=== PATIENT | female | born 1945 | race Caucasian/White ===

== ENCOUNTER 2019-01-18 13:34 | Emergency (ER) | payer MEDICARE, OTHER ==
[2019-01-18] MEDS ORDERED: Sodium Chloride 0.9% 1,000 ML IV ONE (14:00)
[2019-01-18] MEDS ORDERED: Sodium Chloride 0.9% 10 ML Syringe FLUSH PRN (14:00)
[2019-01-18 18:55] VITALS: BP 140/56
--- NOTE | 2019-01-19 04:46 | EDM.PDOC ---
ED HPI GENERAL MEDICAL PROBLEM - General Chief Complaint: General Stated Complaint: LIGHT HEADED LOW BP Time Seen by Provider: 01/18/19 14:00 Source of Information: Reports: Patient History Limitations: Reports: No Limitations - History of Present Illness INITIAL COMMENTS - FREE TEXT/NARRATIVE: This pleasant 73-year-old woman with lupus erythematosus and chronic kidney disease was seen by Dr. Obrien 9:30 today and [facility]azar and had recent right renal artery stent placed. She had myocardial infarction process 18 with 2 stents placed. Hypertension. She is noted to have a blood pressure that small in the right arm behind her left arm. She's not had aneurysm studies. She was seen last Monday. Known to have a blockage of her kidneys. She did not want dialysis consequently a stent was placed 12/28/18 also was needing to have [facility] states that her neck but the [facility] surgeons platform engineer team chose not to do anything until she has resolution of her renal status. Chief complaint today was that she on getting up to make coffee she felt slightly lightheaded laid down drank some water still felt lightheaded when she got up. She took her meds at 9:00. And still feels slightly lightheaded now. She is worried about the differential blood pressure arm. - Related Data Allergies Allergy/AdvReac Type Severity Reaction Status Date / Time No Known Allergies Allergy Verified 01/18/19 14:52 Home Meds: Home Meds Hydroxychloroquine [Plaquenil] 200 mg PO BID 12/17/15 [History] Acetaminophen 650 mg PO Q6H PRN 11/01/18 [History] Albuterol [Ventolin HFA] 2 puff .XX Q4H PRN 11/01/18 [History] Aspirin [Halfprin] 81 mg PO DAILY 11/01/18 [History] Budesonide/Formoterol Fumarate [Symbicort 160-4.5 Mcg Inhaler] 2 puff IH BID 05/14 [History] Calcitriol [Rocaltrol] 0.25 mcg PO DAILY 11/01/18 [History] Carvedilol [Coreg] 3.125 mg PO BID 11/01/18 [History] Clopidogrel [Plavix] 75 mg PO DAILY 11/01/18 [History] Loratadine [Claritin] 10 mg PO DAILY PRN 11/01/18 [History] Triamcinolone Acetonide [Triamcinolone Acetonide 0.1% Crm] 0 tub TOP TID PRN 05/14 [History] Fluticasone Propionate [Flonase] 2 spray NS DAILY 01/18/19 [History] Isosorbide Dinitrate 5 mg PO TID 01/18/19 [History] Losartan [Cozaar] 12.5 mg PO DAILY 01/18/19 [History] Nitroglycerin 0.4 mg SL TID PRN 01/18/19 [History] Rosuvastatin [Crestor] 20 mg PO DAILY 01/18/19 [History] Past Medical History Cardiovascular History: Reports: Aneurysm, Heart Murmur, High Cholesterol, Hypertension, [place], Prior Cardiac Arrest, SOB on Exertion, Syncope Respiratory History: Reports: Sleep Apnea, SOB Gastrointestinal History: Reports: Other (See Below) Other Gastrointestinal History: CRAMPING,DIAHHREA 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 Musculoskeletal History: Reports: Arthritis, Back Pain, Chronic, Fracture Neurological History: Reports: Migraines, Vertigo Dermatologic History: Reports: Other (See Below) Other Dermatologic History: Lupus - Past Surgical History HEENT Surgical History: Reports: Adenoidectomy, Cataract Surgery, Oral Surgery, Tonsillectomy Cardiovascular Surgical History: Reports: Aneurysm, Other (See Below) Female Surgical History: Reports: Hysterectomy, Tubal Ligation Social & Family History - Family History Family Medical History: Noncontributory - Tobacco Use Smoking Status *Q: Former Smoker Used Tobacco, but Quit: Yes Month/Year Tobacco Last Used: October 2018 - Caffeine Use Caffeine Use: Reports: Coffee, Soda - Recreational Drug Use Recreational Drug Use: No ED ROS GENERAL - Review of Systems Review Of Systems: ROS reveals no pertinent complaints other than HPI. ED EXAM, GENERAL - Physical Exam Exam: See Below Free Text/Narrative:: Pleasant talkative woman who is a thankful for her laceration repair performed in December that I performed. She thanked me for this. The juventino border is exquisitely intact and the complement was greeted with great deal of personal satisfaction. He wonders why she has variable arm blood pressures and felt lightheaded. She denies chest pain shortness of breath cough back pain neck pain or pain. She denies sore throat fever sinus congestion URI bowel changes ore pain. Since she's had her renal stent placement in Dec 28 is Passing more urine.She feels that she has better control of the swelling of her ankles. and has appreciated improvement of her renal status. She has chronic lupus and is taking plaquinil Chief complaint today lightheadedness. On getting observation rate coffee and felt slightly dizzy shabbily to get the collar. She lay down or water got up and still felt lightheaded presents to ED for evaluation for lightheadedness. Exam Limited By: No Limitations General Appearance: Alert, WD/WN, No Apparent Distress Eye Exam: Bilateral Eye: Normal Inspection Ear Exam: Bilateral Ear: Auricle Normal, Canal Normal, TM normal Nose: Normal Inspection Throat/Mouth: Normal Inspection, Normal Lips, Normal Teeth, Normal Gums, Normal Oropharynx, Normal Voice, No Airway Compromise Head: Atraumatic, Normocephalic Neck: Normal Inspection, Supple, Non-Tender Respiratory/Chest: No Respiratory Distress, Lungs Clear, Normal Breath Sounds, No Accessory Muscle Use, Chest Non-Tender, Respiratory Distress Cardiovascular: Normal Peripheral Pulses, Regular Rate, Rhythm, No Edema, No Gallop, No JVD, No Murmur Peripheral Pulses: 1+: Radial (L), Radial (R) GI/Abdominal: Normal Bowel Sounds, Soft, Non-Tender, No Distention, No Abnormal Bruit (Female) Exam: Normal External Exam, Deferred Rectal (Female) Exam: Deferred Back Exam: Normal Inspection, Full Range of Motion Extremities: Normal Inspection, Normal Range of Motion, Non-Tender, Pedal Edema Neurological: Alert, Oriented, CN II-XII Intact, Normal Cognition, Normal Gait, Normal Reflexes, No Motor/Sensory Deficits Psychiatric: Normal Affect, Normal Mood Skin Exam: Warm, Dry, Intact, Normal Color Lymphatic: No Adenopathy Course - Vital Signs Last Recorded V/S: Last Vital Signs Temp 36.4 C 01/18/19 13:45 Pulse 65 01/18/19 13:45 Resp 18 01/18/19 13:45 BP 140/56 L 01/18/19 13:45 Pulse Ox 100 01/18/19 13:45 Orthostatic Blood Pressure [ 73/49 Standing] Orthostatic Blood Pressure [ 104/64 Sitting] Orthostatic Blood Pressure [ 140/56 Supine] - Orders/Labs/Meds Orders: Active Orders 24 hr Category Date Time Status Orthostatic Vital Signs [RC] ASDIRECTED Care 01/18/19 13:30 Active Peripheral IV Insertion Adult [OM.PC] Routine Oth 01/18/19 14:00 Ordered Labs: Laboratory Tests 01/18/19 Range/Units 14:50 Sodium 140 (135-145) mmol/L Potassium 3.5 (3.5-5.3) mmol/L Chloride 105 (100-110) mmol/L Carbon Dioxide 26 (21-32) mmol/L BUN 35 H (7-18) mg/dL Creatinine 1.9 H (0.55-1.02) mg/dL Est Cr Clr Drug Dosing TNP Estimated GFR (MDRD) 26 L (>60) BUN/Creatinine Ratio 18.4 (9-20) Glucose 98 (80-116) mg/dL Calcium 8.3 L (8.6-10.2) mg/dL Total Bilirubin 0.6 (0.1-1.3) mg/dL AST 26 H D (5-25) IU/L ALT 13 D (12-36) U/L Alkaline Phosphatase 72 (56-112) IU/L Total Protein 6.4 (6.0-8.0) g/dL Albumin 2.4 L (3.2-4.6) g/dL Globulin 4.0 g/dL Albumin/Globulin Ratio 0.6 Meds: Medications Discontinued Medications Generic Name Dose Route Start Last Admin Trade Name Freq PRN Reason Stop Dose Admin Sodium Chloride 1,000 mls @ 999 mls/hr 01/18/19 14:00 01/18/19 14:00 Normal Saline IV 01/18/19 15:00 999 mls/hr ONETIME ONE Administration Sodium Chloride 10 ml 01/18/19 14:00 01/18/19 14:00 Saline Flush FLUSH 10 ml ASDIRECTED PRN Administration Keep Vein Open Departure - Departure Time of Disposition: 14:00 (Patient is dehydrated and has orthostatic hypotension. She dramatically better with liter N saline. Patient dismissed to follow up 1 week. She also has regular vascular pathology with asymmetrical extremity pulses and blood pressures and has recent renal stent placed because of breath necrosis renal arteries. An top that she has lupus treated with Plaquenil and chronic obstructive lung disease coronary disease dyslipidemia COPD) Disposition: Home, Self-Care 01 Condition: Good Clinical Impression: Dehydration, Lightheadedness, Orthostatic hypotension, Renal artery stenosis - Discharge Information *PRESCRIPTION DRUG MONITORING PROGRAM REVIEWED*: Not Applicable *COPY OF PRESCRIPTION DRUG MONITORING REPORT IN PATIENT VALERI: Not Applicable Instructions: Dehydration, Adult, [id number] Referrals: Horace Santo MD [Primary Care Provider] - Forms: ED Department Discharge Additional Instructions: You have chronic kidney disease. Today's symptoms are function of dehydration. You have abnormal blood pressure in ears left and right arms because of atherosclerotic changes in your circulation to both upper extremities. You also have abnormality of left carotid ,a large loud bruit. That's caused by the same. Your kidney doctor did you by getting the stent in place. YOU will need further investigation and follow-up regarding your neck circulation and upper extremity circulation abnormalities. Most important your doctors have taken care of the first priority, your kidneys. There are obviously planning to work on your other vascular abnormalities. The sure you drink at least 2 quarts of water/liquids/coffee and/or fluids a day. Follow-up with your doctor in a week and/or as needed. - My Orders Last 24 Hours: My Active Orders 01/18/19 13:30 Orthostatic Vital Signs [RC] ASDIRECTED 01/18/19 14:00 Peripheral IV Insertion Adult [OM.PC] Routine - Assessment/Plan Last 24 Hours: My Active Orders 01/18/19 13:30 Orthostatic Vital Signs [RC] ASDIRECTED 01/18/19 14:00 Peripheral IV Insertion Adult [OM.PC] Routine
== END 2019-01-18 15:46 | disposition home or self-care (01) ==
LOC: FB.ED 13:34
DX: E86.0 Dehydration (principal); I95.1 Orthostatic hypotension; I70.1 Atherosclerosis of renal artery; E78.00 Pure hypercholesterolemia, unspecified; I10 Essential (primary) hypertension; I25.2 Old myocardial infarction; Z87.891 Personal history of nicotine dependence; Z79.899 Other long term (current) drug therapy; Z79.01 Long term (current) use of anticoagulants
CPT/HCPCS: 36415; 80053; 96360; 99284; J7030

== ENCOUNTER 2019-03-17 22:15 | Emergency (ER) | payer MEDICARE, OTHER ==
[2019-03-17] MEDS ORDERED: hydrALAZINE 20 MG/ML SDV IM ONE (22:25)
--- NOTE | 2019-03-17 22:47 | EDM.PDOC ---
ED HPI GENERAL MEDICAL PROBLEM - General Chief Complaint: ENT Problem Stated Complaint: NOSE BLEED Time Seen by Provider: 03/17/19 22:30 Source of Information: Reports: Patient History Limitations: Reports: No Limitations - History of Present Illness INITIAL COMMENTS - FREE TEXT/NARRATIVE: Patient presents with left sided epistaxis x 1 hour. Has not yet taken evening HTN meds and she ate ham for supper. Denies trauma to the nose. Patient takes Plavix for CAD. Onset: Today Onset Date: 03/17/19 Onset Time: 21:30 Duration: Hour(s): (1) - Related Data Allergies Allergy/AdvReac Type Severity Reaction Status Date / Time hayfever Allergy Sneezing Uncoded 03/17/19 23:22 Home Meds: Home Meds Hydroxychloroquine [Plaquenil] 200 mg PO BID 12/17/15 [History] Acetaminophen 650 mg PO Q6H PRN 11/01/18 [History] Albuterol [Ventolin HFA] 2 puff .XX Q4H PRN 11/01/18 [History] Aspirin [Halfprin] 81 mg PO DAILY 11/01/18 [History] Budesonide/Formoterol Fumarate [Symbicort 160-4.5 Mcg Inhaler] 2 puff IH BID 05/14 [History] Calcitriol [Rocaltrol] 0.25 mcg PO DAILY 11/01/18 [History] Carvedilol [Coreg] 3.125 mg PO BID 11/01/18 [History] Clopidogrel [Plavix] 75 mg PO DAILY 11/01/18 [History] Loratadine [Claritin] 10 mg PO DAILY PRN 11/01/18 [History] Triamcinolone Acetonide [Triamcinolone Acetonide 0.1% Crm] 0 tub TOP TID PRN 05/14 [History] Fluticasone Propionate [Flonase] 2 spray NS DAILY 01/18/19 [History] Isosorbide Dinitrate 5 mg PO TID 01/18/19 [History] Losartan [Cozaar] 12.5 mg PO DAILY 01/18/19 [History] Nitroglycerin 0.4 mg SL TID PRN 01/18/19 [History] Rosuvastatin [Crestor] 20 mg PO DAILY 01/18/19 [History] Past Medical History Cardiovascular History: Reports: Aneurysm, CAD, Heart Murmur, High Cholesterol, Hypertension, [place], Prior Cardiac Arrest, SOB on Exertion, Syncope Respiratory History: Reports: Sleep Apnea, SOB Gastrointestinal History: Reports: Other (See Below) Other Gastrointestinal History: CRAMPING,DIAHHREA 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 Musculoskeletal History: Reports: Arthritis, Back Pain, Chronic, Fracture Neurological History: Reports: Migraines, Vertigo Dermatologic History: Reports: Other (See Below) Other Dermatologic History: Lupus - Past Surgical History HEENT Surgical History: Reports: Adenoidectomy, Cataract Surgery, Oral Surgery, Tonsillectomy Cardiovascular Surgical History: Reports: Aneurysm, Other (See Below) Female Surgical History: Reports: Hysterectomy, Tubal Ligation Social & Family History - Family History Family Medical History: Noncontributory - Tobacco Use Smoking Status *Q: Former Smoker Tobacco Use Within Last Twelve Months: No - Caffeine Use Caffeine Use: Reports: Coffee, Soda ED ROS ENT - Review of Systems Review Of Systems: ROS reveals no pertinent complaints other than HPI. ED EXAM, ENT - Physical Exam Exam: See Below Exam Limited By: No Limitations General Appearance: Alert, WD/WN, No Apparent Distress Ears: Normal External Exam Nose: Other (left sided posterior epistaxis) Mouth/Throat: Other (posterior pharyngeal blood present) Head: Atraumatic, Normocephalic Neck: Supple Respiratory/Chest: No Respiratory Distress Extremities: Normal Range of Motion Neurological: Alert, Normal Cognition Psychiatric: Normal Affect, Normal Mood Skin: Warm, Dry, Intact ED ENT PROCEDURES - Epistaxis Procedure Indication: Epistaxis Recent anticoagulants/antiplatlets: Yes Uncontrolled HTN: Yes Recent septal/nasal surgery: No Site of bleeding: Left Nare, Posterior Ice pack to area: No Posterior packing: Other (7.5 cm ant/post rhinopak) Complications: No Course - Vital Signs Last Recorded V/S: Last Vital Signs Temp Pulse 66 03/17/19 23:50 Resp 18 03/17/19 23:50 BP 175/55 H 03/17/19 23:50 Pulse Ox 100 03/17/19 23:50 - Orders/Labs/Meds Meds: Medications Discontinued Medications Generic Name Dose Route Start Last Admin Trade Name Freq PRN Reason Stop Dose Admin Hydralazine HCl 10 mg 03/17/19 22:25 03/17/19 22:40 Apresoline IM 03/17/19 22:26 10 mg .ONCE ONE Administration - Re-Assessments/Exams Free Text/Narrative Re-Assessment/Exam: 03/18/19 00:01 Epistaxis resolved after nasal packing. BP improved to 175/55. Departure - Departure Time of Disposition: 00:01 Disposition: Home, Self-Care 01 Condition: Good Clinical Impression: Left-sided epistaxis Hypertension Qualifiers: Hypertension type: essential hypertension Qualified Code(s): I10 - Essential ( primary) hypertension - Discharge Information *PRESCRIPTION DRUG MONITORING PROGRAM REVIEWED*: No *COPY OF PRESCRIPTION DRUG MONITORING REPORT IN PATIENT VALERI: Not Applicable Instructions: Hypertension, [id number], Nosebleed, Adult Referrals: Horace Santo MD [Primary Care Provider] - Forms: ED Department Discharge Additional Instructions: Hold tonight's Carvedilol dose, you may take all other evening medication. Resume all medications tomorrow. Avoid salty foods. Follow up in 2 days for packing removal. Return to the ER as needed.
[2019-03-17 23:55] VITALS: BP 175/55
== END 2019-03-18 00:20 | disposition home or self-care (01) ==
LOC: FB.ED 22:15
DX: R04.0 Epistaxis (principal); I10 Essential (primary) hypertension; E78.00 Pure hypercholesterolemia, unspecified; Z79.899 Other long term (current) drug therapy; Z79.01 Long term (current) use of anticoagulants; Z87.891 Personal history of nicotine dependence; Z79.82 Long term (current) use of aspirin
CPT/HCPCS: 30901; 30905; 96372; 99282; 99283; J0360

== ENCOUNTER 2019-03-21 11:42 | Emergency (ER) | payer MEDICARE, OTHER ==
[2019-03-21] MEDS: Oxymetazoline 0.05% Nasal Spray 15 ML Bottle NAS PRN ×2 (12:15→12:30)
--- NOTE | 2019-03-21 13:13 | EDM.PDOC ---
ED HPI GENERAL MEDICAL PROBLEM - General Chief Complaint: ENT Problem Stated Complaint: NOSE BLEED Time Seen by Provider: 03/21/19 12:15 Source of Information: Reports: Patient History Limitations: Reports: No Limitations - History of Present Illness INITIAL COMMENTS - FREE TEXT/NARRATIVE: 73-year-old female who has had recurring left-sided nosebleeds since 03/17/2019. She was seen in the emergency department on 03/17/[address] Caballero and had a Rhino Rocket placed in her left nostril she had that Rhino Rocket removed yesterday at 8 AM and she was fine until last night when she did have another small bleed from her left nostril that she easily controlled with direct pressure. 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 She came home from driving school bus and she had another small bleed from her left nostril and applied saline spray to her nostril and it seemed to stop with direct pressure and then she had rather heavy bleeding from her left nostril and then it seemed to come from her right nostril after that. She had no pain associated with this. She rates her pain as a 0/10. She had no weakness or dizziness. She presents here from home with ongoing nosebleed. She does feel that it is draining in the back of her throat. She's had no trouble breathing. She's had no cough. There has been no nausea or vomiting. She is currently on Plavix and baby aspirin related to stents placed in her heart in October 2018. There are no other associated signs or symptoms. There are no other modifying factors. 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 - Related Data Allergies Allergy/AdvReac Type Severity Reaction Status Date / Time hayfever Allergy Sneezing Uncoded 03/17/19 23:22 Home Meds: Home Meds Hydroxychloroquine [Plaquenil] 200 mg PO BID 12/17/15 [History] Acetaminophen 650 mg PO Q6H PRN 11/01/18 [History] Albuterol [Ventolin HFA] 2 puff .XX Q4H PRN 11/01/18 [History] Aspirin [Halfprin] 81 mg PO DAILY 11/01/18 [History] Budesonide/Formoterol Fumarate [Symbicort 160-4.5 Mcg Inhaler] 2 puff IH BID 05/14 [History] Calcitriol [Rocaltrol] 0.25 mcg PO DAILY 11/01/18 [History] Carvedilol [Coreg] 3.125 mg PO BID 11/01/18 [History] Clopidogrel [Plavix] 75 mg PO DAILY 11/01/18 [History] Loratadine [Claritin] 10 mg PO DAILY PRN 11/01/18 [History] Triamcinolone Acetonide [Triamcinolone Acetonide 0.1% Crm] 0 tub TOP TID PRN 05/14 [History] Fluticasone Propionate [Flonase] 2 spray NS DAILY 01/18/19 [History] Isosorbide Dinitrate 5 mg PO TID 01/18/19 [History] Losartan [Cozaar] 12.5 mg PO DAILY 01/18/19 [History] Nitroglycerin 0.4 mg SL TID PRN 01/18/19 [History] Rosuvastatin [Crestor] 20 mg PO DAILY 01/18/19 [History] Past Medical History Cardiovascular History: Reports: Aneurysm, CAD, Heart Murmur, High Cholesterol, Hypertension, [place], Prior Cardiac Arrest, SOB on Exertion, Stents Respiratory History: Reports: COPD, Sleep Apnea 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 Musculoskeletal History: Reports: Arthritis, Back Pain, Chronic, Fracture Neurological History: Reports: Migraines, Vertigo Dermatologic History: Reports: Other (See Below) Other Dermatologic History: Lupus - Past Surgical History HEENT Surgical History: Reports: Adenoidectomy, Cataract Surgery, Oral Surgery, Tonsillectomy Cardiovascular Surgical History: Reports: Aneurysm, Coronary Artery Stent, Other (See Below) (Renal artery stent, SMA stent, leg artery stent) Female Surgical History: Reports: Hysterectomy, Tubal Ligation Social & Family History - Tobacco Use Smoking Status *Q: Former Smoker (Quit in October 2018, heavy smoker prior to this.) - Caffeine Use Caffeine Use: Reports: Coffee, Soda - Alcohol Use Alcohol Use History: No - Living Situation & Occupation 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 ED ROS ENT - Review of Systems Review Of Systems: See Below Constitutional: Reports: No Symptoms HEENT: Reports: Other (Left-sided nosebleed) Respiratory: Reports: Shortness of Breath (Chronic shortness of breath which is unchanged.) Cardiovascular: Reports: No Symptoms Endocrine: Reports: No Symptoms GI/Abdominal: Reports: No Symptoms : Reports: No Symptoms Musculoskeletal: Reports: No Symptoms Skin: Reports: No Symptoms Neurological: Reports: No Symptoms Hematologic/Lymphatic: Reports: Other (On Plavix) Immunologic: Reports: No Symptoms ED EXAM, ENT - Physical Exam Exam: See Below Exam Limited By: No Limitations General Appearance: Alert, WD/WN, No Apparent Distress Eye Exam: Bilateral Eye: EOMI, Normal Inspection, PERRL Ears: Normal External Exam, Hearing Grossly Normal Nose: Normal Inspection (No definite bleeding site in the anterior nose), Dried Blood. No: Nasal Deformity, Nasal Tenderness, Septal Perforation Mouth/Throat: Bleeding (Posterior pharyngeal), Other (Voice membranes) Head: Atraumatic, Normocephalic Neck: Normal Inspection, Supple, Non-Tender, Full Range of Motion Respiratory/Chest: No Respiratory Distress, Lungs Clear, Normal Breath Sounds, No Accessory Muscle Use, Chest Non-Tender Cardiovascular: Normal Peripheral Pulses, Regular Rate, Rhythm, No JVD GI/Abdominal: Normal Bowel Sounds, Soft, Non-Tender, No Mass Back: Normal Inspection Extremities: Normal Inspection, Non-Tender, No Pedal Edema Neurological: Alert, Oriented, CN II-XII Intact, Normal Cognition, No Motor/ Sensory Deficits Psychiatric: Normal Affect Skin: Warm, Dry, Intact, Normal Color, No Rash Lymphatic: No Adenopathy ED ENT PROCEDURES - Epistaxis Procedure Indication: Epistaxis, Uncontrolled Recent anticoagulants/antiplatlets: Yes (Plavix, baby aspirin) Uncontrolled HTN: Yes Recent septal/nasal surgery: No Site of bleeding: Left Nare, Other (Undetermined) Clearing of clots: Patient Blew Nose, Other (Oxymetazoline instilled into left nostril after patient cleared her clots and steady direct pressure was applied for 20-30 minutes to both nostrils. Patient remained was slightly elevated blood pressure but this improved while she was in the emergency department. Following this the patient was reexamined and there was no identifiable anterior source of the bleeding. She had no bleeding at this time and no posterior pharyngeal blood. At this time I instilled saline into the left nostril and then instilled Vaseline into the left nostril. The patient tolerated this well and there are no apparent palpitations. Patient was observed for actually 45 minutes to one hour with no further bleeding.) Topical Meds: Other (Oxymetazoline) Ice pack to area: No Complications: No Course - Vital Signs Last Recorded V/S: Last Vital Signs Temp 36.2 C 03/21/19 11:42 Pulse 85 03/21/19 11:42 Resp 20 03/21/19 11:42 BP 100/69 03/21/19 11:42 Pulse Ox 95 03/21/19 11:42 - Orders/Labs/Meds Orders: Active Orders 24 hr Category Date Time Status Oxymetazoline [Afrin Original 0.05% Nasal [place]] Med 03/21/19 12:26 Active 1 ml ESTHER ASDIRECTED PRN Medication Orders Oxymetazoline HCl (Afrin Original 0.05% Nasal [place]) 1 ml ESTHER ASDIRECTED PRN PRN Reason: Nosebleed Labs: Laboratory Tests 03/21/19 03/21/19 03/21/19 Range/Units 12:40 12:40 12:40 WBC 8.2 (4.5-12.0) X10-3/uL RBC 3.50 (3.23-5.20) x10(6)uL Hgb 11.5 (11.5-15.5) g/dL Hct 33.2 (30.0-51.3) % MCV 94.9 (80-96) fL MCH 32.7 (27.7-33.6) pg MCHC 34.5 (32.2-35.4) g/dL RDW 14.5 (11.5-15.5) % Plt Count 203 (125-369) X10(3)uL MPV 8.5 (7.4-10.4) fL Neut % (Auto) 65.9 (46-82) % Lymph % (Auto) 20.4 (13-37) % [place] % (Auto) 9.8 (4-12) % Eos % (Auto) 3 (1.0-5.0) % Baso % (Auto) 1 (0-2) % Neut # (Auto) 5.3 (1.6-8.3) # Lymph # (Auto) 1.7 (0.6-5.0) # [place] # (Auto) 0.8 (0.0-1.3) # Eos # (Auto) 0.3 (0.0-0.8) # Baso # (Auto) 0.1 (0.0-0.2) # PT 9.7 (8.7-11.1) INR 1.00 (0.89-1.13) APTT 24.8 (24.4-33.2) SECONDS Sodium 140 (135-145) mmol/L Potassium 3.5 (3.5-5.3) mmol/L Chloride 105 (100-110) mmol/L Carbon Dioxide 26 (21-32) mmol/L BUN 24 H D (7-18) mg/dL Creatinine 1.3 H (0.55-1.02) mg/dL Est Cr Clr Drug Dosing 27.68 mL/min Estimated GFR (MDRD) 40 L (>60) BUN/Creatinine Ratio 18.5 (9-20) Glucose 96 (80-116) mg/dL Calcium 9.3 (8.6-10.2) mg/dL Total Bilirubin 0.4 (0.1-1.3) mg/dL AST 41 H D (5-25) IU/L ALT 41 H D (12-36) U/L Alkaline Phosphatase 80 (56-112) IU/L Total Protein 6.9 (6.0-8.0) g/dL Albumin 3.1 L (3.2-4.6) g/dL Globulin 3.8 g/dL Albumin/Globulin Ratio 0.8 Meds: Medications Generic Name Dose Route Start Last Admin Trade Name Freq PRN Reason Stop Dose Admin Oxymetazoline HCl 1 ml 03/21/19 12:26 Afrin Original 0.05% Nasal [place] ESTHER ASDIRECTED PRN Nosebleed - Re-Assessments/Exams Free Text/Narrative Re-Assessment/Exam: 03/21/19 13:39: The patient has been observed now for greater than 1 hour post intervention with oxymetazoline to the left nostril and steady direct pressure to both nostrils. Her blood tests were all reassuringly normal or unchanged from previous. The plan will be to discharge the patient at this time. She is to have complete rest for the next 4 days. She shouldn't instill saline spray into her left nostril frequently during the day and she should apply Vaseline to the left nostril twice daily and particularly at bedtime. If she has recurrent nosebleed, she should spray the oxymetazoline into the left nostril then clear her clots with gentle blowing of the nose and then she shouldn't instill additional oxymetazoline into the left nostril and apply steady direct pressure for 30 minutes. If the bleeding fails to stop, she should come back to the emergency department. 03/21/19 14:48: Recheck of patient does show no further bleeding. Will discharge home as above. Departure - Departure Time of Disposition: 14:50 Disposition: Home, Self-Care 01 Condition: Good Clinical Impression: Epistaxis Hypertension Qualifiers: Hypertension type: essential hypertension Qualified Code(s): I10 - Essential ( primary) hypertension - Discharge Information Instructions: Nosebleed, Adult, Hypertension Referrals: Horace Santo MD [Primary Care Provider] - Forms: ED Department Discharge Additional Instructions: Your blood tests were reassuringly normal or unchanged from previous. You're blood pressure was elevated in the emergency department but it did come down quite well while you were here. You should have complete rest until Monday, 03/25. He should apply saline nasal spray to your left nostril several times throughout the day. He should also apply Vaseline to the left nostril as we did in the emergency department today a few times a day and particularly at bedtime. If you have recurrent nosebleed, you should spray the oxymetazoline spray into the nostril that is bleeding and then clear the blood clots were gently blowing your nose. Following this, you should instill another spray of the oxymetazoline into your left nostril and then apply steady, direct pressure with your hand for the soft spot of the nose as we showed you the emergency department and you should hold this pressure in place for 30 minutes with your head elevated. If the bleeding fells to stop with this, you should come back to the emergency department for reevaluation. Follow-up with Dr. Santo by this next week as you may need referral to an ear nose and throat doctor. - My Orders Last 24 Hours: My Active Orders 03/21/19 12:26 Oxymetazoline [Afrin Original 0.05% Nasal [place]] 1 ml ESTHER ASDIRECTED PRN - Assessment/Plan Last 24 Hours: My Active Orders 03/21/19 12:26 Oxymetazoline [Afrin Original 0.05% Nasal [place]] 1 ml ESTHER ASDIRECTED PRN
[2019-03-21 20:31] VITALS: BP 180/64
== END 2019-03-21 15:11 | disposition home or self-care (01) ==
LOC: FB.ED 11:42
DX: R04.0 Epistaxis (principal); I10 Essential (primary) hypertension; E78.00 Pure hypercholesterolemia, unspecified; J44.9 Chronic obstructive pulmonary disease, unspecified; Z79.82 Long term (current) use of aspirin; Z79.899 Other long term (current) drug therapy; Z87.891 Personal history of nicotine dependence
CPT/HCPCS: 30901; 36415; 80053; 85025; 85610; 85730; 99282; 99283; A9270

== ENCOUNTER 2019-04-20 19:05 | Observation (INO) | payer MEDICARE ==
[2019-04-20] MEDS ORDERED: Ketorolac 30 MG/ML SDV IM ONE (19:45)
--- NOTE | 2019-04-20 19:51 | EDM.PDOC ---
ED HPI GENERAL MEDICAL PROBLEM - General Chief Complaint: Neuro Symptoms/Deficits Stated Complaint: HEADACHE 4DAYS,BP HIGH Time Seen by Provider: 04/20/19 19:30 Source of Information: Reports: Patient, Family, Old Records History Limitations: Reports: No Limitations - History of Present Illness INITIAL COMMENTS - FREE TEXT/NARRATIVE: Patricia comes into [facility] ED with a 5 day hx of frontal headache, aching in nature , and nonradiating. There has been no visual change, although she was aware of a small subconjunctival hemorrhage yesterday that has since cleared. There is no throbbing or lancinating pain, no pain with chewing, cough or sneeze, and no dental pain. She does not endorse any neck pain or stiffness, and no focal neurologic impairment. Of interest is a recent hx of angioplasty with stenting of R ?brachial or subclavian a on July 10 at [facility]. She is on Plavix daily. She has been taking Tylenol without change. - Related Data Allergies Allergy/AdvReac Type Severity Reaction Status Date / Time hayfever Allergy Sneezing Uncoded 04/20/19 19:29 Home Meds: Home Meds Hydroxychloroquine [Plaquenil] 200 mg PO BID 12/17/15 [History] Acetaminophen 650 mg PO Q6H PRN 11/01/18 [History] Albuterol [Ventolin HFA] 2 puff .XX Q4H PRN 11/01/18 [History] Aspirin [Halfprin] 81 mg PO DAILY 11/01/18 [History] Budesonide/Formoterol Fumarate [Symbicort 160-4.5 Mcg Inhaler] 2 puff IH BID 05/14 [History] Calcitriol [Rocaltrol] 0.25 mcg PO DAILY 11/01/18 [History] Carvedilol [Coreg] 3.125 mg PO BID 11/01/18 [History] Clopidogrel [Plavix] 75 mg PO DAILY 11/01/18 [History] Loratadine [Claritin] 10 mg PO DAILY PRN 11/01/18 [History] Triamcinolone Acetonide [Triamcinolone Acetonide 0.1% Crm] 0 tub TOP TID PRN 05/14 [History] Fluticasone Propionate [Flonase] 2 spray NS DAILY 01/18/19 [History] Isosorbide Dinitrate 5 mg PO TID 01/18/19 [History] Losartan [Cozaar] 12.5 mg PO DAILY 01/18/19 [History] Nitroglycerin 0.4 mg SL TID PRN 01/18/19 [History] Rosuvastatin [Crestor] 20 mg PO DAILY 01/18/19 [History] Past Medical History HEENT History: Reports: Epistaxis Cardiovascular History: Reports: Aneurysm, CAD, Heart Murmur, High Cholesterol, Hypertension, [place], Prior Cardiac Arrest, SOB on Exertion, Stents Respiratory History: Reports: COPD, Sleep Apnea Gastrointestinal History: Reports: Other (See Below) Other Gastrointestinal History: CRAMPING,DIAHHREA Genitourinary History: Reports: None 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 Musculoskeletal History: Reports: Arthritis, Back Pain, Chronic, Fracture Neurological History: Reports: Migraines, Vertigo Psychiatric History: Reports: Anxiety Immunologic History: Reports: Other (See Below) Other Immunologic History: lupus Dermatologic History: Reports: Other (See Below) Other Dermatologic History: Lupus - Past Surgical History HEENT Surgical History: Reports: Adenoidectomy, Cataract Surgery, Oral Surgery, Tonsillectomy Cardiovascular Surgical History: Reports: Aneurysm, Coronary Artery Stent, Other (See Below) (Renal artery stent, SMA stent, leg artery stent) Female Surgical History: Reports: Hysterectomy, Tubal Ligation Social & Family History - Family History Family Medical History: Noncontributory - Caffeine Use Caffeine Use: Reports: Coffee, Soda - Living Situation & Occupation 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) ED ROS GENERAL - Review of Systems Review Of Systems: See Below Constitutional: Reports: No Symptoms HEENT: Reports: Other (subconjunctival hemorrhage yesterday...has since cleared) Respiratory: Reports: No Symptoms Cardiovascular: Reports: No Symptoms Endocrine: Reports: No Symptoms GI/Abdominal: Reports: No Symptoms : Reports: No Symptoms Musculoskeletal: Reports: No Symptoms Skin: Reports: No Symptoms Neurological: Reports: Headache Psychiatric: Reports: No Symptoms Hematologic/Lymphatic: Reports: No Symptoms - Physical Exam Exam: See Below Exam Limited By: No Limitations General Appearance: Alert, WD/WN, No Apparent Distress, Anxious Eye Exam: Bilateral Eye: EOMI, Normal Inspection, PERRL Ears: Normal External Exam, Normal TMs Nose: Normal Inspection Throat/Mouth: Normal Lips, Normal Teeth, Normal Gums, Normal Oropharynx, Normal Voice, No Airway Compromise Head Exam: Normocephalic, Scalp Tenderness (frontalis mm, no TMJ tenderness, no tenderness of temporal aa) Neck: Normal Inspection, Supple, Non-Tender Respiratory/Chest: No Respiratory Distress, No Accessory Muscle Use, Decreased Breath Sounds, Prolonged Expiration Cardiovascular: Normal Peripheral Pulses, Regular Rate, Rhythm, No Murmur GI/Abdominal: Soft, Non-Tender, No Organomegaly, No Distention, No Mass (Female) Exam: Deferred Rectal (Female) Exam: Deferred Neuro Exam (Abbreviated): Alert, Oriented, CN II-XII Intact, Normal Cognition, No Motor/Sensory Deficits Back Exam: Normal Inspection Extremities: Normal Inspection Psychiatric: Normal Affect, Anxious Skin Exam: Warm, Dry, Intact Course - Vital Signs Text/Narrative:: Following assessment at the [facility] ED, Patricia was administered Toradol 30 mg IM for headache sxs. There was no improvement after an 1/2 hr observation, and Patricia was administered Fentanyl 50 mcg IM. Her headache sxs were unimproved after 1 hour of observation, in addition to development of nausea and elevated BP 204/105. She was subsequently administered Apresoline 10 mg IV. BPs remained elevated, and she was administered Zofran 4 mg IV, followed by Apresoline 10 mg IV and Fentanyl 50 mcg IV, with reduction of headache sxs and BP 170/90s. Patient was reluctant to return home after observation in the ED. and she was admitted to Observation for monitoring of BP. Last Recorded V/S: Last Vital Signs Temp 36.8 C 04/20/19 19:05 Pulse 61 04/21/19 00:00 Resp 18 04/21/19 00:00 BP 171/54 H 04/21/19 00:00 Pulse Ox 98 04/21/19 00:00 - Orders/Labs/Meds Orders: Active Orders 24 hr Category Date Time Status Sodium Chloride 0.9% [Saline Flush] Med 04/20/19 21:05 Active 10 ml FLUSH ASDIRECTED PRN Peripheral IV Insertion Adult [OM.PC] Routine Oth 04/20/19 21:05 Ordered Medication Orders Sodium Chloride (Saline Flush) 10 ml FLUSH ASDIRECTED PRN PRN Reason: Keep Vein Open Meds: Medications Generic Name Dose Route Start Last Admin Trade Name Freq PRN Reason Stop Dose Admin Sodium Chloride 10 ml 04/20/19 21:05 Saline Flush FLUSH ASDIRECTED PRN Keep Vein Open Discontinued Medications Generic Name Dose Route Start Last Admin Trade Name Freq PRN Reason Stop Dose Admin Fentanyl 50 mcg 04/20/19 21:10 04/20/19 21:25 Sublimaze IVPUSH 04/20/19 21:11 50 mcg ONETIME ONE Administration Fentanyl 50 mcg 04/20/19 23:25 04/20/19 23:33 Sublimaze IVPUSH 04/20/19 23:26 50 mcg ONETIME ONE Administration Hydralazine HCl 10 mg 04/20/19 22:32 04/20/19 22:48 Apresoline IVPUSH 04/20/19 22:33 10 mg ONETIME ONE Administration Hydralazine HCl 10 mg 04/20/19 23:16 04/20/19 23:34 Apresoline IVPUSH 04/20/19 23:17 10 mg ONETIME ONE Administration Ketorolac Tromethamine 30 mg 04/20/19 19:45 04/20/19 20:11 Toradol IM 04/20/19 19:46 30 mg ONETIME ONE Administration Ondansetron HCl 4 mg 04/20/19 23:16 04/20/19 23:30 Zofran IVPUSH 04/20/19 23:17 4 mg ONETIME ONE Administration Departure - Departure Time of Disposition: 00:55 Disposition: Refer to Observation Condition: Fair Clinical Impression: Asymptomatic hypertensive urgency - Discharge Information *PRESCRIPTION DRUG MONITORING PROGRAM REVIEWED*: Not Applicable *COPY OF PRESCRIPTION DRUG MONITORING REPORT IN PATIENT VALERI: Not Applicable Instructions: Tension Headache, Adult, Managing Your Hypertension, Hypertension Referrals: Horace Santo MD [Primary Care Provider] - Forms: ED Department Discharge Additional Instructions: Keep taking your losartan 25 mg 2 times a day as increased by your primary MD. Check your BP 2-3 times a day on your left arm and record. Call your MD with the readings for further instructions on your BP medications. Return to the ER with worsening symptoms. - Problem List & Annotations (1) Asymptomatic hypertensive urgency SNOMED Code(s): 322604469, 158446780 Code(s): I16.0 - HYPERTENSIVE URGENCY Status: Acute Current Visit: Yes Annotation/Comment:: Observation bed for managment of hypertensive urgency. - Problem List Review Problem List Initiated/Reviewed/Updated: Yes - My Orders Last 24 Hours: My Active Orders 04/20/19 21:05 Sodium Chloride 0.9% [Saline Flush] 10 ml FLUSH ASDIRECTED PRN Peripheral IV Insertion Adult [OM.PC] Routine - Assessment/Plan Last 24 Hours: My Active Orders 04/20/19 21:05 Sodium Chloride 0.9% [Saline Flush] 10 ml FLUSH ASDIRECTED PRN Peripheral IV Insertion Adult [OM.PC] Routine Plan: Hospitalist to see in the am.
[2019-04-20] MEDS ORDERED: Sodium Chloride 0.9% 10 ML Syringe FLUSH PRN (21:05)
[2019-04-20] MEDS ORDERED: fentaNYL 100 MCG/2 ML SDV IVPUSH ONE ×2 (21:10→23:25)
[2019-04-20] MEDS ORDERED: hydrALAZINE 20 MG/ML SDV IVPUSH ONE ×2 (22:32→23:16)
[2019-04-20] MEDS ORDERED: Ondansetron 4 MG/2 ML SDV IVPUSH ONE (23:16)
[2019-04-21] MEDS ORDERED: traMADol 50 MG Tab PO ONE (05:10)
[2019-04-21] MEDS ORDERED: Ondansetron 4 MG/2 ML SDV IVPUSH ONE (08:23)
[2019-04-21] MEDS ORDERED: Nitroglycerin 0.4 MG Tab.SL SL PRN ×2 (10:14→18:56)
[2019-04-21] MEDS ORDERED: Albuterol 8 GM Inhaler INH PRN (10:14)
--- NOTE | 2019-04-21 11:07 | PCM.HP ---
H&P History of Present Illness - General Date of Service: 04/21/19 Admit Problem/Dx: Admission Diagnosis/Problem Admission Diagnosis/Problem Hypertensive urgency Source of Information: Patient, Old Records History Limitations: Reports: No Limitations - History of Present Illness Initial Comments - Free Text/Narative: Kassandra is a 73-year-old female that came in because of a headache. She described headache for 4-5 days insidious onset,right frontal area moderate to severe. She has a remote history of migraine headaches; but this feels totally different. The headaches are associated with nausea;and dry heaving but no visual disturbance. She also denies any chest pain or shortness of breath. No weakness of one side;no speech disturbance. Nothing seems to help the headache. She has a history of hypertension, coronary disease and that coronary stents placed in October, and also has subclavian artery stenosis and had recent stents placed in the subclavian artery, about 2 weeks ago. Right Frontal Forehead Pain Score (Numeric/FACES): 5 - Related Data Allergies/Adverse Reactions: Allergies Allergy/AdvReac Type Severity Reaction Status Date / Time hayfever Allergy Sneezing Uncoded 04/20/19 19:29 Home Medications: Home Meds Hydroxychloroquine [Plaquenil] 200 mg PO BID 12/17/15 [History] Acetaminophen 650 mg PO Q6H PRN 11/01/18 [History] Albuterol [Ventolin HFA] 2 puff INH Q4H PRN 11/01/18 [History] Aspirin [Halfprin] 81 mg PO DAILY 11/01/18 [History] Budesonide/Formoterol Fumarate [Symbicort 160-4.5 Mcg Inhaler] 2 puff IH BID 05/14 [History] Calcitriol [Rocaltrol] 0.25 mcg PO DAILY 11/01/18 [History] Carvedilol [Coreg] 6.25 mg PO BID 11/01/18 [History] Clopidogrel [Plavix] 75 mg PO DAILY 11/01/18 [History] Loratadine [Claritin] 10 mg PO DAILY PRN 11/01/18 [History] Triamcinolone Acetonide [Triamcinolone Acetonide 0.1% Crm] 0 tub TOP TID PRN 05/14 [History] Isosorbide Dinitrate 5 mg PO TID 01/18/19 [History] Losartan [Cozaar] 12.5 mg PO BID 01/18/19 [History] Nitroglycerin 0.4 mg SL TID PRN 01/18/19 [History] Rosuvastatin [Crestor] 20 mg PO BEDTIME 01/18/19 [History] Calcium Carbonate/Vitamin D3 [Calcium 500-Vit D3 200 Caplet] 1 tab PO DAILY [History] Past Medical History HEENT History: Reports: Epistaxis Cardiovascular History: Reports: Aneurysm, CAD, Heart Murmur, High Cholesterol, Hypertension, [place], Prior Cardiac Arrest, SOB on Exertion, Stents Respiratory History: Reports: COPD, Sleep Apnea Gastrointestinal History: Reports: Other (See Below) Other Gastrointestinal History: CRAMPING,DIAHHREA Genitourinary History: Reports: None Other OB/BYN History: HYSTERECTOMY Musculoskeletal History: Reports: Arthritis, Back Pain, Chronic, Fracture Neurological History: Reports: Migraines, Vertigo Psychiatric History: Reports: Anxiety Immunologic History: Reports: Other (See Below) Other Immunologic History: lupus Dermatologic History: Reports: Other (See Below) Other Dermatologic History: Lupus - Past Surgical History HEENT Surgical History: Reports: Adenoidectomy, Cataract Surgery, Oral Surgery, Tonsillectomy Cardiovascular Surgical History: Reports: Aneurysm, Coronary Artery Stent, Other (See Below) Female Surgical History: Reports: Hysterectomy, Tubal Ligation Social & Family History - Family History Family Medical History: Noncontributory - Tobacco Use Smoking Status *Q: Never Smoker - Caffeine Use Caffeine Use: Reports: Coffee - Recreational Drug Use Recreational Drug Use: No - Living Situation & Occupation 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 Exam - Exam Exam: See Below - Vital Signs Vital Signs: Last Vital Signs Temp 98.2 F 04/21/19 09:00 Pulse 64 04/21/19 09:59 Resp 18 04/21/19 09:59 BP 179/71 H 04/21/19 09:59 Pulse Ox 93 L 04/21/19 09:59 Weight: 71.894 kg - Exam General: Alert, Oriented, 4 HEENT: PERRLA, Hearing Intact, Mucosa Moist & [place], Nares Patent, Normal Nasal Septum, Posterior Pharynx Clear, Conjunctiva Clear, EOMI, EACs Clear, TMs Clear Neck: Supple, Trachea Midline, 2 Lungs: Clear to Auscultation, Normal Respiratory Effort Cardiovascular: Regular Rate, Regular Rhythm GI/Abdominal Exam: Normal Bowel Sounds, Soft, Non-Tender, No Organomegaly, No Distention, No Abnormal Bruit, No Mass, Pelvis Stable (Female) Exam: Deferred Rectal (Female) Exam: Deferred Back Exam: Normal Inspection, Full Range of Motion, NT Extremities: Normal Inspection, Normal Range of Motion, Non-Tender, No Pedal Edema, Normal Capillary Refill Skin: Warm, Dry, Intact Neurological: Cranial Nerves Intact, Reflexes Equal Bilateral Neuro Extensive - Mental Status: Alert, Oriented x3, Normal Mood/Affect, Normal Cognition Neuro Extensive - Motor, Sensory, Reflexes: CN II-XII Intact, Normal Gait, Normal Reflexes Psychiatric: Alert, Normal Affect, Normal Mood - Patient Data Lab Results Last 24 hrs: Laboratory Results - last 24 hr 04/21/19 04/21/19 04/21/19 Range/Units 08:02 08:02 08:02 WBC 7.1 (4.5-12.0) X10-3/uL RBC 3.03 L (3.23-5.20) x10(6)uL Hgb 9.9 L (11.5-15.5) g/dL Hct 29.1 L (30.0-51.3) % MCV 96.3 H (80-96) fL MCH 32.7 (27.7-33.6) pg MCHC 34.0 (32.2-35.4) g/dL RDW 13.7 (11.5-15.5) % Plt Count 242 (125-369) X10(3)uL MPV 8.1 (7.4-10.4) fL Neut % (Auto) 74.5 (46-82) % Lymph % (Auto) 17.1 (13-37) % [place] % (Auto) 7.7 (4-12) % Eos % (Auto) 0 L (1.0-5.0) % Baso % (Auto) 1 (0-2) % Neut # (Auto) 5.4 (1.6-8.3) # Lymph # (Auto) 1.2 (0.6-5.0) # [place] # (Auto) 0.5 (0.0-1.3) # Eos # (Auto) 0.0 (0.0-0.8) # Baso # (Auto) 0.0 (0.0-0.2) # Sodium 142 (135-145) mmol/L Potassium 3.5 (3.5-5.3) mmol/L Chloride 107 (100-110) mmol/L Carbon Dioxide 24 (21-32) mmol/L BUN 20 H (7-18) mg/dL Creatinine 1.2 H (0.55-1.02) mg/dL Est Cr Clr Drug Dosing 29.99 mL/min Estimated GFR (MDRD) 44 L (>60) BUN/Creatinine Ratio 16.7 (9-20) Glucose 104 (80-116) mg/dL Calcium 8.6 (8.6-10.2) mg/dL Troponin I 0.474 H* (<0.017-0.056) ng/mL Result Diagrams: 04/21/19 08:02 04/21/19 18:00 EKG INTERPRETATION Rhythm: NSR QRS: LBBB QT: Normal Comparison: No Change - Problem List (1) Headache SNOMED Code(s): 21026364 ICD Code: R51 - HEADACHE Status: Acute Current Visit: Yes Qualifiers: Headache type: unspecified Headache chronicity pattern: acute headache Intractability: intractable Qualified Code(s): R51 - Headache (2) Elevated troponin SNOMED Code(s): 080345372, 590731503, 242241976 ICD Code: R74.8 - ABNORMAL LEVELS OF OTHER SERUM ENZYMES Status: Acute Current Visit: Yes (3) CAD (coronary artery disease) SNOMED Code(s): 00583710 ICD Code: I25.10 - ATHSCL HEART DISEASE OF [place] CORONARY ARTERY W/O ANG PCTRS Status: Chronic Current Visit: Yes Qualifiers: Coronary Disease-Associated Artery/Lesion type: [place] artery [place] vs. transplanted heart: [place] heart Associated angina: without angina Qualified Code(s): I25.10 - Atherosclerotic heart disease of [place] coronary artery without angina pectoris (4) Hypertension SNOMED Code(s): 58170286 ICD Code: I10 - ESSENTIAL (PRIMARY) HYPERTENSION Status: Chronic Current Visit: No Qualifiers: Hypertension type: essential hypertension Qualified Code(s): I10 - Essential (primary) hypertension (5) MDD (major depressive disorder) SNOMED Code(s): 423558955 ICD Code: F32.9 - MAJOR DEPRESSIVE DISORDER, SINGLE EPISODE, UNSPECIFIED Status: Acute Current Visit: Yes Qualifiers: Major depression recurrence: recurrent Psychotic features: without psychotic features (6) Peripheral arterial disease SNOMED Code(s): 673358107, 322886094 ICD Code: I73.9 - PERIPHERAL VASCULAR DISEASE, UNSPECIFIED Status: Acute Current Visit: Yes (7) Dizziness SNOMED Code(s): 474720843, 257002557 ICD Code: R42 - DIZZINESS AND GIDDINESS Status: Acute Current Visit: Yes Problem List Initiated/Reviewed/Updated: Yes Orders Last 24hrs: Active Orders 24 hr Category Date Time Status Bedrest Bathroom Privileges [RC] ASDIRECTED Care 04/21/19 00:59 Active EKG Documentation Completion [RC] ASDIRECTED Care 04/21/19 07:55 Active Height and Weight [RC] UPON Care 04/21/19 00:59 Active Oxygen Therapy [RC] PRN Care 04/21/19 00:59 Active VTE/DVT Education [RC] Per Unit Routine Care 04/21/19 00:59 Active Vital Signs [RC] Q1H Care 04/21/19 00:59 Active Regular Diet [DIET] Diet 04/21/19 Lunch Active Head wo Cont [CT] Routine Exams 04/21/19 07:55 Taken TROPONIN I [CHEM] Stat Lab 04/21/19 11:30 Ordered Acetaminophen [Tylenol] Med 04/21/19 10:14 Ordered 650 mg PO Q6H PRN Albuterol [Ventolin HFA] Med 04/21/19 10:14 Ordered DOSE gm INH Q4H PRN Aspirin [Halfprin] Med 04/22/19 09:00 Ordered 81 mg PO DAILY Budesonide/Formoterol Fumarate [Symbicort 160-4.5 Mcg Med 04/21/19 21:00 Ordered Inhaler] 2 puff IH BID Calcitriol [Rocaltrol] Med 04/22/19 09:00 Ordered 0.25 mcg PO DAILY Calcium Carbonate/Vitamin D3 [Calcium 500-Vit D3 200 Med 04/22/19 09:00 Ordered Caplet] 1 tab PO DAILY Carvedilol [Coreg] Med 04/21/19 11:00 Active 6.25 mg PO BIDMEALS Clopidogrel [Plavix] Med 04/21/19 11:00 Active 75 mg PO DAILY Hydroxychloroquine [Plaquenil] Med 04/21/19 11:00 Active 200 mg PO BID Isosorbide Dinitrate [Isordil] Med 04/21/19 11:00 Active 5 mg PO TID Loratadine [Claritin] Med 04/21/19 10:14 Ordered 10 mg PO DAILY PRN Losartan [Cozaar] Med 04/21/19 11:00 Active 12.5 mg PO BID Nitroglycerin [Nitrostat] Med 04/21/19 10:14 Ordered 0.4 mg SL TID PRN Rosuvastatin [Crestor] Med 04/21/19 21:00 Ordered 20 mg PO BEDTIME Sodium Chloride 0.9% [Saline Flush] Med 04/20/19 21:05 Active 10 ml FLUSH ASDIRECTED PRN Peripheral IV Insertion Adult [OM.PC] Routine Oth 04/20/19 21:05 Ordered Resuscitation Status Routine Resus Stat 04/21/19 00:59 Ordered EKG 12 Lead [EK] Routine Ther 04/21/19 07:55 Ordered Medication Orders Acetaminophen (Tylenol) 650 mg PO Q6H PRN PRN Reason: Pain Albuterol (Ventolin Hfa) gm INH Q4H PRN PRN Reason: Wheezing Aspirin (Halfprin) 81 mg PO DAILY [facility] Calcitriol (Rocaltrol) 0.25 mcg PO DAILY [facility] Carvedilol (Coreg) 6.25 mg PO BIDMEALS [facility] Clopidogrel Bisulfate (Plavix) 75 mg PO DAILY [facility] Hydroxychloroquine Sulfate (Plaquenil) 200 mg PO BID [facility] Isosorbide Dinitrate (Isordil) 5 mg PO TID [facility] Losartan Potassium (Cozaar) 12.5 mg PO BID [facility] Nitroglycerin (Nitrostat) 0.4 mg SL TID PRN PRN Reason: Chest Pain Non-Formulary Medication (Budesonide/Formoterol Fumarate [Symbicort 160-4.5 Mcg Inhaler]) 2 puff IH BID [facility] Non-Formulary Medication (Calcium Carbonate/Vitamin D3 [Calcium 500-Vit D3 200 Caplet]) 1 tab PO DAILY [facility] Non-Formulary Medication (Loratadine [Claritin]) 10 mg PO DAILY PRN PRN Reason: Allergies Non-Formulary Medication (Rosuvastatin [Crestor]) 20 mg PO BEDTIME [facility] Sodium Chloride (Saline Flush) 10 ml FLUSH ASDIRECTED PRN PRN Reason: Keep Vein Open Assessment/Plan Comment:: Repeat cardiac enzymes,allow food. rest. Resume Home meds. EKG repeat. Keep in Obs today.
[2019-04-21] MEDS ORDERED: Loratadine 10 MG Tab PO PRN (11:15)
[2019-04-21] MEDS: CARVEDILOL 3.125 MG PO SCH ×2 (11:24→18:23)
[2019-04-21] MEDS: ISOSORBIDE DINITRATE 5 MG PO SCH ×3 (11:25→20:14)
[2019-04-21] MEDS: FORMOTEROL FUMARATE IH SCH ×2 (11:26→20:16)
[2019-04-21] MEDS: BUDESONIDE IH SCH ×2 (11:26→20:16)
[2019-04-21] MEDS: HYDROXYCHLOROQUINE 200 MG PO SCH ×2 (11:26→20:15)
[2019-04-21] MEDS: Clopidogrel 75 MG Tab*PT OWN MED PO SCH (11:28)
[2019-04-21] MEDS: Acetaminophen 325 MG Tab PO PRN ×2 (14:14→20:10)
[2019-04-21] MEDS ORDERED: hydrOXYzine HCl 25 MG Tab PO PRN (20:38)
[2019-04-22] MEDS: Acetaminophen 325 MG Tab PO PRN (08:16)
[2019-04-22] MEDS: HYDROXYCHLOROQUINE 200 MG PO SCH (08:20)
[2019-04-22] MEDS: ISOSORBIDE DINITRATE 5 MG PO SCH ×2 (08:20→14:33)
[2019-04-22] MEDS: Clopidogrel 75 MG Tab*PT OWN MED PO SCH (08:20)
[2019-04-22] MEDS: FORMOTEROL FUMARATE IH SCH (08:21)
[2019-04-22] MEDS: BUDESONIDE IH SCH (08:21)
[2019-04-22] MEDS: CARVEDILOL 3.125 MG PO SCH (08:21)
[2019-04-22] MEDS ORDERED: CALCITRIOL 0.25 MCG PO SCH (09:00)
[2019-04-22] MEDS ORDERED: D3 PO SCH (09:00)
[2019-04-22] MEDS ORDERED: CALCIUM CITRATE PO SCH (09:00)
[2019-04-22] MEDS ORDERED: Aspirin 81 MG Tab.EC*PT OWN MED PO SCH (09:00)
[2019-04-22 14:33] VITALS: BP 156/64
--- NOTE | 2019-04-22 15:09 | PCM.PN ---
- General Info Date of Service: 04/22/19 Subjective Update: Some headache. No CP or SOB Functional Status: Reports: Pain Controlled - Review of Systems Pulmonary: Reports: No Symptoms Cardiovascular: Reports: No Symptoms - Patient Data Vitals - Most Recent: Last Vital Signs Temp 98.0 F 04/22/19 12:00 Pulse 56 L 04/22/19 12:00 Resp 18 04/22/19 12:00 BP 156/64 H 04/22/19 12:00 Pulse Ox 95 04/22/19 12:00 Weight - Most Recent: 71.894 kg Lab Results Last 24 Hours: Laboratory Results - last 24 hr 04/21/19 04/21/19 04/22/19 Range/Units 18:00 18:00 06:35 WBC 8.3 (4.5-12.0) X10-3/uL RBC 2.99 L (3.23-5.20) x10(6)uL Hgb 9.8 L (11.5-15.5) g/dL Hct 28.8 L (30.0-51.3) % MCV 96.3 H (80-96) fL MCH 32.7 (27.7-33.6) pg MCHC 34.0 (32.2-35.4) g/dL RDW 13.9 (11.5-15.5) % Plt Count 248 (125-369) X10(3)uL MPV 8.1 (7.4-10.4) fL Neut % (Auto) 63.9 (46-82) % Lymph % (Auto) 23.2 (13-37) % [place] % (Auto) 10.6 (4-12) % Eos % (Auto) 2 (1.0-5.0) % Baso % (Auto) 1 (0-2) % Neut # (Auto) 5.2 (1.6-8.3) # Lymph # (Auto) 1.9 (0.6-5.0) # [place] # (Auto) 0.9 (0.0-1.3) # Eos # (Auto) 0.1 (0.0-0.8) # Baso # (Auto) 0.1 (0.0-0.2) # Sodium 142 (135-145) mmol/L Potassium 3.4 L (3.5-5.3) mmol/L Chloride 106 (100-110) mmol/L Carbon Dioxide 27 (21-32) mmol/L BUN 24 H (7-18) mg/dL Creatinine 1.4 H (0.55-1.02) mg/dL Est Cr Clr Drug Dosing 25.71 mL/min Estimated GFR (MDRD) 37 L (>60) BUN/Creatinine Ratio 17.1 (9-20) Glucose 100 (80-116) mg/dL Calcium 8.5 L (8.6-10.2) mg/dL Troponin I 0.495 H* (<0.017-0.056) ng/mL 04/22/19 04/22/19 04/22/19 Range/Units 06:35 06:35 14:00 WBC (4.5-12.0) X10-3/uL RBC (3.23-5.20) x10(6)uL Hgb (11.5-15.5) g/dL Hct (30.0-51.3) % MCV (80-96) fL MCH (27.7-33.6) pg MCHC (32.2-35.4) g/dL RDW (11.5-15.5) % Plt Count (125-369) X10(3)uL MPV (7.4-10.4) fL Neut % (Auto) (46-82) % Lymph % (Auto) (13-37) % [place] % (Auto) (4-12) % Eos % (Auto) (1.0-5.0) % Baso % (Auto) (0-2) % Neut # (Auto) (1.6-8.3) # Lymph # (Auto) (0.6-5.0) # [place] # (Auto) (0.0-1.3) # Eos # (Auto) (0.0-0.8) # Baso # (Auto) (0.0-0.2) # Sodium 143 (135-145) mmol/L Potassium 3.5 (3.5-5.3) mmol/L Chloride 107 (100-110) mmol/L Carbon Dioxide 27 (21-32) mmol/L BUN 22 H (7-18) mg/dL Creatinine 1.3 H (0.55-1.02) mg/dL Est Cr Clr Drug Dosing 27.68 mL/min Estimated GFR (MDRD) 40 L (>60) BUN/Creatinine Ratio 16.9 (9-20) Glucose 83 (80-116) mg/dL Calcium 8.4 L (8.6-10.2) mg/dL Troponin I 0.507 H* 0.513 H* (<0.017-0.056) ng/mL Med Orders - Current: Current Medications Acetaminophen (Tylenol) 650 mg PO Q6H PRN PRN Reason: Pain Last Admin: 04/22/19 08:16 Dose: 650 mg Albuterol (Ventolin Hfa) 0 gm INH Q4H PRN PRN Reason: Wheezing Aspirin (Halfprin) 81 mg PO DAILY [facility] Last Admin: 04/22/19 08:21 Dose: 81 mg Calcitriol (Rocaltrol) 0.25 mcg PO DAILY [facility] Last Admin: 04/22/19 08:20 Dose: 0.25 mcg Carvedilol (Coreg) 6.25 mg PO BIDMEALS [facility] Last Admin: 04/22/19 08:21 Dose: 6.25 mg Clopidogrel Bisulfate (Plavix) 75 mg PO DAILY [facility] Last Admin: 04/22/19 08:20 Dose: 75 mg Hydroxychloroquine Sulfate (Plaquenil) 200 mg PO BID [facility] Last Admin: 04/22/19 08:20 Dose: 200 mg Hydroxyzine HCl (Atarax) 50 mg PO Q4H PRN PRN Reason: Nausea Last Admin: 04/21/19 21:00 Dose: 50 mg Isosorbide Dinitrate (Isordil) 5 mg PO TID [facility] Last Admin: 04/22/19 14:33 Dose: 5 mg Loratadine (Claritin) 10 mg PO DAILY PRN PRN Reason: ALLERGIES Losartan Potassium (Cozaar) 12.5 mg PO BID [facility] Last Admin: 04/22/19 08:21 Dose: 12.5 mg Nitroglycerin (Nitrostat) 0.4 mg SL Q5M PRN PRN Reason: Chest Pain (Budesonide/Formoterol Fumarate [Symbicort 160-4.5 Mcg Inh*Pt Own Med* 2 puff IH BID [facility] Last Admin: 04/22/19 08:21 Dose: 2 puff Calcium Citrate + D3 (*Pt Own Med*) 1 tab PO DAILY [facility] Last Admin: 04/22/19 08:21 Dose: 1 tab (Rosuvastatin [ Crestor] 20 Mg)*Pt Own Med* 20 mg PO BEDTIME [facility] Last Admin: 04/21/19 20:11 Dose: 20 mg Sodium Chloride (Saline Flush) 10 ml FLUSH ASDIRECTED PRN PRN Reason: Keep Vein Open Discontinued Medications Fentanyl (Sublimaze) 50 mcg IVPUSH ONETIME ONE Stop: 04/20/19 21:11 Last Admin: 04/20/19 21:25 Dose: 50 mcg Fentanyl (Sublimaze) 50 mcg IVPUSH ONETIME ONE Stop: 04/20/19 23:26 Last Admin: 04/20/19 23:33 Dose: 50 mcg Hydralazine HCl (Apresoline) 10 mg IVPUSH ONETIME ONE Stop: 04/20/19 22:33 Last Admin: 04/20/19 22:48 Dose: 10 mg Hydralazine HCl (Apresoline) 10 mg IVPUSH ONETIME ONE Stop: 04/20/19 23:17 Last Admin: 04/20/19 23:34 Dose: 10 mg Ketorolac Tromethamine (Toradol) 30 mg IM ONETIME ONE Stop: 04/20/19 19:46 Last Admin: 04/20/19 20:11 Dose: 30 mg Nitroglycerin (Nitrostat) 0.4 mg SL TID PRN PRN Reason: Chest Pain Ondansetron HCl (Zofran) 4 mg IVPUSH ONETIME ONE Stop: 04/20/19 23:17 Last Admin: 04/20/19 23:30 Dose: 4 mg Ondansetron HCl (Zofran) 4 mg IVPUSH ONETIME ONE Stop: 04/21/19 08:24 Last Admin: 04/21/19 08:33 Dose: 4 mg Tramadol HCl (Ultram) 50 mg PO ONETIME ONE Stop: 04/21/19 05:11 Last Admin: 04/21/19 05:28 Dose: 50 mg - Exam General: Alert, Oriented HEENT: Pupils Equal, Pupils Reactive, EOMI Neck: Supple Lungs: Clear to Auscultation Cardiovascular: Regular Rate EKG INTERPRETATION Rhythm: NSR QRS: LBBB - Problem List & Annotations (1) Headache SNOMED Code(s): 97980672 Code(s): R51 - HEADACHE Status: Acute Current Visit: Yes Qualifiers: Headache type: unspecified Headache chronicity pattern: acute headache Intractability: intractable Qualified Code(s): R51 - Headache (2) Elevated troponin SNOMED Code(s): 150023989, 975409675, 087922601 Code(s): R74.8 - ABNORMAL LEVELS OF OTHER SERUM ENZYMES Status: Acute Current Visit: Yes (3) CAD (coronary artery disease) SNOMED Code(s): 87538771 Code(s): I25.10 - ATHSCL HEART DISEASE OF [place] CORONARY ARTERY W/O ANG PCTRS Status: Chronic Current Visit: Yes Qualifiers: Coronary Disease-Associated Artery/Lesion type: [place] artery [place] vs. transplanted heart: [place] heart Associated angina: without angina Qualified Code(s): I25.10 - Atherosclerotic heart disease of [place] coronary artery without angina pectoris (4) Hypertension SNOMED Code(s): 62130807 Code(s): I10 - ESSENTIAL (PRIMARY) HYPERTENSION Status: Chronic Current Visit: No Qualifiers: Hypertension type: essential hypertension Qualified Code(s): I10 - Essential (primary) hypertension (5) MDD (major depressive disorder) SNOMED Code(s): 603696670 Code(s): F32.9 - MAJOR DEPRESSIVE DISORDER, SINGLE EPISODE, UNSPECIFIED Status: Acute Current Visit: Yes Qualifiers: Major depression recurrence: recurrent Psychotic features: without psychotic features (6) Peripheral arterial disease SNOMED Code(s): 549484747, 907423466 Code(s): I73.9 - PERIPHERAL VASCULAR DISEASE, UNSPECIFIED Status: Acute Current Visit: Yes (7) Dizziness SNOMED Code(s): 158472644, 366295919 Code(s): R42 - DIZZINESS AND GIDDINESS Status: Acute Current Visit: Yes - Problem List Review Problem List Initiated/Reviewed/Updated: Yes - My Orders Last 24 Hours: My Active Orders 04/21/19 16:29 EKG Documentation Completion [RC] ASDIRECTED 04/21/19 18:00 EKG 12 Lead [EK] Routine 04/21/19 18:48 EKG Documentation Completion [RC] ASDIRECTED 04/21/19 18:56 Nitroglycerin [Nitrostat] 0.4 mg SL Q5M PRN 04/21/19 20:00 Vital Signs [RC] Q4HR 04/21/19 20:38 hydrOXYzine HCl [Atarax] 50 mg PO Q4H PRN 04/21/19 21:00 Rosuvastatin [Crestor] 20 mg PO BEDTIME 04/22/19 05:11 EKG 12 Lead [EK] AM 04/22/19 09:00 Aspirin [Halfprin] 81 mg PO DAILY Calcitriol [Rocaltrol] 0.25 mcg PO DAILY Calcium Carbonate/Vitamin D3 [Calcium 500-Vit D3 200 Caplet] 1 tab PO DAILY - Plan Plan:: Trop still trending up.I spoke with Cardiology ,it could be due to demand ischemia,but recommend a stress test.Will transfer for the same.
--- NOTE | 2019-04-22 15:33 | DISCH ---
DISCHARGE DATE: 04/22/2019 REASON FOR ADMISSION: 1. Hypertension urgency. 2. Headache. 3. History of subclavian stent. 4. Coronary artery disease. DISCHARGE DIAGNOSES: 1. High troponin levels. 2. Headache. 3. Hypertension. BRIEF HISTORY: This is a 73-year-old female who was brought in because of headache, nausea, vomiting, sudden onset. CT of the head was negative. EKG showed left bundle branch block that is old. However, troponin has been trending upwards. She has remained asymptomatic for cardiopulmonary symptoms. I spoke with Cardiology and an advice was given to obtain a stress test before she goes home and transfer to [place] as an inpatient for the stress test. I did not feel there is any need to give aspirin, Plavix, beta-wyatt, or anticoagulation for ongoing acute coronary syndrome, which risk remains low. Spent more than 35 minutes in the discharge of the patient. /[id number] GRAHAM/EUNICE
== END 2019-04-22 16:07 ==
LOC: FB.ED 19:05 → FB.MS 04-21 00:58
PROVIDERS: ADMIT Family Medicine; ATTEND Family Medicine
DX: I10 Essential (primary) hypertension (principal); I25.10 Atherosclerotic heart disease of native coronary artery without angina pectoris; I73.9 Peripheral vascular disease, unspecified; R74.8 Abnormal levels of other serum enzymes; E78.00 Pure hypercholesterolemia, unspecified; I25.2 Old myocardial infarction; G43.909 Migraine, unspecified, not intractable, without status migrainosus; J30.1 Allergic rhinitis due to pollen; F32.9 Major depressive disorder, single episode, unspecified; Z91.048 Other nonmedicinal substance allergy status; Z79.82 Long term (current) use of aspirin; Z79.899 Other long term (current) drug therapy; Z95.5 Presence of coronary angioplasty implant and graft
CPT/HCPCS: 36415; 70450; 80048; 84484; 85025; 93005; 96372; 96374; 96375; 96376; 99284; A9270; G0378; J0360; J1885; J2405; J3010

== ENCOUNTER 2019-09-29 07:53 | Emergency (ER) | payer MEDICARE, OTHER ==
[2019-09-29] MEDS ORDERED: Albuterol/Ipratropium 3.0-0.5 MG/3 ML Neb Soln NEB ONE (08:23)
--- NOTE | 2019-09-29 08:29 | EDM.PDOC ---
ED HPI GENERAL MEDICAL PROBLEM - General Chief Complaint: Respiratory Problem Stated Complaint: SOB, HEADACHE, BODY ACHES Time Seen by Provider: 09/29/19 08:24 Source of Information: Reports: Patient History Limitations: Reports: No Limitations - History of Present Illness INITIAL COMMENTS - FREE TEXT/NARRATIVE: Presents to the ED with bodyaches, productive cough, chills and headache x 2 days. PMHx significant for COPD and CAD. She denies chest pain but is slightly SOB. Patient continued to smoke up until 2 days ago, states she will not resume smoking after illness has resolved. Patient did not get a Flu shot yet this season. Onset Date: 09/27/19 Associated Symptoms: Reports: Cough, Fever/Chills (chills), Headaches, Shortness of Breath (slight). Denies: Chest Pain Generalized Pain Score (Numeric/FACES): 5 - Related Data Allergies Allergy/AdvReac Type Severity Reaction Status Date / Time hayfever Allergy Sneezing Uncoded 04/20/19 19:29 Home Meds: Home Meds Hydroxychloroquine [Plaquenil] 200 mg PO BID 12/17/15 [History] Acetaminophen 650 mg PO Q6H PRN 11/01/18 [History] Albuterol [Ventolin HFA] 2 puff INH Q4H PRN 11/01/18 [History] Aspirin [Halfprin] 81 mg PO DAILY 11/01/18 [History] Budesonide/Formoterol Fumarate [Symbicort 160-4.5 Mcg Inhaler] 2 puff IH BID 05/14 [History] Calcitriol [Rocaltrol] 0.25 mcg PO DAILY 11/01/18 [History] Carvedilol [Coreg] 6.25 mg PO BID 11/01/18 [History] Clopidogrel [Plavix] 75 mg PO DAILY 11/01/18 [History] Loratadine [Claritin] 10 mg PO DAILY PRN 11/01/18 [History] Triamcinolone Acetonide [Triamcinolone Acetonide 0.1% Crm] 0 tub TOP TID PRN 05/14 [History] Isosorbide Dinitrate 5 mg PO TID 01/18/19 [History] Losartan [Cozaar] 12.5 mg PO BID 01/18/19 [History] Nitroglycerin 0.4 mg SL TID PRN 01/18/19 [History] Rosuvastatin [Crestor] 20 mg PO BEDTIME 01/18/19 [History] Calcium Carbonate/Vitamin D3 [Calcium 500-Vit D3 200 Caplet] 1 tab PO DAILY [History] Past Medical History HEENT History: Reports: Epistaxis Cardiovascular History: Reports: Aneurysm, CAD, Heart Murmur, High Cholesterol, Hypertension, VT, Prior Cardiac Arrest, SOB on Exertion, Stents Respiratory History: Reports: COPD, Sleep Apnea Gastrointestinal History: Reports: Other (See Below) Other Gastrointestinal History: CRAMPING,DIAHHREA Genitourinary History: Reports: None Other [employer]ING [employer] History: HYSTERECTOMY Musculoskeletal History: Reports: Arthritis, Back Pain, Chronic, Fracture Neurological History: Reports: Migraines, Vertigo Psychiatric History: Reports: Anxiety Immunologic History: Reports: Other (See Below) Other Immunologic History: lupus Dermatologic History: Reports: Other (See Below) Other Dermatologic History: Lupus - Past Surgical History HEENT Surgical History: Reports: Adenoidectomy, Cataract Surgery, Oral Surgery, Tonsillectomy Cardiovascular Surgical History: Reports: Aneurysm, Coronary Artery Stent, Other (See Below) Female Surgical History: Reports: Hysterectomy, Tubal Ligation Social & Family History - Family History Family Medical History: Noncontributory - Tobacco Use Smoking Status *Q: Current Every Day Smoker Tobacco Use Within Last Twelve Months: Cigarettes Used Tobacco, but Quit: Yes Month/Year Tobacco Last Used: September 2019 - Caffeine Use Caffeine Use: Reports: Coffee - Recreational Drug Use Recreational Drug Use: No - Living Situation & Occupation 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 ED EXAM, GENERAL - Physical Exam Exam: See Below Exam Limited By: No Limitations General Appearance: Alert, WD/WN, No Apparent Distress Ears: Normal External Exam Nose: Normal Inspection Throat/Mouth: No Airway Compromise Head: Atraumatic, Normocephalic Neck: Supple, Full Range of Motion Respiratory/Chest: No Respiratory Distress, Lungs Clear, Wheezing (few scattered wheezes) Cardiovascular: Regular Rate, Rhythm, No Murmur Back Exam: Full Range of Motion Extremities: Normal Range of Motion Neurological: Alert, Normal Cognition, No Motor/Sensory Deficits Psychiatric: Normal Affect Skin Exam: Warm, Dry, Intact EKG INTERPRETATION EKG Date: 09/29/19 Time: 08:26 Rhythm: NSR Rate (Beats/Min): 67 [place]: Normal P-Wave: Present QRS: LBBB Comparison: No Change (04/21/19) Course - Vital Signs Last Recorded V/S: Last Vital Signs Temp 37.7 C 09/29/19 09:29 Pulse 72 09/29/19 09:40 Resp 20 09/29/19 09:40 BP 101/61 09/29/19 09:40 Pulse Ox 94 L 09/29/19 09:29 - Orders/Labs/Meds Orders: Active Orders 24 hr Category Date Time Status EKG Documentation Completion [RC] ASDIRECTED Care 09/29/19 08:20 Active RT Aerosol Therapy [RC] ASDIRECTED Care 09/29/19 08:23 Active CXR [Chest 2V] [CR] Stat Exams 09/29/19 08:20 Taken CULTURE BLOOD [BC] Urgent Lab 09/29/19 08:35 Received CULTURE BLOOD [BC] Urgent Lab 09/29/19 08:40 Received CULTURE SPUTUM + SMEAR [RM] Stat Lab 09/29/19 08:23 Ordered Heparin Sodium/0.45% NaCl [Heparin 25,000 Units in 1/2 Med 09/29/19 09:30 Active NS 500 ML] 500 ml IV ASDIRECTED Sodium Chloride 0.9% [Normal Saline] 1,000 ml Med 09/29/19 09:03 Active IV .BOLUS Sodium Chloride 0.9% [Saline Flush] Med 09/29/19 09:03 Active 10 ml FLUSH ASDIRECTED PRN Blood Culture x2 Reflex Set [OM.PC] Urgent Oth 09/29/19 08:20 Ordered Saline Lock Insert [OM.PC] Routine Oth 09/29/19 09:03 Ordered EKG 12 Lead [EK] Stat Ther 09/29/19 08:20 Ordered Medication Orders Sodium Chloride (Normal Saline) 1,000 mls @ 999 mls/hr IV .BOLUS ONE Stop: 09/29/19 10:03 Last Infusion: 09/29/19 09:30 Dose: 999 mls/hr Admin: 09/29/19 09:16 Dose: 500 mls/hr Heparin Sodium/Sodium Chloride (Heparin 25,000 Units In 1/2 Ns 500 Ml) 500 mls @ 17 mls/hr IV ASDIRECTED JOSE; Protocol Last Admin: 09/29/19 09:38 Dose: 17 mls/hr, 17 mls/hr Sodium Chloride (Saline Flush) 10 ml FLUSH ASDIRECTED PRN PRN Reason: Keep Vein Open Last Admin: 09/29/19 09:10 Dose: 10 ml Labs: Laboratory Tests 09/29/19 09/29/19 09/29/19 Range/Units 08:34 08:35 08:35 WBC 16.6 H (4.5-12.0) X10-3/uL RBC 3.43 (3.23-5.20) x10(6)uL Hgb 11.4 L (11.5-15.5) g/dL Hct 32.8 (30.0-51.3) % MCV 95.8 (80-96) fL MCH 33.3 (27.7-33.6) pg MCHC 34.8 (32.2-35.4) g/dL RDW 12.2 (11.5-15.5) % Plt Count 206 (125-369) X10(3)uL MPV 8.9 (7.4-10.4) fL Add Manual Diff Yes Neutrophils % (Manual) 86 H (46-82) % Lymphocytes % (Manual) 10 L (13-37) % Monocytes % (Manual) 4 (4-12) % PT (8.7-11.1) INR (0.89-1.13) APTT (24.4-33.2) SECONDS Sodium 139 (135-145) mmol/L Potassium 3.1 L (3.5-5.3) mmol/L Chloride 104 (100-110) mmol/L Carbon Dioxide 24 (21-32) mmol/L BUN 21 H (7-18) mg/dL Creatinine 1.4 H (0.55-1.02) mg/dL Est Cr Clr Drug Dosing 25.32 mL/min Estimated GFR (MDRD) 37 L (>60) BUN/Creatinine Ratio 15.0 (9-20) Glucose 103 (80-116) mg/dL Lactic Acid (0.4-2.2) mmol/L Calcium 8.9 (8.6-10.2) mg/dL Total Bilirubin 0.5 (0.1-1.3) mg/dL AST 24 D (5-25) IU/L ALT 13 D (12-36) U/L Alkaline Phosphatase 66 (56-112) IU/L Troponin I (<0.017-0.056) ng/mL Total Protein 6.6 (6.0-8.0) g/dL Albumin 2.6 L (3.2-4.6) g/dL Globulin 4.0 g/dL Albumin/Globulin Ratio 0.7 Urine Color Yellow (YELLOW) Urine Appearance Clear (CLEAR) Urine pH 5.0 (5.0-6.5) Ur Specific [place] 1.010 (1.010-1.025) Urine Protein 500 H (NEGATIVE) mg/dL Urine Glucose (UA) Normal (NORMAL) mg/dL Urine Ketones Negative (NEGATIVE) mg/dL Urine Occult Blood Trace (NEGATIVE) Urine Nitrite Negative (NEGATIVE) Urine Bilirubin Negative (NEGATIVE) Urine Urobilinogen Normal (NEGATIVE) mg/dL Ur Leukocyte Esterase Negative (NEGATIVE) Urine RBC 0-5 (0-5) Urine WBC 0-5 (0-5) Ur Squamous Epith Cells Few H (NS,R,O) Urine Bacteria Moderate H (NS) 09/29/19 09/29/19 09/29/19 Range/Units 08:35 08:35 08:35 WBC (4.5-12.0) X10-3/uL RBC (3.23-5.20) x10(6)uL Hgb (11.5-15.5) g/dL Hct (30.0-51.3) % MCV (80-96) fL MCH (27.7-33.6) pg MCHC (32.2-35.4) g/dL RDW (11.5-15.5) % Plt Count (125-369) X10(3)uL MPV (7.4-10.4) fL Add Manual Diff Neutrophils % (Manual) (46-82) % Lymphocytes % (Manual) (13-37) % Monocytes % (Manual) (4-12) % PT 10.1 (8.7-11.1) INR 1.04 (0.89-1.13) APTT (24.4-33.2) SECONDS Sodium (135-145) mmol/L Potassium (3.5-5.3) mmol/L Chloride (100-110) mmol/L Carbon Dioxide (21-32) mmol/L BUN (7-18) mg/dL Creatinine (0.55-1.02) mg/dL Est Cr Clr Drug Dosing mL/min Estimated GFR (MDRD) (>60) BUN/Creatinine Ratio (9-20) Glucose (80-116) mg/dL Lactic Acid 1.0 (0.4-2.2) mmol/L Calcium (8.6-10.2) mg/dL Total Bilirubin (0.1-1.3) mg/dL AST (5-25) IU/L ALT (12-36) U/L Alkaline Phosphatase (56-112) IU/L Troponin I 1.316 H* (<0.017-0.056) ng/mL Total Protein (6.0-8.0) g/dL Albumin (3.2-4.6) g/dL Globulin g/dL Albumin/Globulin Ratio Urine Color (YELLOW) Urine Appearance (CLEAR) Urine pH (5.0-6.5) Ur Specific [place] (1.010-1.025) Urine Protein (NEGATIVE) mg/dL Urine Glucose (UA) (NORMAL) mg/dL Urine Ketones (NEGATIVE) mg/dL Urine Occult Blood (NEGATIVE) Urine Nitrite (NEGATIVE) Urine Bilirubin (NEGATIVE) Urine Urobilinogen (NEGATIVE) mg/dL Ur Leukocyte Esterase (NEGATIVE) Urine RBC (0-5) Urine WBC (0-5) Ur Squamous Epith Cells (NS,R,O) Urine Bacteria (NS) 09/29/19 Range/Units 08:35 WBC (4.5-12.0) X10-3/uL RBC (3.23-5.20) x10(6)uL Hgb (11.5-15.5) g/dL Hct (30.0-51.3) % MCV (80-96) fL MCH (27.7-33.6) pg MCHC (32.2-35.4) g/dL RDW (11.5-15.5) % Plt Count (125-369) X10(3)uL MPV (7.4-10.4) fL Add Manual Diff Neutrophils % (Manual) (46-82) % Lymphocytes % (Manual) (13-37) % Monocytes % (Manual) (4-12) % PT (8.7-11.1) INR (0.89-1.13) APTT 28.9 (24.4-33.2) SECONDS Sodium (135-145) mmol/L Potassium (3.5-5.3) mmol/L Chloride (100-110) mmol/L Carbon Dioxide (21-32) mmol/L BUN (7-18) mg/dL Creatinine (0.55-1.02) mg/dL Est Cr Clr Drug Dosing mL/min Estimated GFR (MDRD) (>60) BUN/Creatinine Ratio (9-20) Glucose (80-116) mg/dL Lactic Acid (0.4-2.2) mmol/L Calcium (8.6-10.2) mg/dL Total Bilirubin (0.1-1.3) mg/dL AST (5-25) IU/L ALT (12-36) U/L Alkaline Phosphatase (56-112) IU/L Troponin I (<0.017-0.056) ng/mL Total Protein (6.0-8.0) g/dL Albumin (3.2-4.6) g/dL Globulin g/dL Albumin/Globulin Ratio Urine Color (YELLOW) Urine Appearance (CLEAR) Urine pH (5.0-6.5) Ur Specific [place] (1.010-1.025) Urine Protein (NEGATIVE) mg/dL Urine Glucose (UA) (NORMAL) mg/dL Urine Ketones (NEGATIVE) mg/dL Urine Occult Blood (NEGATIVE) Urine Nitrite (NEGATIVE) Urine Bilirubin (NEGATIVE) Urine Urobilinogen (NEGATIVE) mg/dL Ur Leukocyte Esterase (NEGATIVE) Urine RBC (0-5) Urine WBC (0-5) Ur Squamous Epith Cells (NS,R,O) Urine Bacteria (NS) Meds: Medications Generic Name Dose Route Start Last Admin Trade Name Freq PRN Reason Stop Dose Admin Sodium Chloride 1,000 mls @ 999 mls/hr 09/29/19 09:03 09/29/19 09:30 Normal Saline IV 09/29/19 10:03 999 mls/hr .BOLUS ONE Infusion Heparin Sodium/Sodium Chloride 500 mls @ 17 mls/hr 09/29/19 09:30 09/29/19 09 :38 Heparin 25,000 Units In 1/2 Ns 500 Ml IV 17 mls/hr ASDIRECTED JOSE 17 mls/hr Administration Protocol Sodium Chloride 10 ml 11/03/19 09:03 09/29/19 09:10 Saline Flush FLUSH 10 ml ASDIRECTED PRN Administration Keep Vein Open Discontinued Medications Generic Name Dose Route Start Last Admin Trade Name Sharmila PRN Reason Stop Dose Admin Albuterol/Ipratropium 3 ml 09/29/19 08:23 09/29/19 08:35 Duoneb 3.0-0.5 Mg/3 Ml NEB 09/29/19 08:24 3 ml ONETIME ONE Administration Aspirin 324 mg 09/29/19 09:17 09/29/19 09:18 Aspirin PO 09/29/19 09:18 324 mg ONETIME ONE Administration Ceftriaxone Sodium 1 gm 09/29/19 09:17 09/29/19 09:20 Rocephin IVPUSH 09/29/19 09:18 1 gm ONETIME ONE Administration Heparin Sodium (Porcine) 3,600 units 09/29/19 09:28 09/29/19 09:35 Heparin Sodium IVPUSH 09/29/19 09:29 3,600 units .BOLUS ONE Administration - Radiology Interpretation Free Text/Narrative:: CXR: subtle right mid lung infiltrate (ED provider interpretation). - Re-Assessments/Exams Free Text/Narrative Re-Assessment/Exam: 09/29/19 09:34 Dr. Mcmillan accepts transfer to [facility], recommends Heparin drip. 09/29/19 09:47 BP dropped to 92/62 then to 84/54, but improved to 101/61 after 400ml of a 1L NS bolus. Departure - Departure Time of Disposition: 09:50 Disposition: DC/Tfer to Acute Hospital 02 Condition: Fair Clinical Impression: Non-STEMI (non-ST elevated myocardial infarction) Pneumonia Qualifiers: Pneumonia type: due to unspecified organism Laterality: right Lung location: upper lobe of lung Qualified Code(s): J18.1 - Lobar pneumonia, unspecified organism - Discharge Information *PRESCRIPTION DRUG MONITORING PROGRAM REVIEWED*: No *COPY OF PRESCRIPTION DRUG MONITORING REPORT IN PATIENT VALERI: Not Applicable Referrals: Horace Santo MD [Primary Care Provider] - Forms: ED Department Discharge - My Orders Last 24 Hours: My Active Orders 09/29/19 08:20 EKG Documentation Completion [RC] ASDIRECTED CXR [Chest 2V] [CR] Stat Blood Culture x2 Reflex Set [OM.PC] Urgent EKG 12 Lead [EK] Stat 09/29/19 08:23 RT Aerosol Therapy [RC] ASDIRECTED CULTURE SPUTUM + SMEAR [RM] Stat 09/29/19 08:35 CULTURE BLOOD [BC] Urgent 09/29/19 08:40 CULTURE BLOOD [BC] Urgent 09/29/19 09:03 Sodium Chloride 0.9% [Normal Saline] 1,000 ml IV .BOLUS Sodium Chloride 0.9% [Saline Flush] 10 ml FLUSH ASDIRECTED PRN Saline Lock Insert [OM.PC] Routine 09/29/19 09:30 Heparin Sodium/0.45% NaCl [Heparin 25,000 Units in 1/2 NS 500 ML] 500 ml IV ASDIRECTED - Assessment/Plan Last 24 Hours: My Active Orders 09/29/19 08:20 EKG Documentation Completion [RC] ASDIRECTED CXR [Chest 2V] [CR] Stat Blood Culture x2 Reflex Set [OM.PC] Urgent EKG 12 Lead [EK] Stat 09/29/19 08:23 RT Aerosol Therapy [RC] ASDIRECTED CULTURE SPUTUM + SMEAR [RM] Stat 09/29/19 08:35 CULTURE BLOOD [BC] Urgent 09/29/19 08:40 CULTURE BLOOD [BC] Urgent 09/29/19 09:03 Sodium Chloride 0.9% [Normal Saline] 1,000 ml IV .BOLUS Sodium Chloride 0.9% [Saline Flush] 10 ml FLUSH ASDIRECTED PRN Saline Lock Insert [OM.PC] Routine 09/29/19 09:30 Heparin Sodium/0.45% NaCl [Heparin 25,000 Units in 1/2 NS 500 ML] 500 ml IV ASDIRECTED
[2019-09-29] MEDS ORDERED: Sodium Chloride 0.9% 1,000 ML IV ONE (09:03)
[2019-09-29] MEDS ORDERED: Sodium Chloride 0.9% 10 ML Syringe FLUSH PRN (09:03)
[2019-09-29] MEDS ORDERED: cefTRIAXone 1 GM Vial IVPUSH ONE (09:17)
[2019-09-29] MEDS ORDERED: Aspirin 81 MG Tab.Chew PO ONE (09:17)
[2019-09-29] MEDS ORDERED: Heparin Sodium 5,000 Units/ML Vial IVPUSH ONE (09:28)
[2019-09-29] MEDS ORDERED: Heparin Sodium/0.45% NaCl 500 ML IV SCH (09:30)
[2019-09-29 09:45] VITALS: BP 101/61; PULSE 72
[2019-09-29] MEDS ORDERED: Potassium Chloride 20 MEQ Tab.ER PO ONE (09:52)
[2019-09-29] MEDS ORDERED: Sodium Chloride 0.9% 1,000 ML IV SCH (10:00)
== END 2019-09-29 10:42 ==
LOC: FB.ED 07:53
DX: I21.4 Non-ST elevation (NSTEMI) myocardial infarction (principal); J18.1 Lobar pneumonia, unspecified organism; I10 Essential (primary) hypertension; J44.9 Chronic obstructive pulmonary disease, unspecified; E78.5 Hyperlipidemia, unspecified; I25.2 Old myocardial infarction; Z79.82 Long term (current) use of aspirin; Z79.51 Long term (current) use of inhaled steroids; Z91.09 Other allergy status, other than to drugs and biological substances; Z79.899 Other long term (current) drug therapy; Z79.01 Long term (current) use of anticoagulants; Z95.5 Presence of coronary angioplasty implant and graft; F17.210 Nicotine dependence, cigarettes, uncomplicated
CPT/HCPCS: 36415; 71046; 80053; 81001; 83605; 84484; 85025; 85610; 85730; 87040; 87070; 87205; 87804; 87804-59; 93005; 94640; A9270-GY; J0696; J1644; J7030; J7620-GY

== ENCOUNTER 2020-05-26 02:27 | Emergency (ER) | payer MEDICARE, OTHER ==
[2020-05-26 02:55] VITALS: BP 132/79; PULSE 89
[2020-05-26] MEDS ORDERED: Aspirin 81 MG Tab.Chew PO ONE (02:57)
[2020-05-26] MEDS ORDERED: traMADol 50 MG Tab PO ONE (03:25)
[2020-05-26] MEDS ORDERED: Ondansetron 4 MG Tab.DIS PO STA (03:25)
--- NOTE | 2020-05-26 03:37 | EDM.PDOC ---
ED HPI GENERAL MEDICAL PROBLEM - General Chief Complaint: Chest Pain Stated Complaint: CHEST PAIN Time Seen by Provider: 05/26/20 02:40 Source of Information: Reports: Patient History Limitations: Reports: No Limitations - History of Present Illness INITIAL COMMENTS - FREE TEXT/NARRATIVE: Patient presented to the ED because of intermittent chest pain for the past 3 days. The pain is over the chest wall, 4/10, with associated nausea and dyspnea. She has a h/o NSTEMI 18 months ago with stent placement. - Related Data Allergies Allergy/AdvReac Type Severity Reaction Status Date / Time hayfever Allergy Sneezing Uncoded 05/26/20 02:54 Home Meds: Home Meds Albuterol [Ventolin HFA] 2 puff INH Q4H PRN 11/01/18 [History] Aspirin [Halfprin] 81 mg PO DAILY 11/01/18 [History] Budesonide/Formoterol Fumarate [Symbicort 160-4.5 Mcg Inhaler] 2 puff IH BID 11/01/18 [History] Clopidogrel [Plavix] 75 mg PO DAILY 11/01/18 [History] Loratadine [Claritin] 10 mg PO DAILY PRN 11/01/18 [History] calcitrioL [Rocaltrol] 0.25 mcg PO DAILY 11/01/18 [History] carvediloL [Coreg] 6.25 mg PO BID PRN 11/01/18 [History] Nitroglycerin 0.4 mg SL TID PRN 01/18/19 [History] Calcium Carbonate/Vitamin D3 [Calcium 500-Vit D3 200 Caplet] 1 tab PO DAILY 04/21/19 [History] Past Medical History HEENT History: Reports: Epistaxis Cardiovascular History: Reports: Aneurysm, CAD, Heart Murmur, High Cholesterol, Hypertension, [place], Prior Cardiac Arrest, SOB on Exertion, Stents Respiratory History: Reports: COPD, Sleep Apnea Gastrointestinal History: Reports: Other (See Below) Other Gastrointestinal History: CRAMPING,DIAHHREA Genitourinary History: Reports: None 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 Musculoskeletal History: Reports: Arthritis, Back Pain, Chronic, Fracture Neurological History: Reports: Migraines, Vertigo Psychiatric History: Reports: Anxiety Immunologic History: Reports: Other (See Below) Other Immunologic History: lupus Dermatologic History: Reports: Other (See Below) Other Dermatologic History: Lupus - Past Surgical History HEENT Surgical History: Reports: Adenoidectomy, Cataract Surgery, Oral Surgery, Tonsillectomy Cardiovascular Surgical History: Reports: Aneurysm, Coronary Artery Stent, Other (See Below) Female Surgical History: Reports: Hysterectomy, Tubal Ligation Social & Family History - Family History Family Medical History: Noncontributory - Tobacco Use Smoking Status *Q: Former Smoker Years of Tobacco use: 60 Used Tobacco, but Quit: No - Caffeine Use Caffeine Use: Reports: Coffee - Living Situation & Occupation 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) ED ROS GENERAL - Review of Systems Review Of Systems: See Below Constitutional: Reports: No Symptoms HEENT: Reports: No Symptoms Respiratory: Reports: Shortness of Breath Cardiovascular: Reports: Chest Pain Endocrine: Reports: No Symptoms GI/Abdominal: Reports: Nausea : Reports: No Symptoms Musculoskeletal: Reports: No Symptoms Skin: Reports: No Symptoms Neurological: Reports: No Symptoms Psychiatric: Reports: No Symptoms Hematologic/Lymphatic: Reports: No Symptoms ED EXAM, GENERAL - Physical Exam Exam: See Below Exam Limited By: No Limitations General Appearance: Alert, No Apparent Distress Eye Exam: Bilateral Eye: PERRL Ears: Normal External Exam, Normal Canal Nose: Normal Inspection, Normal Mucosa, No Blood Throat/Mouth: Normal Inspection, Normal Lips, Normal Teeth Head: Atraumatic, Normocephalic Neck: Normal Inspection, Supple, Non-Tender Respiratory/Chest: No Respiratory Distress, Lungs Clear, Normal Breath Sounds Cardiovascular: Normal Peripheral Pulses, Regular Rate, Rhythm, No Edema, No Gallop GI/Abdominal: Normal Bowel Sounds, Soft, Non-Tender, No Organomegaly, No Distention Back Exam: Normal Inspection, Full Range of Motion Extremities: Normal Inspection, Normal Range of Motion, Non-Tender, No Pedal Edema Neurological: Alert, Oriented, CN II-XII Intact, Normal Cognition Skin Exam: Warm, Dry, Intact, Normal Color Lymphatic: No Adenopathy Course - Vital Signs Text/Narrative:: Labs/EKG/CXR was discussed with patient and verbalized full understanding ASA 324 mg po x1 Heparin 5000 U SC Heparin drip @ 1000 U/hr Zofran 4 mg ODT Tramadol 100 mg po x1 NS @125ml/hr covid-pending Last Recorded V/S: Last Vital Signs Temp 37.3 C 05/26/20 02:35 Pulse 89 05/26/20 02:35 Resp 20 06/30/20 02:35 BP 132/79 05/26/20 02:35 Pulse Ox 95 05/26/20 02:35 - Orders/Labs/Meds Orders: Active Orders 24 hr Category Date Time Status Chest 1V Frontal [CR] Stat Exams 05/26/20 03:54 Taken CORONAVIRUS COVID-19 OSCAR [MOLEC] Stat Lab 05/26/20 04:00 Received Heparin Sodium/0.45% NaCl [Heparin 25,000 Units in 1/2 Med 05/26/20 03:41 Active NS 500 ML] 500 ml IV ASDIRECTED Sodium Chloride 0.9% [Normal Saline] 1,000 ml Med 05/26/20 03:45 Active IV ASDIRECTED Sodium Chloride 0.9% [Normal Saline] 1,000 ml Med 05/26/20 04:00 Active IV ASDIRECTED Sodium Chloride 0.9% [Saline Flush] Med 05/26/20 03:40 Active 10 ml FLUSH ASDIRECTED PRN Saline Lock Insert [OM.PC] Routine Oth 05/26/20 03:40 Ordered Medication Orders Heparin Sodium/Sodium Chloride (Heparin 25,000 Units In 1/2 Ns 500 Ml) 500 mls @ 20 mls/hr IV ASDIRECTED JOSE Sodium Chloride (Normal Saline) 1,000 mls @ 125 mls/hr IV ASDIRECTED JOSE Sodium Chloride (Normal Saline) 1,000 mls @ 500 mls/hr IV ASDIRECTED JOSE Last Admin: 05/26/20 04:15 Dose: 500 mls/hr Documented by: BRENLOR Sodium Chloride (Saline Flush) 10 ml FLUSH ASDIRECTED PRN PRN Reason: Keep Vein Open Labs: Laboratory Tests 05/26/20 05/26/20 05/26/20 Range/Units 03:08 03:08 03:08 WBC 12.2 H (4.5-12.0) X10-3/uL RBC 3.29 (3.23-5.20) x10(6)uL Hgb 10.2 L (11.5-15.5) g/dL Hct 30.9 (30.0-51.3) % MCV 93.8 (80-96) fL MCH 31.0 (27.7-33.6) pg MCHC 33.0 (32.2-35.4) g/dL RDW 12.7 (11.5-15.5) % Plt Count 264 (125-369) X10(3)uL MPV 7.9 (7.4-10.4) fL Neut % (Auto) 75.6 (46-82) % Lymph % (Auto) 11.1 L (13-37) % [place] % (Auto) 12.1 H (4-12) % Eos % (Auto) 1 (1.0-5.0) % Baso % (Auto) 1 (0-2) % Neut # (Auto) 9.1 H (1.6-8.3) # Lymph # (Auto) 1.4 (0.6-5.0) # [place] # (Auto) 1.5 H (0.0-1.3) # Eos # (Auto) 0.1 (0.0-0.8) # Baso # (Auto) 0.1 (0.0-0.2) # PT (9.0-11.1) sec INR (1.00-1.24) APTT (24.4-33.2) SECONDS Sodium 136 (135-145) mmol/L Potassium 3.7 (3.5-5.3) mmol/L Chloride 101 (100-110) mmol/L Carbon Dioxide 25 (21-32) mmol/L BUN 30 H (7-18) mg/dL Creatinine 1.9 H (0.55-1.02) mg/dL Est Cr Clr Drug Dosing 18.66 mL/min Estimated GFR (MDRD) 26 L (>60) BUN/Creatinine Ratio 15.8 (9-20) Glucose 119 H (80-116) mg/dL Calcium 9.3 (8.6-10.2) mg/dL Total Bilirubin 0.3 (0.1-1.3) mg/dL AST 20 D (5-25) IU/L ALT 15 D (12-36) U/L Alkaline Phosphatase 66 (56-112) IU/L Troponin I 1787.3 H* (4.0-60.3) pg/mL NT-Pro-B Natriuret Pep (<=125) pg/mL Total Protein 6.9 (6.0-8.0) g/dL Albumin 2.5 L (3.2-4.6) g/dL Globulin 4.4 g/dL Albumin/Globulin Ratio 0.6 05/26/20 05/26/20 Range/Units 03:08 03:08 WBC (4.5-12.0) X10-3/uL RBC (3.23-5.20) x10(6)uL Hgb (11.5-15.5) g/dL Hct (30.0-51.3) % MCV (80-96) fL MCH (27.7-33.6) pg MCHC (32.2-35.4) g/dL RDW (11.5-15.5) % Plt Count (125-369) X10(3)uL MPV (7.4-10.4) fL Neut % (Auto) (46-82) % Lymph % (Auto) (13-37) % [place] % (Auto) (4-12) % Eos % (Auto) (1.0-5.0) % Baso % (Auto) (0-2) % Neut # (Auto) (1.6-8.3) # Lymph # (Auto) (0.6-5.0) # [place] # (Auto) (0.0-1.3) # Eos # (Auto) (0.0-0.8) # Baso # (Auto) (0.0-0.2) # PT 10.6 (9.0-11.1) sec INR 0.98 L (1.00-1.24) APTT 27.8 (24.4-33.2) SECONDS Sodium (135-145) mmol/L Potassium (3.5-5.3) mmol/L Chloride (100-110) mmol/L Carbon Dioxide (21-32) mmol/L BUN (7-18) mg/dL Creatinine (0.55-1.02) mg/dL Est Cr Clr Drug Dosing mL/min Estimated GFR (MDRD) (>60) BUN/Creatinine Ratio (9-20) Glucose (80-116) mg/dL Calcium (8.6-10.2) mg/dL Total Bilirubin (0.1-1.3) mg/dL AST (5-25) IU/L ALT (12-36) U/L Alkaline Phosphatase (56-112) IU/L Troponin I (4.0-60.3) pg/mL NT-Pro-B Natriuret Pep 3904 H* (<=125) pg/mL Total Protein (6.0-8.0) g/dL Albumin (3.2-4.6) g/dL Globulin g/dL Albumin/Globulin Ratio Meds: Medications Generic Name Dose Route Start Last Admin Trade Name Freq PRN Reason Stop Dose Admin Heparin Sodium/Sodium Chloride 500 mls @ 20 mls/hr 05/26/20 03:41 Heparin 25,000 Units In 1/2 Ns 500 Ml IV ASDIRECTED JOSE Sodium Chloride 1,000 mls @ 125 mls/hr 05/26/20 03:45 Normal Saline IV ASDIRECTED JOSE Sodium Chloride 1,000 mls @ 500 mls/hr 05/26/20 04:00 05/26/20 04:15 Normal Saline IV 500 mls/hr ASDIRECTED JOSE Administration Sodium Chloride 10 ml 05/26/20 03:40 Saline Flush FLUSH ASDIRECTED PRN Keep Vein Open Discontinued Medications Generic Name Dose Route Start Last Admin Trade Name Freq PRN Reason Stop Dose Admin Aspirin 324 mg 05/26/20 02:57 05/26/20 03:18 Aspirin PO 05/26/20 02:58 324 mg ONETIME ONE Administration Heparin Sodium (Porcine) 5,000 units 05/26/20 03:40 05/26/20 04:24 Heparin Sodium IVPUSH 05/26/20 03:41 5,000 units ONETIME ONE Administration Ondansetron HCl 4 mg 05/26/20 03:25 05/26/20 03:29 Zofran Odt PO 05/26/20 03:26 4 mg NOW STA Administration Tramadol HCl 100 mg 05/26/20 03:25 05/26/20 03:47 Ultram PO 05/26/20 03:26 100 mg ONETIME ONE Administration Departure - Departure Time of Disposition: 05:00 Disposition: DC/Tfer to Acute Hospital 02 Reason for Transfer *Q: Other Condition: Good Clinical Impression: NSTEMI (non-ST elevated myocardial infarction), Dehydration, SOL (acute kidney injury), CHF (congestive heart failure) Referrals: Horace Santo MD [Primary Care Provider] - Forms: ED Department Discharge Sepsis Event Note (ED) - Evaluation Sepsis Screening Result: No Definite Risk - Focused Exam Vital Signs: Vital Signs Temp Pulse Resp BP Pulse Ox 05/26/20 02:35 37.3 C 89 20 132/79 95 - My Orders Last 24 Hours: My Active Orders 05/26/20 03:40 Sodium Chloride 0.9% [Saline Flush] 10 ml FLUSH ASDIRECTED PRN Saline Lock Insert [OM.PC] Routine 05/26/20 03:41 Heparin Sodium/0.45% NaCl [Heparin 25,000 Units in 1/2 NS 500 ML] 500 ml IV ASDIRECTED 05/26/20 03:45 Sodium Chloride 0.9% [Normal Saline] 1,000 ml IV ASDIRECTED 05/26/20 03:54 Chest 1V Frontal [CR] Stat 05/26/20 04:00 CORONAVIRUS COVID-19 OSCAR [MOLEC] Stat Sodium Chloride 0.9% [Normal Saline] 1,000 ml IV ASDIRECTED - Assessment/Plan Last 24 Hours: My Active Orders 05/26/20 03:40 Sodium Chloride 0.9% [Saline Flush] 10 ml FLUSH ASDIRECTED PRN Saline Lock Insert [OM.PC] Routine 05/26/20 03:41 Heparin Sodium/0.45% NaCl [Heparin 25,000 Units in 1/2 NS 500 ML] 500 ml IV ASDIRECTED 05/26/20 03:45 Sodium Chloride 0.9% [Normal Saline] 1,000 ml IV ASDIRECTED 05/26/20 03:54 Chest 1V Frontal [CR] Stat 05/26/20 04:00 CORONAVIRUS COVID-19 OSCAR [MOLEC] Stat Sodium Chloride 0.9% [Normal Saline] 1,000 ml IV ASDIRECTED
[2020-05-26] MEDS ORDERED: Heparin Sodium 5,000 Units/ML Vial IVPUSH ONE (03:40)
[2020-05-26] MEDS ORDERED: Sodium Chloride 0.9% 10 ML Syringe FLUSH PRN (03:40)
[2020-05-26] MEDS ORDERED: Heparin Sodium/0.45% NaCl 500 ML IV SCH (03:41)
[2020-05-26] MEDS ORDERED: Sodium Chloride 0.9% 1,000 ML IV SCH ×2 (03:45→04:00)
[2020-05-26] MEDS ORDERED: Atropine 0.1 MG/ML 10 ML Syringe IVPUSH ONE (05:50)
[2020-05-26] MEDS ORDERED: Ondansetron 4 MG/2 ML SDV IVPUSH ONE (05:57)
== END 2020-05-26 06:00 ==
LOC: FB.ED 02:27
DX: I21.4 Non-ST elevation (NSTEMI) myocardial infarction (principal); E86.0 Dehydration; N17.9 Acute kidney failure, unspecified; I11.0 Hypertensive heart disease with heart failure; I50.9 Heart failure, unspecified; I25.10 Atherosclerotic heart disease of native coronary artery without angina pectoris; E78.00 Pure hypercholesterolemia, unspecified; M19.90 Unspecified osteoarthritis, unspecified site; M32.9 Systemic lupus erythematosus, unspecified; Z95.5 Presence of coronary angioplasty implant and graft; Z87.891 Personal history of nicotine dependence; Z79.82 Long term (current) use of aspirin; Z79.02 Long term (current) use of antithrombotics/antiplatelets; Z79.899 Other long term (current) drug therapy; Z20.828 Contact with and (suspected) exposure to other viral communicable diseases
CPT/HCPCS: 36415; 71045; 80053; 83880; 84484; 85025; 85610; 85730; 93005; 93010; 96365; 96375; 99284; 99285-25; A9270-GY; J0461; J1644; J2405; J7030; U0002

== ENCOUNTER 2020-06-09 11:05 | Inpatient (IN) | payer MEDICARE, OTHER ==
[2020-06-09] MEDS ORDERED: Nitroglycerin 0.4 MG Tab.SL SL PRN (14:18)
[2020-06-09] MEDS ORDERED: Albuterol 8 GM Inhaler INH PRN (14:18)
--- NOTE | 2020-06-09 16:20 | PCM.HP.2 ---
H&P History of Present Illness - General Date of Service: 06/09/20 Admit Problem/Dx: Admission Diagnosis/Problem Admission Diagnosis/Problem Wound Source of Information: Old Records History Limitations: Reports: No Limitations - History of Present Illness Initial Comments - Free Text/Narative: Ms Muniz is a 74 yo female with a rt groin wound infection,after femoral exploration,patching on 05/28. It progressed to polymicrobial bacteremia. She is admitted here for rehab,and IV antibiotics. She had initially present ed to [facility] in [place] with a NSTEMI. Her past history includes AAA,Lupus,CKD,Afib Groin Pain Score (Numeric/FACES): 4 - Related Data Allergies/Adverse Reactions: Allergies Allergy/AdvReac Type Severity Reaction Status Date / Time hayfever Allergy Sneezing Uncoded 05/26/20 02:54 Home Medications: Home Meds Albuterol [Ventolin HFA] 2 puff INH Q4H PRN 11/01/18 [History] Aspirin [Halfprin] 81 mg PO DAILY 11/01/18 [History] Budesonide/Formoterol Fumarate [Symbicort 160-4.5 Mcg Inhaler] 2 puff IH BID 11/01/18 [History] Clopidogrel [Plavix] 75 mg PO DAILY 11/01/18 [History] calcitrioL [Rocaltrol] 0.25 mcg PO BEDTIME 11/01/18 [History] Nitroglycerin 0.4 mg SL Q5M PRN 01/18/19 [History] Acetaminophen 650 mg PO Q6H PRN 06/09/20 [History] DAPTOmycin [Daptomycin] 550 mg IV Q48H 06/09/20 [History] Fluticasone Propionate [Flonase] 1 spray NASBOTH BID 06/09/20 [History] Gabapentin [Neurontin] 100 mg PO BEDTIME 06/09/20 [History] Heparin Sodium,Porcine/PF [Heparin Lock Flush 100 Unit/ml] 300 units IVPUSH ASDIRECTED 06/09/20 [History] Multivitamin 1 tab PO DAILY 06/09/20 [History] Piperacillin/Tazobactam [Zosyn] 2.25 mg IV Q8H 06/09/20 [History] Sodium Chloride 0.9% [Saline Flush] 10 ml FLUSH ASDIRECTED 06/09/20 [History] carvediloL [Carvedilol] 3.125 mg PO BID 06/09/20 [History] mycophenolate mofetiL [Mycophenolate Mofetil] 250 mg PO BID 06/09/20 [History] ramipriL [Ramipril] 1.25 mg PO DAILY 06/09/20 [History] Past Medical History HEENT History: Reports: Epistaxis Cardiovascular History: Reports: Aneurysm, CAD, Heart Murmur, High Cholesterol, Hypertension, CT, Prior Cardiac Arrest, SOB on Exertion, Stents Respiratory History: Reports: COPD, Sleep Apnea Other Respiratory History: Hayfever. Gastrointestinal History: Reports: Other (See Below) Other Gastrointestinal History: CRAMPING,DIAHHREA Genitourinary History: Reports: None Other Genitourinary History: Kidney stents. 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 Musculoskeletal History: Reports: Arthritis, Back Pain, Chronic, Fracture Neurological History: Reports: Migraines, Vertigo Psychiatric History: Reports: Anxiety Hematologic History: Reports: Blood Transfusion(s) Immunologic History: Reports: Other (See Below) Other Immunologic History: lupus Dermatologic History: Reports: Other (See Below) Other Dermatologic History: Lupus - Infectious Disease History Infectious Disease History: Reports: Chicken Pox, Measles, Mumps - Past Surgical History HEENT Surgical History: Reports: Adenoidectomy, Cataract Surgery, Oral Surgery, Tonsillectomy Cardiovascular Surgical History: Reports: Aneurysm, Coronary Artery Stent, Other (See Below) GI Surgical History: Reports: Colonoscopy Female Surgical History: Reports: Hysterectomy, Tubal Ligation Social & Family History - Family History Family Medical History: Noncontributory - Tobacco Use Smoking Status *Q: Former Smoker Used Tobacco, but Quit: Yes Month/Year Tobacco Last Used: 2019 - Caffeine Use Caffeine Use: Reports: Coffee - Recreational Drug Use Recreational Drug Use: No - Living Situation & Occupation 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 Exam - Exam Exam: See Below - Vital Signs Weight: 84.822 kg - Exam General: Alert, Oriented HEENT: PERRLA Neck: Supple Lungs: Crackles Cardiovascular: Irregular Rhythm GI/Abdominal Exam: Soft Rectal (Female) Exam: Deferred Extremities: Normal Inspection Skin: Warm Neurological: Cranial Nerves Intact Neuro Extensive - Motor, Sensory, Reflexes: CN II-XII Intact Psychiatric: Alert, Normal Affect Sepsis Event Note - Evaluation Sepsis Screening Result: No Definite Risk - Focused Exam Date Exam was Performed: 06/10/20 Time Exam was Performed: 07:52 - Problem List (1) Bacteremia associated with intravascular line SNOMED Code(s): 744045457 ICD Code: T82.7XXA - INFECT/INFLM REACT D/T OTH CARDI/VASC DEV/IMPLNT/GRFT, INIT; R78.81 - BACTEREMIA Status: Acute Current Visit: Yes (2) Lupus SNOMED Code(s): 264425087 ICD Code: M32.9 - SYSTEMIC LUPUS ERYTHEMATOSUS, UNSPECIFIED Status: Acute Current Visit: Yes (3) Abdominal aneurysm without mention of rupture SNOMED Code(s): 221370683, 949554740 ICD Code: I71.4 - ABDOMINAL AORTIC ANEURYSM, WITHOUT RUPTURE Status: Acute Current Visit: No (4) CHF (congestive heart failure) SNOMED Code(s): 97971321 ICD Code: I50.9 - HEART FAILURE, UNSPECIFIED Status: Acute Current Visit: No (5) MDD (major depressive disorder) SNOMED Code(s): 099823316 ICD Code: F32.9 - MAJOR DEPRESSIVE DISORDER, SINGLE EPISODE, UNSPECIFIED Status: Acute Current Visit: No (6) Peripheral arterial disease SNOMED Code(s): 347911238 ICD Code: I73.9 - PERIPHERAL VASCULAR DISEASE, UNSPECIFIED Status: Acute Current Visit: No (7) CAD (coronary artery disease) SNOMED Code(s): 24681902 ICD Code: I25.10 - ATHSCL HEART DISEASE OF [place] CORONARY ARTERY W/O ANG PCTRS Status: Chronic Current Visit: No Qualifiers: (8) Hypertension SNOMED Code(s): 95253448 ICD Code: I10 - ESSENTIAL (PRIMARY) HYPERTENSION Status: Chronic Current Visit: No Qualifiers: (9) Weakness SNOMED Code(s): 03454816 ICD Code: R53.1 - WEAKNESS Status: Acute Current Visit: Yes (10) Encounter for wound care of surgical pin site SNOMED Code(s): 044392114, 836020969, 255849327 ICD Code: Z51.89 - ENCOUNTER FOR OTHER SPECIFIED AFTERCARE Status: Acute Current Visit: Yes Problem List Initiated/Reviewed/Updated: Yes Orders Last 24hrs: Active Orders 24 hr Category Date Time Status Admission Status [Patient Status] [ADT] Routine ADT 06/09/20 13:45 Active Activity as Tolerated [RC] .Routine Care 06/09/20 13:48 Active Communication Order [RC] 08,, Care 06/09/20 13:51 Active RT Post Treatment Assessment [RC] Click to Edit Care 06/09/20 14:19 Active OT Evaluation and Treatment [CONS] Routine Cons 06/09/20 13:49 Active PT Evaluation and Treatment [CONS] Routine Cons 06/09/20 13:49 Active Heart Healthy Diet [DIET] Diet 06/09/20 Dinner Active CBC WITH AUTO DIFF [HEME] WEEKLY Lab 06/15/20 06:00 Ordered CBC WITH AUTO DIFF [HEME] WEEKLY Lab 06/22/20 06:00 Ordered CBC WITH AUTO DIFF [HEME] WEEKLY Lab 06/29/20 06:00 Ordered CBC WITH AUTO DIFF [HEME] WEEKLY Lab 07/06/20 06:00 Ordered CBC WITH AUTO DIFF [HEME] WEEKLY Lab 07/13/20 06:00 Ordered CBC WITH AUTO DIFF [HEME] WEEKLY Lab 07/20/20 06:00 Ordered CBC WITH AUTO DIFF [HEME] WEEKLY Lab 07/27/20 06:00 Ordered CREATINE KINASE,CK [CHEM] WEEKLY Lab 06/15/20 06:00 Ordered CREATINE KINASE,CK [CHEM] WEEKLY Lab 06/22/20 06:00 Ordered CREATINE KINASE,CK [CHEM] WEEKLY Lab 06/29/20 06:00 Ordered CREATINE KINASE,CK [CHEM] WEEKLY Lab 07/06/20 06:00 Ordered CREATINE KINASE,CK [CHEM] WEEKLY Lab 07/13/20 06:00 Ordered CREATINE KINASE,CK [CHEM] WEEKLY Lab 07/20/20 06:00 Ordered CREATINE KINASE,CK [CHEM] WEEKLY Lab 07/27/20 06:00 Ordered CREATININE W/GFR [CHEM] WEEKLY Lab 06/15/20 06:00 Ordered CREATININE W/GFR [CHEM] WEEKLY Lab 06/22/20 06:00 Ordered CREATININE W/GFR [CHEM] WEEKLY Lab 06/29/20 06:00 Ordered CREATININE W/GFR [CHEM] WEEKLY Lab 07/06/20 06:00 Ordered CREATININE W/GFR [CHEM] WEEKLY Lab 07/13/20 06:00 Ordered CREATININE W/GFR [CHEM] WEEKLY Lab 07/20/20 06:00 Ordered CREATININE W/GFR [CHEM] WEEKLY Lab 07/27/20 06:00 Ordered CRP [C-REACTIVE PROTEIN] [CHEM] WEEKLY Lab 06/15/20 06:00 Ordered CRP [C-REACTIVE PROTEIN] [CHEM] WEEKLY Lab 06/22/20 06:00 Ordered CRP [C-REACTIVE PROTEIN] [CHEM] WEEKLY Lab 06/29/20 06:00 Ordered CRP [C-REACTIVE PROTEIN] [CHEM] WEEKLY Lab 07/06/20 06:00 Ordered CRP [C-REACTIVE PROTEIN] [CHEM] WEEKLY Lab 07/13/20 06:00 Ordered CRP [C-REACTIVE PROTEIN] [CHEM] WEEKLY Lab 07/20/20 06:00 Ordered CRP [C-REACTIVE PROTEIN] [CHEM] WEEKLY Lab 07/27/20 06:00 Ordered Acetaminophen [Tylenol] Med 06/09/20 14:18 Active 650 mg PO Q6H PRN Albuterol [Ventolin HFA] Med 06/09/20 14:18 Active 0 gm INH Q4H PRN Aspirin [Halfprin] Med 06/10/20 09:00 Active 81 mg PO DAILY Clopidogrel [Plavix] Med 06/10/20 09:00 Active 75 mg PO DAILY DAPTOmycin [Cubicin] 500 mg Med 06/09/20 18:00 Active Sodium Chloride 0.9% [Normal Saline] 50 ml IV Q48H Fluticasone Propionate [Flonase] Med 06/09/20 21:00 Active 0 gm NASBOTH BID Gabapentin [Neurontin] Med 06/09/20 21:00 Active 100 mg PO BEDTIME Heparin Sodium [Heparin Lock Flush 100 Units/ML] Med 06/09/20 15:02 Active 300 units IVPUSH ASDIRECTED PRN Mometasone/Formoterol [Dulera 200-5 MCG] Med 06/09/20 21:00 Active 2 puff IH BID Multivitamins [Tab-A-Lakeshia] Med 06/10/20 09:00 Active 1 tab PO DAILY Nitroglycerin [Nitrostat] Med 06/09/20 14:18 Active 0.4 mg SL Q5M PRN Piperacillin/Tazobactam [Zosyn] 2.25 gm Med 06/09/20 18:30 Active Sodium Chloride 0.9% [Normal Saline] 50 ml IV Q8H Sodium Chloride 0.9% [Saline Flush] Med 06/09/20 15:03 Active 10 ml FLUSH ASDIRECTED PRN calcitrioL [Rocaltrol] Med 06/09/20 21:00 Active 0.25 mcg PO BEDTIME carvediloL [Coreg] Med 06/09/20 21:00 Active 3.125 mg PO BID lisinopriL [Prinivil] Med 06/10/20 09:00 Active 5 mg PO DAILY mycophenolate mofetiL [Cellcept] Med 06/09/20 21:00 Active 250 mg PO BID Code Status [Resuscitation Status] Routine Resus Stat 06/09/20 13:47 Ordered Medication Orders Acetaminophen (Tylenol) 650 mg PO Q6H PRN PRN Reason: Pain Albuterol (Ventolin Hfa) 0 gm INH Q4H PRN PRN Reason: Wheezing Aspirin (Halfprin) 81 mg PO DAILY JOSE Calcitriol (Rocaltrol) 0.25 mcg PO BEDTIME JOSE Carvedilol (Coreg) 3.125 mg PO BID JOSE Clopidogrel Bisulfate (Plavix) 75 mg PO DAILY JOSE Fluticasone Propionate (Flonase) 0 gm NASBOTH BID JOSE Gabapentin (Neurontin) 100 mg PO BEDTIME JOSE Heparin Sodium (Porcine) (Heparin Lock Flush 100 Units/Ml) 300 units IVPUSH ASDIRECTED PRN PRN Reason: FLUSH Piperacillin Sod/Tazobactam (Sod 2.25 gm/ Sodium Chloride) 50 mls @ 100 mls/hr IV Q8H JOSE Daptomycin 500 mg/ Sodium (Chloride) 50 mls @ 100 mls/hr IV Q48H JOSE Lisinopril (Prinivil) 5 mg PO DAILY JOSE Mometasone Furoate/Formoterol Fumar (Dulera 200-5 Mcg) 2 puff IH BID JOSE Multivitamins/Minerals/Vitamin C (Tab-A-Lakeshia) 1 tab PO DAILY JOSE Mycophenolate Mofetil (Cellcept) 250 mg PO BID JOSE Nitroglycerin (Nitrostat) 0.4 mg SL Q5M PRN PRN Reason: Chest Pain Sodium Chloride (Saline Flush) 10 ml FLUSH ASDIRECTED PRN PRN Reason: FLUSH Assessment/Plan Comment:: Admit to SB. Consult PT/OT. I appreciate pharmacy input.[facility]
[2020-06-09] MEDS ORDERED: DAPTOmycin 500 MG in Sodium Chloride 0.9% 50 ML IV SCH (18:00)
[2020-06-09] MEDS: Sodium Chloride 0.9% 10 ML Syringe FLUSH PRN ×3 (18:10→19:21)
[2020-06-09] MEDS: Piperacillin/Tazobactam 2.25 GM in Sodium Chloride 0.9% 50 ML IV SCH (18:42)
[2020-06-09] MEDS: Fluticasone Propionate Nasal Spray 16 GM Bottle NASBOTH SCH (20:27)
[2020-06-09] MEDS: Gabapentin 100 MG Cap PO SCH (20:30)
[2020-06-09] MEDS: Formoterol/Mometasone 200-5 MCG 8.8 GM Inhaler IH SCH (20:37)
[2020-06-09] MEDS: Carvedilol 3.125 MG Tab PO SCH (20:39)
[2020-06-09] MEDS: Calcitriol 0.25 MCG Cap PO SCH (20:40)
[2020-06-09] MEDS: Mycophenolate Mofetil 250 MG Cap PO SCH (20:40)
[2020-06-09] MEDS: Acetaminophen 325 MG Tab PO PRN (23:59)
[2020-06-10] MEDS: Sodium Chloride 0.9% 10 ML Syringe FLUSH PRN ×3 (02:13→09:49)
[2020-06-10] MEDS: Piperacillin/Tazobactam 2.25 GM in Sodium Chloride 0.9% 50 ML IV SCH ×3 (02:14→19:04)
[2020-06-10] MEDS: Mycophenolate Mofetil 250 MG Cap PO SCH ×2 (09:24→21:21)
[2020-06-10] MEDS: Fluticasone Propionate Nasal Spray 16 GM Bottle NASBOTH SCH (09:25)
[2020-06-10] MEDS: Aspirin 81 MG Tab.EC PO SCH (09:25)
[2020-06-10] MEDS: Lisinopril 5 MG Tab PO SCH (09:26)
[2020-06-10] MEDS: Multivitamin Tab PO SCH (09:26)
[2020-06-10] MEDS: Clopidogrel 75 MG Tab PO SCH (09:26)
[2020-06-10] MEDS: Carvedilol 3.125 MG Tab PO SCH ×2 (09:26→21:25)
[2020-06-10] MEDS: Formoterol/Mometasone 200-5 MCG 8.8 GM Inhaler IH SCH ×2 (09:26→21:21)
[2020-06-10] MEDS ORDERED: Fluticasone Propionate Nasal Spray 16 GM Bottle NASBOTH PRN (10:22)
[2020-06-10] MEDS: Acetaminophen 325 MG Tab PO PRN (18:52)
[2020-06-10] MEDS: Gabapentin 100 MG Cap PO SCH (21:20)
[2020-06-10] MEDS: Calcitriol 0.25 MCG Cap PO SCH (21:20)
[2020-06-11] MEDS: Piperacillin/Tazobactam 2.25 GM in Sodium Chloride 0.9% 50 ML IV SCH ×4 (02:12→23:53)
[2020-06-11] MEDS: Sodium Chloride 0.9% 10 ML Syringe FLUSH PRN ×6 (02:14→23:52)
[2020-06-11] MEDS: Aspirin 81 MG Tab.EC PO SCH (08:54)
[2020-06-11] MEDS: Formoterol/Mometasone 200-5 MCG 8.8 GM Inhaler IH SCH ×2 (08:54→20:58)
[2020-06-11] MEDS: Carvedilol 3.125 MG Tab PO SCH ×2 (08:54→20:58)
[2020-06-11] MEDS: Mycophenolate Mofetil 250 MG Cap PO SCH ×2 (08:54→20:59)
[2020-06-11] MEDS: Multivitamin Tab PO SCH (08:55)
[2020-06-11] MEDS: Lisinopril 5 MG Tab PO SCH (08:55)
[2020-06-11] MEDS: Clopidogrel 75 MG Tab PO SCH (08:55)
[2020-06-11] MEDS: Acetaminophen 325 MG Tab PO PRN (14:50)
[2020-06-11] MEDS: DAPTOmycin 500 MG in Sodium Chloride 0.9% 50 ML IV SCH (17:18)
[2020-06-11] MEDS: Calcitriol 0.25 MCG Cap PO SCH (20:58)
[2020-06-11] MEDS: Gabapentin 100 MG Cap PO SCH (21:02)
[2020-06-12] MEDS: Mycophenolate Mofetil 250 MG Cap PO SCH ×2 (08:09→21:11)
[2020-06-12] MEDS: Carvedilol 3.125 MG Tab PO SCH ×2 (08:10→21:11)
[2020-06-12] MEDS: Clopidogrel 75 MG Tab PO SCH (08:10)
[2020-06-12] MEDS: Formoterol/Mometasone 200-5 MCG 8.8 GM Inhaler IH SCH ×2 (08:10→21:11)
[2020-06-12] MEDS: Aspirin 81 MG Tab.EC PO SCH (08:10)
[2020-06-12] MEDS: Lisinopril 5 MG Tab PO SCH (08:11)
[2020-06-12] MEDS: Multivitamin Tab PO SCH (08:12)
[2020-06-12] MEDS: Piperacillin/Tazobactam 2.25 GM in Sodium Chloride 0.9% 50 ML IV SCH ×3 (08:25→23:54)
[2020-06-12] MEDS: Sodium Chloride 0.9% 10 ML Syringe FLUSH PRN ×2 (08:30→16:46)
[2020-06-12] MEDS: Acetaminophen 325 MG Tab PO PRN ×2 (12:29→21:25)
[2020-06-12] MEDS: Gabapentin 100 MG Cap PO SCH (21:10)
[2020-06-12] MEDS: Calcitriol 0.25 MCG Cap PO SCH (21:11)
[2020-06-13] MEDS: Sodium Chloride 0.9% 10 ML Syringe FLUSH PRN ×4 (00:30→17:34)
[2020-06-13] MEDS: Piperacillin/Tazobactam 2.25 GM in Sodium Chloride 0.9% 50 ML IV SCH ×2 (08:56→16:58)
[2020-06-13] MEDS: Mycophenolate Mofetil 250 MG Cap PO SCH ×2 (08:59→20:27)
[2020-06-13] MEDS: Carvedilol 3.125 MG Tab PO SCH ×2 (08:59→20:27)
[2020-06-13] MEDS: Aspirin 81 MG Tab.EC PO SCH (09:00)
[2020-06-13] MEDS: Formoterol/Mometasone 200-5 MCG 8.8 GM Inhaler IH SCH ×2 (09:00→20:27)
[2020-06-13] MEDS: Lisinopril 5 MG Tab PO SCH (09:01)
[2020-06-13] MEDS: Clopidogrel 75 MG Tab PO SCH (09:01)
[2020-06-13] MEDS: Multivitamin Tab PO SCH (09:02)
--- NOTE | 2020-06-13 10:38 | PCM.PN ---
- General Info Date of Service: 06/13/20 Admission Dx/Problem (Free Text): Patricia having worsening peripheral edema, and shortness of breath today. States she does have some shortness of breath with her COPD but this is worse. No chest pain. Some productive cough with yellow sputum which is not new. She is taking her inhalers that she normally takes at home. No change in bowel or bladder habits. - Patient Data Vitals - Most Recent: Last Vital Signs Temp 98 F 06/12/20 21:00 Pulse 65 06/13/20 08:59 Resp 16 06/12/20 21:00 BP 112/63 06/13/20 09:01 Pulse Ox 100 06/12/20 21:00 Weight - Most Recent: 187 lb I&O - Last 24 Hours: Intake & Output 06/12/20 06/13/20 06/13/20 22:59 06:59 14:59 Output Total 80 20 Balance -80 -20 Med Orders - Current: Current Medications Acetaminophen (Tylenol) 650 mg PO Q6H PRN PRN Reason: Pain Last Admin: 06/12/20 21:25 Dose: 650 mg Documented by: Albuterol (Ventolin Hfa) 0 gm INH Q4H PRN PRN Reason: Wheezing Aspirin (Halfprin) 81 mg PO DAILY COUNTS INCLUDE 234 BEDS AT THE [facility] Last Admin: 06/13/20 09:00 Dose: 81 mg Documented by: Calcitriol (Rocaltrol) 0.25 mcg PO BEDTIME COUNTS INCLUDE 234 BEDS AT THE [facility] Last Admin: 06/12/20 21:11 Dose: 0.25 mcg Documented by: Carvedilol (Coreg) 3.125 mg PO BID COUNTS INCLUDE 234 BEDS AT THE [facility] Last Admin: 06/13/20 08:59 Dose: 3.125 mg Documented by: Clopidogrel Bisulfate (Plavix) 75 mg PO DAILY COUNTS INCLUDE 234 BEDS AT THE [facility] Last Admin: 06/13/20 09:01 Dose: 75 mg Documented by: Fluticasone Propionate (Flonase) 0 gm NASBOTH BID PRN PRN Reason: ALLERGIES Gabapentin (Neurontin) 100 mg PO BEDTIME COUNTS INCLUDE 234 BEDS AT THE [facility] Last Admin: 06/12/20 21:10 Dose: 100 mg Documented by: Heparin Sodium (Porcine) (Heparin Lock Flush 100 Units/Ml) 300 units IVPUSH ASDIRECTED PRN PRN Reason: FLUSH Last Admin: 06/10/20 02:53 Dose: 300 units Documented by: Heparin Sodium (Porcine) (Heparin Lock Flush 100 Units/Ml) 300 units FLUSH TID@0100,0900,1730 COUNTS INCLUDE 234 BEDS AT THE [facility] Last Admin: 06/13/20 09:04 Dose: 300 units Documented by: Piperacillin Sod/Tazobactam (Sod 2.25 gm/ Sodium Chloride) 50 mls @ 100 mls/hr IV Q8H COUNTS INCLUDE 234 BEDS AT THE [facility] Last Admin: 06/13/20 08:56 Dose: 100 mls/hr Documented by: Daptomycin 500 mg/ Sodium (Chloride) 50 mls @ 100 mls/hr IV Q48H COUNTS INCLUDE 234 BEDS AT THE [facility] Last Admin: 06/11/20 17:18 Dose: 100 mls/hr Documented by: Lisinopril (Prinivil) 5 mg PO DAILY COUNTS INCLUDE 234 BEDS AT THE [facility] Last Admin: 06/13/20 09:01 Dose: 5 mg Documented by: Mometasone Furoate/Formoterol Fumar (Dulera 200-5 Mcg) 2 puff IH BID COUNTS INCLUDE 234 BEDS AT THE [facility] Last Admin: 06/13/20 09:00 Dose: 2 puff Documented by: Multivitamins/Minerals/Vitamin C (Tab-A-Lakeshia) 1 tab PO DAILY COUNTS INCLUDE 234 BEDS AT THE [facility] Last Admin: 06/13/20 09:02 Dose: 1 tab Documented by: Mycophenolate Mofetil (Cellcept) 250 mg PO BID COUNTS INCLUDE 234 BEDS AT THE [facility] Last Admin: 06/13/20 08:59 Dose: 250 mg Documented by: Nitroglycerin (Nitrostat) 0.4 mg SL Q5M PRN PRN Reason: Chest Pain Sodium Chloride (Saline Flush) 10 ml FLUSH ASDIRECTED PRN PRN Reason: FLUSH Last Admin: 06/13/20 09:04 Dose: 10 ml Documented by: Discontinued Medications Fluticasone Propionate (Flonase) 0 gm NASBOTH BID COUNTS INCLUDE 234 BEDS AT THE [facility] Last Admin: 06/10/20 09:25 Dose: Not Given Documented by: Heparin Sodium (Porcine) (Heparin Lock Flush 100 Units/Ml) 300 units FLUSH Q8H COUNTS INCLUDE 234 BEDS AT THE [facility] Last Admin: 06/11/20 11:04 Dose: 300 units Documented by: Piperacillin Sod/Tazobactam (Sod 2.25 gm/ Sodium Chloride) 50 mls @ 100 mls/hr IV Q8H COUNTS INCLUDE 234 BEDS AT THE [facility] Last Admin: 06/11/20 11:00 Dose: 100 mls/hr Documented by: Daptomycin 500 mg/ Sodium (Chloride) 50 mls @ 100 mls/hr IV Q48H COUNTS INCLUDE 234 BEDS AT THE [facility] Last Admin: 06/09/20 18:10 Dose: 100 mls/hr Documented by: - Exam Quality Assessment: No: Supplemental Oxygen General: Alert, Oriented, Cooperative, No Acute Distress Lungs: Clear to Auscultation (BUE), Normal Respiratory Effort, Decreased Breath Sounds (Bibasilar), Crackles (fine, bibasilar). No: Wheezing Cardiovascular: Regular Rate, Regular Rhythm, Murmurs GI/Abdominal Exam: Normal Bowel Sounds, Soft, Non-Tender, No Distention Extremities: Pedal Edema (2+ BLE extends to knees) Peripheral Pulses: 2+: Radial (L), Radial (R) Sepsis Event Note - Evaluation Sepsis Screening Result: No Definite Risk - Focused Exam Vital Signs: Vital Signs Pulse BP 06/13/20 09:01 112/63 06/13/20 08:59 65 112/63 Date Exam was Performed: 06/13/20 Time Exam was Performed: 10:33 - Problem List & Annotations (1) Peripheral edema SNOMED Code(s): 480462753 Code(s): R60.9 - EDEMA, UNSPECIFIED Status: Acute Current Visit: Yes (2) Shortness of breath SNOMED Code(s): 579763382 Code(s): R06.02 - SHORTNESS OF BREATH Status: Acute Current Visit: Yes (3) Bacteremia associated with intravascular line SNOMED Code(s): 001361524 Code(s): T82.7XXA - INFECT/INFLM REACT D/T OTH CARDI/VASC DEV/IMPLNT/GRFT, INIT; R78.81 - BACTEREMIA Status: Acute Current Visit: Yes (4) CHF (congestive heart failure) SNOMED Code(s): 26046468 Code(s): I50.9 - HEART FAILURE, UNSPECIFIED Status: Chronic Current Visit: No (5) MDD (major depressive disorder) SNOMED Code(s): 280703443 Code(s): F32.9 - MAJOR DEPRESSIVE DISORDER, SINGLE EPISODE, UNSPECIFIED Status: Chronic Current Visit: No (6) Non-STEMI (non-ST elevated myocardial infarction) SNOMED Code(s): 87035900 Code(s): I21.4 - NON-ST ELEVATION (NSTEMI) MYOCARDIAL INFARCTION Status: Acute Current Visit: No (7) Peripheral arterial disease SNOMED Code(s): 327058813 Code(s): I73.9 - PERIPHERAL VASCULAR DISEASE, UNSPECIFIED Status: Chronic Current Visit: No (8) CAD (coronary artery disease) SNOMED Code(s): 99339548 Code(s): I25.10 - ATHSCL HEART DISEASE OF [place] CORONARY ARTERY W/O ANG PCTRS Status: Chronic Current Visit: No Qualifiers: (9) Hypertension SNOMED Code(s): 26959189 Code(s): I10 - ESSENTIAL (PRIMARY) HYPERTENSION Status: Chronic Current Visit: No Qualifiers: - Problem List Review Problem List Initiated/Reviewed/Updated: Yes - My Orders Last 24 Hours: My Active Orders 06/13/20 10:04 Chest 2V [CR] Routine - Plan Plan:: 1. CXR 2 views for increased shortness of breath, peripheral edema. 2. TEDS on ready in place. 3. Will adjust treatments as necessary based on x-ray results.
[2020-06-13] MEDS: Furosemide 40 MG/4 ML VIAL IVPUSH SCH (15:18)
[2020-06-13] MEDS: DAPTOmycin 500 MG in Sodium Chloride 0.9% 50 ML IV SCH (17:33)
[2020-06-13] MEDS: Acetaminophen 325 MG Tab PO PRN (20:01)
[2020-06-13] MEDS: Calcitriol 0.25 MCG Cap PO SCH (20:27)
[2020-06-13] MEDS: Gabapentin 100 MG Cap PO SCH (20:27)
[2020-06-14] MEDS: Piperacillin/Tazobactam 2.25 GM in Sodium Chloride 0.9% 50 ML IV SCH ×4 (00:14→23:53)
[2020-06-14] MEDS: Sodium Chloride 0.9% 10 ML Syringe FLUSH PRN ×3 (00:52→16:49)
[2020-06-14] MEDS: Mycophenolate Mofetil 250 MG Cap PO SCH ×2 (09:15→20:35)
[2020-06-14] MEDS: Carvedilol 3.125 MG Tab PO SCH ×2 (09:16→20:35)
[2020-06-14] MEDS: Formoterol/Mometasone 200-5 MCG 8.8 GM Inhaler IH SCH ×2 (09:21→20:36)
[2020-06-14] MEDS: Aspirin 81 MG Tab.EC PO SCH (09:22)
[2020-06-14] MEDS: Furosemide 40 MG/4 ML VIAL IVPUSH SCH (09:23)
[2020-06-14] MEDS: Clopidogrel 75 MG Tab PO SCH (09:26)
[2020-06-14] MEDS: Lisinopril 5 MG Tab PO SCH (09:27)
[2020-06-14] MEDS: Multivitamin Tab PO SCH (09:27)
[2020-06-14] MEDS: Acetaminophen 325 MG Tab PO PRN ×2 (09:28→20:34)
--- NOTE | 2020-06-14 10:48 | PCM.PN ---
- General Info Date of Service: 06/14/20 Admission Dx/Problem (Free Text): Patricia states her legs are better, right more so than left. Shortness of breath is better, even feels her abdomen is softer in lower section and doesn't hurt when she presses on it. She is passing gas but feels her bowels are more on constipated side. She was on Senna 2 tabs bid in [place] and had diarrhea so was held but feels now that she needs something. - Patient Data Vitals - Most Recent: Last Vital Signs Temp 98.1 F 06/14/20 08:00 Pulse 60 06/14/20 09:16 Resp 16 06/14/20 08:00 BP 114/55 L 06/14/20 09:27 Pulse Ox 96 06/14/20 08:00 Weight - Most Recent: 187 lb I&O - Last 24 Hours: Intake & Output 06/13/20 06/14/20 06/14/20 22:59 06:59 14:59 Output Total 50 20 Balance -50 -20 Med Orders - Current: Current Medications Acetaminophen (Tylenol) 650 mg PO Q6H PRN PRN Reason: Pain Last Admin: 06/14/20 09:28 Dose: 650 mg Documented by: Albuterol (Ventolin Hfa) 0 gm INH Q4H PRN PRN Reason: Wheezing Aspirin (Halfprin) 81 mg PO DAILY [facility] Last Admin: 06/14/20 09:22 Dose: 81 mg Documented by: Calcitriol (Rocaltrol) 0.25 mcg PO BEDTIME [facility] Last Admin: 06/13/20 20:27 Dose: 0.25 mcg Documented by: Carvedilol (Coreg) 3.125 mg PO BID [facility] Last Admin: 06/14/20 09:16 Dose: 3.125 mg Documented by: Clopidogrel Bisulfate (Plavix) 75 mg PO DAILY [facility] Last Admin: 06/14/20 09:26 Dose: 75 mg Documented by: Fluticasone Propionate (Flonase) 0 gm NASBOTH BID PRN PRN Reason: ALLERGIES Furosemide (Lasix) 40 mg IVPUSH DAILY [facility] Last Admin: 06/14/20 09:23 Dose: 40 mg Documented by: Gabapentin (Neurontin) 100 mg PO BEDTIME [facility] Last Admin: 06/13/20 20:27 Dose: 100 mg Documented by: Heparin Sodium (Porcine) (Heparin Lock Flush 100 Units/Ml) 300 units IVPUSH ASDIRECTED PRN PRN Reason: FLUSH Last Admin: 06/10/20 02:53 Dose: 300 units Documented by: Heparin Sodium (Porcine) (Heparin Lock Flush 100 Units/Ml) 300 units FLUSH TID@0100,0900,1730 [facility] Last Admin: 06/14/20 09:22 Dose: 300 units Documented by: Piperacillin Sod/Tazobactam (Sod 2.25 gm/ Sodium Chloride) 50 mls @ 100 mls/hr IV Q8H [facility] Last Admin: 06/14/20 09:12 Dose: 100 mls/hr Documented by: Daptomycin 500 mg/ Sodium (Chloride) 50 mls @ 100 mls/hr IV Q48H [facility] Last Admin: 06/13/20 17:33 Dose: 100 mls/hr Documented by: Lisinopril (Prinivil) 5 mg PO DAILY [facility] Last Admin: 06/14/20 09:27 Dose: 5 mg Documented by: Mometasone Furoate/Formoterol Fumar (Dulera 200-5 Mcg) 2 puff IH BID [facility] Last Admin: 06/14/20 09:21 Dose: 2 puff Documented by: Multivitamins/Minerals/Vitamin C (Tab-A-Lakeshia) 1 tab PO DAILY [facility] Last Admin: 06/14/20 09:27 Dose: 1 tab Documented by: Mycophenolate Mofetil (Cellcept) 250 mg PO BID [facility] Last Admin: 06/14/20 09:15 Dose: 250 mg Documented by: Nitroglycerin (Nitrostat) 0.4 mg SL Q5M PRN PRN Reason: Chest Pain Sodium Chloride (Saline Flush) 10 ml FLUSH ASDIRECTED PRN PRN Reason: FLUSH Last Admin: 06/14/20 09:30 Dose: 10 ml Documented by: Discontinued Medications Fluticasone Propionate (Flonase) 0 gm NASBOTH BID [facility] Last Admin: 06/10/20 09:25 Dose: Not Given Documented by: Heparin Sodium (Porcine) (Heparin Lock Flush 100 Units/Ml) 300 units FLUSH Q8H [facility] Last Admin: 06/11/20 11:04 Dose: 300 units Documented by: Piperacillin Sod/Tazobactam (Sod 2.25 gm/ Sodium Chloride) 50 mls @ 100 mls/hr IV Q8H [facility] Last Admin: 06/11/20 11:00 Dose: 100 mls/hr Documented by: Daptomycin 500 mg/ Sodium (Chloride) 50 mls @ 100 mls/hr IV Q48H [facility] Last Admin: 06/09/20 18:10 Dose: 100 mls/hr Documented by: - Exam General: Alert, Oriented, Cooperative, No Acute Distress Lungs: Clear to Auscultation, Normal Respiratory Effort, Crackles (fine, improved). No: Wheezing Cardiovascular: Regular Rate, Regular Rhythm, Murmurs GI/Abdominal Exam: Normal Bowel Sounds, Soft, Non-Tender, No Distention, Other (Ecchymosis across lower pannus) Extremities: Pedal Edema (trace on RLE, 1+ on LLE) Peripheral Pulses: 2+: Radial (L), Radial (R) Sepsis Event Note - Evaluation Sepsis Screening Result: No Definite Risk - Focused Exam Vital Signs: Vital Signs Temp Pulse Pulse Resp BP BP Pulse Ox 06/14/20 09:27 114/55 L 06/14/20 09:16 60 114/55 L 06/14/20 08:00 98.1 F 60 16 114/55 L 96 Date Exam was Performed: 06/14/20 Time Exam was Performed: 10:43 - Problem List & Annotations (1) Peripheral edema SNOMED Code(s): 078340873 Code(s): R60.9 - EDEMA, UNSPECIFIED Status: Acute Current Visit: Yes Annotation/Comment:: improved (2) Shortness of breath SNOMED Code(s): 480218881 Code(s): R06.02 - SHORTNESS OF BREATH Status: Acute Current Visit: Yes Annotation/Comment:: Improved (3) Bacteremia associated with intravascular line SNOMED Code(s): 712824296 Code(s): T82.7XXA - INFECT/INFLM REACT D/T OTH CARDI/VASC DEV/IMPLNT/GRFT, INIT; R78.81 - BACTEREMIA Status: Acute Current Visit: Yes (4) CHF (congestive heart failure) SNOMED Code(s): 81954790 Code(s): I50.9 - HEART FAILURE, UNSPECIFIED Status: Chronic Current Visit: No (5) MDD (major depressive disorder) SNOMED Code(s): 730487964 Code(s): F32.9 - MAJOR DEPRESSIVE DISORDER, SINGLE EPISODE, UNSPECIFIED Status: Chronic Current Visit: No (6) Non-STEMI (non-ST elevated myocardial infarction) SNOMED Code(s): 23825848 Code(s): I21.4 - NON-ST ELEVATION (NSTEMI) MYOCARDIAL INFARCTION Status: Acute Current Visit: No (7) Peripheral arterial disease SNOMED Code(s): 712668992 Code(s): I73.9 - PERIPHERAL VASCULAR DISEASE, UNSPECIFIED Status: Chronic Current Visit: No (8) CAD (coronary artery disease) SNOMED Code(s): 79274371 Code(s): I25.10 - ATHSCL HEART DISEASE OF [place] CORONARY ARTERY W/O ANG PCTRS Status: Chronic Current Visit: No Qualifiers: (9) Hypertension SNOMED Code(s): 81789807 Code(s): I10 - ESSENTIAL (PRIMARY) HYPERTENSION Status: Chronic Current Visit: No Qualifiers: - Problem List Review Problem List Initiated/Reviewed/Updated: Yes - My Orders Last 24 Hours: My Active Orders 06/13/20 10:04 Chest 2V [CR] Routine 06/13/20 13:45 Furosemide [Lasix] 40 mg IVPUSH DAILY 06/13/20 15:13 Communication Order [RC] Q1HWA 06/14/20 08:06 Daily Weight [Height and Weight] [RC] 06 - Plan Plan:: 1. CXR showed some Juancarlos B lines, some vascular congestion, Lasix 40 mg given yesterday and today. 2. TEDS on ready in place. 3. Labs for tomorrow for Infectious diseases.
[2020-06-14] MEDS: Saccharomyces Boulardii (Probiotic) 250 MG Cap PO SCH ×2 (14:39→20:35)
[2020-06-14] MEDS: Gabapentin 100 MG Cap PO SCH (20:35)
[2020-06-14] MEDS: Calcitriol 0.25 MCG Cap PO SCH (20:35)
[2020-06-15] MEDS: Sodium Chloride 0.9% 10 ML Syringe FLUSH PRN ×4 (00:30→12:28)
[2020-06-15] MEDS ORDERED: Sodium Chloride 0.9% 250 ML IV SCH (08:15)
[2020-06-15] MEDS: Mycophenolate Mofetil 250 MG Cap PO SCH ×2 (08:57→21:14)
[2020-06-15] MEDS: Piperacillin/Tazobactam 2.25 GM in Sodium Chloride 0.9% 50 ML IV SCH ×2 (08:57→17:49)
[2020-06-15] MEDS: Carvedilol 3.125 MG Tab PO SCH ×2 (08:57→21:18)
[2020-06-15] MEDS: Formoterol/Mometasone 200-5 MCG 8.8 GM Inhaler IH SCH ×2 (08:58→21:14)
[2020-06-15] MEDS: Saccharomyces Boulardii (Probiotic) 250 MG Cap PO SCH ×2 (08:59→21:15)
[2020-06-15] MEDS: Aspirin 81 MG Tab.EC PO SCH (08:59)
[2020-06-15] MEDS: Lisinopril 5 MG Tab PO SCH (08:59)
[2020-06-15] MEDS: Multivitamin Tab PO SCH (09:00)
[2020-06-15] MEDS: Clopidogrel 75 MG Tab PO SCH (09:00)
[2020-06-15] MEDS: Furosemide 40 MG/4 ML VIAL IVPUSH SCH (10:03)
[2020-06-15] MEDS: Ferrous Sulfate 325 MG Tab PO SCH (17:49)
[2020-06-15] MEDS: Ascorbic Acid 500 MG Tab PO SCH (17:50)
[2020-06-15] MEDS: DAPTOmycin 500 MG in Sodium Chloride 0.9% 50 ML IV SCH (18:31)
[2020-06-15] MEDS: Gabapentin 100 MG Cap PO SCH (21:16)
[2020-06-15] MEDS: Calcitriol 0.25 MCG Cap PO SCH (21:16)
[2020-06-16] MEDS: Piperacillin/Tazobactam 2.25 GM in Sodium Chloride 0.9% 50 ML IV SCH ×3 (00:42→16:21)
[2020-06-16] MEDS: Sodium Chloride 0.9% 10 ML Syringe FLUSH PRN ×4 (01:30→16:21)
[2020-06-16] MEDS: Acetaminophen 325 MG Tab PO PRN (02:50)
[2020-06-16] MEDS: Ferrous Sulfate 325 MG Tab PO SCH (08:37)
[2020-06-16] MEDS: Ascorbic Acid 500 MG Tab PO SCH (08:38)
[2020-06-16] MEDS: Mycophenolate Mofetil 250 MG Cap PO SCH ×2 (08:38→20:36)
[2020-06-16] MEDS: Clopidogrel 75 MG Tab PO SCH (08:39)
[2020-06-16] MEDS: Lisinopril 5 MG Tab PO SCH (08:40)
[2020-06-16] MEDS: Aspirin 81 MG Tab.EC PO SCH (08:44)
[2020-06-16] MEDS: Multivitamin Tab PO SCH (08:44)
[2020-06-16] MEDS: Carvedilol 3.125 MG Tab PO SCH ×2 (08:45→20:42)
[2020-06-16] MEDS: Saccharomyces Boulardii (Probiotic) 250 MG Cap PO SCH ×2 (08:45→20:43)
[2020-06-16] MEDS: Formoterol/Mometasone 200-5 MCG 8.8 GM Inhaler IH SCH ×2 (08:46→20:42)
--- NOTE | 2020-06-16 17:07 | PCM.PN ---
- General Info Date of Service: 06/16/20 Admission Dx/Problem (Free Text): Patricia feeling better after the 1 unit of PRBCs yesterday, no shortness of breath, edema is down further. Due for dressing change today, viewed with nursing and helped express some fluid out of wound. She is seeing Plastics tomorrow in regards to wound. Compared with photos of wound when she arrived. She has no pain to the site, states it is draining less than it was. She is in good spirits, feels her bowel movements are getting more normal. The vitamin C has upset her stomach so would like to take Vitron-C that she took before, her daughter can bring in, it is a Iron with Vitamin c takes 1 tablet twice a day. - Patient Data Vitals - Most Recent: Last Vital Signs Temp 97.9 F 06/16/20 08:00 Pulse 61 06/16/20 08:45 Resp 18 06/16/20 08:00 BP 127/53 L 06/16/20 08:45 Pulse Ox 96 06/16/20 08:00 Weight - Most Recent: 178 lb 8 oz I&O - Last 24 Hours: Intake & Output 06/16/20 06/16/20 06/16/20 06:59 14:59 22:59 Intake Total 55 50 Output Total 15 55 Balance 40 50 -55 Lab Results Last 24 Hours: Laboratory Results - last 24 hr 06/15/20 06/16/20 Range/Units 12:30 08:25 Hgb 10.3 L (11.5-15.5) g/dL Hct 31.7 (30.0-51.3) % Crossmatch See Detail Med Orders - Current: Current Medications Acetaminophen (Tylenol) 650 mg PO Q6H PRN PRN Reason: Pain Last Admin: 06/16/20 02:50 Dose: 650 mg Documented by: Albuterol (Ventolin Hfa) 0 gm INH Q4H PRN PRN Reason: Wheezing Aspirin (Halfprin) 81 mg PO DAILY [facility] Last Admin: 06/16/20 08:44 Dose: 81 mg Documented by: Calcitriol (Rocaltrol) 0.25 mcg PO BEDTIME [facility] Last Admin: 06/15/20 21:16 Dose: 0.25 mcg Documented by: Carvedilol (Coreg) 3.125 mg PO BID [facility] Last Admin: 06/16/20 08:45 Dose: 3.125 mg Documented by: Clopidogrel Bisulfate (Plavix) 75 mg PO DAILY [facility] Last Admin: 06/16/20 08:39 Dose: 75 mg Documented by: Fluticasone Propionate (Flonase) 0 gm NASBOTH BID PRN PRN Reason: ALLERGIES Gabapentin (Neurontin) 100 mg PO BEDTIME [facility] Last Admin: 06/15/20 21:16 Dose: 100 mg Documented by: Heparin Sodium (Porcine) (Heparin Lock Flush 100 Units/Ml) 300 units IVPUSH ASDIRECTED PRN PRN Reason: FLUSH Last Admin: 06/15/20 12:29 Dose: 300 units Documented by: Heparin Sodium (Porcine) (Heparin Lock Flush 100 Units/Ml) 300 units FLUSH T ID@0100,0900,1730 [facility] Last Admin: 06/16/20 09:52 Dose: 300 units Documented by: Piperacillin Sod/Tazobactam (Sod 2.25 gm/ Sodium Chloride) 50 mls @ 100 mls/hr IV Q8H [facility] Stop: 07/09/20 23:59 Last Admin: 06/16/20 16:21 Dose: 100 mls/hr Documented by: Daptomycin 500 mg/ Sodium (Chloride) 50 mls @ 100 mls/hr IV Q48H [facility] Stop: 07/09/20 23:59 Last Admin: 06/15/20 18:31 Dose: 100 mls/hr Documented by: Sodium Chloride (Normal Saline) 250 mls @ 100 mls/hr IV ASDIRECTED [facility] Lisinopril (Prinivil) 5 mg PO DAILY [facility] Last Admin: 06/16/20 08:40 Dose: 5 mg Documented by: Mometasone Furoate/Formoterol Fumar (Dulera 200-5 Mcg) 2 puff IH BID [facility] Last Admin: 06/16/20 08:46 Dose: 2 puff Documented by: Multivitamins/Minerals/Vitamin C (Tab-A-Lakeshia) 1 tab PO DAILY [facility] Last Admin: 06/16/20 08:44 Dose: 1 tab Documented by: Mycophenolate Mofetil (Cellcept) 250 mg PO BID [facility] Last Admin: 06/16/20 08:38 Dose: 250 mg Documented by: Nitroglycerin (Nitrostat) 0.4 mg SL Q5M PRN PRN Reason: Chest Pain Vitron-C *Ptom* 1 each PO BIDMEALS [facility] Saccharomyces Boulardii (Florastor) 250 mg PO BID [facility] Last Admin: 06/16/20 08:45 Dose: 250 mg Documented by: Senna/Docusate Sodium (Senna Plus) 1 tab PO BID [facility] Last Admin: 06/16/20 08:43 Dose: 1 tab Documented by: Sodium Chloride (Saline Flush) 10 ml FLUSH ASDIRECTED PRN PRN Reason: FLUSH Last Admin: 06/16/20 16:21 Dose: 10 ml Documented by: Discontinued Medications Ascorbic Acid (Vitamin C) 500 mg PO BIDMEALS [facility] Last Admin: 06/16/20 08:38 Dose: 500 mg Documented by: Ferrous Sulfate (Ferrous Sulfate) 325 mg PO BIDMEALS [facility] Last Admin: 06/16/20 08:37 Dose: 325 mg Documented by: Fluticasone Propionate (Flonase) 0 gm NASBOTH BID [facility] Last Admin: 06/10/20 09:25 Dose: Not Given Documented by: Furosemide (Lasix) 40 mg IVPUSH DAILY [facility] Stop: 06/15/20 09:01 Last Admin: 06/15/20 10:03 Dose: 40 mg Documented by: Heparin Sodium (Porcine) (Heparin Lock Flush 100 Units/Ml) 300 units FLUSH Q8H [facility] Last Admin: 06/11/20 11:04 Dose: 300 units Documented by: Piperacillin Sod/Tazobactam (Sod 2.25 gm/ Sodium Chloride) 50 mls @ 100 mls/hr IV Q8H [facility] Last Admin: 06/11/20 11:00 Dose: 100 mls/hr Documented by: Daptomycin 500 mg/ Sodium (Chloride) 50 mls @ 100 mls/hr IV Q48H [facility] Last Admin: 06/09/20 18:10 Dose: 100 mls/hr Documented by: - Exam General: Alert, Oriented, Cooperative, No Acute Distress Lungs: Clear to Auscultation, Normal Respiratory Effort. No: Crackles, Wheezing Cardiovascular: Regular Rate, Regular Rhythm GI/Abdominal Exam: Normal Bowel Sounds, Soft, Non-Tender, No Distention Extremities: No Pedal Edema Wound/Incisions: Dressing Dry and Intact, Drainage (minimal with manual expression on abdomen, good granulation and some slough tissue present, sutures are intact.) Sepsis Event Note - Evaluation Sepsis Screening Result: No Definite Risk - Focused Exam Vital Signs: Vital Signs Temp Pulse Pulse Resp BP BP Pulse Ox 06/16/20 08:45 61 127/53 L 06/16/20 08:40 127/53 L 06/16/20 08:00 97.9 F 61 18 127/53 L 96 Date Exam was Performed: 06/16/20 Time Exam was Performed: 17:02 - Problem List & Annotations (1) Iron deficiency anemia SNOMED Code(s): 51133160 Code(s): D50.9 - IRON DEFICIENCY ANEMIA, UNSPECIFIED Status: Acute Current Visit: Yes Annotation/Comment:: Improved after 1 unit of PRBC yesterday, Hgb 10.3. Daughter will bring in Vitron-C for her to take as the Iron with separate Vitamin C is bothering her stomach. She is on senna-s bid for constipation, will adjust if needed with addition of iron. Labs again on Monday. (2) Bacteremia associated with intravascular line SNOMED Code(s): 606460197 Code(s): T82.7XXA - INFECT/INFLM REACT D/T OTH CARDI/VASC DEV/IMPLNT/GRFT, INIT; R78.81 - BACTEREMIA Status: Acute Current Visit: Yes (3) CHF (congestive heart failure) SNOMED Code(s): 57580301 Code(s): I50.9 - HEART FAILURE, UNSPECIFIED Status: Chronic Current Visit: No (4) MDD (major depressive disorder) SNOMED Code(s): 209935816 Code(s): F32.9 - MAJOR DEPRESSIVE DISORDER, SINGLE EPISODE, UNSPECIFIED Status: Chronic Current Visit: No (5) Non-STEMI (non-ST elevated myocardial infarction) SNOMED Code(s): 98227425 Code(s): I21.4 - NON-ST ELEVATION (NSTEMI) MYOCARDIAL INFARCTION Status: Acute Current Visit: No (6) Peripheral arterial disease SNOMED Code(s): 771799949 Code(s): I73.9 - PERIPHERAL VASCULAR DISEASE, UNSPECIFIED Status: Chronic Current Visit: No (7) CAD (coronary artery disease) SNOMED Code(s): 28774594 Code(s): I25.10 - ATHSCL HEART DISEASE OF [place] CORONARY ARTERY W/O ANG PCTRS Status: Chronic Current Visit: No Qualifiers: (8) Hypertension SNOMED Code(s): 70453637 Code(s): I10 - ESSENTIAL (PRIMARY) HYPERTENSION Status: Chronic Current Visit: No Qualifiers: (9) Peripheral edema SNOMED Code(s): 919401216 Code(s): R60.9 - EDEMA, UNSPECIFIED Status: Resolved Current Visit: Yes Annotation/Comment:: improved (10) Shortness of breath SNOMED Code(s): 219610439 Code(s): R06.02 - SHORTNESS OF BREATH Status: Resolved Current Visit: Yes Annotation/Comment:: Improved - Problem List Review Problem List Initiated/Reviewed/Updated: Yes - My Orders Last 24 Hours: My Active Orders 06/16/20 18:00 Non-Formulary Medication [NF Drug] 1 each PO BIDMEALS - Plan Plan:: 1. Hbg today 10.3, labs on Monday, Vitron-C started 1 tab bid for Iron def anemia. 2. Assess wound today, comparing admission photos, it is healing well. Follow up with Plastics tomorrow, continue present cares.
[2020-06-16] MEDS: VITRON C PO SCH (17:19)
[2020-06-16] MEDS: Gabapentin 100 MG Cap PO SCH (20:45)
[2020-06-16] MEDS: Calcitriol 0.25 MCG Cap PO SCH (20:46)
[2020-06-17] MEDS: Piperacillin/Tazobactam 2.25 GM in Sodium Chloride 0.9% 50 ML IV SCH ×3 (00:27→17:07)
[2020-06-17] MEDS: Sodium Chloride 0.9% 10 ML Syringe FLUSH PRN ×4 (01:24→18:44)
[2020-06-17] MEDS: VITRON C PO SCH ×2 (08:28→17:55)
[2020-06-17] MEDS: Carvedilol 3.125 MG Tab PO SCH ×2 (08:29→21:47)
[2020-06-17] MEDS: Mycophenolate Mofetil 250 MG Cap PO SCH ×2 (08:29→20:04)
[2020-06-17] MEDS: Formoterol/Mometasone 200-5 MCG 8.8 GM Inhaler IH SCH ×2 (08:30→20:04)
[2020-06-17] MEDS: Saccharomyces Boulardii (Probiotic) 250 MG Cap PO SCH ×2 (08:31→20:04)
[2020-06-17] MEDS: Aspirin 81 MG Tab.EC PO SCH (08:32)
[2020-06-17] MEDS: Lisinopril 5 MG Tab PO SCH (08:32)
[2020-06-17] MEDS: Clopidogrel 75 MG Tab PO SCH (08:32)
[2020-06-17] MEDS: Multivitamin Tab PO SCH (08:33)
[2020-06-17] MEDS: Acetaminophen 325 MG Tab PO PRN ×2 (12:14→18:51)
--- OUTSIDE RECORDS SUMMARY | 2020-06-17 13:49 | XMSREPORT ---
:1945 Demographics Address [address] [place] [address] Mobile Phone Preferred Language Pakistani Marital Status Unknown Yazdanism Affiliation Unknown Race White Ethnic Group Not or Author Organization [facility] s Address [facility] [place] [address] Care Team Providers Name Role Phone Sandra Santo MD Primary Care Provider Sandra Santo MD Attributed Provider Reason for Referral Comprehensive Primary Care Plus (Routine) Status Reason Specialty Diagnoses / Referred By Referred To Contact Procedures Contact New Request CARDIOLOGY Diagnoses NSTEMI (non-ST elevated myocardial infarction) (HCC) Neida Brito [facility] Sc RAULITO Romano [address] [place], [place], [place] [id number] Phone: Phone: Scheduling Instructions This is an electronic referral. Comprehensive Primary Care Plus (Routine) Status Reason Specialty Diagnoses / Referred By Referred To Procedures Contact Contact New Request Advance Care Diagnoses ACP (advance care planning) Lalito Zuñiga neida Acp Sc Jose Alcazar MD [address] [place] [address] [place] [address] Phone: Fax: Scheduling Instructions This is an electronic referral. Reason for Visit Reason Comments Auth/Cert Status Reason Specialty Diagnoses / Procedures Referred By Maico willett Referred To Contact Encounter Details Date Type Department Care Team Description 05/26/2020 - Hospital Encounter [facility] Provider, Gen [facility] Procedure NSTEMI (non-ST 06/09/2020 CENTER 6AB NEURO Nagi Glaser DO [address] [place] [address] elevated myocardial [facility] Inge Zuñiga MD [address] [place] [address] [phone] infarction) ([facility]) [address] [facility] John Nunez MD [address] [place] [address] [phone] [place] [address] Rafeal Wise MD [address] [place] [address] [phone] Miguelangel Mart MD [address] [place] [address] [phone] Herrera Luo MD [address] [place] [address] [phone] Yeny Connell MD [address] [place] [address] [phone] Allergies Active Allergy Reactions Severity Noted Date Comments Adhesives Rash Medium 05/26/2020 Adhesive bandag es cause severe skin tea rs per pt. Atorvastatin Other (Specify in High 03/09/2018 myalgias Comments) Hay Fever Other (Specify in 04/20/2019 Sneezing Comments) documented as of this encounter (statuses as of 06/09/2020) Medications Medication Sig Dispensed Refills Start Date End Date Status acetaminophen Take 650 mg by 0 A ctive (TYLENOL) 325 mg mouth every 6 tablet hours as needed for mild pain (Arthritis pain) nitroglycerin Dissolve 1 30 tablet 3 11/05/2018 Acti ve (NITROSTAT) 0.4 mg tablet (0.4 mg) sublingual under the tongue tabletIndications: Every 5 minutes Coronary artery as needed for disease due to chest pain May calcified coronary repeat every 5 lesion, STEMI minutes for a involving right total of 3 coronary artery (HCC) doses. fluticasone (FLONASE) [place] 1 spray 3 Bottle 4 12/11/2019 Active 50 mcg/spray nasal into each sprayIndications: nostril 2 times Cough a day Additional information Patient taking differently: 1 spray Each nostril Two times a day prn, other (Specify), allergies, Informant: Self, Reported on 04/02/2020 9:39 AM ALBUTEROL (VENTOLIN BRAND) 108 mcg INHALE 2 PUFFS BY MOUTH 18 g 2 03/09/2020 Active (90 base) act HFA EVERY FOUR HOURS inhalerIndications: Bronchitis, Hx NEEDED FOR WHEEZING OR of tobacco use, presenting hazards COUGH to health Additional information Patient taking differently: 2 puff Inhalation Every four hours prn, wheezing, cough, Informant: Self, Reported on 04/02/2020 9:39 AM Multiple Take 1 tablet by 0 Act hung Vitamins-Minerals mouth 1 time per (MULTIVITAL) tablet day aspirin 81 mg enteric Take 1 tablet (81 30 tablet 0 06/09 Active coated tablet mg) by mouth 1 time per day budesonide-formoterol INHALE 2 PUFFS BY 1 Inhaler 06/09 Active (SYMBICORT) 160-4.5 MOUTH TWICE DAILY - /2019 mcg/puff SHAKE WELL BEFORE inhalerIndications: USING Coronary artery disease due to calcified coronary lesion, STEMI involving right coronary artery ([facility]) ramipril (ALTACE) 1.25 Take 1 capsule 30 capsule 12 06/10 0 06/15 Active mg capsuleIndications: (1.25 mg) by mouth /2019 NSTEMI (non-ST elevated 1 time per day myocardial infarction) ([facility]) mycophenolate (CELLCEPT) Take 1 capsule (250 180 capsule 0 Active 250 mg mg) by mouth capsuleIndications: times a day Lupus ([facility]) carVEDilol (COREG) 3.125 Take 1 tablet 180 tablet 06/09 Active mg tabletIndications: (3.125 mg) by mouth Essential hypertension 2 times a day with meals calcitriol (ROCALTROL) Take 1 capsule 90 capsule 06/09 Active 0.25 mcg (0.25 mcg) by mouth capsuleIndications: every night at Essential hypertension bedtime clopidogrel (PLAVIX) 75 Take 1 tablet (75 90 tablet 3 06/09 Active mg tabletIndications: mg) by mouth 1 time Chronic mesenteric per day ischemia (HCC) sodium chloride 0.9% Administer 10 mL intravenous ly As often as necessary for other (Specify) (Flush infusion line before each antibiotic infusion and after each infusion completed) Flush infusion line before each antibiotic infusion and after each infusion completed. 0 06/09 Active prefilled 10 mL syringe Flush line with heparin 300 units/ 3 mL after the last saline flush /2020 0.9% SOLNIndications: Surgical wound infection hEParin 100 units/mL Administer 3 mL 0 06/09 Active injection (300 Units) /2019 solutionIndications: intravenously As Surgical wound infection often as necessary for other (Specify) (heparin 300 units/3 mL IV FLUSH after completion of each antibiotic infusion (after saline flush)) heparin 300 units/3 mL IV FLUSH after completion of each antibiotic infusion (after saline flush) DAPTOmycin (CUBICIN) 6 Administer 550 mg 0 06/09 Active mg/kg = 550 mg in sodium intravenously Every /2019 chloride 0.9% 50 48 hours mLIndications: Surgical wound infection piperacillin-tazobactam Administer 2,250 mg 0 06/09 Active (ZOSYN) 2.25 g in sodium intravenously Every 2020 chloride 0.9% 50 8 hours mLIndications: Surgical wound infection gabapentin (NEURONTIN) Take 1 capsule (100 5 capsule 0 06/09 Active 100 mg mg) by mouth every capsuleIndications: RLS night at bedtime (restless legs syndrome) PAIN loratadine (CLARITIN) 10 Take 10 mg by mouth 0 06/09 Discontinued mg tablet 1 time a day (Sto p Taking at needed for Discharge ) allergies aspirin 81 mg enteric Take 81 mg by mouth 0 06/09 Discontinued coated tablet 1 time per day ( Reorder) calcium Take 1 tablet by 0 06/09 Dis continued carbonate-vitamin D mouth 1 time a day / 2019 (Stop Taking at (OSCAL 500 + VIT D) 500 with breakfast Discharge) mg-200 unit tablet budesonide-formoterol INHALE 2 PUFFS BY 1 Inhaler 08/02 Discontinued (SYMBICORT) 160-4.5 MOUTH TWICE DAILY - /2018 (Reorder) mcg/puff SHAKE WELL BEFORE inhalerIndications: USING Centrilobular emphysema (HCC) guaiFENesin (MUCINEX) Take 1 tablet (600 28 tablet 0 12/17 06/09 Discontinued 600 MG SR (12 hr) mg) by mouth 2 (Stop Taking at tabletIndications: Cough times a day Discharge) hydroxychloroquine Take 1 tablet (200 30 tablet 0 02/19 Discontinued (PLAQUENIL) 200 mg mg) by mouth 1 time /2019 (entry level marketing representative tabletIndications: Lupus per day error) (HCC) mycophenolate (CELLCEPT) TAKE ONE CAPSULE BY 180 capsule 0 06/09 Discontinued 250 mg MOUTH TWICE DAILY /2019 (R eorder) capsuleIndications: Lupus ([facility]) calcium carbonate (TUMS) Take 1,000-1,500 mg 0 06/09 Discontinued 500 MG chewable tablet by mouth at bedtime /2019 (Stop Taking at as needed for Discha rge) heartburn or indigestion calcitriol (ROCALTROL) Take 1 capsule 90 capsule 4 04/05 0 06/09 Discontinued 0.25 mcg (0.25 mcg) by mouth /2019 (Reorder) capsuleIndications: every night at Essential hypertension bedtime carVEDilol (COREG) 3.125 Take 1 tablet 180 tablet 4 04/05 06/09 Discontinued mg tabletIndications: (3.125 mg) by mouth /2019 (Reorder) Essential hypertension 2 times a day with meals senna-docusate sodium Take 2 tablets by 56 tablet 0 04/05 06/09 Discontinued (SENOKOT-S;PERICOLACE) mouth 2 times a day /2019 (Stop Taking at 8.6-50 MG Hold for loose Disch arge) tabletIndications: FSGS stools (focal segmental glomerulosclerosis) ciprofloxacin (CIPRO) Take 1 tablet (500 56 tablet 0 04/28 06/09 Discontinued 500 mg mg) by mouth 2 (Stop Taking at tabletIndications: times a day for 28 Discharge) Surgical wound infection days clopidogrel (PLAVIX) 75 TAKE ONE TABLET BY 90 tablet 3 05/20 06/09 Discontinued mg tabletIndications: MOUTH ONCE DAILY /2019 (Reorder) Chronic mesenteric ischemia (HCC) gabapentin (NEURONTIN) TAKE ONE CAPSULE BY 90 capsule 1 05/21 06/09 Discontinued 100 mg MOUTH TWO HOURS /2019 (Reo rder) capsuleIndications: RLS BEFORE BEDTIME - (restless legs syndrome) MAY INCREASE TO THREE CAPSULES BEFORE BEDTIME gabapentin (NEURONTIN) Take 1 capsule (100 5 capsule 0 06/09 06/09 Discontinued 100 mg mg) by mouth ( Reorder) capsuleIndications: RLS night at bedtime (restless legs syndrome) PAIN documented as of this encounter (statuses as of 06/09/2020) Active Problems Problem Noted Date 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 This showed high-grade stenosis left renal artery due to an eccentric calcified plaque; treated with 3 mm angioplasty with placement of a 6 x 24 mm Palmaz balloon -expandable stent. Last Assessment & Plan: Patient has had some recent problems with difficult to control HTN, including hospitalization. She is currently on multiple antihypertensives and states her BP has been fairly well controlled since her discharge from the hospital. She is fee ling tired all the time and would like to get off of some of these medications. She plans to discuss with hammer setter at her upcoming appointment later this yadi garcia. We will plan to follow up her hx of R with a renal artery duplex scan in a couple weeks and I will call her those results. She agrees with this plan. History of ST elevation myocardial infarction (STEMI) 04/23/2019 Hypertensive emergency 04/23/2019 Non-ST elevation OR (NSTEMI) 04/23/2019 NSTEMI (non-ST elevated myocardial infarction) 019 Stenosis of subclavian artery 04/10/2019 Overview: Asymptomatic Last Assessment & Plan: See above. Peripheral vascular disease 02/25/2019 Overview: May 10, 2018: Right LE angiogram due to ongoing claudication. Noted to have tandem high-grade stenosesRCIAwith significant pressure gradient; underwentsuccessful placement of Cordis 9 mmsel f-expanding SMART stent with 8 mm angiop lasty. Last Assessment & Plan: The patient does have leg tiredness walking any more than 1 and 1/2 blocks. She has diminished distal pulses on exam. We will plan to check ABIs with exercise in a couple weeks and I will call results to her. Non-rheumatic mitral valve stenosis 11/30/2018 History of cardiovascular disorder 11/01/2018 Overview: 1989 Remote history of angioplasty in setting of acute OR, details unavailable. 2001 Angiogram in [place], no obstructive disease. 08/2012 normal LV size and function. LVEF 65%. Normal RV size and function. No significant valvular abnormalities. 04/2015 Echo showing normal LV size and function. LVEF 65%. Normal RV size and function. Nor significant valvular abnormalities. 01/2016 Echo showing LVEF 70%, normal LV size. Normal RV size and function. No significant valvular abnormalities. 04/2016 Normal PET scan including normal global coronary flow reserve. 09/2018 Normal LV size and function. Noted new regional wall motion abnormalities with hypokinesis of the basal inferior, mid-inferior, and mid-anterolateral wall. Normal RV function. Mild MR. Lane er obtained due to question of atrial fi brillation noted during sleep study showing sinus throughout. Bradycardia 39%. Occasional SVE noted 7 runs (longest 12 beats, fastest 138bpm). Seen by Dr. Dylan savage for severe HTN with BP differenti al between right and left. Known subclavian stenosis on the left. Recommended hospitalization and angiogram which patient declined. 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 Obrien showing chronic occlusion of the brachiocephalic artery leading to retrograde flow in the right external carotid and vertebral arteries status post successful recanaliz ation via a combined approach from right common femoral and radial artery access with use of a SpiderFX filter wire during placement of a [place] Viabahn VBX 7 mm stent graft with subsequent 9 mm angioplasty. Last Assessment & Plan: The patient was also seen today by Dr. Dano Obrien. She remains asymptomatic without any recurrence of RUE symptoms. Discussed results of today's WBI which shows some non-compressible vessels with bi lateral digit brachial indices normal. D iscussed she does have known right subclavian stenosis, but as she remains asymptomatic after right innominate intervention, no need for further intervention at t his time. Patient is considering a move to [place] in late Jul to be closer to family and will plan on establishing vascular care there. We will plan to see her back again to recheck ROMINA with a duplex scan in July prior to her move. Drew rogers communicated understanding of plan and education received. CKD (chronic kidney disease) stage 3, GFR 30-59 ml/min 06/19/2018 Last Assessment & Plan: This patient has been presented to and discussed with Dano Obrien M.D., who has also seen and evaluated the patient. Loni has had difficulty with labile b lood pressure despite multiple blood pressure medication changes, and declining kidney function. Renal artery duplex showed highly elevated velocities within the left renal artery, and mildly elevated velocities within the right renal artery. Dr. Obrien recommend angiogram with possible stent placement. Dr. Obrien discussed the full risks and benefits of th is with the patient in my presence and s he agrees to proceed. She will be scheduled for this in the near future. Positive D dimer 10/19/2017 Ischemic colitis 10/17/2017 Hypomagnesemia 10/17/2017 Hypophosphatasia 10/17/2017 Smoker 10/17/2017 Hyperopia, bilateral 03/23/2017 Regular astigmatism of both eyes 03/23/2017 Presbyopia 03/23/2017 Old OR (myocardial infarction) 05/06/2016 History of coronary angioplasty 05/06/2016 Venous insufficiency 05/06/2016 Bilateral carotid artery disease 02/29/2016 Overview: 05/04/15 Carotid US Moderate bilateral internal carotid artery stenosis 50 to 69%. Both vertebral arteries are patent. The right vertebral artery has antegrade flow. This was compared to a previou s examination from 03/14/2014 and is esse ntially stable 03/20/2017 Carotid US with bilateral ICAS less than 50% (however likely the left ICA is 50 to 69% based off systolic velocity of 152 cm/sec CCA distal), bilateral vertebral arteries antegrade, elevate velocity in left prox subclavian artery 05/22/19: Carotid US shows bilateral inte rnal carotid arteries 50-69% stenosis, Vertebral arteries antegrade bilaterally. Elevated peak systolic velocities in the right mid subclavian artery suggesting a stable stenosis Last Assessment & Plan: Reviewed carotid ultrasound results with the patient. Remains stable and asymptomatic. Recommend recheck in 1 year. Hyponatremia 01/30/2016 Chronic mesenteric ischemia 01/30/2016 Overview: Visceral/mesenteric angiogram 02/03/[address] Obrien - high grade stenosis of superior mesenteric artery s/p balloon mounted 6mm x 15 mm stent placement, high grade stenosis origin of celiac artery, chr onic occlusion of proximal inferior mese nteric artery with distal reconstitution via collaterals September 2017 mesenteric angiogram admit bar for ischemic colitis, Successful angioplasty of SMA stenosis. 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 Dangelo. Last Assessment & Plan: Loni has not had recurrence of postprandial abdominal pain since her last mesenteric angiogram March 2018, though she has had a 20 pound weight loss since March 2018. She has had nausea after eating rec ently and Dr. Obrien does not attribute this to her history of mesenteric ischemia. We will continue to monitor and she is asked to contact us if she does experience postprandial abdominal pain. She will be due for repeat mesenteric arteri al duplex in 6 months. Pseudophakia - Both 08/06/2015 Preop cardiovascular exam 06/22/2015 Diverticulosis 09/25/2013 Abdominal aortic aneurysm 02/24/2011 Overview: CTA 02/09 3.6cm by 3.7cm CTA 02/2017 maximal diameter 3.6 cm Last Assessment & Plan: Plan to recheck with CTA at her next visit in approximately 3 months. Other symptoms involving cardiovascular system 011 Uterine prolapse 02/11/2011 Osteoarthritis 02/11/2011 Mixed hyperlipidemia Essential hypertension Last Assessment & Plan: Has increased leg swelling now that she if off HCTZ. Will restart Lisinopril/HCTZ 20/12.5mg at one tab daily (was on one t ab twice daily). She will monitor her BP and inform if too low o/w will see her back in 2 months for recheck. Will obtain BMP in one week. Coronary artery disease due to calcified coronary lesi on Last Assessment & Plan: With history of OR and angioplasty to [facility] (supposed), no records available at this time from [place]. Now with recurrent ang inal episodes x 2 although one occurred at rest. Will refer to cardiology to establ gwen care, eval, and treat. Lupus Depressive disorder, not elsewhere classified documented as of this encounter (statuses as of 06/09/2020) Resolved Problems Problem Noted Date Resolved Date Acute renal failure 10/17/2017 11/02/2018 Abdominal pain 01/30/2016 11/02/2018 documented as of this encounter (statuses as of 06/09/2020) Immunizations Name Administration Dates Next Due FLU VACCINE HIGH DOSE 65YR+(Fluzone) 09/30/2019, 08/17/2018, 09/30/2011 FLU VACCINE SINGLE DOSE 09/18/2017 0.5mL(6MO+Fluzone/Flulaval/Fluarix,3YR+Af luria) Pneumococcal Conj PCV13 05/03/2017 Pneumococcal Polysaccharide PPSV23 02/11/2011 TDAP 02/11/2011 documented as of this encounter Social History Tobacco Use Types Packs/Day Years Used Date Former Smoker Cigarettes 0.25 60 05/22/1961 - 1 12/03/2018 Smokeless Tobacco: Never Used Alcohol Use Drinks/Week oz/Week Comments No 0 Standard drinks or equivalent 0.0 Sexually Active Control Partners Comments Not Currently Female Sex Assigned at Date Recorded Not on file Job Start Date Occupation Industry Not on file Not on file Not on file Travel History Travel Start Travel End No recent travel history available. documented as of this encounter Last Filed Vital Signs Vital Sign Reading Time Taken Comments Blood Pressure 126/80 06/09/2020 7:36 AM CDT Pulse 69 06/09/2020 7:36 AM CDT Temperature 36.9 C (98.4 F) 06/09/2020 7:36 AM CDT Respiratory Rate 18 06/09/2020 7:36 AM CDT Oxygen Saturation 97% 06/09/2020 7:36 AM CDT Inhaled Oxygen Concentration - - Weight 88.5 kg (195 lb 3.2 oz) 06/09/2020 5:40 AM CDT Height 152.4 cm (5') 05/26/2020 6:57 AM CDT Body Mass Index 38.12 05/26/2020 6:57 AM CDT documented in this encounter Functional Status Functional Status Response Date of Assessment Is the person deaf or does he/she have serious difficulty No 06/01/2020 hearing? Is this person blind or does he/she have difficulty No 06/01/2020 seeing even when wearing glasses? Do you have difficulty with walking, balance, climbing Yes 05/26/2020 stairs, or had a fall in the last 3 months? Does the patient have difficulty dressing or bathing? No 06/01/2020 Because of a physical, mental, or emotional condition; No 06/01/2020 does this person have difficulty doing errands alone such as visiting a doctor's office or shopping? Cognitive Status Response Date of Assessment Because of a physical, mental, or emotional condition; No 06/01/2020 does this person have serious difficulty concentrating, remembering, or making decisions? documented as of this encounter Discharge Summaries Not on filedocumented in this encounter Discharge Instructions Yeny Barton MD - 06/04/2020Wound care: Place ABD into right groin. Change 2-3x / day to maintain dry groin crease Leave DAE drain and dressing in place. Strip DAE drain every shift to avoid occlusion. If DAE dressing becomes saturated, cover with dry gauze and tegaderm to reinforce. If the DAE bulb does not hold suction, remove dressing (only). Cleanse skin with chlorahexadine (CHG). Wrap a small piece of xeroformgauze around the tubing at the level of the skin and cover with dry gauze and tegaderm for reinforcement. Compress the bulb to ensure it stays on bulb suction. Monitor for increase in DAE drain output or change in color to acute bleeding Activity: WBAT Out pt john with DR GRIS KING antibiotics and labs per ID For any of the following symptoms of heart failure: Rapid weight gain of 2 or more pounds overnight or 5 pounds in a week Extreme fatigue or weakness Swelling of the legs, ankles, abdomen, and/or neck Rapid or irregular heartbeat Shortness of breath Please call the Heart Failure Program nurse navigator line at: [phone] during clinic hours documented in this encounter Medications at Time of Discharge Medication Sig Dispensed Refills Start Date End Date aspirin 81 mg enteric Take 1 tablet (81 mg) 30 tablet 0 coated tablet by mouth 1 time per day budesonide-formoterol INHALE 2 PUFFS BY 1 Inhaler 11 020 (SYMBICORT) 160-4.5 MOUTH TWICE DAILY - mcg/puff SHAKE WELL BEFORE inhalerIndications: USING Coronary artery disease due to calcified coronary lesion, STEMI involving right coronary artery ([facility]) ramipril (ALTACE) 1.25 Take 1 capsule (1.25 30 capsule 12 06/15/2021 mg capsuleIndications: mg) by mouth 1 time NSTEMI (non-ST per day elevated myocardial infarction) ([facility]) mycophenolate Take 1 capsule (250 180 capsule 0 06/09/2020 (CELLCEPT) 250 mg mg) by mouth 2 times capsuleIndications: a day Lupus ([facility]) carVEDilol (COREG) Take 1 tablet (3.125 180 tablet 4 020 3.125 mg mg) by mouth 2 times tabletIndications: a day with meals Essential hypertension calcitriol (ROCALTROL) Take 1 capsule (0.25 90 capsule 4 0.25 mcg mcg) by mouth every capsuleIndications: night at bedtime Essential hypertension clopidogrel (PLAVIX) Take 1 tablet (75 mg) 90 tablet 3 05/27 75 mg by mouth 1 time per tabletIndications: day Chronic mesenteric ischemia ([facility]) gabapentin (NEURONTIN) Take 1 capsule (100 5 capsule 0 05/27 100 mg mg) by mouth every capsuleIndications: night at bedtime PAIN RLS (restless legs syndrome) Multiple Take 1 tablet by 0 Vitamins-Minerals mouth 1 time per day (MULTIVITAL) tablet ALBUTEROL (VENTOLIN INHALE 2 PUFFS BY 18 g 2 0 BRAND) 108 mcg (90 MOUTH EVERY FOUR base) act HFA HOURS NEEDED FOR inhalerIndications: WHEEZING OR COUGH Bronchitis, Hx of tobacco use, presenting hazards to health fluticasone (FLONASE) [place] 1 spray into 3 Bottle 4 201912/15/2020 50 mcg/spray nasal each nostril 2 times sprayIndications: a day Cough nitroglycerin Dissolve 1 tablet 30 tablet 3 11/05/2018 (NITROSTAT) 0.4 mg (0.4 mg) under the sublingual tongue Every 5 tabletIndications: minutes as needed for Coronary artery chest pain May repeat disease due to every 5 minutes for a calcified coronary total of 3 doses. lesion, STEMI involving right coronary artery (HCC) acetaminophen Take 650 mg by mouth 0 (TYLENOL) 325 mg every 6 hours as tablet needed for mild pain (Arthritis pain) sodium chloride 0.9% Administer 10 mL intravenous ly As often as necessary for other (Specify) (Flush infusion line before each antibiotic infusion and after each infusion completed) Flush infusion line before each antibiotic infusion and after each infusion completed. 0 06/09/2020 prefilled 10 mL Flush line with heparin 300 units/ 3 mL after the last saline flush syringe 0.9% SOLNIndications: Surgical wound infection hEParin 100 units/mL Administer 3 mL (300 0 06/09 injection Units) intravenously solutionIndications: As often as necessary Surgical wound for other (Specify) infection (heparin 300 units/3 mL IV FLUSH after completion of each antibiotic infusion (after saline flush)) heparin 300 units/3 mL IV FLUSH after completion of each antibiotic infusion (after saline flush) DAPTOmycin (CUBICIN) 6 Administer 550 mg 0 2019 mg/kg = 550 mg in intravenously Every sodium chloride 0.9% 48 hours 50 mLIndications: Surgical wound infection piperacillin-tazobacta Administer 2,250 mg 0 05/27 m (ZOSYN) 2.25 g in intravenously Every 8 sodium chloride 0.9% hours 50 mLIndications: Surgical wound infection documented as of this encounter Progress Notes Liv Kinsey MD - 06/09/2020 11:32 AM CDTEstimated Creatinine Clearance: 18.7 mL/min (A) (based on SCr of 1.9 mg/dL (H)). Discharge IV antibiotic order completed. Liv Kinsey MD Infectious Disease Pager [phone] YNAT Yeny Connell MD - 06/08/2020 3:59 PM CDT Hospital Progress Note Loni Muniz is a 74yr old female admitted on 05/26/2020. Assessment / Plan #History of CAD, STEMI with RCA stenting in 2018, presented with NSTEMI, presented with NSTEMI #Cardiomyopathy Angiogram on 05/26 showed patent stent in the RCA but spontaneous dissection in the mid and very tortuous segment of codominant RCA not amenable to PCI Angiogram on 05/30 with notation of 100% occluded RCA with large clot, inability to pass a wire. Noted Q waves on the EKG Cardiology advised medical treatment. Continue aspirin Plavix beta-wyatt and GAMALIEL inhibitor, Crestor #Concern for endocarditis was raised, with a positive blood culture. ALEJANDRA showed no vegetation #Paroxysmal atrial fibrillation Chads vascular score 4 #Acute on chronic CKD stage III Baseline creatinine 1.4-1.8 Creatinine around baseline #Right groin wound infection post surgerypolymicrobial History of right common femoral artery exploration, patch angioplasty, right groin debridement, right superficial femoral artery thrombectomy, left flap muscle on 05/28/2020 Polymicrobial bacteremia History of PAD status post femoral endarterectomy with grafting on 04/02 with Pseudomonas infection Infectious disease on board Zosyn and linezolid. Anticipate discharge on Zosyn and daptomycin till 07/09/2020 PICC line placement today by IR #Lupus on CellCept #COPD does not appear to be in exacerbation #Neuropathic pain continue gabapentin #Adjustment disorder psychology help appreciated CODE STATUS full code [facility] requested COVID testing which was done today Disposition plan awaiting placement I spent 40 minutes and greater than 50% of the total time was spent reviewing the patient's chart, examining the patient, discussing plan of care with patient, telehealth case manager, RN, ID senior staff consultant, picc nurse Yeny Connell HPI / History / ROS HPI No acute events overnight Denies any chest pain Review of Systems Constitutional: Positive for fatigue. HENT: Negative for congestion. Respiratory: Negative for shortness of breath. Cardiovascular: Negative for chest pain. Gastrointestinal: Negative for abdominal pain. Genitourinary: Positive for dysuria. Physical / Results Current Vital Signs Temp: 98.1 F (36.7 C) BP: 113/82 Weight: 88 kg (194 lb 0.1 oz) SpO2: 99 % Resp: 17 Pulse: 65 Current BMI (>50 = increased risk): (!) 33.33 O2 Device: Room Air O2 Flow Rate (L/min): 5 l/min Pain Ratin Chest Pain Ratin Physical Exam Constitutional: She is oriented to person, place, and time. No distress. Cardiovascular: Regular rhythm. Pulmonary/Chest: Effort normal. Abdominal: Soft. Neurological: She is alert and oriented to person, place, and time. Psychiatric: Her behavior is normal. Herrera Samson MD - 06/07/2020 10:39 PM CDT [facility] Daily Progress Note Ms.Marilyn Glory Muniz is a 74yr woman who presented complaining of chest pain. Assessment/Plan: 1. NSTEMI type I: presented with chest pain and fatigue and was found to have elevated troponin. Shewas taken to the microbiological laboratory technician and which showed to have a spontaneous dissection of the mid, tortuous segment of a co-dominant RCA. Not amenable to PCI at that time. Treated medically and then after surgery for the right groin wound she had worsening troponin so she was taken back to the microbiological laboratory technician and found to have 100% occluded RCA with a large clot that was not amenable to intervention so continue medical management. Some concern for endocarditis and a positive blood culture. ALEJANDRA done shows no vegetation at this time. Continue ASA, plavix, crestor. 2. Acute on CKD stage III: baseline creatinine appears to be 1.4-1.8. Mildly increased following the angiogram. Mildly increased with decreased BP so holding further diuresis at this time. 3. Right groin wound infection: noted to have bleeding in the right groin and was taken emergently to the OR and underwent exploration with patch angioplasty and SFA thrombectomy. Plastics then placed a right sartorious flap as well. Wound vac removed. Remain on bed restuntil this afternoon.Continue wound care. ID consulted for antibiotic plans. Likely 6 weeks total antibiotics. Will need PICC before discharge. Working on placement. 4. PAD: long history of multiple interventions for PAD. Underwent endarterectomy, profundoplasty, and angioplasty of the right common femoral artery with lymphatic leak with washout and then I&D with wound vac placement. After admission for NSTEMI she was noted to be bleeding from the right groin. 5. CAD: noted on catheterization. Continue ASA, plavix, coreg, and ramipril. BP has been stable but lower so unable to increase to target doses. 6. Acute systolic heart failure: noted after NSTEMI with EF of 35% mild increase in BNP. Respondedwell to diuresis with lasix 20 mg TID IV.changed to oral torsemide. Monitor daily weight and I&Os. Holding parameters in place. 7. Acute on chronic blood loss anemia: baseline around 10. Down to 6.9 after bleeding from the right groin wound. Goal to keep above 8 due to CAD.stable 8. Lupus: noted in her hx and on cellcept at home. 9. COPD: continue home inhalers. Breathing is stable at this time. 10. Chronic mesenteric ischemia: noted but no recent weight loss or pain when eating at this time. 11. Neuropathic pain: noted in the history. Continue gabapentin. 12. Tobacco use NRT consulted during admission. 13. Adjustment disorder: noted with depressed mood and excessive worry. Psychology consulted and will follow. Appreciative of their visit. 14. VTE:SCDs 15. Dispo: pendingplacement for antibiotics and therapy.follow up Monday with Swing bed due to cost of ABX. Subjective: Denies lightheadedness, nausea, vomiting, SOB, cough, or chest pain. Didn't sleep well last night sotired today. Objective: Vital signs in last 24 hours: Vitals: 06/07/20 0900 06/07/20 0955 06/07/20 1607 06/07/20 1949 BP: 82/64 80/62 Pulse: 68 65 Resp: 16 16 17 Temp: 98.6 F (37 C) 98.7 F (37.1 C) SpO2: 99% 100% Weight: 88 kg (194 lb 0.1 oz) Height: Weight change: Intake/Output Summary (Last 24 hours) at 06/07/2020 2239 Last data filed at 06/07/2020 2142 Gross per 24 hour Intake 240 ml Output 275 ml Net -35 ml Vitals reviewed. General: sitting up in the chair, NAD HEENT: PERRL, EOMI, no scleral icterus Cardiac: RRR, no rubs, murmurs or gallops Pulm: clear to auscultation bilaterally, no wheezes, rales, or rhonchi Abd: soft, nontender, nondistended, BS present Ext: warm and well perfused, no pedal edema, right groin wound and dressing CDI. Neuro: alert and oriented X3, cranial nerves II-XII grossly intact, strength and sensation to light touch equal in bilateral upper and lower extremities Lab Results: Basic Metabolic Panel: Recent Labs 06/06/2060106/07/20 05 NA 133* 134* POTASSIUM 3.7 3.8 CL 101 102 CO2 23 22 BUN 26* 28* CREATSERUM 2.00* 1.99* CA 8.5 8.6 Recent Labs 06/06/20 0606/07/20 0521 GLUCOSE 132* 122* CBC: Recent Labs 06/06/2060106/07/20 0521 WBC 11.6* 11.3* HEMOGLOBIN 8.3* 8.6* HEMATOCRIT 26.2* 26.8* MCV 92.3 91.2 PLTCOUNT 238 246 Medications: I have reviewed her medications. Current Facility-Administered Medications Medication Dose Route Frequency piperacillin-tazobactam (ZOSYN) IV premix in D-2% 2,250 mg 2.25 g IV Every 8 hours ramipril (ALTACE) capsule 1.25 mg 1.25 mg Oral Daily carVEDilol (COREG) tablet 3.125 mg 3.125 mg Oral 2 times a day with meals linezolid (ZYVOX) in D5W 300 mL IV piggyback 600 mg 600 mg IV Every 12 hours sodium chloride 0.9% flush (adult) 10 mL 10 mL IV 2 times a day and prn nitroglycerin (NITROSTAT) sublingual tablet 0.4 mg 0.4 mg Sublingual Every 5 minutes prn aspirin chewable tablet 81 mg 81 mg Oral Daily clopidogrel (PLAVIX) tablet 75 mg 75 mg Oral Daily lidocaine 1%-EPINEPHrine 1:200,000 (XYLOCAINE-EPINEPHRINE) injection solution 1 mL 1 mL Subcutaneous PRN per parameter oxyCODONE (OXY-IR) tablet 5-10 mg 5-10 mg Oral Every 6 hours prn HYDROmorphone (DILAUDID) injection solution (conc: 1 mg/mL) 1 mg 1 mg IV Every 3 hours prn calcitriol (ROCALTROL) capsule 0.25 mcg 0.25 mcg Oral at bedtime gabapentin (NEURONTIN) capsule 100 mg 100 mg Oral at bedtime mycophenolate (CELLCEPT) capsule 250 mg 250 mg Oral 2 times a day sodium chloride 0.9% flush (adult) 10 mL 10 mL IV 2 times a day and prn acetaminophen (TYLENOL) tablet 650 mg 650 mg Oral Every 4 hours prn senna-docusate sodium (SENOKOT-S;PERICOLACE) tablet 2 tablet 2 tablet Oral 2 times a day prn And bisacodyl (DULCOLAX) suppository 10 mg 10 mg Rectal 1 time a day prn And docusate sodium (THEREVAC-SB MINI;ENEMEEZ MINI) 283 MG enema 1 enema 1 enema Rectal 1 time a day prn melatonin tablet 3 mg 3 mg Oral Bedtime prn ondansetron (ZOFRAN ODT) dispersible tablet 4 mg 4 mg Oral Every 4 hours prn And ondansetron (ZOFRAN) injection solution 4 mg 4 mg IV Every 4 hours prn fluticasone-vilanterol (BREO ELLIPTA) 200-25 mcg/puff inhaler 1 puff 1 puff Inhalation Daily Rony Luo MD [facility] Clinical Resistance Machine Wel[employer] 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 and maintenance specialist [employer] Pager: [phone] Herrera leo MD - 06/06/2020 5:11 PM CDT [facility] Daily Progress Note Ms.Marilyn Glory Muniz is a 74yr woman who presented complaining of chest pressure and fatigue. Assessment/Plan: 1. NSTEMI type I: presented with chest pain and fatigue and was found to have elevated troponin. Shewas taken to the microbiological laboratory technician and which showed to have a spontaneous dissection of the mid, tortuous segment of a co-dominant RCA. Not amenable to PCI at that time. Treated medically and then after surgery for the right groin wound she had worsening troponin so she was taken back to the microbiological laboratory technician and found to have 100% occluded RCA with a large clot that was not amenable to intervention so continue medical management. Some concern for endocarditis and a positive blood culture. ALEJANDRA done shows no vegetation at this time. Continue ASA, plavix, crestor. 2. Acute on CKD stage III: baseline creatinine appears to be 1.4-1.8. Mildly increased following the angiogram. Trended down and now close to her usual baseline after diuresis. 3. Right groin wound infection: noted to have bleeding in the right groin and was taken emergently to the OR and underwent exploration with patch angioplasty and SFA thrombectomy. Plastics then placed a right sartorious flap as well. Wound vac removed. Remain on bed restuntil this afternoon.Continue wound care. ID consulted for antibiotic plans. Likely 6 weeks total antibiotics. Will need PICC before discharge. Working on placement. 4. PAD: long history of multiple interventions for PAD. Underwent endarterectomy, profundoplasty, and angioplasty of the right common femoral artery with lymphatic leak with washout and then I&D with wound vac placement. After admission for NSTEMI she was noted to be bleeding from the right groin. 5. CAD: noted on catheterization. Continue ASA, plavix, coreg, and ramipril. BP has been stable but lower so unable to increase to target doses. 6. Acute systolic heart failure: noted after NSTEMI with EF of 35% mild increase in BNP. Respondedwell to diuresis with lasix 20 mg TID IV.changed to oral torsemide. Monitor daily weight and I&Os holding parameters in place. 7. Acute on chronic blood loss anemia: baseline around 10. Down to 6.9 after bleeding from the right groin wound. Goal to keep above 8 due to CAD. 8. Lupus: noted in her hx and on cellcept at home. 9. COPD: continue home inhalers. Breathing is stable at this time. 10. Chronic mesenteric ischemia: noted but no recent weight loss or pain when eating at this time. 11. Neuropathic pain: noted in the history. Continue gabapentin. 12. Tobacco use NRT consulted during admission. 13. Adjustment disorder: noted today with depressed mood and excessive worry. Psychology consulted and will follow. 14. VTE:SCDs 15. Dispo: pending placement for antibiotics and therapy. follow up Monday with Swing bed due to cost of ABX. Subjective: Had a good visit with psychology yesterday. Feeling stronger today. Denies lightheadedness, nausea, vomiting, chest pain, or SOB. Objective: Vital signs in last 24 hours: Vitals: 06/06/20 0752 06/06/20 0827 06/06/20 0850 06/06/20 1624 BP: 87/59 85/42 87/58 Pulse: 70 70 68 64 Resp: 16 16 16 16 Temp: 99 F (37.2 C) 99 F (37.2 C) 98 F (36.7 C) SpO2: 99% 99% 96% 100% Weight: Height: Weight change: Intake/Output Summary (Last 24 hours) at 06/06/2020 1711 Last data filed at 06/06/2020 0850 Gross per 24 hour Intake 425 ml Output 130 ml Net 295 ml Vitals reviewed. General: sitting up in the chair, NAD HEENT: PERRL, EOMI, no scleral icterus Cardiac: RRR, no rubs, murmurs or gallops Pulm: clear to auscultation bilaterally, no wheezes, rales, or rhonchi Abd: soft, nontender, nondistended, BS present Ext: warm and well perfused, no pedal edema, right groin wound and dressing CDI. Neuro: alert and oriented X3, cranial nerves II-XII grossly intact, strength and sensation to light touch equal in bilateral upper and lower extremities Lab Results: Basic Metabolic Panel: Recent Labs 06/04/20 0941 06/05/20 0506/06/20 0602 NA 132* 132* 133* POTASSIUM 3.4* 4.1 3.7 CL 99 100 101 CO2 25 21 23 BUN 22 23* 26* CREATSERUM 1.71* 1.69* 2.00* CA 8.2* 8.4* 8.5 PHOSPHORUS 3.5 -- -- Recent Labs 06/05/20 0523 06/06/20 0602 GLUCOSE 111* 132* Liver Function Tests: Recent Labs 06/04/20 0941 ALBUMIN 2.5* CBC: Recent Labs 06/04/20 0941 06/05/20 0523 06/06/20 0602 WBC 16.2* 16.4* 11.6* NEUTROABS 12.9* -- -- HEMOGLOBIN 8.9* 9.2* 8.3* HEMATOCRIT 27.5* 28.8* 26.2* MCV 90.2 91.1 92.3 PLTCOUNT 191 221 238 Micro Results: Other Cultures (Last 60 days) Date/Time Component Value 06/02/20 1025 Culture Result No Growth - Will continue to monitor for 5 days. 06/02/20 0810 Culture Result No Growth - Will continue to monitor for 5 days. 05/27/20 0109 Culture Result No growth at 5 days 05/27/20 0046 Culture Result Peptostreptococcus anaerobius (!) 05/27/20 0046 Culture Result Bacteroides fragilis (!) 05/27/206 Culture Result Fannyhessea species (!) 05/26/20 1535 Culture Result No growth at 5 days 05/26/20 1520 Culture Result No growth at 5 days Medications: I have reviewed her medications. Current Facility-Administered Medications Medication Dose Route Frequency [START ON 06/07/2020] ramipril (ALTACE) capsule 1.25 mg 1.25 mg Oral Daily piperacillin-tazobactam 3375 mg (ZOSYN) in D-2% 50 mL IV premix 3.375 g IV Every 8 hours carVEDilol (COREG) tablet 3.125 mg 3.125 mg Oral 2 times a day with meals linezolid (ZYVOX) in D5W 300 mL IV piggyback 600 mg 600 mg IV Every 12 hours sodium chloride 0.9% flush (adult) 10 mL 10 mL IV 2 times a day and prn nitroglycerin (NITROSTAT) sublingual tablet 0.4 mg 0.4 mg Sublingual Every 5 minutes prn aspirin chewable tablet 81 mg 81 mg Oral Daily clopidogrel (PLAVIX) tablet 75 mg 75 mg Oral Daily lidocaine 1%-EPINEPHrine 1:200,000 (XYLOCAINE-EPINEPHRINE) injection solution 1 mL 1 mL Subcutaneous PRN per parameter oxyCODONE (OXY-IR) tablet 5-10 mg 5-10 mg Oral Every 6 hours prn HYDROmorphone (DILAUDID) injection solution (conc: 1 mg/mL) 1 mg 1 mg IV Every 3 hours prn calcitriol (ROCALTROL) capsule 0.25 mcg 0.25 mcg Oral at bedtime gabapentin (NEURONTIN) capsule 100 mg 100 mg Oral at bedtime mycophenolate (CELLCEPT) capsule 250 mg 250 mg Oral 2 times a day sodium chloride 0.9% flush (adult) 10 mL 10 mL IV 2 times a day and prn acetaminophen (TYLENOL) tablet 650 mg 650 mg Oral Every 4 hours prn senna-docusate sodium (SENOKOT-S;PERICOLACE) tablet 2 tablet 2 tablet Oral 2 times a day prn And bisacodyl (DULCOLAX) suppository 10 mg 10 mg Rectal 1 time a day prn And docusate sodium (THEREVAC-SB MINI;ENEMEEZ MINI) 283 MG enema 1 enema 1 enema Rectal 1 time a day prn melatonin tablet 3 mg 3 mg Oral Bedtime prn ondansetron (ZOFRAN ODT) dispersible tablet 4 mg 4 mg Oral Every 4 hours prn And ondansetron (ZOFRAN) injection solution 4 mg 4 mg IV Every 4 hours prn fluticasone-vilanterol (BREO ELLIPTA) 200-25 mcg/puff inhaler 1 puff 1 puff Inhalation Daily Rony Luo MD [facility] Clinical Resistance Machine Welder 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 and maintenance specialist [employer] Pager: [phone] Meet Archer MD - 06/06/2020 7:29 AM CDTPlastic Surgery Right groin incision still intact. Edges macerated. Area appears to be moist. Will reiterate dressing changes and orders for the right groin to keep area dry. We'll continue to monitor. Herrera Samson MD - 06/05/2020 11:16 PM CDT [facility] Daily Progress Note Ms.Marilyn Glory Muniz is a 74yr woman who presented complaining of chest pressure and fatigue. Assessment/Plan: 1. NSTEMI type I: presented with chest pain and fatigue and was found to have elevated troponin. Shewas taken to the microbiological laboratory technician and which showed to have a spontaneous dissection of the mid, tortuous segment of a co-dominant RCA. Not amenable to PCI at that time. Treated medically and then after surgery for the right groin wound she had worsening troponin so she was taken back to the microbiological laboratory technician and found to have 100% occluded RCA with a large clot that was not amenable to intervention so continue medical management. Some concern for endocarditis and a positive blood culture. ALEJANDRA done shows no vegetation at this time. Continue ASA, plavix, crestor. 2. Acute on CKD stage III: baseline creatinine appears to be 1.4-1.8. Mildly increased following the angiogram. Trended down and now close to her usual baseline after diuresis. 3. Right groin wound infection: noted to have bleeding in the right groin and was taken emergently to the OR and underwent exploration with patch angioplasty and SFA thrombectomy. Plastics then placed a right sartorious flap as well. Wound vac removed. Remain on bed rest until this afternoon. Continue wound care. ID consulted for antibiotic plans. Likely 6 weeks total antibiotics. Will need PICC before discharge. Working on placement. 4. PAD: long history of multiple interventions for PAD. Underwent endarterectomy, profundoplasty, and angioplasty of the right common femoral artery with lymphatic leak with washout and then I&D with wound vac placement. After admission for NSTEMI she was noted to be bleeding from the right groin. 5. CAD: noted on catheterization. Continue ASA, plavix, coreg, and ramipril. BP has been stable but lower so unable to increase to target doses. 6. Acute systolic heart failure: noted after NSTEMI with EF of 35% mild increase in BNP. Respondedwell to diuresis with lasix 20 mg TID IV. changed to oral torsemide. Monitor daily weight and I&Os holding parameters in place. 7. Acute on chronic blood loss anemia: baseline around 10. Down to 6.9 after bleeding from the right groin wound. Goal to keep above 8 due to CAD. 8. Lupus: noted in her hx and on cellcept at home. 9. COPD: continue home inhalers. Breathing is stable at this time. 10. Chronic mesenteric ischemia: noted but no recent weight loss or pain when eating at this time. 11. Neuropathic pain: noted in the history. Continue gabapentin. 12. Tobacco use NRT consulted during admission. 13. Adjustment disorder: noted today with depressed mood and excessive worry. Psychology consulted and will follow. 14. VTE:SCDs 15. Dispo: pending placement for antibiotics and therapy. Subjective: Up and working with the therapists today. Mood is down today, tearful at times during my visit. Denies nausea, vomiting, chest pain, SOB, or cough. Objective: Vital signs in last 24 hours: Vitals: 06/05/20 0954 06/05/20 1029 06/05/20 1540 06/05/20 1924 BP: 103/71 89/64 120/77 Pulse: 74 77 67 92 Resp: 16 20 16 16 Temp: 98.9 F (37.2 C) 98 F (36.7 C) 98.8 F (37.1 C) SpO2: 95% 98% 98% 99% Weight: Height: Weight change: Intake/Output Summary (Last 24 hours) at 06/04/2020 2347 Last data filed at 06/04/2020 2155 Gross per 24 hour Intake 240 ml Output 2295 ml Net -2055 ml Vitals reviewed. General: resting in bed, NAD HEENT: PERRL, EOMI, no scleral icterus Cardiac: RRR, no rubs, murmurs or gallops Pulm: clear to auscultation bilaterally, no wheezes, rales, or rhonchi Abd: soft, nontender, nondistended, BS present Ext: warm and well perfused, no pedal edema, right groin wound and dressing CDI. Neuro: alert and oriented X3, cranial nerves II-XII grossly intact, strength and sensation to light touch equal in bilateral upper and lower extremities Lab Results: Basic Metabolic Panel: Recent Labs 06/02/20 0810 06/03/20 0506 06/04/20 0941 NA 137 135 132* POTASSIUM 3.3* 3.4* 3.4* CL 104 101 99 CO2 24 25 25 BUN 26* 24* 22 CREATSERUM 1.79* 1.73* 1.71* CA 8.2* 8.4* 8.2* MAGNESIUM 1.9 -- -- PHOSPHORUS 3.7 3.5 3.5 Recent Labs 06/03/20 0506 06/04/20 0941 GLUCOSE 120* 110* Liver Function Tests: Recent Labs 06/03/20 0506 06/04/20 0941 ALBUMIN 2.6* 2.5* CBC: Recent Labs 06/03/20 0506 06/04/20 0941 WBC 17.2* 16.2* NEUTROABS 13.2* 12.9* HEMOGLOBIN 9.0* 8.9* HEMATOCRIT 28.0* 27.5* MCV 88.9 90.2 PLTCOUNT 176 191 Cardiac Enzymes: Recent Labs 06/02/20 0810 TROPONINI 37.653* Coagulation: Recent Labs 06/02/20 0809 PT 14.2 INR 1.1* Medications: I have reviewed her medications. Current Facility-Administered Medications Medication Dose Route Frequency piperacillin-tazobactam 3375 mg (ZOSYN) in D-2% 50 mL IV premix 3.375 g IV Every 8 hours ramipril (ALTACE) capsule 2.5 mg 2.5 mg Oral Daily torsemide (DEMADEX) tablet 10 mg 10 mg Oral 2 times a day diuretic carVEDilol (COREG) tablet 3.125 mg 3.125 mg Oral 2 times a day with meals linezolid (ZYVOX) in D5W 300 mL IV piggyback 600 mg 600 mg IV Every 12 hours sodium chloride 0.9% flush (adult) 10 mL 10 mL IV 2 times a day and prn nitroglycerin (NITROSTAT) sublingual tablet 0.4 mg 0.4 mg Sublingual Every 5 minutes prn aspirin chewable tablet 81 mg 81 mg Oral Daily clopidogrel (PLAVIX) tablet 75 mg 75 mg Oral Daily lidocaine 1%-EPINEPHrine 1:200,000 (XYLOCAINE-EPINEPHRINE) injection solution 1 mL 1 mL Subcutaneous PRN per parameter oxyCODONE (OXY-IR) tablet 5-10 mg 5-10 mg Oral Every 6 hours prn HYDROmorphone (DILAUDID) injection solution (conc: 1 mg/mL) 1 mg 1 mg IV Every 3 hours prn calcitriol (ROCALTROL) capsule 0.25 mcg 0.25 mcg Oral at bedtime gabapentin (NEURONTIN) capsule 100 mg 100 mg Oral at bedtime mycophenolate (CELLCEPT) capsule 250 mg 250 mg Oral 2 times a day sodium chloride 0.9% flush (adult) 10 mL 10 mL IV 2 times a day and prn acetaminophen (TYLENOL) tablet 650 mg 650 mg Oral Every 4 hours prn senna-docusate sodium (SENOKOT-S;PERICOLACE) tablet 2 tablet 2 tablet Oral 2 times a day prn And bisacodyl (DULCOLAX) suppository 10 mg 10 mg Rectal 1 time a day prn And docusate sodium (THEREVAC-SB MINI;ENEMEEZ MINI) 283 MG enema 1 enema 1 enema Rectal 1 time a day prn melatonin tablet 3 mg 3 mg Oral Bedtime prn ondansetron (ZOFRAN ODT) dispersible tablet 4 mg 4 mg Oral Every 4 hours prn And ondansetron (ZOFRAN) injection solution 4 mg 4 mg IV Every 4 hours prn fluticasone-vilanterol (BREO ELLIPTA) 200-25 mcg/puff inhaler 1 puff 1 puff Inhalation Daily Rony uLo MD [facility] Clinical Resistance Machine Welder 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 and maintenance specialist [employer] Pager: [phone] ayanara Garcia PA-C - 06/05/2020 4:15 PM CDT Plastic & Reconstructive Surgery Inpatient Progress Note HPI: Loni Muniz is a 74yr old female POD # 8, s/p right common femoral artery exploration, patch angioplasty, right groin debridement, right superficial femoral artery thrombectomy, right sartorius muscle flap and complex repair for groin tissue reconstruction on S: No acute events since my last evaluation. No acute events overnight. AVSS. N/ -V. Tolerating heart healthy diet with + flatus/ - BM Voiding dependently with indwelling catheter -CP/ -SOB/ -lightheadedness/ -dizziness/ -fever/ -chills O: Vitals: 06/05/20 0739 06/05/20 0954 06/05/20 1029 06/05/20 1540 BP: 92/71 103/71 89/64 Pulse: 69 74 77 67 Resp: 16 16 20 16 Temp: 99.1 F (37.3 C) 98.9 F (37.2 C) 98 F (36.7 C) SpO2: 95% 95% 98% 98% Weight: Height: Current Vital Signs Temp: 98 F (36.7 C) BP: 89/64 Pulse: 67 O2 Device: Room Air O2 Flow Rate (L/min): 5 l/min Resp: 16 Pain Ratin Chest Pain Ratin (out of 10) Weight: 85.2 kg (187 lb 13.3 oz) SpO2: 98 % Intake/Output Summary (Last 24 hours) at 06/05/2020 1615 Last data filed at 06/05/2020 1315 Gross per 24 hour Intake 600 ml Output 2035 ml Net -1435 ml DAE output - 145 Physical Exam - Gen: WDWN female in NAD. Awake and cooperative Head/ Eyes: NCAT, mucus membranes moist, PERRL. Sclera anicteric without conjunctival injection. Abd: soft, NTND, non-peritoneal. Healing ecchymosis scattered throughout abdomen. Right groin soft and without induration nor ecchymosis. Macerated tissue along incision . Skin with epidermal ischemia at incision line. Proximal thigh no longer tender nor indurated. DAE drain with serosanguinous drainage : No suprapubic tenderness or bladder distention. Neuro: Moves upper and lower extermities spontaneously Skin: warm and dry. 2+ pitting edema. Unable to palpate DP and PT pulses bilaterally manually. Feet warm and pink. <3s cap refill. Media Information Document Information Photographic Image: Photo Clinical 06/05/2020 16:09 Attached To: Hospital Encounter on 05/26/20 Source Information Dayanara Billy PA-C | Neuro [facility] Lab Results Component Value Date WBC 16.4 (H) 06/05/2020 NUCRBC 0 06/04/2020 RBC 3.16 (L) 06/05/2020 HEMOGLOBIN 9.2 (L) 06/05/2020 HEMATOCRIT 28.8 (L) 06/05/2020 MCV 91.1 06/05/2020 MCH 29.1 06/05/2020 MCHC 31.9 06/05/2020 PLTCOUNT 221 06/05/2020 NEUTROPCT 79.7 06/04/2020 BANDPCT 2.0 06/02/2020 LYMPHSPCT 10.8 06/04/2020 MONOSPCT 5.9 06/04/2020 EOSPCT 1.5 06/04/2020 BASOPHILPCT 0.4 06/04/2020 MYELOCYTEPCT 1.0 05/31/2020 Lab Results Component Value Date GLUCOSE 111 (H) 06/05/2020 BUN 23 (H) 06/05/2020 CREATSERUM 1.69 (H) 06/05/2020 BCRATIO 13.6 06/05/2020 NA 132 (L) 06/05/2020 POTASSIUM 4.1 06/05/2020 CL 100 06/05/2020 CO2 21 06/05/2020 CA 8.4 (L) 06/05/2020 EGFR 30 (L) 06/05/2020 EGFRAF 36 (L) 06/05/2020 Assessment: 74yr old smoking immunosuppressed female with a hx of STEMI with RCA stent ('18), SLE, peripheral arterial disease, chronic mesenteric ischemia, CKD III, now 5 Days Post-Op. Hospital course c/b NSTEMIon heparin gtt and acute blood loss anemia s/p 5U pRBCs. Kidney function slightly worsened today Plan: Wound care: Place ABD into right groin. Change 2-3x / day to maintain dry groin crease Leave DAE drain and dressing in place. Strip DAE drain every shift to avoid occlusion. If DAE dressing becomes saturated, cover with dry gauze and tegaderm to reinforce. If the DAE bulb does not hold suction, remove dressing (only). Cleanse skin with chlorahexadine (CHG). Wrap a small piece of xeroformgauze around the tubing at the level of the skin and cover with dry gauze and tegaderm for reinforcement. Compress the bulb to ensure it stays on bulb suction. Monitor for increase in DAE drain output or change in color to acute bleeding Activity: WBAT Orders: Monitor HCT. Maintain HCT > 25% Continue remaining orders per primary service Please page Dr. Silva, Plastic & Reconstructive Surgery with any questions or concerns. Thank you so much for your help and support in caring for this patient. Herrera Samson MD - 06/04/2020 11:47 PM CDT [facility]ist Daily Progress Note Ms.Marilyn Glory Muniz is a 74yr woman who presented complaining of chest pressure and fatigue. Assessment/Plan: 1. NSTEMI type I: presented with chest pain and fatigue and was found to have elevated troponin. Shewas taken to the microbiological laboratory technician and which showed to have a spontaneous dissection of the mid, tortuous segment of a co-dominant RCA. Not amenable to PCI at that time. Treated medically and then after surgery for the right groin wound she had worsening troponin so she was taken back to the microbiological laboratory technician and found to have 100% occluded RCA with a large clot that was not amenable to intervention so continue medical management. Some concern for endocarditis and a positive blood culture. ALEJANDRA done yesterday shows no vegetation at this time. Continue ASA, plavix, crestor. 2. Acute on CKD stage III: baseline creatinine appears to be 1.4-1.8. Mildly increased following the angiogram. Trended down and now close to her usual baseline after diuresis. 3. Right groin wound infection: noted to have bleeding in the right groin and was taken emergently to the OR and underwent exploration with patch angioplasty and SFA thrombectomy. Plastics then placed a right sartorious flap as well. Wound vac removed. Remain on bed rest until this afternoon. Continue wound care. ID consulted for antibiotic plans. Likely 6 weeks total antibiotics. Will need PICC before discharge. 4. PAD: long history of multiple interventions for PAD. Underwent endarterectomy, profundoplasty, and angioplasty of the right common femoral artery with lymphatic leak with washout and then I&D with wound vac placement. After admission for NSTEMI she was noted to be bleeding from the right groin. 5. CAD: noted on catheterization. Continue ASA, plavix, coreg, and ramipril. BP has been stable but lower so unable to increase to target doses. 6. Acute systolic heart failure: noted after NSTEMI with EF of 35% mild increase in BNP. Respondedwell to diuresis with lasix 20 mg TID IV. changed to oral torsemide. Monitor daily weight and I&Os 7. Acute on chronic blood loss anemia: baseline around 10. Down to 6.9 after bleeding from the right groin wound. Goal to keep above 8 due to CAD. 8. Lupus: noted in her hx and on cellcept at home. 9. COPD: continue home inhalers. Breathing is stable at this time. 10. Chronic mesenteric ischemia: noted but no recent weight loss or pain when eating at this time. 11. Neuropathic pain: noted in the history. Continue gabapentin. 12. Tobacco use NRT consulted during admission. 13. VTE:SCDs 14. Dispo: pending evaluation by PT and OT for placement, Antibiotic plan as detailed in ID note. Subjective: Has been up out of bed to the chair today with cardiac rehab. Mild "wooziness" and notes that she is very weak. Denies nausea, vomiting, chest pain, SOB, or cough. Objective: Vital signs in last 24 hours: Vitals: 06/04/20 1647 06/04/20 1836 06/04/20 1933 06/04/20 2337 BP: 112/77 119/87 101/73 116/76 Pulse: 77 76 74 78 Resp: 16 16 16 Temp: 98.3 F (36.8 C) 99.7 F (37.6 C) 99.6 F (37.6 C) SpO2: 98% 100% 98% 94% Weight: Height: Weight change: -0.9 kg (-1 lb 15.7 oz) Intake/Output Summary (Last 24 hours) at 06/04/2020 2347 Last data filed at 06/04/2020 2155 Gross per 24 hour Intake 240 ml Output 2295 ml Net -2055 ml Vitals reviewed. General: resting in bed, NAD HEENT: PERRL, EOMI, no scleral icterus Cardiac: RRR, no rubs, murmurs or gallops Pulm: clear to auscultation bilaterally, no wheezes, rales, or rhonchi Abd: soft, nontender, nondistended, BS present Ext: warm and well perfused, no pedal edema, right groin wound and dressing CDI. Neuro: alert and oriented X3, cranial nerves II-XII grossly intact, strength and sensation to light touch equal in bilateral upper and lower extremities Lab Results: Basic Metabolic Panel: Recent Labs 06/02/20 0810 06/03/20 05006/04/20 0941 NA 137 135 132* POTASSIUM 3.3* 3.4* 3.4* CL 104 101 99 CO2 24 25 25 BUN 26* 24* 22 CREATSERUM 1.79* 1.73* 1.71* CA 8.2* 8.4* 8.2* MAGNESIUM 1.9 -- -- PHOSPHORUS 3.7 3.5 3.5 Recent Labs 06/03/20 0506 06/04/20 0941 GLUCOSE 120* 110* Liver Function Tests: Recent Labs 06/03/20 0506 06/04/20 0941 ALBUMIN 2.6* 2.5* CBC: Recent Labs 06/03/20 0506 06/04/20 0941 WBC 17.2* 16.2* NEUTROABS 13.2* 12.9* HEMOGLOBIN 9.0* 8.9* HEMATOCRIT 28.0* 27.5* MCV 88.9 90.2 PLTCOUNT 176 191 Cardiac Enzymes: Recent Labs 06/02/20 0810 TROPONINI 37.653* Coagulation: Recent Labs 06/02/20 0809 PT 14.2 INR 1.1* Medications: I have reviewed her medications. Current Facility-Administered Medications Medication Dose Route Frequency ramipril (ALTACE) capsule 2.5 mg 2.5 mg Oral Daily torsemide (DEMADEX) tablet 10 mg 10 mg Oral 2 times a day diuretic piperacillin-tazobactam (ZOSYN) IV premix in D-2% 2,250 mg 2.25 g IV Every 8 hours carVEDilol (COREG) tablet 3.125 mg 3.125 mg Oral 2 times a day with meals linezolid (ZYVOX) in D5W 300 mL IV piggyback 600 mg 600 mg IV Every 12 hours sodium chloride 0.9% flush (adult) 10 mL 10 mL IV 2 times a day and prn nitroglycerin (NITROSTAT) sublingual tablet 0.4 mg 0.4 mg Sublingual Every 5 minutes prn aspirin chewable tablet 81 mg 81 mg Oral Daily clopidogrel (PLAVIX) tablet 75 mg 75 mg Oral Daily lidocaine 1%-EPINEPHrine 1:200,000 (XYLOCAINE-EPINEPHRINE) injection solution 1 mL 1 mL Subcutaneous PRN per parameter oxyCODONE (OXY-IR) tablet 5-10 mg 5-10 mg Oral Every 6 hours prn HYDROmorphone (DILAUDID) injection solution (conc: 1 mg/mL) 1 mg 1 mg IV Every 3 hours prn calcitriol (ROCALTROL) capsule 0.25 mcg 0.25 mcg Oral at bedtime gabapentin (NEURONTIN) capsule 100 mg 100 mg Oral at bedtime mycophenolate (CELLCEPT) capsule 250 mg 250 mg Oral 2 times a day sodium chloride 0.9% flush (adult) 10 mL 10 mL IV 2 times a day and prn acetaminophen (TYLENOL) tablet 650 mg 650 mg Oral Every 4 hours prn senna-docusate sodium (SENOKOT-S;PERICOLACE) tablet 2 tablet 2 tablet Oral 2 times a day prn And bisacodyl (DULCOLAX) suppository 10 mg 10 mg Rectal 1 time a day prn And docusate sodium (THEREVAC-SB MINI;ENEMEEZ MINI) 283 MG enema 1 enema 1 enema Rectal 1 time a day prn melatonin tablet 3 mg 3 mg Oral Bedtime prn ondansetron (ZOFRAN ODT) dispersible tablet 4 mg 4 mg Oral Every 4 hours prn And ondansetron (ZOFRAN) injection solution 4 mg 4 mg IV Every 4 hours prn fluticasone-vilanterol (BREO ELLIPTA) 200-25 mcg/puff inhaler 1 puff 1 puff Inhalation Daily Rony Luo MD [facility] Clinical Resistance Machine Welder 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 and maintenance specialist [employer] Pager: [phone] Liv Kyle MD - 06/04/2020 3:24 PM CDT INFECTIOUS DISEASE PROGRESS Impression - Right groin wound infection post surgery - Polymicrobial s/p RIGHT COMMON FEMORAL ARTERY EXPLORATION, PATCH ANGIOPLASTY, RIGHT GROIN DEBRIDEMENT, RIGHT SUPERFICIAL FEMORAL ARTERY THROMBECTOMY, LEG FLAP MUSCLE on 05/28/20 - Polymicrobial bacteremia from right groin infection - Peptostreptococcus anaerobius, Gram positive coccobacilli and Bacteroides fragilis - History of PAD s/p femoral endarterectomy with grafting on 04/02/20 complicated by Pseudomonas woundinfection on 04/18/20, she did not tolerate ciprofloxacin - NSTEMI with incidental finding of possible aortic and mitral vegetations on echocardiogram, ALEJANDRA completed on 06/01/20 with no evidence of vegetations - SLE on Cellcept - Chronic kidney disease Plan - Continue IV piperacillin+tazobactam renal dosing - Continue Linezolid 600mg IV Q12H - Follow cultures - Anticipate discharge on IV piperacillin+tazobactam and Daptomycin renal dosing till 07/09/20 - PICC line placement prior to discharge - Discussed with primary team Please call when patient is ready for discharge, IV antibiotic orders will be placed at that time due to fluctuating renal function. Liv Kinsey MD Infectious Disease Pager [phone] Interval History She denies any fever or chills She got out of bed into a chair today Antibiotics Antibiotics (From admission, onward) Start Stop Route Frequency Ordered 06/02/20 1700 piperacillin-tazobactam (ZOSYN) IV premix in D-2% 2,250 mg -- IV Every eight hours 06/02/20 1009 06/01/20 2230 linezolid (ZYVOX) in D5W 300 mL IV piggyback 600 mg -- IV Every twelve hours 06/01/20 2229 05/30/20 1700 piperacillin-tazobactam 3375 mg (ZOSYN) in D-2% 50 mL IV premix Status: Discontinued 06/02 1009 IV Every eight hours 05/30/20 1326 05/28/20 1230 vancomycin (VANCOCIN) 1,250 mg in sodium chloride 0.9% 250 mL (Locked) Status: Discontinued 05/28 1639 IV Every twenty four hours 05/28/20 1209 05/27/20 0100 piperacillin-tazobactam (ZOSYN) IV premix in D-2% 2,250 mg Status: Discontinued 05/30 1326 IV Every eight hours 05/26/20 2349 05/27/20 0100 vancomycin (VANCOCIN) 1,250 mg in sodium chloride 0.9% 250 mL (Locked) (Vancomycin IV: Initial Pharmacy Panel) 05/27 0218 IV One time 05/27/20 0003 05/27/20 0003 vancomycin therapy reminder (Vancomycin IV: Initial Pharmacy Panel) Status: Discontinued 05/[address] [facility] [place] 05/27/20 0003 All other medications reviewed in [facility]. Physical Exam Current Vital Signs Temp: 98.3 F (36.8 C) BP: 92/62 Pulse: 69 O2 Device: Room Air O2 Flow Rate (L/min): 5 l/min Resp: 16 Pain Ratin Chest Pain Ratin (out of 10) Weight: 85.2 kg (187 lb 13.3 oz) SpO2: 97 % Maximum Temperatures (last 24 hours) Temperature Maximum Max Temp 99.5 F (37.5 C) Physical Exam General: no distress HEENT:oral mucosa is moist Heart: regular, no murmurs audible Lung: unlabored, clear Abdomen: soft, no tenderness, no distention, no guarding Musculoskeletal: Right groin with sutures in place, + drain in place Skin: No suspicious rashes Neuro: alert, conversant Microbiology Reviewed Labs and Imaging Estimated Creatinine Clearance: 20.7 mL/min (A) (based on SCr of 1.71 mg/dL (H)). Lab Results Component Value Date WBC 16.2 (H) 06/04/2020 NUCRBC 0 06/04/2020 RBC 3.05 (L) 06/04/2020 HEMOGLOBIN 8.9 (L) 06/04/2020 HEMATOCRIT 27.5 (L) 06/04/2020 MCV 90.2 06/04/2020 MCH 29.2 06/04/2020 MCHC 32.4 06/04/2020 PLTCOUNT 191 06/04/2020 NEUTROPCT 79.7 06/04/2020 BANDPCT 2.0 06/02/2020 LYMPHSPCT 10.8 06/04/2020 MONOSPCT 5.9 06/04/2020 EOSPCT 1.5 06/04/2020 BASOPHILPCT 0.4 06/04/2020 MYELOCYTEPCT 1.0 05/31/2020 Lab Results Component Value Date GLUCOSE 110 (H) 06/04/2020 BUN 22 06/04/2020 CREATSERUM 1.71 (H) 06/04/2020 BCRATIO 12.9 06/04/2020 NA 132 (L) 06/04/2020 POTASSIUM 3.4 (L) 06/04/2020 CL 99 06/04/2020 CO2 25 06/04/2020 CA 8.2 (L) 06/04/2020 PROTEINTOTAL 6.9 05/27/2020 ALBUMIN 2.5 (L) 06/04/2020 ALKPHOS 99 05/27/2020 AST 28 05/27/2020 ALT 14 05/27/2020 BILITOTAL 0.8 05/27/2020 Medical Decision Making Total unit / floor time 35 minutes. Over 50% of total time used in counseling and coordination of care. Herrera Luo MD - 06/03/2020 11:11 PM CDT [facility]ist Daily Progress Note Ms.Marilyn Glory Muniz is a 74yr woman who presented complaining of chest pressure and fatigue. Assessment/Plan: 1. NSTEMI type I: presented with chest pain and fatigue and was found to have elevated troponin. Shewas taken to the microbiological laboratory technician and which showed to have a spontaneous dissection of the mid, tortuous segment of a co-dominant RCA. Not amenable to PCI at that time. Treated medically and then after surgery for the right groin wound she had worsening troponin so she was taken back to the microbiological laboratory technician and found to have 100% occluded RCA with a large clot that was not amenable to intervention so continue medical management. Some concern for endocarditis and a positive blood culture. ALEJANDRA done yesterday shows no vegetation at this time. Continue ASA, plavix, crestor. 2. Acute on CKD stage III: baseline creatinine appears to be 1.4-1.8. Mildly increased following the angiogram. Trended down and now close to her usual baseline after diuresis. 3. Right groin wound infection: noted to have bleeding in the right groin and was taken emergently to the OR and underwent exploration with patch angioplasty and SFA thrombectomy. Plastics then placeda right sartorious flap as well. Wound vac removed today. Remain on bed rest until this afternoon. Continue wound care. 4. PAD: long history of multiple interventions for PAD. Underwent endarterectomy, profundoplasty, and angioplasty of the right common femoral artery with lymphatic leak with washout and then I&D with wound vac placement. After admission for NSTEMI she was noted to be bleeding from the right groin. 5. CAD: noted on catheterization. Continue ASA, plavix, coreg, and ramipril. BP has been stable but lower so unable to increase to target doses. 6. Acute systolic heart failure: noted after NSTEMI with EF of 35% mild increase in BNP. Responded well to diuresis with lasix 20 mg TID IV. change to oral torsemide starting tomorrow. 7. Acute on chronic blood loss anemia: baseline around 10. Down to 6.9 after bleeding from the right groin wound. Goal to keep above 8 due to CAD. Unit of pRBC given overnight. Continue to monitor. 8. Lupus: noted in her hx and on cellcept at home. 9. COPD: continue home inhalers. Breathing is stable at this time. 10. Chronic mesenteric ischemia: noted but no recent weight loss or pain when eating at this time. 11. Neuropathic pain: noted in the history. Continue gabapentin. 12. Tobacco use NRT consulted during admission. 13. VTE: SCDs 14. Dispo: pending evaluation by PT and OT, likely will need placement. Subjective: Still on bed rest this morning, getting anxious to try to get up and move again. Denies nausea, vomiting, or chest pain. Objective: Vital signs in last 24 hours: Vitals: 06/03/20 1100 06/03/20 1519 06/03/20 1652 06/03/20 192 BP: 98/68 93/73 125/76 Pulse: 69 59 70 75 Resp: 16 16 Temp: 98.2 F (36.8 C) 99.5 F (37.5 C) SpO2: 99% (!) 86% 100% 98% Weight: Height: Weight change: Intake/Output Summary (Last 24 hours) at 06/03/2020 2311 Last data filed at 06/03/20201925 Gross per 24 hour Intake 480 ml Output 1550 ml Net -1070 ml Vitals reviewed. General: resting in bed, NAD HEENT: PERRL, EOMI, no scleral icterus Cardiac: RRR, no rubs, murmurs or gallops Pulm: clear to auscultation bilaterally, no wheezes, rales, or rhonchi Abd: soft, nontender, nondistended, BS present Ext: warm and well perfused, no pedal edema, right groin wound and dressing CDI. Neuro: alert and oriented X3, cranial nerves II-XII grossly intact, strength and sensation to light touch equal in bilateral upper and lower extremities Lab Results: Basic Metabolic Panel: Recent Labs 06/01/20 0427 06/02/20 0810 06/03/20 0506 NA 136 137 135 POTASSIUM 3.4* 3.3* 3.4* CL 106 104 101 CO2 23 24 25 BUN 29* 26* 24* CREATSERUM 1.60* 1.79* 1.73* CA 7.5* 8.2* 8.4* MAGNESIUM 2.2 1.9 -- PHOSPHORUS 3.5 3.7 3.5 Recent Labs 06/02/20 1700 06/03/20 0506 GLUCOSE 103* 120* Liver Function Tests: Recent Labs 06/02/20 0810 06/03/20 0506 ALBUMIN 2.5* 2.6* CBC: Recent Labs 06/02/20 0810 06/02/20 2006 06/03/20 0506 WBC 17.0* -- 17.2* NEUTROABS 13.6* -- 13.2* HEMOGLOBIN 8.2* 7.6* 9.0* HEMATOCRIT 25.1* -- 28.0* MCV 89.6 -- 88.9 PLTCOUNT 164 -- 176 Cardiac Enzymes: Recent Labs 06/02/20 0810 TROPONINI 37.653* Coagulation: Recent Labs 06/01/20 0427 06/02/20 0809 PT 15.0* 14.2 INR 1.2* 1.1* Medications: I have reviewed her medications. Current Facility-Administered Medications Medication Dose Route Frequency ramipril (ALTACE) capsule 2.5 mg 2.5 mg Oral Daily piperacillin-tazobactam (ZOSYN) IV premix in D-2% 2,250 mg 2.25 g IV Every 8 hours carVEDilol (COREG) tablet 3.125 mg 3.125 mg Oral 2 times a day with meals linezolid (ZYVOX) in D5W 300 mL IV piggyback 600 mg 600 mg IV Every 12 hours furosemide (LASIX) injection solution 20 mg 20 mg IV Every 8 hours sodium chloride 0.9% flush (adult) 10 mL 10 mL IV 2 times a day and prn hydrALAZINE (APRESOLINE) injection solution 10 mg 10 mg IV Every 6 hours prn nitroglycerin (NITROSTAT) sublingual tablet 0.4 mg 0.4 mg Sublingual Every 5 minutes prn aspirin chewable tablet 81 mg 81 mg Oral Daily clopidogrel (PLAVIX) tablet 75 mg 75 mg Oral Daily lidocaine 1%-EPINEPHrine 1:200,000 (XYLOCAINE-EPINEPHRINE) injection solution 1 mL 1 mL Subcutaneous PRN per parameter oxyCODONE (OXY-IR) tablet 5-10 mg 5-10 mg Oral Every 6 hours prn HYDROmorphone (DILAUDID) injection solution (conc: 1 mg/mL) 1 mg 1 mg IV Every 3 hours prn calcitriol (ROCALTROL) capsule 0.25 mcg 0.25 mcg Oral at bedtime gabapentin (NEURONTIN) capsule 100 mg 100 mg Oral at bedtime mycophenolate (CELLCEPT) capsule 250 mg 250 mg Oral 2 times a day sodium chloride 0.9% flush (adult) 10 mL 10 mL IV 2 times a day and prn acetaminophen (TYLENOL) tablet 650 mg 650 mg Oral Every 4 hours prn senna-docusate sodium (SENOKOT-S;PERICOLACE) tablet 2 tablet 2 tablet Oral 2 times a day prn And bisacodyl (DULCOLAX) suppository 10 mg 10 mg Rectal 1 time a day prn And docusate sodium (THEREVAC-SB MINI;ENEMEEZ MINI) 283 MG enema 1 enema 1 enema Rectal 1 time a day prn melatonin tablet 3 mg 3 mg Oral Bedtime prn ondansetron (ZOFRAN ODT) dispersible tablet 4 mg 4 mg Oral Every 4 hours prn And ondansetron (ZOFRAN) injection solution 4 mg 4 mg IV Every 4 hours prn fluticasone-vilanterol (BREO ELLIPTA) 200-25 mcg/puff inhaler 1 puff 1 puff Inhalation Daily Rony Luo MD [facility] Clinical Resistance Machine Welder 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 and maintenance specialist [employer] Pager: [phone] Alley Jimenez, PHARM D - 06/03/2020 10:49 AM CDT Nephrology Pharmacy Inpatient Note *Patient currently hospitalized/inpatient at [facility].* Nephrology PharmD's currently following patient for anemia management. 1. Continue current Aranesp dose per protocol for Lab Results Component Value Date HEMOGLOBIN 9.0 (L) 06/03/2020 HEMOGLOBIN 7.6 (L) 06/02/2020 HEMOGLOBIN 8.4 (L) 06/02/2020 Patient is due for Aranesp 40 mcg injection. Last dose: 04/27. Irons due to be drawn 07/01. Alley Sena, PHARM D Nephrology Pharmacy [phone] Apurva Kirkpatrick PA-C - 06/03/2020 10:34 AM CDT Cardiology Progress Note Patient Name: Loni Muniz Admit Date: 05/26/2020 CSN: [id number] Assessment and Plan Principal Problem: NSTEMI (non-ST elevated myocardial infarction) ([facility]) Active Problems: Lupus (HCC) Abdominal aortic aneurysm (HCC) Chronic mesenteric ischemia (HCC) Bilateral carotid artery disease (HCC) Smoker Brachiocephalic artery stenosis, right (HCC) CKD (chronic kidney disease) stage 3, GFR 30-59 ml/min (HCC) Peripheral vascular disease (HCC) Hx of renal artery stenosis FSGS (focal segmental glomerulosclerosis) Bradycardia Spontaneous dissection of coronary artery Resolved Problems: * No resolved hospital problems. * Pt was interviewed/examined and a plan was developed along with Dr. Cintron. Coronary artery disease/NSTEMI 10/2018: STEMI, RCA stent 05/26/2020: angiogram, patent stent in RCA, spontaneous dissection in mid, tortuous segment of co-dominant RCA, not amenable to PCI. Moderate non obstructive disease in the mid LAD. Medical management. 05/30/2020: angiogram, notation of RCA 100% occluded with large clot, inability to pass a wire and noted q waved on EKG. Medical management Troponins: 9.341-->33.917-->63.475-->37.653 On: ASA and clopidogrel (PLAVIX). On beta wyatt, will start ACEI Rule out bacterial endocarditis 05/26/2020: echocardiogram, possible vegetation on the aortic and mitral valve 06/01/2020: ALEJANDRA, no vegetation on aortic and mitral valve Cardiomyopathy asymptomatic; appears euvolemic on exam 05/30/2020: echocardiogram, EF 35% On beta wyatt. Will start low dose ramipril (ALTACE) Paroxysmal atrial fibrillation May benefit from anticoagulation when able Rhythm: currently NSR [id number] Score: 4 -Cardiac Medications (continue): ASA 81 mg/day Carvedilol (COREG) 3.125 mg/BID IV furosemide (LASIX) 20 mg Q8H Will start: 2.5 mg/day of ramipril (ALTACE) Code Status: Full Code Thank you for the opportunity to participate in the care of Loni Muniz, cardiology will be signing off at this time. Please notify us if cardiology is needed in the future. Recommend follow upwith CHF clinic 1-2 weeks after discharge. Thanks, Apurva Brito PA-C Cardiology Pager #: [phone] [facility] [place], [place] 06/03/2020 Interval History Loni Muniz is a [id number] patient admitted for NSTEMI. She is doing okay, however, she did not sleep well. She is not having much for shortness of breath or edema, we discussed the skilled nursing plan with heart failure including GDMT and rechecking an echocardiogram in the future. She is planning to move back to [place] in the near future, will see her priorto leaving. She denies palpitations, PND, orthopnea, nonhealing wounds or ulcerations. She denies lightheadedness, fatigue or presyncope. She denies any episodes of slurred speech, unilateral weakness or numbness or acute vision changes. ROS All pertinent ROS reviewed in the HPI. Current Vital Signs Temp: 98.7 F (37.1 C) BP: 120/88 Pulse: 76 O2 Device: Room Air O2 Flow Rate (L/min): 5 l/min Resp: 16 Pain Ratin Chest Pain Ratin (out of 10) Weight: 86.1 kg (189 lb 13.1 oz) SpO2: 93 % Physical Exam General Appearance: alert, well appearing, and in no distress Mental Status: alert, oriented to person, place, and time Neck: supple, no bruits heard on exam Chest: clear to auscultation, no wheezes, rales or rhonchi, symmetric air entry Heart: normal rate, regular rhythm, normal S1, S2, no murmurs, rubs, clicks or gallops Neurological: alert, oriented, normal speech Extremities: no lower extremity edema bilaterally Skin: warm, dry Telemetry reviewed: NSR Labs I have reviewed all labs, and pertinent positives and negatives are discussed in the Assessment and Plan. Herrera Luo MD - 06/02/2020 10:26 PM CDT [facility]ist Daily Progress Note Ms.Marilyn Glory Muniz is a 74yr woman who presented complaining of chest pressure and fatigue. Assessment/Plan: 1. NSTEMI type I: presented with chest pain and fatigue and was found to have elevated troponin. Shewas taken to the microbiological laboratory technician and which showed to have a spontaneous dissection of the mid, tortuous segment of a co-dominant RCA. Not amenable to PCI at that time. Treated medically and then after surgery for the right groin wound she had worsening troponin so she was taken back to the microbiological laboratory technician and found to have 100% occluded RCA with a large clot that was not amenable to intervention so continue medical management. Some concern for endocarditis and a positive blood culture. ALEJANDRA done yesterday shows no vegetation at this time. Continue ASA, plavix, crestor. 2. Acute on CKD stage III: baseline creatinine appears to be 1.4-1.8. Mildly increased following the angiogram. Trended down and now close to her usual baseline after diuresis. 3. Right groin wound infection: noted to have bleeding in the right groin and was taken emergently to the OR and underwent exploration with patch angioplasty and SFA thrombectomy. Plastics then placeda right sartorious flap as well. Wound vac removed today. Remain on bed rest until tomorrow. Continue wound care. 4. PAD: long history of multiple interventions for PAD. Underwent endarterectomy, profundoplasty, and angioplasty of the right common femoral artery with lymphatic leak with washout and then I&D with wound vac placement. After admission for NSTEMI she was noted to be bleeding from the right groin. 5. CAD: noted on catheterization. Continue ASA, plavix, coreg, and ramipril. BP has been stable but lower so unable to increase to target doses. 6. Acute systolic heart failure: noted after NSTEMI with EF of 35% mild increase in BNP. Responded well to diuresis with lasix 20 mg TID IV. Will monitor overnight and consider changing to oral. 7. Acute on chronic blood loss anemia: baseline around 10. Down to 6.9 after bleeding from the right groin wound. Goal to keep above 8 due to CAD. Continue to monitor. 8. Lupus: noted in her hx and on cellcept at home. 9. COPD: continue home inhalers. Breathing is stable at this time. 10. Chronic mesenteric ischemia: noted but no recent weight loss or pain when eating at this time. 11. Neuropathic pain: noted in the history. Continue gabapentin. 12. Tobacco use NRT consulted during admission. 13. VTE: SCDs 14. Dispo: pending evaluation by PT and OT when she is able to get out of bed. Subjective: Wound vac removed and still on bed rest. Anxious to get moving again. Denies nausea, vomiting, chest pain, fever, or chills. Objective: Vital signs in last 24 hours: Vitals: 06/02/20 1500 06/02/20 1600 06/02/20 1700 06/02/20 2100 BP: 113/68 102/54 114/86 96/62 Pulse: 80 82 83 77 Resp: 17 25 14 21 Temp: 98 F (36.7 C) SpO2: 97% 99% 96% Weight: Height: Weight change: Intake/Output Summary (Last 24 hours) at 06/02/2020 2227 Last data filed at 06/02/2020 1800 Gross per 24 hour Intake 1455 ml Output 4318 ml Net -2863 ml Vitals reviewed. General: resting in bed, NAD HEENT: PERRL, EOMI, no scleral icterus Cardiac: RRR, no rubs, murmurs or gallops Pulm: clear to auscultation bilaterally, no wheezes, rales, or rhonchi Abd: soft, nontender, nondistended, BS present Ext: warm and well perfused, no pedal edema, right groin wound and dressing CDI. Neuro: alert and oriented X3, cranial nerves II-XII grossly intact, strength and sensation to light touch equal in bilateral upper and lower extremities Lab Results: Basic Metabolic Panel: Recent Labs 06/01/2042606/02/20 0810 NA 136 137 POTASSIUM 3.4* 3.3* CL 106 104 CO2 23 24 BUN 29* 26* CREATSERUM 1.60* 1.79* CA 7.5* 8.2* MAGNESIUM 2.2 1.9 PHOSPHORUS 3.5 3.7 Recent Labs 06/02/20 1227 06/02/20 1700 GLUCOSE 112* 103* Liver Function Tests: Recent Labs 06/01/20 0427 06/02/20 0810 ALBUMIN 2.3* 2.5* CBC: Recent Labs 06/01/20 0427 06/02/20 0810 06/02/20 1452 06/02/202005 WBC 17.4* 17.0* -- -- NEUTROABS 12.2* 13.6* -- -- HEMOGLOBIN 8.2* 8.2* 8.4* 7.6* HEMATOCRIT 24.1* 25.1* -- -- MCV 87.3 89.6 -- -- PLTCOUNT 141 164 -- -- Cardiac Enzymes: Recent Labs 06/02/20 0810 TROPONINI 37.653* BNP: Recent Labs 05/31/20 0627 BNP 2,394* Coagulation: Recent Labs 06/01/20 0427 06/02/20 0809 PT 15.0* 14.2 INR 1.2* 1.1* Micro Results: Other Cultures (Last 60 days) Date/Time Component Value 05/27/20 0109 Culture Result No growth at 5 days 05/27/20 0046 Culture Result Peptostreptococcus anaerobius (!) 05/27/20 004 Culture Result Bacteroides fragilis (!) 05/27/20 004 Culture Result Gram positive coccobacilli (!) 05/26/20 1535 Culture Result No growth at 5 days 05/26/20 1520 Culture Result No growth at 5 days Medications: I have reviewed her medications. Current Facility-Administered Medications Medication Dose Route Frequency piperacillin-tazobactam (ZOSYN) IV premix in D-2% 2,250 mg 2.25 g IV Every 8 hours carVEDilol (COREG) tablet 3.125 mg 3.125 mg Oral 2 times a day with meals sodium chloride 0.9% IV solution flush bag IV Continuous linezolid (ZYVOX) in D5W 300 mL IV piggyback 600 mg 600 mg IV Every 12 hours furosemide (LASIX) injection solution 20 mg 20 mg IV Every 8 hours sodium chloride 0.9% flush (adult) 10 mL 10 mL IV 2 times a day and prn hydrALAZINE (APRESOLINE) injection solution 10 mg 10 mg IV Every 6 hours prn nitroglycerin (NITROSTAT) sublingual tablet 0.4 mg 0.4 mg Sublingual Every 5 minutes prn aspirin chewable tablet 81 mg 81 mg Oral Daily clopidogrel (PLAVIX) tablet 75 mg 75 mg Oral Daily lidocaine 1%-EPINEPHrine 1:200,000 (XYLOCAINE-EPINEPHRINE) injection solution 1 mL 1 mL Subcutaneous PRN per parameter oxyCODONE (OXY-IR) tablet 5-10 mg 5-10 mg Oral Every 6 hours prn HYDROmorphone (DILAUDID) injection solution (conc: 1 mg/mL) 1 mg 1 mg IV Every 3 hours prn calcitriol (ROCALTROL) capsule 0.25 mcg 0.25 mcg Oral at bedtime gabapentin (NEURONTIN) capsule 100 mg 100 mg Oral at bedtime mycophenolate (CELLCEPT) capsule 250 mg 250 mg Oral 2 times a day sodium chloride 0.9% flush (adult) 10 mL 10 mL IV 2 times a day and prn acetaminophen (TYLENOL) tablet 650 mg 650 mg Oral Every 4 hours prn senna-docusate sodium (SENOKOT-S;PERICOLACE) tablet 2 tablet 2 tablet Oral 2 times a day prn And bisacodyl (DULCOLAX) suppository 10 mg 10 mg Rectal 1 time a day prn And docusate sodium (THEREVAC-SB MINI;ENEMEEZ MINI) 283 MG enema 1 enema 1 enema Rectal 1 time a day prn melatonin tablet 3 mg 3 mg Oral Bedtime prn ondansetron (ZOFRAN ODT) dispersible tablet 4 mg 4 mg Oral Every 4 hours prn And ondansetron (ZOFRAN) injection solution 4 mg 4 mg IV Every 4 hours prn fluticasone-vilanterol (BREO ELLIPTA) 200-25 mcg/puff inhaler 1 puff 1 puff Inhalation Daily Rony Luo MD [facility] Clinical Resistance Machine Welder 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 and maintenance specialist [employer] Pager: [phone] Liv trinh MD - 06/02/2020 2:43 PM CDT INFECTIOUS DISEASE PROGRESS Impression - Right groin wound infection post surgery - Polymicrobial s/p RIGHT COMMON FEMORAL ARTERY EXPLORATION, PATCH ANGIOPLASTY, RIGHT GROIN DEBRIDEMENT, RIGHT SUPERFICIAL FEMORAL ARTERY THROMBECTOMY, LEG FLAP MUSCLE on 05/28/20 - Polymicrobial bacteremia from right groin infection - Peptostreptococcus anaerobius, Gram positive coccobacilli and Bacteroides fragilis - History of PAD s/p femoral endarterectomy with grafting on 04/02/20 complicated by Pseudomonas woundinfection on 04/18/20, she did not tolerate ciprofloxacin - NSTEMI with incidental finding of possible aortic and mitral vegetations on echocardiogram, ALEJANDRA completed on 06/01/20 with no evidence of vegetations - SLE on Cellcept - Chronic kidney disease Plan - Continue IV piperacillin+tazobactam renal dosing - Continue Linezolid 600mg IV Q12H - Follow cultures Liv Kinsey MD Infectious Disease Pager [phone] Interval History She has nausea, no fever or chills Right groin wound vac removed Antibiotics Antibiotics (From admission, onward) Start Stop Route Frequency Ordered 06/02/20 1700 piperacillin-tazobactam (ZOSYN) IV premix in D-2% 2,250 mg -- IV Every eight hours 06/02/20 1009 06/01/20 2230 linezolid (ZYVOX) in D5W 300 mL IV piggyback 600 mg -- IV Every twelve hours 06/01/20 2229 05/30/20 1700 piperacillin-tazobactam 3375 mg (ZOSYN) in D-2% 50 mL IV premix Status: Discontinued 06/02 1009 IV Every eight hours 05/30/20 1326 05/28/20 1230 vancomycin (VANCOCIN) 1,250 mg in sodium chloride 0.9% 250 mL (Locked) Status: Discontinued 05/28 1639 IV Every twenty four hours 05/28/20 1209 05/27/20 0100 piperacillin-tazobactam (ZOSYN) IV premix in D-2% 2,250 mg Status: Discontinued 05/30 1326 IV Every eight hours 05/26/20 2349 05/27/20 0100 vancomycin (VANCOCIN) 1,250 mg in sodium chloride 0.9% 250 mL (Locked) (Vancomycin IV: Initial Pharmacy Panel) 05/27 0218 IV One time 05/27/20 0003 05/27/20 0003 vancomycin therapy reminder (Vancomycin IV: Initial Pharmacy Panel) Status: Discontinued 05/[address] [facility] [place] 05/27/20 0003 All other medications reviewed in Epic. Physical Exam Current Vital Signs Temp: 98.4 F (36.9 C) BP: 114/86 Pulse: 83 O2 Device: Room Air O2 Flow Rate (L/min): 5 l/min Resp: 14 Pain Ratin Chest Pain Ratin (out of 10) Weight: 92.4 kg (203 lb 11.3 oz) SpO2: 99 % Maximum Temperatures (last 24 hours) Temperature Maximum Max Temp 98.4 F (36.9 C) Physical Exam General: no distress HEENT:oral mucosa is moist Heart: regular, no murmurs audible Lung: unlabored, clear Abdomen: soft, no tenderness, no distention, no guarding Musculoskeletal: Right groin with sutures in place, wound vac removed and drain in place Skin: No suspicious rashes Neuro: alert, conversant Microbiology Reviewed Labs and Imaging Estimated Creatinine Clearance: 19.8 mL/min (A) (based on SCr of 1.79 mg/dL (H)). Lab Results Component Value Date WBC 17.0 (H) 06/02/2020 NUCRBC 1 06/01/2020 RBC 2.80 (L) 06/02/2020 HEMOGLOBIN 7.6 (L) 06/02/2020 HEMATOCRIT 25.1 (L) 06/02/2020 MCV 89.6 06/02/2020 MCH 29.3 06/02/2020 MCHC 32.7 06/02/2020 PLTCOUNT 164 06/02/2020 NEUTROPCT 80.0 06/02/2020 BANDPCT 2.0 06/02/2020 LYMPHSPCT 8.0 06/02/2020 MONOSPCT 4.0 06/02/2020 EOSPCT 6.0 06/02/2020 BASOPHILPCT 0.3 06/01/2020 MYELOCYTEPCT 1.0 05/31/2020 Lab Results Component Value Date GLUCOSE 103 (H) 06/02/2020 BUN 26 (H) 06/02/2020 CREATSERUM 1.79 (H) 06/02/2020 BCRATIO 14.5 06/02/2020 NA 137 06/02/2020 POTASSIUM 3.3 (L) 06/02/2020 CL 104 06/02/2020 CO2 24 06/02/2020 CA 8.2 (L) 06/02/2020 PROTEINTOTAL 6.9 05/27/2020 ALBUMIN 2.5 (L) 06/02/2020 ALKPHOS 99 05/27/2020 AST 28 05/27/2020 ALT 14 05/27/2020 BILITOTAL 0.8 05/27/2020 Medical Decision Making Total unit / floor time 25 minutes. Over 50% of total time used in counseling and coordination of care. Apurva Brito PA-C - 06/02/2020 1:35 PM CDT Cardiology Progress Note Patient Name: Loni Muniz Admit Date: 05/26/2020 CSN: [id number] Assessment and Plan Principal Problem: NSTEMI (non-ST elevated myocardial infarction) ([facility]) Active Problems: Lupus (HCC) Abdominal aortic aneurysm (HCC) Chronic mesenteric ischemia (HCC) Bilateral carotid artery disease (HCC) Smoker Brachiocephalic artery stenosis, right (HCC) CKD (chronic kidney disease) stage 3, GFR 30-59 ml/min (HCC) Peripheral vascular disease (HCC) Hx of renal artery stenosis FSGS (focal segmental glomerulosclerosis) Bradycardia Spontaneous dissection of coronary artery Resolved Problems: * No resolved hospital problems. * Pt was interviewed/examined and a plan was developed along with Dr. Cintron. Coronary artery disease/NSTEMI 10/2018: STEMI, RCA stent 05/26/2020: angiogram, patent stent in RCA, spontaneous dissection in mid, tortuous segment of co-dominant RCA, not amenable to PCI. Moderate non obstructive disease in the mid LAD. Medical management. 05/30/2020: angiogram, notation of RCA 100% occluded with large clot, inability to pass a wire and noted q waved on EKG. Medical management Troponins: 9.341-->33.917-->63.475; will repeat for trend On: ASA and clopidogrel (PLAVIX). Not on beta wyatt due to pressor use, not on statin due to prior myalgias Rule out bacterial endocarditis 05/26/2020: echocardiogram, possible vegetation on the aortic and mitral valve 06/01/2020: ALEJANDRA, no vegetation on aortic and mitral valve Cardiomyopathy asymptomatic; appears euvolemic on exam 05/30/2020: echocardiogram, EF 35% Will start low dose carvedilol (COREG), inpatient heart failure nurse navigator ordered. Recommend follow up in 1 week after discharge Paroxysmal atrial fibrillation May benefit from anticoagulation when able Rhythm: currently NSR [id number] Score: 4 -Cardiac Medications (continue): ASA 81 mg/day IV furosemide (LASIX) 20 mg Q8H Will start Carvedilol (COREG) 3.125 mg/BID Code Status: Full Code I appreciate the opportunity to be involved in this patient's care. Cardiology will continue to follow. Apurva Brito PA-C Cardiology Pager #: [phone] [facility] [place], [place] 06/02/2020 Interval History Loni Muniz is a [id number] patient admitted for NSTEMI. She is feeling much better today, we discussed rat exterminator plan for heart failure including medicationoptimization. Heart failure nurse navigator ordered, low dose beta wyatt ordered as patient is no longer on pressors. She feels as if her shortness of breath and edema have much improved. She denies any recurrent chest pain. She denies palpitations, PND, orthopnea, nonhealing wounds or ulcerations. Shedenies lightheadedness, fatigue or presyncope. She denies any episodes of slurred speech, unilateral weakness or numbness or acute vision changes. ROS All pertinent ROS reviewed in the HPI. Current Vital Signs Temp: 98.4 F (36.9 C) BP: 99/67 Pulse: 80 O2 Device: Room Air O2 Flow Rate (L/min): 5 l/min Resp: 22 Pain Ratin Chest Pain Ratin (out of 10) Weight: 92.4 kg (203 lb 11.3 oz) SpO2: 96 % Physical Exam General Appearance: alert, well appearing, and in no distress Mental Status: alert, oriented to person, place, and time Neck: supple, no bruits heard on exam Chest: clear to auscultation, no wheezes, rales or rhonchi, symmetric air entry Heart: normal rate, regular rhythm, normal S1, S2, no murmurs, rubs, clicks or gallops Neurological: alert, oriented, normal speech Extremities: non pitting pedal edema, bilaterally Skin: warm, dry Telemetry reviewed: NSR Labs I have reviewed all labs, and pertinent positives and negatives are discussed in the Assessment and Plan. YNAT Liv Kinsey MD - 06/01/2020 1:22 PM CDT INFECTIOUS DISEASE PROGRESS Impression Infected R groin postop wound with Pseudomonas, rare colony of Coagulase negative Staph Polymicrobial bacteremia - ? Contamination - Peptostreptococcus anaerobius, Gram positive coccobacilli and Anaerobic gram negative bacilli PAD s/p femoral endarterectomy on oral cipro NSTEMI with incidental finding of aortic and mitral vegetations possibly jennifer de la garza Immunosuppressed on MMF for SLE Plan - Continue IV piperacillin+tazobactam renal dosing - Follow cultures and pending ALEJANDRA - Start Linezolid 600mg IV Q12H - Repeat blood culture in am Liv Kinsey MD Infectious Disease Pager [phone] Interval History She denies any fever, chills, nausea or vomiting She has 3 loose stools today after many days of constipation Antibiotics Antibiotics (From admission, onward) Start Stop Route Frequency Ordered 05/30/20 1700 piperacillin-tazobactam 3375 mg (ZOSYN) in D-2% 50 mL IV premix -- IV Every eight hours 05/30/20 1326 05/28/20 1230 vancomycin (VANCOCIN) 1,250 mg in sodium chloride 0.9% 250 mL (Locked) Status: Discontinued 05/28 1639 IV Every twenty four hours 05/28/20 1209 05/27/20 0100 piperacillin-tazobactam (ZOSYN) IV premix in D-2% 2,250 mg Status: Discontinued 05/30 1326 IV Every eight hours 05/26/20 2349 05/27/20 0100 vancomycin (VANCOCIN) 1,250 mg in sodium chloride 0.9% 250 mL (Locked) (Vancomycin IV: Initial Pharmacy Panel) 05/27 0218 IV One time 05/27/20 0003 05/27/20 0003 vancomycin therapy reminder (Vancomycin IV: Initial Pharmacy Panel) Status: Discontinued 05/[address] [facility] [place] 05/27/20 0003 All other medications reviewed in [facility]. Physical Exam Current Vital Signs Temp: 98.4 F (36.9 C) BP: 84/59 Pulse: 82 O2 Device: Room Air O2 Flow Rate (L/min): 5 l/min Resp: 14 Pain Ratin Chest Pain Ratin (out of 10) Weight: 92.4 kg (203 lb 11.3 oz) SpO2: 96 % Maximum Temperatures (last 24 hours) Temperature Maximum Max Temp 99.6 F (37.6 C) Physical Exam General: no distress HEENT:oral mucosa is moist Heart: regular, no murmurs audible Lung: unlabored, clear Abdomen: soft, no tenderness, no distention, no guarding Musculoskeletal: Right groin with wound vac and drain in place Skin: No suspicious rashes Neuro: alert, conversant Microbiology Reviewed Labs and Imaging Estimated Creatinine Clearance: 22.2 mL/min (A) (based on SCr of 1.6 mg/dL (H)). Lab Results Component Value Date WBC 17.4 (H) 06/01/2020 NUCRBC 1 06/01/2020 RBC 2.76 (L) 06/01/2020 HEMOGLOBIN 7.7 (L) 06/01/2020 HEMATOCRIT 24.1 (L) 06/01/2020 MCV 87.3 06/01/2020 MCH 29.7 06/01/2020 MCHC 34.0 06/01/2020 PLTCOUNT 141 06/01/2020 NEUTROPCT 70.0 06/01/2020 BANDPCT 1.0 05/31/2020 LYMPHSPCT 14.5 06/01/2020 MONOSPCT 8.4 06/01/2020 EOSPCT 1.3 06/01/2020 BASOPHILPCT 0.3 06/01/2020 MYELOCYTEPCT 1.0 05/31/2020 Lab Results Component Value Date GLUCOSE 116 (H) 06/01/2020 BUN 29 (H) 06/01/2020 CREATSERUM 1.60 (H) 06/01/2020 BCRATIO 18.1 06/01/2020 NA 136 06/01/2020 POTASSIUM 3.4 (L) 06/01/2020 CL 106 06/01/2020 CO2 23 06/01/2020 CA 7.5 (L) 06/01/2020 PROTEINTOTAL 6.9 05/27/2020 ALBUMIN 2.3 (L) 06/01/2020 ALKPHOS 99 05/27/2020 AST 28 05/27/2020 ALT 14 05/27/2020 BILITOTAL 0.8 05/27/2020 Medical Decision Making Total unit / floor time 25 minutes. Over 50% of total time used in counseling and coordination of care. Leon Magana MD - 06/01/2020 10:28 AM CDT [facility] ICU Progress Note Attending:Rafael Wise MD HD # 7 ICU day # 4 Post operative day #4 (05/29/20) - Right WIRE COILER exploration w/ patch angioplasty and SFA thrombectomy. - Right Sartorious flap Subjective Brief History - Loni Muniz is a 74yr female with history of right femoral and superficial femoral endarterectomy, profundoplasty and patch angio plasty of right common femoral artery (04/02), complicated by lymphatic leak, s/p wound exploration, excisional debridement of subcutaneous tissue, washout and repair of lymphatic leak (04/22), and requiring takeback for continued pain and drainage s/p exploration, irrigation and debridement, removal of deeper sutures and placement of wound vac (04/26). Found to have bleeding from her femoral on the right, so was taken to the OR with vascular on 05/29. She underwent Right WIRE COILER exploration with patch angioplasty and SFA thrombectomy. She had a right sartorious flap placed at that time. Post-operatively she complained on chest pain and was found to have an NSTEMI (trop at that time 3). Heparin drip started. On 05/30 she underwent Cardiac cath and was found to have 100% occlusion of RCA with thrombus. This was unable to tranversed. She was left of heparin and transferred back to ICU. She was found to be in congestive heart failure with BNP of 2394. Last 24 Hours No acute events overnight. States shortness of breath improved some. Denies pain in her arms/chest. Endorses mild nausea. Did have a BM this am. Objective Current Vital Signs Temp: 99.6 F (37.6 C) BP: 83/54 Pulse: 74 O2 Device: Room Air O2 Flow Rate (L/min): 5 l/min Resp: 17 Pain Ratin Chest Pain Ratin (out of 10) Weight: 92.4 kg (203 lb 11.3 oz) SpO2: 96 % Physical Exam Gen: alert, NAD CV: RRR Lungs: Clear, mildly diminished bilateral bases. Abdomen: Soft, non-tender, non-distended. Extremities: Right groin with Prevena, holding appropriate seal. DAE in place, SS drainage. Right foot is warm, motor and sensory intact. Left groin with bruise. Inputs and Outputs: Blood: 300 IV: 3001 PO: 500 UOP: 2300 DAE: 270 Labs Lab Results Component Value Date WBC 17.4 (H) 06/01/2020 NUCRBC 1 06/01/2020 RBC 2.76 (L) 06/01/2020 HEMOGLOBIN 7.9 (L) 06/01/2020 HEMATOCRIT 24.1 (L) 06/01/2020 MCV 87.3 06/01/2020 MCH 29.7 06/01/2020 MCHC 34.0 06/01/2020 PLTCOUNT 141 06/01/2020 NEUTROPCT 70.0 06/01/2020 BANDPCT 1.0 05/31/2020 LYMPHSPCT 14.5 06/01/2020 MONOSPCT 8.4 06/01/2020 EOSPCT 1.3 06/01/2020 BASOPHILPCT 0.3 06/01/2020 MYELOCYTEPCT 1.0 05/31/2020 Lab Results Component Value Date GLUCOSE 88 06/01/2020 BUN 29 (H) 06/01/2020 CREATSERUM 1.60 (H) 06/01/2020 BCRATIO 18.1 06/01/2020 NA 136 06/01/2020 POTASSIUM 3.4 (L) 06/01/2020 CL 106 06/01/2020 CO2 23 06/01/2020 CA 7.5 (L) 06/01/2020 EGFR 32 (L) 06/01/2020 EGFRAF 38 (L) 06/01/2020 Lab Results Component Value Date MAGNESIUM 2.2 06/01/2020 Assessment and Plan Neuro: # Acute post operative pain control - pain is well controlled on tylenol and oxycodone PRN and PRN dilaudid #Depression- Chronic Pulmonary/Respiratory #COPD- chronic - Patient is saturating well on room air, breathing treatments are continued with patient. Will continue and restart home medications as needed -Family to bring in CPAP for night time, otherwise NC O2 at bedtime Home meds: Albuterol, Symbicort Cardiac/Hemodynamics: #CAD with NSTEMI -- complete RCA occlusion - heparin gtt per nomogram titration to Xa given hx of lupus - Cardiology following - ALEJANDRA today Home medications: Clopidogrel, Asprin #Valvular vegetation -- possible infective endocarditis - ALEJANDRA today #Acute Systolic congestive heart failure - EF of 35% on last echo - Gentle diuresis with lasix #Hypotension - off levophed for 24 hours #HTN-chronic GI/Nutrition: #Nutritional status in the perioperative setting - NPO for ALEJANDRA, heart healthy diet otherwise - Monitor for ileus, as patient is nauseated - Bowel regimen /Renal: #Chronic Kidney Disease IV (baseline creatinine 1.4) - Cr slight up today - Monitor uop Fluids/Electrolytes: - Sheikh remains in place, due to extended bedrest - Will continue daily basic metabolic panels and supplement PRN Musculoskeletal # Post operative PT/OT - Consulted, appreciate recs - Currently on bedrest for flap #Osteoporosis- chronic - No acute or chronic concerns Home Meds- calcitriol, Oscal Hematology Lupus- chronic - Plan to continue home medications, no acute intervention needed. Home meds: Plaquenil, Cellcept #Prior history of DVT - on therapeutic anticoagulation for NSTEMI Infectious Disease #Leukocystosis -- Positive blood cultures Gram negative bacilli and positive coccobacilli, possible secondary to valvular vegetation - ID following - currently on Zosyn Endocrine - No indication for insulin Wounds #Local tissue flap repair Plastics following appreciate recs. - Bed rest until POD#6 - Incisional negative pressure wound therapy dressing to be removed in 5 days - DAE in place with SS output - Will continue to follow LINES: Patient Lines/Drains/Airways Status Active Lines Name: Placement date: Placement time: Site: Days: CVC Triple Lumen 05/28/20 Internal jugular Left 05/28/20 0650 Internal jugular 4 Indwelling Urinary Catheter 05/28/20 Sheikh/Ureteral 05/28/20 1300 3 Freddy-Fuller Drain 05/28/20 Anterior;Upper Leg Drain #1 05/28/20 1743 Leg 3 Incision 04/02/20 Anterior;Right Groin Incision 04/02/20 Groin 60 Incision 05/30/20 Anterior;Left;Proximal Groin Incision 05/30/20 1900 Groin 1 Prophylaxis: GI Prophylaxis:None DVT prophylaxis: therapeutic heparin gtt, discuss with cardiology about need for transition to oral anticoagulant Current Consults Cardiology Vascular Plastics Dispo - [place] [facility] [place] primary. ALEJANDRA today with cardioloseema Magana MD Bench Molder, PGY-3 Pager #[phone] Associated attestation - Miguelangel Mart MD - 06/01/2020 12:55 PM CDT I saw the patient with the resident. I was present during the critical or hayes portions of the service furnished by the resident. I verified in the medical record, all residents documentation/findings, including history, physical exam, and medical decision making and I agree with the resident's documentation. Doing ok this morning. No complaints. ALEJANDRA planned for today. Should be ok to transfer out of ICU. Leon Magana MD - 05/31/2020 1:01 PM CDT [facility] ICU Progress Note Attending:Rafael Wise MD HD # 6 ICU day # 3 Post operative day #3 (05/29/20) - Right WIRE COILER exploration w/ patch angioplasty and SFA thrombectomy. - Right Sartorious flap Subjective Brief History - Loni Muniz is a 74yr female with history of right femoral and superficial femoral endarterectomy, profundoplasty and patch angio plasty of right common femoral artery (04/02), complicated by lymphatic leak, s/p wound exploration, excisional debridement of subcutaneous tissue, washout and repair of lymphatic leak (04/22), and requiring takeback for continued pain and drainage s/p exploration, irrigation and debridement, removal of deeper sutures and placement of wound vac (04/26). Found to have bleeding from her femoral on the right, so was taken to the OR with vascular on 05/29. She underwent Right WIRE COILER exploration with patch angioplasty and SFA thrombectomy. She had a right sartorious flap placed at that time. Post-operatively she complained on chest pain and was found to have an NSTEMI (trop at that time 3). Heparin drip started. Last 24 Hours Underwent Cardiac cath on 05/30 demonstrating 100% RCA occlusion. Cardiology following will continue medical management. Had increased shortness of breath last night and dip in hemoglobin, 2 units of blood transfused and gentle diuresis. Objective Current Vital Signs Temp: 97.9 F (36.6 C) BP: 88/64 Pulse: 71 O2 Device: Room Air O2 Flow Rate (L/min): 5 l/min Resp: 23 Pain Ratin Chest Pain Ratin (out of 10) Weight: 85.8 kg (189 lb 2.5 oz) SpO2: 94 % Physical Exam Gen: alert, NAD CV: RRR Lungs: Clear, mildly diminished bilateral bases. Abdomen: Soft, non-tender, non-distended. Extremities: Right groin with Prevena, holding appropriate seal. DAE in place, SS drainage. Right foot is warm, motor and sensory intact. Left groin with bruise. Inputs and Outputs: Blood: 336 UOP: 1000 DAE: 350 Labs Lab Results Component Value Date WBC 22.0 (H) 05/31/2020 NUCRBC 1 05/30/2020 RBC 2.51 (L) 05/31/2020 HEMOGLOBIN 7.6 (L) 05/31/2020 HEMATOCRIT 22.5 (L) 05/31/2020 MCV 89.6 05/31/2020 MCH 30.7 05/31/2020 MCHC 34.2 05/31/2020 PLTCOUNT 135 (L) 05/31/2020 NEUTROPCT 87.8 05/31/2020 BANDPCT 1.0 05/31/2020 LYMPHSPCT 7.1 05/31/2020 MONOSPCT 2.0 05/31/2020 EOSPCT 0.3 05/30/2020 BASOPHILPCT 1.0 05/31/2020 MYELOCYTEPCT 1.0 05/31/2020 Lab Results Component Value Date GLUCOSE 122 (H) 05/31/2020 BUN 27 (H) 05/31/2020 CREATSERUM 1.41 (H) 05/31/2020 BCRATIO 19.1 05/31/2020 NA 137 05/31/2020 POTASSIUM 3.4 (L) 05/31/2020 CL 106 05/31/2020 CO2 21 05/31/2020 CA 7.4 (L) 05/31/2020 EGFR 36 (L) 05/31/2020 EGFRAF 44 (L) 05/31/2020 Lab Results Component Value Date MAGNESIUM 1.8 05/31/2020 Assessment and Plan Neuro: # Acute post operative pain control - pain is well controlled on tylenol and oxycodone PRN and PRN dilaudid #Depression- Chronic Pulmonary/Respiratory #COPD- chronic - Patient is saturating well on room air, breathing treatments are continued with patient. Will continue and restart home medications as needed -Family to bring in CPAP for night time, otherwise NC O2 at bedtime Home meds: Albuterol, Symbicort Cardiac/Hemodynamics: #CAD with NSTEMI -- complete RCA occlusion - Given the elevation in the patients troponin, associated chest pain and no significant changes on EKG likely etiology is a new onset NSTEMI. We will continue the patients home Asprin and Plavix. Planto also start heparin gtt per nomogram titration to Xa given hx of lupus - Cardiology consulted -- Echo to be done and heart cath for possible stent placement Home medications: Clopidogrel, Asprin #Acute Systolic congestive heart failure - EF of 35% on last echo - Gentle diuresis with lasix #Hypotension - Levophed #HTN-chronic GI/Nutrition: #Nutritional status in the perioperative setting - Clear liquid diet - Monitor for ileus, as patient is nauseated - Bowel regimen /Renal: Chronic Kidney Disease IV (baseline creatinine 1.4) - Cr to baseline today - Monitor uop Fluids/Electrolytes: - Sheikh remains in place, due to extended bedrest - Will continue daily basic metabolic panels and supplement PRN Musculoskeletal # Post operative PT/OT - Consulted, appreciate recs - Currently on bedrest for flap #Osteoporosis- chronic - No acute or chronic concerns Home Meds- calcitriol, Oscal Hematology Lupus- chronic - Plan to continue home medications, no acute intervention needed. Home meds: Plaquenil, Cellcept #Prior history of DVT - Now placed on [place] heparin gtt given risk of NSTEMI. Will continue to have SCDs in place and follow patients respatory status. No acute indications of DVTs Infectious Disease #Leukocystosis -- Positive blood cultures Gram negative bacilli and positive coccobacilli - ID following - currently on Zosyn Endocrine - No indication for insulin Wounds #Local tissue flap repair Plastics following appreciate recs. - Bed rest 5 days - Incisional negative pressure wound therapy dressing to be removed in 5 days - Will continue to follow LINES: Patient Lines/Drains/Airways Status Active Lines Name: Placement date: Placement time: Site: Days: CVC Triple Lumen 05/28/20 Internal jugular Left 05/28/20 0650 Internal jugular 3 Indwelling Urinary Catheter 05/28/20 Sheikh/Ureteral 05/28/20 1300 3 Freddy-Fuller Drain 05/28/20 Anterior;Upper Leg Drain #1 05/28/20 1743 Leg 2 Arterial Line (for Flotrac add group [id number]) 05/28/20 Radial 05/28/20 1310 Radial 2 Incision 04/02/20 Anterior;Right Groin Incision 04/02/20 Groin 59 Incision 05/30/20 Anterior;Left;Proximal Groin Incision 05/30/20 1900 Groin less than 1 Prophylaxis: GI Prophylaxis:None DVT prophylaxis: therapeutic heparin gtt Current Consults Cardiology Vascular Plastics Dispo - ICU status remain until blood pressure improved Leon Magana MD Bench Molder, PGY-3 Pager #[phone] Associated attestation - Rafael Wise MD - 06/01/2020 12:25 AM CDTI have seen and discussed the patient on rounds with the resident. The plan, as outlined in the note, was developed in collaboration with the resident following review of the history, physical exam, radiographs and events since admission. I have examined the patient and agree with the residents assessment and plan. Noelle Smith APRN-KARY - 05/31/2020 10:02 AM CDT Cardiology Hospital Progress Note Assessment / Plan Principal Problem: NSTEMI (non-ST elevated myocardial infarction) ([facility]) Active Problems: Lupus (HCC) Abdominal aortic aneurysm (HCC) Chronic mesenteric ischemia ([facility]) Bilateral carotid artery disease ([facility]) Smoker Brachiocephalic artery stenosis, right (HCC) CKD (chronic kidney disease) stage 3, GFR 30-59 ml/min (HCC) Peripheral vascular disease (HCC) Hx of renal artery stenosis FSGS (focal segmental glomerulosclerosis) Bradycardia Spontaneous dissection of coronary artery Paroxysmal atrial fibrillation Positive blood culture, Question vegetation on aortic and mitral valves. Ischemic cardiomyopathy. Resolved Problems: * No resolved hospital problems. * Assessment: Patient was seen and evaluated in conjunction with Dr. Giron who has also seen and evaluated this patient. Loni Muniz is a 74yr femalewith history of coronary artery disease s/p STEMI with RCA stent in 10/2018, lupus, abdominal aortic aneurysm, chronic mesenteric ischemia, bilateral carotid disease, smoking, significant peripheral vascular disease including renal artery stenosis and stenosis in the brachial cephalic system and right femoral and superficial femoral endarterectomy, profundoplastyand patch angio plasty of right common femoral artery (04/02), complicated by lymphatic leak, s/p wound exploration, excisional debridement of subcutaneous tissue, washout and repair of lymphatic leak (04/22), and requiring takeback for continued pain and drainage s/p exploration, irrigation and debridement, removal of deeper sutures and placement of wound vac (04/26). She was admitted with chest pressure, elevated troponin, dizziness and fatigue. Cardiac angiogram was done on 05/26/2020 patent stent in prox RCA. Spontaneous dissection in mid, tortuous segment of co-dominant RCA - not amenable to PCI - plan for medical management.Moderate, 50%, non-obstructive CADin mid LAD. Echocardiogram did reveal presence of vegetation in the aortic and mitral valve. Shehas a history of lupus and could considered it to be Libman-Sacks but subsequent events leads us to believe that it is an infective endocarditis. A transesophageal echocardiogram was ordered. However, when going to do ALEJANDRA, suddenly there was increase in right groin bleeding (chronic wound site), manual hold was performed. Vascular surgeons were consulted and immediate surgery was recommended. 05/28/2020 s/p right common femoral artery exploration, patch angioplasty, right groin debridement, right superficial femoral artery thrombectomy, and sartorius muscle flap coverage (done by plastic surgery). 05/29/2020 she had extreme chest pain during night radiating to bilateral arms. She relates she has had on and off chest pain since admission. Last night didn't get out of bed and no exertion but is worried about dying and has life plans that she wants to complete before and was thinking about that. EKG shown baseline LBBB and no significant change from previous. Her Hgb was 7.7-8.0. She was given NTG & fentanyl without relief but then dilaudid helped. She was taken back to the microbiological laboratory technician on 05/30/2020 with notation of RCA 100% occluded with large clot, inability to pass a wire and noted q waved on EKG. It was felt she had completed her infarction and recommendation for medical management. PLAN: CAD s/p spontaneous dissection of RCA with Inferior OR - Continue aspirin, heparin, and plavix. Per allergy list noted myalgias with atorvastatin. Will defer to primary team to consider rouvastatin in light of her significant vascular disease. Currently requiring low dose Levophed to maintain BP. Will defer use of beta blockers until off pressor therapy. Ischemic cardiomyopathy - EF has decreased from 55% to 35% post OR. Currently requiring low doses ofLevophed to maintain adequate BP. Should this improved would recommend the initiation of guideline directed medical therapy. Does appear fluid overloaded on exam. Will start Lasix 20mg IV q 8 hours. Question aortic and mitral valve vegetation on TTE, positive blood culture - Will need ALEJANDRA. Will keep NPO after midnight for oncoming cardiology team to assess if stable to proceed tomorrow. Paroxysmal atrial fibrillation - currently on therapeutic heparin. Will need to transition to oral anticoagulation when evaluation completed. Cardiology will continue to follow. HPI / History / ROS Loni Muniz is a 74yr old female admitted on 05/26/2020. Patient denies chest pain. Notes breathing is starting to improved. Notes orthopnea but now at 45 degrees. No palpitations, syncope or presyncope. Review of Systems Physical / Results Current Vital Signs Temp: 98.6 F (37 C) BP: 89/68 Weight: 85.8 kg (189 lb 2.5 oz) SpO2: 97 % Resp: 27 Pulse: 77 Current BMI (>50 = increased risk): (!) 33.33 O2 Device: Room Air O2 Flow Rate (L/min): 5 l/min Pain Ratin Chest Pain Ratin Maximum Temperatures (last 24 hours) Temperature Maximum Max Temp 99.5 F (37.5 C) Physical Exam Constitutional: No distress. Neck: No JVD present. Cardiovascular: Normal rate and regular rhythm. Occasional extrasystoles are present. No murmur heard. Pulmonary/Chest: Breath sounds normal. Musculoskeletal: She exhibits no edema. Neurological: She is alert and oriented to person, place, and time. Skin: Skin is warm and dry. Associated attestation - Buck Giron MD - 05/31/2020 4:50 PM CDT I discussed the patient with the JOHN and personally interviewed and examined the patient. I verifiedin the medical record all JOHN documentation/findings, including history, physical exam, and medical decision making, and I agree with the JOHN's documentation.Ginny Mcfadden MD - 05/30/2020 1:33 PM CDT Physician Pre-Procedure Sedation Plan (Moderate Sedation) (Note: A complete H&P is required for procedures requiring anesthesia and for inpatients.) Indication for Care: I affirm the indication for the procedure is still present. History & Physical: [x] An up to date H&P has been completed and is available for this procedure. [] Short form H&P for this procedure is documented below: Vitals: Temp: 99.1 F (37.3 C) | BP: 135/89 | Pulse: 67 | Resp: 15 | Pain Ratin | O2 Device: Room Air O2 Flow Rate (L/min): 2 l/min | SpO2: 97 % Weight: 85.8 kg (189 lb 2.5 oz) Height: 152.4 cm (5') Chief Complaint/HPI/Reason for Procedure: NSTEMI Past Medical History: Past Medical History: Diagnosis Date Abdominal aortic aneurysm Acute renal failure 10/17/2017 Anxiety Arthritis Bilateral carotid artery disease Cataract Celiac artery stenosis Per angiogram 02/09 high grade stenosis at origin, no intervention Chronic mesenteric ischemia CKD (chronic kidney disease) stage 4, GFR 15-29 ml/min 06/19/2018 Clotting disorder COPD (chronic obstructive pulmonary disease) Coronary artery disease due to calcified coronary lesion Depression Diverticulosis LAKHANI (dyspnea on exertion) 05/06/2016 FSGS (focal segmental glomerulosclerosis) Heart murmur History of DVT of lower extremity right lower leg History of renal artery stenosis Hyperlipidemia Hypertension Hypomagnesemia Hyponatremia Ischemic colitis Lupus (HCC) Lupus erythematosus Migraine Myocardial infarction (HCC) treated with angioplasty sounds like RCA occlusion, done in [place] Non-rheumatic mitral valve stenosis Non-ST elevation OR (NSTEMI) ([facility]) Old OR (myocardial infarction) Osteoporosis Peripheral vascular disease ([facility]) 02/25/2019 Positive D dimer Smoker Subclavian artery stenosis, right 06/19/2018 Uterine prolapse Venous insufficiency Current medications: Current Facility-Administered Medications Medication Dose Route Frequency Last Rate Last Dose sodium chloride 0.9% flush (adult) 10 mL 10 mL IV 2 times a day and prn sodium chloride 0.9% IV solution IV Continuous fentaNYL 100 mcg/2 mL preservative free injection solution 25-300 mcg 25- 300 mcg IV PRN per parameter midazolam (VERSED) injection solution 0.5-10 mg 0.5-10 mg IV PRN per parameter nitroglycerin (100 mcg/mL) in NS 100-300 mcg Intra-arterial PRN per parameter verapamil-hEParin in normal saline (radial cocktail) Intra-arterial Now lidocaine PF (XYLOCAINE-MPF) 1 % preservative free injection solution 2 mL 2 mL Subcutaneous 1 time iohexol (OMNIPAQUE) 350 mg/mL solution 0-300 mL 0-300 mL Intra-arterial 1 time piperacillin-tazobactam 3375 mg (ZOSYN) in D-2% 50 mL IV premix 3.375 g IV Every 8 hours oxyCODONE (OXY-IR) tablet 5-10 mg 5-10 mg Oral Every 6 hours prn HYDROmorphone (DILAUDID) injection solution (conc: 1 mg/mL) 1 mg 1 mg IV Every 3 hours prn 1 mg at 05/30/20 0232 hEParin (50 units/mL) in D5W premixed IV solution (STANDARD-weight based) 0-50 Units/kg/hr IV Titrate 20.6 mL/hr at 05/30/20 0902 12 Units/kg/hr at 05/30/20 0902 heparin (porcine) (5000 units/1 mL) IV dose 3,000 Units 35 Units/kg IV PRN per parameter Or heparin (porcine) (5000 units/1 mL) IV dose 6,000 Units 70 Units/kg IV PRN per parameter aspirin enteric coated tablet 81 mg 81 mg Oral daily metoprolol tartrate (LOPRESSOR) tablet 25 mg 25 mg Oral 2 times a day 25 mg at 05/29/207 magnesium oxide tablet 500 mg 500 mg Oral 2 times a day 500 mg at 05/29/20 2030 NORepinephrine (LEVOPHED) 8 mg in sodium chloride 0.9% 250 mL (conc: 32 mcg/mL) 0-1 mcg/kg/min IV Titrate Stopped at 05/29/20 0558 sodium chloride 0.9% prefilled 10 mL syringe (Materials Management Item) 10 mL 10 mL IV 2 timesa day and prn 10 mL at 05/30/20 0402 And hEParin 100 units/ mL injection for heplock FLUSH 3 mL IV 2 times a day and prn 300 Units at 05/30/20 0402 sodium chloride 0.9% prefilled 10 mL syringe (Materials Management Item) 10 mL 10 mL IV 2 timesa day and prn 10 mL at 05/30/20 0402 And hEParin 100 units/ mL injection for heplock FLUSH 3 mL IV 2 times a day and prn 300 Units at 05/30/20 0401 sodium chloride 0.9% prefilled 10 mL syringe (Materials Management Item) 10 mL 10 mL IV 2 timesa day and prn 10 mL at 05/30/20 0401 And hEParin 100 units/ mL injection for heplock FLUSH 3 mL IV 2 times a day and prn 300 Units at 05/30/20 0401 dextrose 50% IV solution 25-50 mL 25-50 mL IV PRN per parameter insulin aspart (NovoLOG) SQ CCS correction scale 2-20 Units Subcutaneous Every 4 hours 2 Units at 05/29/20 1647 calcitriol (ROCALTROL) capsule 0.25 mcg 0.25 mcg Oral at bedtime 0.25 mcg at 05/29/202026 clopidogrel (PLAVIX) tablet 75 mg 75 mg Oral daily 75 mg at 05/30/20 1101 gabapentin (NEURONTIN) capsule 100 mg 100 mg Oral at bedtime 100 mg at 05/29/202027 mycophenolate (CELLCEPT) capsule 250 mg 250 mg Oral 2 times a day 250 mg at 05/30/20 0752 sodium chloride 0.9% flush (adult) 10 mL 10 mL IV 2 times a day and prn 10 mL at 05/30/20 0749 acetaminophen (TYLENOL) tablet 650 mg 650 mg Oral Every 4 hours prn 650 mg at 05/30/20 1221 senna-docusate sodium (SENOKOT-S;PERICOLACE) tablet 2 tablet 2 tablet Oral 2 times a day prn And bisacodyl (DULCOLAX) suppository 10 mg 10 mg Rectal 1 time a day prn And docusate sodium (THEREVAC-SB MINI;ENEMEEZ MINI) 283 MG enema 1 enema 1 enema Rectal 1 time a day prn melatonin tablet 3 mg 3 mg Oral Bedtime prn 3 mg at 05/28/20 215 ondansetron (ZOFRAN ODT) dispersible tablet 4 mg 4 mg Oral Every 4 hours prn And ondansetron (ZOFRAN) injection solution 4 mg 4 mg IV Every 4 hours prn 4 mg at 05/30/20 075 fluticasone-vilanterol (BREO ELLIPTA) 200-25 mcg/puff inhaler 1 puff 1 puff Inhalation Daily 1 puff at 05/30/20 0913 hydrALAZINE (APRESOLINE) injection solution 10 mg 10 mg IV Every 6 hours prn nitroglycerin (NITROSTAT) sublingual tablet 0.4 mg 0.4 mg Sublingual Every 5 minutes prn 0.4 mg at 05/29/20 0507 lidocaine 1%-EPINEPHrine 1:200,000 (XYLOCAINE-EPINEPHRINE) injection solution 1 mL 1 mL Subcutaneous PRN per parameter Medications Prior to Admission Medication Sig Dispense Refill Last Dose gabapentin (NEURONTIN) 100 mg capsule TAKE ONE CAPSULE BY MOUTH TWO HOURS BEFORE BEDTIME - MAY INCREASE TO THREE CAPSULES BEFORE BEDTIME (Patient taking differently: Take 100 mg by mouth every night at bedtime ) 90 capsule 1 05/25/2020 at Unknown time clopidogrel (PLAVIX) 75 mg tablet TAKE ONE TABLET BY MOUTH ONCE DAILY 90 tablet 3 05/25/2020 at Unknown time [] ciprofloxacin (CIPRO) 500 mg tablet Take 1 tablet (500 mg) by mouth 2 times a day for 28 days 56 tablet 0 05/25/2020 at am calcitriol (ROCALTROL) 0.25 mcg capsule Take 1 capsule (0.25 mcg) by mouth every night at bedtime 90 capsule 4 05/25/2020 at Unknown time carVEDilol (COREG) 3.125 mg tablet Take 1 tablet (3.125 mg) by mouth 2 times a day with meals (Patient taking differently: Take 3.125 mg by mouth 2 times a day as needed for other (Specify) (SBP > 120 mmHg) ) 180 tablet 4 Past Month at Unknown time senna-docusate sodium (SENOKOT-S;PERICOLACE) 8.6-50 MG tablet Take 2 tablets by mouth 2 times a day Hold for loose stools 56 tablet 0 05/25/2020 at Unknown time calcium carbonate (TUMS) 500 MG chewable tablet Take 1,000-1,500 mg by mouth at bedtime as needed for heartburn or indigestion Greater than 1 Month at Unknown time Multiple Vitamins-Minerals (MULTIVITAL) tablet Take 1 tablet by mouth 1 time per day 05/25/2020 at Unknown time mycophenolate (CELLCEPT) 250 mg capsule TAKE ONE CAPSULE BY MOUTH TWICE DAILY (Patient taking differently: Take 250 mg by mouth 2 times a day ) 180 capsule 0 05/25/2020 at Unknown time ALBUTEROL (VENTOLIN BRAND) 108 mcg (90 base) act HFA inhaler INHALE 2 PUFFS BY MOUTH EVERY FOUR HOURS NEEDED FOR WHEEZING OR COUGH (Patient taking differently: Inhale 2 puffs orally Every 4 hours as needed for wheezing or cough ) 18 g 2 Past Week at Unknown time guaiFENesin (MUCINEX) 600 MG SR (12 hr) tablet Take 1 tablet (600 mg) by mouth 2 times a day (Patient taking differently: Take 600 mg by mouth 2 times a day as needed for cough ) 28 tablet 0 Greater than 1 Month at Unknown time fluticasone (FLONASE) 50 mcg/spray nasal spray [place] 1 spray into each nostril 2 times a day (Patient taking differently: [place] 1 spray into each nostril 2 times a day as needed for other (Specify)(allergies) ) 3 Bottle 4 Greater than 1 Month at Unknown time budesonide-formoterol (SYMBICORT) 160-4.5 mcg/puff inhaler INHALE 2 PUFFS BY MOUTH TWICE DAILY -SHAKE WELL BEFORE USING 1 Inhaler 11 05/25/2020 at pm nitroglycerin (NITROSTAT) 0.4 mg sublingual tablet Dissolve 1 tablet (0.4 mg) under the tongue Every 5 minutes as needed for chest pain May repeat every 5 minutes for a total of 3 doses. 30 tablet 3 Greater than 1 Month at Unknown time calcium carbonate-vitamin D (OSCAL 500 + VIT D) 500 mg-200 unit tablet Take 1 tablet by mouth 1 time a day with breakfast 05/25/2020 at Unknown time aspirin 81 mg enteric coated tablet Take 81 mg by mouth 1 time per day 05/25/2020 at Unknown time acetaminophen (TYLENOL) 325 mg tablet Take 650 mg by mouth every 6 hours as needed for mild pain(Arthritis pain) 05/26/2020 at 0100 loratadine (CLARITIN) 10 mg tablet Take 10 mg by mouth 1 time a day as needed for allergies Greater than 1 Month at Unknown time Physical Examination: Surgical Site: Normal Mental Status: Normal Lung: Normal Heart: Normal Sedation Plan: Moderate Sedation: ASA Score = 2 Mallampati Class = II (soft palate, uvula, fauces visible) Physician's Affirmation of Discussion: I have explained the known risks, benefits, potential complications, and alternatives to the procedure or treatment and/or sedation. I have assessed the patient and vital signs immediately prior to sedation and concur with sedation plan. Leon Rodriguez MD - 05/30/2020 9:02 AM CDT [facility] ICU Progress Note Attending:Rafael Wise MD HD # 5 ICU day # 2 Post operative day #2 (05/29/20) - Right WIRE COILER exploration w/ patch angioplasty and SFA thrombectomy. - Right Sartorious flap Subjective Brief History - Loni Muniz is a 74yr female with history of right femoral and superficial femoral endarterectomy, profundoplasty and patch angio plasty of right common femoral artery (04/02), complicated by lymphatic leak, s/p wound exploration, excisional debridement of subcutaneous tissue, washout and repair of lymphatic leak (04/22), and requiring takeback for continued pain and drainage s/p exploration, irrigation and debridement, removal of deeper sutures and placement of wound vac (04/26). Found to have bleeding from her femoral on the right, so was taken to the OR with vascular on 05/29. She underwent Right WIRE COILER exploration with patch angioplasty and SFA thrombectomy. She had a right sartorious flap placed at that time. Post-operatively she complained on chest pain and was found to have an NSTEMI (trop at that time 3). Heparin drip started. Last 24 Hours Patient tolerated start of heparin drip without incident. Endorsed chest pain overnight again, improved with PRN pain medications. Endorses nausea/burping. Is passing a little flatus. Denies pain to right groin. Objective Current Vital Signs Temp: 97.5 F (36.4 C) BP: 135/89 Pulse: 63 O2 Device: Room Air O2 Flow Rate (L/min): 2 l/min Resp: 14 Pain Ratin Chest Pain Ratin (out of 10) Weight: 85.8 kg (189 lb 2.5 oz) SpO2: 100 % Physical Exam Gen: alert, NAD CV: RRR Lungs: Clear, mildly diminished bilateral bases. Abdomen: Soft, non-tender, non-distended. Extremities: Right groin with Prevena, holding appropriate seal. DAE in place, SS drainage. Right foot is warm, motor and sensory intact. Inputs and Outputs: PO: 400 IV: 259 Blood: 300 UOP: 875 DAE: 170 Labs Lab Results Component Value Date WBC 15.3 (H) 05/30/2020 NUCRBC 1 05/30/2020 RBC 2.68 (L) 05/30/2020 HEMOGLOBIN 8.5 (L) 05/30/2020 HEMATOCRIT 23.8 (L) 05/30/2020 MCV 88.8 05/30/2020 MCH 30.6 05/30/2020 MCHC 34.5 05/30/2020 PLTCOUNT 116 (L) 05/30/2020 NEUTROPCT 72.3 05/30/2020 BANDPCT 15.0 05/27/2020 LYMPHSPCT 15.1 05/30/2020 MONOSPCT 8.6 05/30/2020 EOSPCT 0.3 05/30/2020 BASOPHILPCT 0.2 05/30/2020 Lab Results Component Value Date GLUCOSE 106 (H) 05/30/2020 BUN 28 (H) 05/30/2020 CREATSERUM 1.40 (H) 05/30/2020 BCRATIO 20.0 05/30/2020 NA 137 05/30/2020 POTASSIUM 3.3 (L) 05/30/2020 CL 107 05/30/2020 CO2 22 05/30/2020 CA 7.4 (L) 05/30/2020 EGFR 37 (L) 05/30/2020 EGFRAF 45 (L) 05/30/2020 Lab Results Component Value Date MAGNESIUM 2.1 05/30/2020 Assessment and Plan Neuro: # Acute post operative pain control - pain is well controlled on tylenol and oxycodone PRN and PRN dilaudid #Depression- Chronic Pulmonary/Respiratory #COPD- chronic - Patient is saturating well on room air, breathing treatments are continued with patient. Will continue and restart home medications as needed -Family to bring in CPAP for night time, otherwise NC O2 at bedtime Home meds: Albuterol, Symbicort Cardiac/Hemodynamics: #CAD with NSTEMI - Given the elevation in the patients troponin, associated chest pain and no significant changes on EKG likely etiology is a new onset NSTEMI. We will continue the patients home Asprin and Plavix. Planto also start heparin gtt per nomogram titration to Xa given hx of lupus - Cardiology consulted -- Echo to be done and heart cath for possible stent placement - 25 mg of metoprolol started by cardiology Home medications: Clopidogrel, Asprin #Hypotension secondary to acute blood loss-resolved - off pressors #HTN-chronic GI/Nutrition: #Nutritional status in the perioperative setting - currently NPO for surgery - Monitor for ileus, as patient is nauseated - Bowel regimen /Renal: Chronic Kidney Disease IV (baseline creatinine 1.4) - Cr to baseline today Fluids/Electrolytes: - Discontinued fluids, sheikh remains in place. Will continue daily basic metabolic panels and supplement PRN Musculoskeletal # Post operative PT/OT - Consulted, appreciate recs #Osteoporosis- chronic - No acute or chronic concerns Home Meds- calcitriol, Oscal Hematology Lupus- chronic - Plan to continue home medications, no acute intervention needed. Home meds: Plaquenil, Cellcept #Prior history of DVT - Now placed on thereaputic heparin gtt given risk of NSTEMI. Will continue to have SCDs in place and follow patients respatory status. No acute indications of DVTs Infectious Disease No acute indications for infection. WBC wnl and afebrile, will continue to follow patients daily labs an reassess the patient as needed. Endocrine #Steroid administration in the setting of unresponsive shock - Stop steroids today Wounds #Local tissue flap repair Plastics following appreciate recs. - Bed rest 5 days - Incisional negative pressure wound therapy dressing to be removed in 5 days - Will continue to follow LINES: Patient Lines/Drains/Airways Status Active Lines Name: Placement date: Placement time: Site: Days: CVC Triple Lumen 05/28/20 Internal jugular Left 05/28/20 0650 Internal jugular 2 Indwelling Urinary Catheter 05/28/20 Sheikh/Ureteral 05/28/20 1300 1 Freddy-Fuller Drain 05/28/20 Anterior;Upper Leg Drain #1 05/28/20 1743 Leg 1 Arterial Line (for Flotrac add group [id number]) 05/28/20 Radial 05/28/20 1310 Radial 1 Incision 04/02/20 Anterior;Right Groin Incision 04/02/20 Groin 58 Prophylaxis: GI Prophylaxis:None DVT prophylaxis: theraputic heparin gtt Current Consults Cardiology Vascular Plastics Dispo - ICU status, cardiac cath today Leon Magana MD Bench Molder, PGY-3 Pager #[phone] Associated attestation - Rafael Wise MD - 05/31/2020 10:29 AM CDTI have seen and discussed the patient on rounds with the resident. The plan, as outlined in the note, was developed in collaboration with the resident following review of the history, physical exam, radiographs and events since admission. I have examined the patient and agree with the residents assessment and plan. Malia Trinidad MD - 05/30/2020 7:01 AM CDT Surgery Progress Note S: - No acute events overnight - Notes intermittent chest pain overnight, appears to have abated this am - No nausea/vomiting, no fevers/chills, no chest pain or SOB - Denies tenderness to right groin or leg. - Compliant with bedrest precautions O: Current Vital Signs Temp: 98 F (36.7 C) BP: 135/89 Pulse: 63 O2 Device: Room Air O2 Flow Rate (L/min): 2 l/min Resp: 14 Pain Ratin Chest Pain Ratin (out of 10) Weight: 85.8 kg (189 lb 2.5 oz) SpO2: 100 % Intake last 24h: -960 cc Output last 24h: -Urine: 875 cc -Drains: 170 cc Gen: alert, NAD CV: RRR Lungs: Clear, breathing quietly on room air Abdomen: Soft, non-tender, non-distended. Extremities: Right groin with prevena, holding appropriate suction. DAE in place on right thigh, serous output. Right foot is warm, pulses are palpable. Significant Labs/Imaging: Trop 63 WBC 15 K 3.3 A&P: Loni Muniz is a 74yr femalewith history of right femoral and superficial femoral endarterectomy, profundoplasty and patch angio plasty of right common femoral artery (04/02), complicated by lymphatic leak, s/p wound exploration, excisional debridement of subcutaneous tissue, washout and repair of lymphatic leak (04/22), and requiring takeback for continued pain and drainage s/p exploration, irrigation and debridement, removal of deeper sutures and placement of wound vac (04/26). Most recentlyright femoral exploration, patch angioplasty, debridement and thrombectomy with flap per plastics (05/28). No issues from a vascular surgery standpoint. Of note, her troponin is elevated to 63. Anticipate heart cath today. - Continue groin checks - NPO for cath - PO/IV pain control - Continue bedrest (01/01) - Appreciate SICU involvement Malia Trinidad MD General Surgery Resident Pager# [phone] Associated attestation - Erik Leigh MD - 05/30/2020 3:33 PM CDTI have seen and examined the patient and agree with resident's assessment and plan. Erik Leigh MD Vascular and Endovascular Surgery Jono Ling, APRN-REVIVAL CLERK - 05/29/2020 4:09 PM CDT CARDIOLOGY PROGRESS NOTE Patient ID: Loni Muniz is a 74yr female. PCP: Horace Santo MD Attending Provider: Rafael Wise MD Date of admission: 05/26/2020 Date of service: 05/29/2020 Primary Business Planning Analyst: Dr. Ghislaine Tejada Active Problems: Principal Problem: NSTEMI (non-ST elevated myocardial infarction) (HCC) Active Problems: Lupus (HCC) Abdominal aortic aneurysm (HCC) Chronic mesenteric ischemia (HCC) Bilateral carotid artery disease (HCC) Smoker Brachiocephalic artery stenosis, right (HCC) CKD (chronic kidney disease) stage 3, GFR 30-59 ml/min (HCC) Peripheral vascular disease (HCC) Hx of renal artery stenosis FSGS (focal segmental glomerulosclerosis) Bradycardia Spontaneous dissection of coronary artery Resolved Problems: * No resolved hospital problems. * Assessment & Plan: Loni Muniz is a 74yr femalewith history of coronary artery disease s/p STEMI with RCA stent in 10/2018, lupus, abdominal aortic aneurysm, chronic mesenteric ischemia, bilateral carotid disease, smoking, significant peripheral vascular disease including renal artery stenosis and stenosis in the brachial cephalic system and right femoral and superficial femoral endarterectomy, profundoplastyand patch angio plasty of right common femoral artery (04/02), complicated by lymphatic leak, s/p wound exploration, excisional debridement of subcutaneous tissue, washout and repair of lymphatic leak (04/22), and requiring takeback for continued pain and drainage s/p exploration, irrigation and debridement, removal of deeper sutures and placement of wound vac (04/26). She was admitted with chest pressure, elevated troponin, dizziness and fatigue. Cardiac angiogram was done on 05/26/2020 patent stent in prox RCA. Spontaneous dissection in mid, tortuous segment of co-dominant RCA - not amenable to PCI - plan for medical management. Moderate, 50%, non-obstructive CAD in mid LAD. Echocardiogram did reveal presence of vegetation in the aortic and mitral valve. She has a history of lupus and could considered it to be Libman-Sacks but subsequent events leads us to believe that it is an infective endocarditis. A transesophageal echocardiogram was ordered. However, when going to do ALEJANDRA, suddenly there was increase in right groin bleeding (chronic wound site), manual hold was performed. Vascular surgeons were consulted and immediate surgery was recommended. 05/28/2020 s/p right common femoral artery exploration, patch angioplasty, right groin debridement, right superficial femoral artery thrombectomy, and sartorius muscle flap coverage (done by plastic surgery). 05/29/2020 she had extreme chest pain during night radiating to bilateral arms. She relates she has had on and off chest pain since admission. Last night didn't get out of bed and no exertion but is worried about dying and has life plans that she wants to complete before and was thinking about that. EKG shown baseline LBBB and no significant change from previous. Her Hgb was 7.7-8.0. She was given NTG & fentanyl without relief but then dilaudid helped. She relates pain went all the way away but comes back when she talks with Drs. She is chest pain free now but troponin rising from 3 to 9. Will trend troponin and plan for [facility] tomorrow since chest pain free. Plan: - Trend troponins - Off pressors and blood pressure stable. Start metoprolol 25mg BID - [facility] for tomorrow - 1st case. Currently chest pain free. - Continue aspirin, Plavix, and heparin gtt. - Patient was seen and evaluated in conjunction with Dr. Giron who has also seen and evaluated this patient. #. Possible Vegetation on aortic and mitral valve - 05/26/2020 Echo - EF= 55% with [id number] increased left ventricular wall thickness. Grade 1 DD. Dilated LA. Possible vegetation on aortic and mitral valve. Mild mitral stenosis with MV mean grade 3mmHg. Normal RV. No significant pericardial effusion. - Patient has Lupus and consideration that vegetations may be Libman Sach vegetations secondary to lupus. - ID consulted - Plan ALEJANDRA when able #. Non-ST- elevated myocardial infarction type I #. Spontaneous coronary dissection #. Coronary artery disease/PCI #. Mild mitral stenosis - 05/26/2020 [facility] - patent stent in prox RCA. Spontaneous dissection in mid, tortuous segment of co-dominant RCA - not amenable to PCI - plan for medical management. Moderate, 50%, non-obstructive CAD in mid LAD. - I/O= (+) 4587.2, Weight: 77.4 kg (170 lb 10.2 oz) -> 85.87 kg today - Cr= 1.6, K= 3.6, Mg=2.1, Su=788 Hgb 7.7 WBC 15.7 plt 132 - Troponin trending up - [facility] tomorrow as pain free. - Tobacco status: quit date 1960 - Heart medications: - Aspirin 81mg daily - Plavix 75mg daily - START metoprolol 25mg BID - Myalgias in past from statins (crestor/Lipitor)- will discuss again tomorrow as she had significant arterial disease all over - Heparin gtt Recent Labs 09/29/19 1324 09/30/19 0614 10/08/19 1030 05/26/20 0727 05/29/20 0419 TROPONINI 0.584* < > 0.568* -- 0.823* 3.530* BNP 494* -- -- 247* -- -- < > = values in this interval not displayed. #. Hypertension - Off pressors and stable so will add back beta wyatt. #. Hyperlipidemia - Discuss statin or alternative tomorrow. Lab Results Component Value Date CHOLESTEROL 174 05/27/2020 HDLCHOL 30 (L) 05/27/2020 LDL 124 05/27/2020 TRIGLYCERIDE 98 05/27/2020 ALT 14 05/27/2020 CREATSERUM 1.64 (H) 05/29/2020 EGFR 31 (L) 05/29/2020 Subjective: Loni Muniz is awake and alert. She had bad chest pain last night as noted above. She denies chest pain, shortness of breath, nausea or dizziness now. But does get chest pain when talking todrs. Denies any significant pain or swelling in her left groin. But right groin has wound vac. Patient has been in bed . Patient is tolerating oral intake. Urine output is adequate. Dr. Giron in to talk with patient. Repeat troponin from 3 to 9. Would like to take to microbiological laboratory technician but since symptom free will wait until tomorrow. Telemetry: sinus tach with LBBB at 102 bpm Physical Exam & Vital Signs: Temp: 97.7 F (36.5 C) BP: 146/104 Pulse: 103 O2 Device: Room Air O2 Flow Rate (L/min): 2 l/min Resp: 12 Pain Ratin (out of 10) Weight: 85.8 kg (189 lb 2.5 oz) SpO2: 98 % Body mass index is 36.94 kg/m. Admit Weight: Weight: 77.4 kg (170 lb 10.2 oz) Wt Readings from Last 1 Encounters: 05/28/20 85.8 kg (189 lb 2.5 oz) Intake/Output Summary (Last 24 hours) at 05/29/2020 1812 Last data filed at 05/29/2020 1800 Gross per 24 hour Intake 5866.18 ml Output 1210 ml Net 4656.18 ml Physical Exam Constitutional:Loni Muniz is a 74yr old female who is alert and orientated and in no apparent distress. Skin: Skin is pink, warm, and dry. Good color and turgor. Respiratory: chest symmetrical expansion, lungs clear to auscultation throughout bilaterally. Cardiovascular: heart rate regular, normal S1, S2. No murmur, No rubs, clicks, or gallops. Neck Supple. No jugular venous distention. Right groin has wound vac. Gastrointestinal: abdomen soft, nontender, bowel sounds active x 4 quadrants. No bruits appreciated. Musculoskeletal: strength equal bilaterally of all extremities. Full ROM Neurologic: Grossly intact. Psychiatric: Mood and affect appropriate. Labs & Imaging: Recent Labs 05/27/20 0046 05/28/20 0330 05/28/20 1018 05/28/20 1606 05/28/20 1719 05/29/20 0307 05/29/20 0419 05/29/20 0901 WBC 7.2 13.4* 18.3* -- -- -- -- -- 15.7* -- NEUTROABS 4.8 11.5* -- -- -- -- -- -- 12.2* -- HEMOGLOBIN 10.6* 7.5* 6.9* < > 10.5* 10.5* < > 7.9* 8.0* 7.7* HEMATOCRIT 32.9* 23.6* 21.1* < > 31.0* 31.0* -- -- 23.0* -- MCV 96.2 97.1 95.5 -- -- -- -- -- 87.8 -- PLTCOUNT 237 177 217 -- -- -- -- -- 132* -- < > = values in this interval not displayed. Recent Labs 05/28/20 0330 05/28/20 1719 05/28/20 2115 05/29/20 0021 05/29/209 05/29/20 0902 NA 138 < > 142 142 -- -- 143 -- POTASSIUM 3.8 < > 4.0 3.8 -- -- 3.6 -- CL 109 -- -- 113* -- -- 112* -- CO2 19* -- -- 19* -- -- 17* -- BUN 31* -- -- 32* -- -- 31* -- CREATSERUM 1.76* -- -- 1.66* -- -- 1.64* -- CA 8.0* -- -- 7.5* -- -- 7.7* -- MAGNESIUM 1.8 -- -- 2.1 -- -- 2.1 -- PHOSPHORUS 2.7 -- -- 4.2 -- -- 3.8 -- GLUCOSE 153* < > 181* 164* < > 155* 172* 116* < > = values in this interval not displayed. Recent Labs 08/29/19 0903 09/30/1914 05/26/2072605/29/20418 TROPONINI -- < > 0.568* 0.823* 3.530* CK 83 -- -- -- -- < > = values in this interval not displayed. Recent Labs 09/29/19 1324 10/08/19 1030 BNP 494* 247* Recent Labs 09/29/19 2042 03/31/20 1045 05/26/20 0707 05/28/20 1018 05/28/20211405/29/20 0419 PT -- < > -- -- 15.0* 16.4* 15.4* INR -- < > -- -- 1.2* 1.4* 1.3* APTT 45* -- 38* >150* -- -- -- < > = values in this interval not displayed. Recent Labs 01/16/20 0845 04/17/20211605/27/20 0046 05/28/20 0330 05/28/20211405/29/20 0419 AST 31 -- 21 -- 28 -- -- -- -- ALT 24 -- 12 -- 14 -- -- -- -- ALKPHOS 115 -- 59 -- 99 -- -- -- -- BILITOTAL 0.3 -- 0.3 -- 0.8 -- -- -- -- PROTEINTOTAL 6.4 -- 7.0 -- 6.9 -- -- -- -- ALBUMIN 3.3 < > 3.3* < > 3.1* < > 2.5* 2.8* 2.7* < > = values in this interval not displayed. Recent Labs 09/29/19 1324 05/27/20 0413 CHOLESTEROL 118 174 TRIGLYCERIDE 83 98 HDLCHOL 37* 30* LDL 64 124 Associated attestation - Buck Giron MD - 05/31/2020 4:04 PM CDT I discussed the patient with the JOHN and personally interviewed and examined the patient. I verifiedin the medical record all JOHN documentation/findings, including history, physical exam, and medical decision making, and I agree with the JOHN's documentation.Meet Silva MD - 05/29/2020 2:27 PM CDTPlastic Surgery Postoperative day 1 status post right sartorius flap and complex repair for right groin reconstruction. Dressings clean, dry and intact, DAE drainage is serosanguineous. Patient apparently may be experiencing an NSTEMI this morning. Spoke with primary team and although there is risk of bleeding fromthe operative site, heparin should be started as the patient's heart health is of paramount importance. - Bed rest 5 days - Incisional negative pressure wound therapy dressing to be removed in 5 days - Will continue to follow andall Roman MD - 05/29/2020 2:17 PM CDT [facility] ICU Progress Note Attending:Rafael Wise MD HD # 4 ICU day # 1 Post operative day #1 (05/29/20) - Right WIRE COILER exploration w/ patch angioplasty and SFA thrombectomy. - Right Sartorious flap Subjective Brief History - Loni Muniz is a 74yr female with history of right femoral and superficial femoral endarterectomy, profundoplasty and patch angio plasty of right common femoral artery (04/02), complicated by lymphatic leak, s/p wound exploration, excisional debridement of subcutaneous tissue, washout and repair of lymphatic leak (04/22), and requiring takeback for continued pain and drainage s/p exploration, irrigation and debridement, removal of deeper sutures and placement of wound vac (04/26). Last 24 Hours Patient was found to have chest pain overnight with elevated troponin of 3 from a previous of 0.88. EKG negative. Cards consulted Objective Current Vital Signs Temp: 97.5 F (36.4 C) BP: 146/104 Pulse: 103 O2 Device: Room Air O2 Flow Rate (L/min): 2 l/min Resp: 12 Pain Ratin (out of 10) Weight: 85.8 kg (189 lb 2.5 oz) SpO2: 98 % Physical Exam Gen: alert, NAD CV: RRR Lungs: Clear, mildly diminished bilateral bases. Abdomen: Soft, non-tender, non-distended. Extremities: Right groin with Prevena, holding appropriate seal. DAE in place, SS drainage. Right foot is warm, motor and sensory intact. PT is palpable. Left foot is warm, PT palpable. Inputs and Outputs: Date 05/28/20699 - 05/29/20 0605/29/20699 - 05/30/20 0659 Shift 3657-8418 8292-1294 24 Hour Total 0789-2922 1211-3327 24 Hour Total INTAKE IV 1800 4107.2 5907.2 Norepinephrine Volume 651.2 651.2 IV Meds/Flushes 3456 3456 Volume (mL) (sodium chloride 0.9% IV solution) 800 800 Volume (mL) (sodium chloride 0.9% IV solution) 1000 1000 Blood Products 900 900 300 300 Red Blood Cells 600 600 Volume Infused (mL) (TRANSFUSE RED BLOOD CELLS IN UNITS) 300 300 Volume Infused (mL) (TRANSFUSE RED BLOOD CELLS IN UNITS) 300 300 Shift Total 2700 4107.2 6807.2 300 300 OUTPUT Urine 330 500 830 Unmeasured Urine Occurrence 1 x 1 x Urine 330 500 830 Stool 0 0 Unmeasured Stool Occurrence 0 x 0 x Stool (mL) 0 0 Emesis 0 0 Emesis 0 0 Drains 190 190 80 80 Output (mL) (Freddy-Fuller Drain 05/28/20 Anterior;Upper Leg Drain #1) 190 190 80 80 EBL 1200 1200 EBL/Blood Out 1200 1200 Mixed 0 0 Mixed Urine/Stool (mL) 0 0 Shift Total 5726 121 6729 80 80 NET 1170 3417.2 4587.2 220 220 Weight (kg) 77.6 85.8 85.8 85.8 85.8 85.8 Labs Lab Results Component Value Date PHART 7.34 (L) 05/28/2020 TRG1VZI 37 05/28/2020 PO2ART 118 (H) 05/28/2020 BASEEXART -6 (L) 05/28/2020 Lab Results Component Value Date WBC 15.7 (H) 05/29/2020 NUCRBC 0 05/29/2020 RBC 2.62 (L) 05/29/2020 HEMOGLOBIN 8.2 (L) 05/29/2020 HEMATOCRIT 23.0 (L) 05/29/2020 MCV 87.8 05/29/2020 MCH 30.5 05/29/2020 MCHC 34.8 05/29/2020 PLTCOUNT 132 (L) 05/29/2020 NEUTROPCT 77.9 05/29/2020 BANDPCT 15.0 05/27/2020 LYMPHSPCT 11.8 05/29/2020 MONOSPCT 8.5 05/29/2020 EOSPCT 0.0 05/29/2020 BASOPHILPCT 0.1 05/29/2020 Lab Results Component Value Date GLUCOSE 141 (H) 05/29/2020 BUN 31 (H) 05/29/2020 CREATSERUM 1.64 (H) 05/29/2020 BCRATIO 18.9 05/29/2020 NA 143 05/29/2020 POTASSIUM 3.6 05/29/2020 CL 112 (H) 05/29/2020 CO2 17 (L) 05/29/2020 CA 7.7 (L) 05/29/2020 EGFR 31 (L) 05/29/2020 EGFRAF 37 (L) 05/29/2020 Lab Results Component Value Date MAGNESIUM 2.1 05/29/2020 Assessment and Plan Neuro: # Acute post operative pain control - pain is well controlled on tylenol and oxycodone PRN. No acute need for change to medications. #Depression- Chronic Pulmonary/Respiratory #COPD- chronic - Patient is saturating well on room air, breathing treatments are continued with patient. Will continue and restart home medications as needed Home meds: Albuterol, Symbicort Cardiac/Hemodynamics: #CAD with NSTEMI - Given the elevation in the patients troponin, associated chest pain and no significant changes on EKG likely etiology is a new onset NSTEMI. We will continue the patients home Asprin and Plavix. Planto also start heparin gtt per nomogram titration to Xa given hx of lupus - Cardiology consulted, appreciate recs Home medications: Clopidogrel, Asprin #Hypotension secondary to acute blood loss-resolved - Patient has been weaned off of NE, will continue to monitor the patients vitals and daily CBC.No further concern for bleeding #HTN-chronic - Plan to continue holding patients home medications given patients blood pressure remains wnl, will reassess as the patient continues in the perioperative setting with PRN available. Home medications: Coreg GI/Nutrition: #Nutritional status in the perioperative setting - Advanced to a CLD today, will plan to continue to advance as tolerated by the patient. /Renal: Chronic Kidney Disease IV (baseline creatinine 1.4) - Patients creatinine remains slightly elevated from baseline, likely secondary to acute episode of blood loss. Given she has underwent appropriate resuscitation and is hemodynamically stable. We will plan to discontinue further fluids and monitor Basic's for resolution. Fluids/Electrolytes: - Discontinued fluids, sheikh remains in place. Will continue daily basic metabolic panels and supplement PRN Musculoskeletal # Post operative PT/OT - Consulted, appreciate recs #Osteoporosis- chronic - No acute or chronic concerns Home Meds- calcitriol, Oscal Hematology Lupus- chronic - Plan to continue home medications, no acute intervention needed. Home meds: Plaquenil, Cellcept #Prior history of DVT - Now placed on thereaputic heparin gtt given risk of NSTEMI. Will continue to have SCDs in place and follow patients respatory status. No acute indications of DVTs Infectious Disease No acute indications for infection. WBC wnl and afebrile, will continue to follow patients daily labs an reassess the patient as needed. Endocrine #Steroid administration in the setting of unresponsive shock - Patient recived a stress dose on 05/28, plan to decrease this to 50mg BID (05/29) then discontinue on 05/30 Patient will remain on insulin sliding scale given steroid dosage. Wounds #Local tissue flap repair Plastics following appreciate recs. - Bed rest 5 days - Incisional negative pressure wound therapy dressing to be removed in 5 days - Will continue to follow LINES: Patient Lines/Drains/Airways Status Active Lines Name: Placement date: Placement time: Site: Days: CVC Triple Lumen 05/28/20 Internal jugular Left 05/28/20 0650 Internal jugular 1 Indwelling Urinary Catheter 05/28/20 Sheikh/Ureteral 05/28/20 1300 1 Freddy-Fuller Drain 05/28/20 Anterior;Upper Leg Drain #1 05/28/20 1743 Leg less than 1 Arterial Line (for Flotrac add group [id number]) 05/28/20 Radial 05/28/20 1310 Radial 1 Incision 04/02/20 Anterior;Right Groin Incision 04/02/20 Groin 57 Prophylaxis: GI Prophylaxis:None DVT prophylaxis: theraputic heparin gtt Current Consults Cardiology Dispo - ICU status Randall Roman MD Bench Molder, PGY-1 05/29/2020 Associated attestation - Rafael Wise MD - 05/30/2020 10:31 AM CDTI have seen and discussed the patient on rounds with the resident. The plan, as outlined in the note, was developed in collaboration with the resident following review of the history, physical exam, radiographs and events since admission. I have examined the patient and agree with the residents assessment and plan. Maren Escalona, BOBBI-REVIVAL CLERK - 05/28/2020 12:22 PM CDT Cardiology Progress Note Patient Name: Loni Muniz Admit Date: 05/26/2020 CSN: [id number] Assessment and Plan Principal Problem: NSTEMI (non-ST elevated myocardial infarction) (HCC) Active Problems: Lupus (HCC) Abdominal aortic aneurysm (HCC) Chronic mesenteric ischemia (HCC) Bilateral carotid artery disease (HCC) Smoker Brachiocephalic artery stenosis, right (HCC) CKD (chronic kidney disease) stage 3, GFR 30-59 ml/min (HCC) Peripheral vascular disease (HCC) Hx of renal artery stenosis FSGS (focal segmental glomerulosclerosis) Bradycardia Spontaneous dissection of coronary artery Resolved Problems: * No resolved hospital problems. * Plan: -A plan was developed along with Dr. Tejada. 1. NSTEMI 2. Spontaneous coronary dissection -Pt denied any chest pain or shortness of breath this AM. Did have some chest pain during acute groin bleeding. Stat EKG without acute changes. Continue medical management for dissection and NSTEMI. Recommend initiating beta wyatt and GAMALIEL/ARB as clinical course allows. Pt medically unstable at this time. -Pt reports intolerance to statins, severe myalgias with both atorvastatin and rosuvastatin. 3. 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 Septic shock -Planning to proceed with ALEJANDRA today to evaluate for bacterial endocarditis. Unable to perform ALEJANDRA due to spontaneous bleeding from right groin site. Right groing is the site of previous infection (pseudomonas) after right femoral and superficial femoral arterial endarterectomy in March. Pt was taken urgently to OR for right common femoral artery exploration and possible patch. Will re- evaluate tomorrow and determine when stable enough for ALEJANDRA. -Left groin site from coronary angiogram WDL. -Cardiac Medications: -ASA 81 mg daily -Plavix 75 mg daily -Nitro SL PRN 0.4 mg Code Status: Full Code I appreciate the opportunity to be involved in this patient's care. Cardiology will continue to follow. Maren Escalona, CALCULATION CLERK-REVIVAL CLERK Cardiology Pager #[phone] [facility] [place], [place] 05/28/2020 Interval History Loni is a 74-year-old patient admitted with NSTEMI, septic shock. LHC showed patent stent in prox RCA. Spontaneous dissection in mid, tortuous segment of co-dominant RCA - not amenable to PCI treated with medical management. On echo she was found to have vegetation on aortic and mitral valve andhas previous infection at right femoral groin site after endarterectomy in March. This is being managed by attending and patient was also managed as outpatient by wound team. Pt was feeling well uponinitial rounds this AM. Planning to proceed with ALEJANDRA to evaluate valves. Pt was emotional due to several setbacks with her health but overall wanting to proceed. She had no chest pain or shortness of breath. Left groin site from coronary angiogram WDL. Several hours later, pt began to bleed from her right groin site. She developed some chest pain during this time as well. Rapid response was called. STAT EKG was without acute changes. She was taken to the OR for right femoral artery exploration and possible patch angioplasty. ALEJANDRA cancelled. ROS ROS Current Vital Signs Temp: 96.8 F (36 C) BP: 112/67 Pulse: 75 O2 Device: Room Air O2 Flow Rate (L/min): 2 l/min Resp: 14 Pain Ratin (out of 10) Weight: 77.6 kg (171 lb) SpO2: 100 % Physical Exam Physical Exam Constitutional: She is oriented to person, place, and time. She appears well- developed and well-nourished. No distress. Appears acutely ill Neck: Normal range of motion. No JVD present. Cardiovascular: Normal rate and regular rhythm. Murmur heard. Pulmonary/Chest: Effort normal and breath sounds normal. She has no wheezes. She has no rales. Abdominal: Soft. There is no tenderness. Musculoskeletal: Normal range of motion. She exhibits no edema. Neurological: She is alert and oriented to person, place, and time. Skin: Skin is warm and dry. Puncture site to left groin WDL. Right groin site with past infection, managed by attending/ID. Psychiatric: She has a normal mood and affect. Her behavior is normal. Nursing note and vitals reviewed. Labs I have reviewed all labs, and pertinent positives and negatives are discussed in the Assessment and Plan. Associated attestation - Shanna Tejada MD - 05/28/2020 2:17 PM CDT I discussed the patient with the JOHN and personally interviewed and examined the patient. I verifiedin the medical record all JOHN documentation/findings, including history, physical exam, and medical decision making, and I agree with the JOHN's documentation. Note the following additions/corrections: This office note has been dictated. (CSN: [id number]) Medical Decision Making I have: Independently visualized and interpreted an image, tracing or specimen previously or subsequently interpreted by another provider. Discussed results of laboratory, radiology or other diagnostic tests with the physician who performed or interpreted the study. Obtained/reviewed old records from [place] or elsewhere (details outlined elsewhere in note). Obtained history from a person other than the patient (details outlined elsewhere in note). Discussed case with another provider (details outlined elsewhere in note). A total of 30 minutes was spent with the patient or on the floor today, greater than 50% of which was spent in counseling regarding today's findings/assessment/plan and in coordination of care, chart review, medical decision making, and documentation Edelmira Awan PHARM D - 05/28/2020 12:15 PM CDTMsMariangel Muniz continues on Vancomycin per pharmacy protocol for sepsic shock. The patient is on day 2 of receiving Vancomycin and current dose is (dose/interval): 1250mg q36hr. Assessment/Plan: The trough level is lower than the desired goal of 15-20 mg/L. Vancomycin will be changed to 1250mg q24hr dose/interval. Pharmacy will continue to monitor per the pharmacokinetic service policy. BARON Alvarez Angelique Peña MD - 05/28/2020 10:29 AM CDT [facility] INFECTIOUS DISEASE PROGRESS NOTE Impression Infected R groin postop wound with Pseudomonas PAD s/p femoral endarterectomy on oral cipro NSTEMI with incidental finding of aortic and mitral vegetations possibly jennifer charles's Immunosuppressed on MMF for SLE Plan Keep zosyn D/c vanco Await cultures ALEJANDRA pending Interval History Loni Muniz is seen in f/u for the ID service follow up for Infected groin. Had acute bleedon groin this am. To OR today. Rest of ROS as above otherwise (-) Antibiotics Antibiotics: Antibiotics (From admission, onward) Start Stop Route Frequency Ordered 05/28/20 1230 vancomycin (VANCOCIN) 1,250 mg in sodium chloride 0.9% 250 mL (Locked) -- IV Every twenty four hours 05/28/20 1209 05/27/20 0100 piperacillin-tazobactam (ZOSYN) IV premix in D-2% 2,250 mg -- IV Every eight hours 05/26/20 2349 05/27/20 0100 vancomycin (VANCOCIN) 1,250 mg in sodium chloride 0.9% 250 mL (Locked) (Vancomycin IV: Initial Pharmacy Panel) 05/27 0218 IV One time 05/27/20 0003 05/27/20 0003 vancomycin therapy reminder (Vancomycin IV: Initial Pharmacy Panel) Status: Discontinued 05/28 1210 MISC Upon permission 05/27/20 0003 Physical Exam Current Vital Signs Temp: 97.3 F (36.3 C) BP: 57/48 Pulse: 65 O2 Device: Room Air O2 Flow Rate (L/min): 2 l/min Resp: 23 Pain Ratin (out of 10) Weight: 77.6 kg (171 lb) SpO2: 98 % Maximum Temperatures (last 24 hours) Temperature Maximum Max Temp 98.6 F (37 C) GENERAL: Alert and oriented SKIN: No new rashes or lesions HEENT: OP clear, no exudates, no mucositis. Conjunctiva and sclera are normal CHEST: Clear to auscultation CV: RRR without murmur or gallop ABD: Soft and non tender without mass or organomegaly MS: No synovitis in any joints. No peripheral edema. NEURO: Moves all extremeties well. PSYCH: Insight and judgement normal Labs and Imaging reviewed Lab Results Component Value Date WBC 18.3 (H) 05/28/2020 NUCRBC 0 05/28/2020 RBC 2.21 (L) 05/28/2020 HEMOGLOBIN 10.5 (L) 05/28/2020 HEMATOCRIT 31.0 (L) 05/28/2020 MCV 95.5 05/28/2020 MCH 31.2 05/28/2020 MCHC 32.7 05/28/2020 PLTCOUNT 217 05/28/2020 NEUTROPCT 85.9 05/28/2020 BANDPCT 15.0 05/27/2020 LYMPHSPCT 7.9 05/28/2020 MONOSPCT 5.1 05/28/2020 EOSPCT 0.0 05/28/2020 BASOPHILPCT 0.1 05/28/2020 Lab Results Component Value Date ALBUMIN 2.5 (L) 05/28/2020 BILITOTAL 0.8 05/27/2020 CA 8.0 (L) 05/28/2020 CL 109 05/28/2020 CREATSERUM 1.76 (H) 05/28/2020 GLUCOSE 186 (H) 05/28/2020 ALKPHOS 99 05/27/2020 POTASSIUM 4.0 05/28/2020 NA 142 05/28/2020 AST 28 05/27/2020 BUN 31 (H) 05/28/2020 PROTEINTOTAL 6.9 05/27/2020 CO2 19 (L) 05/28/2020 ALT 14 05/27/2020 Lab Results Component Value Date ESR >120 (H) 04/17/2020 Lab Results Component Value Date CRP 63.6 (H) 04/17/2020 Results for orders placed or performed during the hospital encounter of 05/26/20 (from the past 336 hour(s)) 1. ECHO ADULT COMPLETE Narrative Patient: LONI MUNIZ MR#: [id number] Exam Date: 05/26/2020 Transthoracic Echocardiogram [facility] [address] [place] [address] BP: 86/65 mmHg HR: 62 bpm : 1945 Exam Location: Bedside Height: 60.00 "(152.4 cm) Age: 74 year(s) Patient Room: [facility] Weight: 171 lbs.(77.57 kg) Gender: Female Patient Status: Inpatient BSA: 1.75m2 Assistant Project Engineer: PAULINE SOTO Reading Physician: SAHNNA TEJADA MD Ordering Physician: NAGI GLASER DO Procedure Indication(s): Hypotension, NSTEMI Examination: TTE Complete 2D(m-mode), Complete Spectral Doppler, Color Doppler Conclusions Left Ventricle: Normal left ventricular systolic function. The ejection fraction is visually estimated to be 55 %. Aortic Valve: There is a possible vegetation on the aortic valve. Aortic valve mean gradient is 5 mmHg. Mitral Valve: There is a possible vegetation on the mitral valve. Mitral valve mean gradient is 3 mmHg. Right Ventricle: Normal right ventricular systolic function. Pericardium: No significant pericardial effusion. Vegetations may be Libman Sach vegetations secondary to lupus. Comparison Study Comparison Date: 09/29/2019 Comparison Study: Transthoracic Echocardiogram There was no significant change from prior echo Findings Left Ventricle: Normal left ventricular size. Bzyfqg-mm-mmqhgfqmgu increased left ventricular wall thickness. Normalleft ventricular systolic function. The ejection fraction is visually estimated to be 55 %. Grade 1 left ventricular diastolicdysfunction. Left Atrium: Moderately dilated left atrium. Aortic Valve: The aortic valve is tricuspid. Aortic sclerosis is present. No significant aortic regurgitation. No aortic stenosis. There is a possible vegetation on the aortic valve. Aortic valve mean gradient is 5 mmHg. Aorta: The sinus of valsalva is normal in size measuring 33.0 mm. The ascending aorta is normal in size measuring 33.0 mm. Mitral Valve: Normal mitral valve structure. Mild mitral leaflet calcification. There is moderate mitral annular calcification. Trivial mitral regurgitation. Mild mitral stenosis. There is a possible vegetation on the mitral valve. Mitral valve mean gradient is 3 mmHg. IAS: No evidence of an atrial shunt by color Doppler. Right Ventricle: Normal right ventricular size. Normal right ventricular systolic function. Normal right ventricular wall thickness. Pulmonary Artery: The tricuspid jet envelope definition is inadequate for estimation of RV systolic pressure. Right Atrium: Normal right atrial size. Tricuspid Valve: Normal tricuspid valve structure. No significant tricuspid regurgitation. Pulmonic Valve: Normal pulmonary valve structure. Trivial pulmonary regurgitation. No pulmonary stenosis. IVC: Normal IVC size with normal respirophasic changes. Pericardium: No significant pericardial effusion. Vegetations may be Libman Sach vegetations secondary to lupus.No pleural effusion. Measurements Left Ventricle Aortic Valve Label Value Normal Value Label Value Normal Value LVDd, 2D 44.2 mm LVOT Vmax 96 cm/s LVDs, 2D 35.5 mm AV Vmax 149 cm/s IVSd, 2D 13.3 mm LVOTd 20 mm LVPWd, 2D 13.1 mm LVOT VTI 23.5 cm FS, 2D 20 % LVOT PGmax 4 mmHg LVEDV, 2D 89 ml AV Vmean 105 cm/s LVESV, 2D 53 ml AV VTI 34.2 cm Cardiac Output 4.59 L/min AV PGmax 9 mmHg Cardiac Index 2.62 EMI (Vmax) 2 cm-sq L/min/m-sq AV Vmax, Caliper 149 cm/s LVEDVI, 2D 50.9 ml/m2 EMI (VTI) 2.2 cm-sq LVESVI, 2D 30.3 ml/m2 Obstructive Index 0.64 Stroke Index 42.29 (Vmax) ml/m-sq Obstruction Index 0.69 Left Atrium (VTI) Label Value Normal Value AV PGmean 5 mmHg LADs Long. 50 mm Mitral Valve LA Volume Index 40.7 ml/m-sq Label Value Normal Value Aorta MV E Vmax 115 cm/s Label Value Normal Value MV A Vmax 153 cm/s Ao Asc 33 mm MV E/A 0.75 Ao Sinus, 2D 33 mm MV E/E' lateral 22.9 Great Vessels MV Dec Time 312 ms Label Value Normal Value MV VTI 47.8 cm PVein S 47 cm/s MVA (VTI) 1.5 cm-sq PVein D 22 cm/s MV PGmax 9 mmHg S/D Ratio 2.1 MV PHT 0.09 s Heart Rate MVA PHT 2.4 cm-sq Label Value Normal Value MV E' lateral 5 cm/s Heart Rate 62 bpm MV PGmean 3 mmHg 2. XRAY CHEST PORTABLE - Narrative Patient Name: LONI MUNIZ Date of : 1945 Procedure: XRAY CHEST PORTABLE Date of Service: 05/26/2020 EXAM: XRAY CHEST PORTABLE INDICATION: SOB COMPARISON(S): 05/26/2020 FINDINGS/IMPRESSION: Increased alveolar and interstitial opacities bilaterally which may be on the basis of elevated pulmonary venous pressures. Heart size is mildly enlarged. Small pleural fluid at the right base. No lobar consolidation. No pneumothorax. Finalized by: Dru Ashley DO on 05/27/2020 12:10 AM CDT Patient/Procedure Information: [facility] MRN/DANIELE: [id number] Order Number: [id number] Accession Number: [id number] Ordering Provider: NAGI GLASER Authorizing Provider: NAGI GLASER 3. XRAY CHEST PORTABLE - Narrative Patient Name: LONI MUNIZ Date of : 1945 Procedure: XRAY CHEST PORTABLE Date of Service: 05/27/2020 EXAM: XRAY CHEST PORTABLE INDICATION: central line placement . TECHNIQUE: Single AP portable chest radiograph, one view. COMPARISON:05/26/2020. FINDINGS: Interval placement of a left vascular catheter. Distal tip appears lateral to the expected location of the SVC. This should be adjusted to confirm central positioning. The cardiomediastinal silhouette is stable, upper limits normal in size. There is dense atherosclerotic calcification of the aortic arch. The trachea is midline. There are diffusely increased reticular markings which are improved when compared to 05/26/2020. The costophrenic angles are blunted. There is no pneumothorax. The visualized osseous structures and soft tissues are stable. IMPRESSION: 1. Interval placement of a left vascular catheter. Distal tip appears lateral to the expected location of the SVC. This should be adjusted to confirm central positioning. 2. Improving diffusely increased reticular markings. This is consistent with improving CHF/fluid overload. 3. Trace bilateral pleural effusions versus chronic pleural thickening. 4. No pneumothorax. Finalized by: Blanca Andersen MD on 05/27/2020 9:14 PM CDT Patient/Procedure Information: [facility] MRN/DANIELE: [id number] Order Number: [id number] Accession Number: [id number] Ordering Provider: JOHN NUNEZ Authorizing Provider: JOHN NUNEZ 4. EKG Result Value Ref Range EKG WAVEFORM Sinus rhythm with Premature atrial complexes Left bundle branch block Abnormal ECG When compared with ECG of 29-SEP-2019 13:27, Premature atrial complexes are now Present T wave inversion less evident in Lateral leads Ventricular Rate: 61 BPM Atrial Rate: 61 BPM P-R Interval: 130 ms QRS Duration: 134 ms Q-T Interval: 450 ms QTc Calculation(Bazett): 453 ms Calculated P [place]: 72 degrees Calculated R [place]: 46 degrees Calculated T [place]: 133 degrees Medical Decision Making I have reviewed all the new labs, x-rays, and provider notes from the last 24 hours. Encounter Diagnoses: ACP (advance care planning) (primary encounter diagnosis) Bleeding Shanna Hernandez MD - 05/28/2020 1:[address] [facility] PATIENT NAME: LONI MUNIZ DATE OF SERVICE: 05/28/2020 DANIELE: [id number] The registered nurse taking care of this patient wanted me to review the patient as the patient wanted to talk to me prior to going to the operating room. I immediately saw the patient and examined her. I had reviewed the overnight events. I had reviewed JOHN, Maren Escalona's note and she was with me during the examination. Reviewed the discussions with Dr. John Nunez. Ms. Muniz was seen by me on 05/26/2020. She had known coronary artery disease and known peripheral vascular disease and had summarized my findings on the consult note, which one Needs to review. She underwent coronary angiogram. Coronary angiogram showed a dissection of the right coronary artery with no flow-limiting lesions. As such, no intervention was performed. Echocardiogram did reveal presence of vegetation in the aortic and mitral valve. She has a history of lupus and surely we considered it could be Libman-Sacks, too, but subsequent events leads us to believe that it is an infective endocarditis. I was preparing to do an transesophageal echocardiogram today. However, suddenly therewas increased groin bleeding. In fact significant bleeding, for which a manual hold was performed.Vascular surgeons were consulted and immediate surgery was recommended. The patient was in the process of going for surgery. She did develop sepsis and hypotension. The blood cultures done were still pending, although the initial report suggested no growth. PHYSICAL EXAMINATION: GENERAL: Today on examination, she appeared tired, fatigued. Mentation was slow. Appeared pale. CARDIAC: Examination revealed sinus rhythm. LUNGS: Breathing was not in any major distress. ABDOMEN: Soft. Right groin bleeding. SKIN: Appeared pale. Reviewing the laboratory tests, troponin 0.823, mildly increased from before. BNP 247. Hemoglobin had dropped to 6.9 and with top-up transfusion 9.5. Biochemical parameters, sodium 139, potassium 4.1, BUN 31, creatinine 1.76, magnesium 1.8. Echocardiogram done on the day of admission, left ventricular ejection fraction 55% with vegetations as noted above. The patient was in a critical state with hypotension and ongoing groin bleeding with hold of manual pressure. OR and anesthesiologist were assessing. Reviewing Dr. John Nunez's progress note of today and discussions with him, it is impression that she is in septic shock with bacteremia and endocarditis with active bleeding from the right groin. I decided that she is not in a fit condition to undergo transesophageal echocardiogram today even postoperatively. We will hold off on that, but she needs it at some point if she makes a meaningful recovery. I will pass onto the incoming hammer setter the details of this patient's illness. I spent 30 minutes of critical care time in assessing this patient. At the end of my assessment, the patient was being taken to the operating room. Shanna Tejada MD Receipt: [id number] Trans ID: [id number] STONE DRILLER STONE DRILLER John Colon MD - 05/28/2020 1:[address] [facility] PATIENT NAME: LONI MUNIZ DATE OF SERVICE: 05/28/2020 DANIELE: [id number] LOCATION: [address] room 501. Ms. Muniz is a 74-year-old female who yesterday had significant degree of hypotension and was considered to be in septic shock. There has been concern the patient has endocarditis. In 03/2020 she hada right femoral and superficial femoral arterial endarterectomy. The wound had gotten infected withpseudomonas. She was on antimicrobial treatment Now the patient has been on vancomycin as well as Zosyn. She is scheduled for a transesophageal echo today. Yesterday received 3.5 L of fluid. She was briefly on vasopressors. Lactic acid initially was elevated to 3.2 but then has trended down. This morning patient also started having some bleeding from the right groin site which as I mentioned above is infected and where she had endarterectomy. PHYSICAL EXAMINATION: VITAL SIGNS: Blood pressure is 99/64 with a heart rate 69 per minute. Oxygen saturation 97% on room air. Temperature is 96.9 degrees Fahrenheit. HEENT: Normocephalic, atraumatic. Oral cavity clear. HEART: S1, S2 heard. No murmurs. LUNGS: Breath sounds are heard bilaterally. ABDOMEN: Obese but soft. Bowel sounds heard. The right groin site when I had examined had some induration but at that time was not actively bleeding. It had later on started actively bleeding per nursing report. EXTREMITIES: Peripheral pulses felt. Capillary refill time is adequate. NEUROLOGIC: The patient does remain alert and responsive. Able to follow commands. IMPRESSION, REPORT, PLAN: 1. Her laboratory data was reviewed. Her CBC does show a decline in hemoglobin to 7.5 from 10.6 and also platelet count declined from 237,000 to 177,000. It has to be noted that this decline is also related to the fact that the patient received 3.5 L of bolus fluids yesterday and could be some element of dilution. 2. Metabolic panel indicates sodium 138, potassium 3.8, chloride 109, bicarbonate 19, BUN is 31 and creatinine of 1.76. Previous creatinine 1.75. Lactic acid is 1.5. PROBLEMS: 1. Probable septic shock with bacteremia/endocarditis. 2. Bleeding from the right groin site. 3. Recent non-ST elevation myocardial infarction, status post cardiac catheterization which showed patent RCA stent. 4. Acute on chronic kidney injury, remains nonoliguric. MANAGEMENT: 1. HEMODYNAMIC, CARDIAC, HEMATOLOGY: Pressure was applied at the right groin site which led to the improvement in the bleeding. Also vascular surgery services reviewing the patient from the point of view of her bleeding from the right groin site. Will check a followup hemoglobin level. Will do serial hemoglobin checks. Will transfuse 1 unit of packed red blood cells for hemoglobin less than 8and 2 units for hemoglobin less than 7. Patient also recently had non-STEMI so a lower hemoglobin can have more myocardial ischemia. Patient received 1 L bolus of crystalloid as well. 2. RESPIRATORY: Currently no compromise in respiratory status. 3. INFECTIOUS DISEASE: Patient continues on vancomycin and Zosyn. Infectious disease is following. Patient is planned to have a transesophageal echo today. However, we will have to ensure hemodynamic stability prior to the echo. 4. GASTROINTESTINAL, NUTRITION: Currently n.p.o. 5. ENDOCRINE: Her glucose level has remained in good control. 6. FLUID, ELECTROLYTE AND RENAL FUNCTION: The 24-hour fluid input is recorded as 4.7 L. This accounts for all the boluses of fluids that the patient had received yesterday. Urine output was 850 mL. She does have underlying stage III chronic kidney disease and creatinine has remained stable at 1.76. Electrolyte replacements per protocol. 7. NEUROLOGY: P.r.n. dose of fentanyl for pain control. Patient has been on Neurontin for neuropathic pain. HEALTH MAINTENANCE: 1. I will hold off the subcutaneous heparin for today until we ensure that the patient is not having any significant active ongoing bleeding. We will use SCDs for DVT prophylaxis. 2. Patient is on aspirin and Plavix as well. I will hold off the aspirin. However, if the patient does continue to have further bleeding then we may need to hold the Plavix as well for a short while. Patient did not have any new stents although she did have a non-STEMI. She does have a right coronary stent from the past. ADDENDUM: 11AM Patient had a recurrent episode of bleed from the right femoral endarterectomy site. Hemoglobin had dropped down to 6.9. Patient received 2 units of packed red blood cells and the hemoglobin did increase to 9.5. Vascular surgery service has seen the patient in consultation and the patient will be taken to all are for exploration. ADDENDUM: 8:20PM I reviewed the patient after the patient returned from OR. Patient had right common femoral artery exploration, patch angioplasty, right groin debridement and right superficial femoral artery thrombectomy. Patient has a wound VAC drain in the right groin and also a bulb drain. There is only 50 mode of blood in the bulb drain. Patient was extubated postprocedure prior to transfer to intensive care unit. Patient is alert and responsive and able to follow commands. Her current blood pressure is 120/50 while on Levophed of only 0.07 mcg/kg/m. Heart rate of 58/m. Oxygen saturation is 98% on room air. Posttransfusion and control of further bleeding, the hemoglobin level is 10.5. Last INR was 1.2. Platelet count of for 217,000. Will continue to follow-up hemoglobin every 6 hours in the meantime for early detection of any decreasing hemoglobin level does indicating ongoing bleeding. Packed red blood cell transfusion parameters have been written. We will also check a metabolic panel to ensure all electrolyte neutrality. From tomorrow, patient to will be under surgical critical care service. I have her discuss this with Dr. Wise who is the banquet manager on that service. TOTAL CRITICAL CARE TIME: 85 minutes for conditions stated in problems above. This includes time spent in bed initial evaluation of the patient, subsequent review of the patient today in the evening after return from more and coordination of care towards the day. BILLING CODE: 55921 and [id number]. John Nunez MD Receipt: [id number] Trans ID: [id number] STONE DRILLER STONE DRILLER Inge Mansfield MD - 05/27/2020 10:42 AM CDT Internal Medicine Progress note: Exam date: 05/27/2020 Impression and Plan: 1. Sepsis with hypotension. Vegetations were noted on echo. Patient is getting IV fluid boluses to maintain blood pressure. Also continue IV fluids. Patient has been started on broad-spectrum antibiotics IV vancomycin and Zosyn. Infectious disease has been consulted. Patient has a history ofgroin infection with Pseudomonas earlier in April. Blood cultures x4 are pending(2 were repeated over the night and 2 from yesterday) 2. Non-ST elevation OR, status post coronary angiogram, which revealed patent stent in the proximal RCA, spontaneous dissection in the mid RCA not amenable to PCI, there was 50% stenosis in the midLAD as well. Cardiology plans medical treatment. Patient remains on aspirin, Plavix. Cardiology following. There is a plan for a ALEJANDRA in the morning to evaluate the vegetations better. There is concern that these vegetations could be from lupus versus infectious endocarditis. Awaiting blood cultures. 3. Hypophosphatemia. Replace. 4. Hypomagnesemia. Replace electrolytes. 5. SOL on CKD stage 3. Patient has a history of focal segmental glomerulosclerosis. Likely sepsis has exacerbated the SOL. Patient remains on CellCept, getting IV fluids. Monitor I's&O's. 6. COPD. Patient is on Breo Ellipta inhaler. 7. Neuropathic pain. On Neurontin 100 mg at bedtime. 8. Peripheral vascular disease/coronary artery disease/history of renal artery stenosis. Remains on aspirin and Plavix. 9. Recent right groin surgical wound infection post femoral endarterectomy with patch graft placement. Wound is healing. No evidence of cellulitis or abscess formation there. Wound nurse will beconsulted for wound cares. 10. DVT prophylaxis. Place on heparin. INTERVAL HISTORY: Patient overnight had a temperature of 105.9, was tachycardic in the 120s. Patient transiently went into ventricular tachycardia as well. Oxygen needs had to be upped to 11 L nasalcannula gradually over the night and oxygen has been weaned back to room air now. Patient denies any chest pain, denies any lightheadedness. Patient's blood pressures have been running in the 70s systolic this morning. Patient reports that her blood pressures normally run in the 80s systolic at home. Receipt: [id number] Trans ID: [id number] STONE DRILLER STONE DRILLER Review of system: General: has fever, no chills Respiratory: No cough. No sob Cardiovascular: No chest pain, No palpitation Abdomen: No abdominal pain, No distension Neuro: No headache. No dizziness. Psychiatry: No severe mood swings Examination: Vitals: 05/27/20 0501 05/27/20 0530 05/27/20 0537 05/27/20 0600 BP: 94/41 103/60 99/44 Pulse: 84 81 79 Resp: 23 19 20 Temp: 99.5 F (37.5 C) SpO2: 96% 96% 96% Weight: 77.6 kg (171 lb) Height: Temp (24hrs), Av.5 F (38.1 C), Min:98.1 F (36.7 C), Max:105.9 F (41.1 C) Systolic (24hrs), Av , Min:91 , Max:159 Intake/Output Summary (Last 24 hours) at 05/27/2020 1042 Last data filed at 05/27/2020 0501 Gross per 24 hour Intake 1646 ml Output 100 ml Net 1546 ml Patient Vitals for the past 72 hrs: Weight 05/26/20 0657 77.4 kg (170 lb 10.2 oz) 05/27/20 0537 77.6 kg (171 lb) General: No acute distress Head/ENT: atraumatic normocephalic. Hearing grossly intact. External ear/nose normal. Respiratory: bilateral breath sound present. No wheeze, no crackles. Cardiovascular: S1 S2 heard, regular. No murmur. Abdomen: soft , non tender, BS present. Musculoskeletal: no cyanosis. No gross joint swelling. Neuro: awake, moving extremities grossly. Skin: No rash, R groin wound has no drainage or surrounding erythema. Healthy granulation tissue noted Labs: (reviewed) Labs (Last day) 05/27/2045 - 05/27/2045 CBC 05/27/2045 CBC WBC 4.0-11.0 (K/uL) 7.2 RBC 3.80-5.30 (M/uL) 3.42 Hemoglobin 11.5-15.8 (g/dL) 10.6 Hematocrit 35.0-45.0 (%) 32.9 MCV 80.0-98.0 (fL) 96.2 MCH 25.5-34.0 (pg) 31.0 MCHC 31.5-36.5 (g/dL) 32.2 RDW-CV 11.5-15.5 (%) 13.0 RDW-SD 35.5-50.0 (fl) 45.5 Platelet Count 140-400 (K/uL) 237 MPV 8.5-12.0 (fL) 10.3 05/27/20412 - 05/27/206 CHEMISTRY 05/27/20 0413 05/27/20 0413 05/27/20 0413 05/27/20 0413 05/27/20 0046 CHEMISTRY Glucose 70-100 (mg/dL) 106 112 Sodium 135-145 (meq/L) 137 137 Potassium 3.5-5.3 (meq/L) 3.7 4.3 Chloride 99-110 (meq/L) 108 105 CO2 20-29 (meq/L) 20 19 Anion Gap with K 6-20 (meq/L) 13 17 BUN 6-22 (mg/dL) 29 27 Creatinine 0.60-1.10 (mg/dL) 1.96 1.96 1.84 BUN/Creatinine Ratio 10.0-25.0 14.8 14.7 Calcium 8.5-10.5 (mg/dL) 8.3 9.5 Corrected Calcium 8.5-10.5 (mg/dL) 9.4 10.2 Phosphorus 2.5-4.5 (mg/dL) 2.3 Magnesium 1.8-2.4 (mg/dL) 1.5 Bilirubin Total 0.2-1.2 (mg/dL) 0.8 Alkaline Phosphatase 30-150 (U/L) 99 ALT - SGPT 0-55 (U/L) 14 AST - SGOT 0-35 (U/L) 28 Protein Total 6.0-8.2 (g/dL) 6.9 Albumin 3.5-5.0 (g/dL) 2.6 3.1 Lactic Acid 0.5-2.2 (mmol/L) 1.3 eGFR >=60 (mL/min/1.73m2) 30 30 33 eGFR Non- >=60 (mL/min/1.73m2) 25 25 27 05/27/20 0046 - 05/27/20 0046 CHEMISTRY 05/27/20 0046 CHEMISTRY Lactic Acid 0.5-2.2 (mmol/L) 2.9 05/27/206 - 05/27/20 0046 DIFFERENTIAL 05/27/20 0046 DIFFERENTIAL Seg Neut Absolute 1.8-8.0 (K/uL) 4.8 Band Absolute 0.0-0.7 (K/uL) 1.1 Lymphocytes Absolute 0.8-4.1 (K/uL) 0.9 Monocytes Absolute 0.0-1.0 (K/uL) 0.3 Eosinophils Absolute 0.0-0.7 (K/uL) 0.1 Neutrophils Percent (%) 67.0 Neutrophils Abs. (Segs and Bands) (/uL) 5,904 Band Percent (%) 15.0 Lymphocytes Percent (%) 13.0 Monocytes Percent (%) 4.0 Eosinophils Percent (%) 1.0 Platelet Estimate Normal Platelet Morphology Normal RBC Morphology Normal 05/26/202039 - 05/26/20 1257 GENERAL COAGULATION 05/26/20203905/26/20 1257 GENERAL COAGULATION Heparin Xa Unfractionated 0.30-0.70 (U/mL) <=0.10 <=0.10 05/27/20 0413 - 05/27/20 0046 OTHER 05/27/20 0413 05/27/20 0413 05/27/20 0046 OTHER [age] (Years) [age] Maren Escalona, CALCULATION CLERK-REVIVAL CLERK - 05/27/2020 8:20 AM CDT Cardiology Progress Note Patient Name: Loni Muniz Admit Date: 05/26/2020 [facility]: [id number] Assessment and Plan Principal Problem: NSTEMI (non-ST elevated myocardial infarction) (HCC) Active Problems: Lupus (HCC) Abdominal aortic aneurysm (HCC) Chronic mesenteric ischemia (HCC) Bilateral carotid artery disease (HCC) Smoker Brachiocephalic artery stenosis, right (HCC) CKD (chronic kidney disease) stage 3, GFR 30-59 ml/min (HCC) Peripheral vascular disease (HCC) Hx of renal artery stenosis FSGS (focal segmental glomerulosclerosis) Bradycardia Spontaneous dissection of coronary artery Resolved Problems: * No resolved hospital problems. * Plan: -Pt was interviewed/examined and a plan was developed along with Dr. Tejada. 1. NSTEMI 2. Spontaneous coronary dissection -Pt feeling well this AM. Denies chest pain or shortness of breath. No further episodes of VT, hasleft bundle branch block. Currently NSR in 70s. -LHC showed patent stent to prox RCA but spontaneous dissection to mid, tortuous, co-dominant RCA not amenable to PCI, recommend medical management. Medications as below. Unable to initiate beta wyatt or GAMALIEL/ARB due to hypotension/acuity of illness. -Pt reports intolerance to statins, severe myalgias with both atorvastatin and rosuvastatin. 3. Vegetation on aortic and mitral valve: 4. ? Septic shock -Echo showed EF 55%, possible vegetation on aortic and mitral valves, awaiting blood cultures. Unclear if infective source vs complication of lupus but she remains hypotensive and had reported fever of 105 last evening. Suspicious for septic shock. -Recommend infectious disease evaluate. -Will plan for ALEJANDRA tomorrow to further evaluate vegetation on valves. Pt requesting to eat this AM. -NPO after midnight -Cardiac Medications: -ASA 81 mg daily -Plavix 75 mg daily -Nitro SL PRN 0.4 mg Risks and benefits of ALEJANDRA by Dr. Tejada: Discussed risks and benefits associated with a transesophageal echocardiogram with patient, including GI bleed, esophageal perforation, pharyngeal hematoma, airway compromise, infection, OR, stroke andeven . Patient stated their understanding and is in agreement with undergoing this procedure. Consent obtained with signed documentation. Code Status: Full Code I appreciate the opportunity to be involved in this patient's care. Cardiology will continue to follow. Maren Escalona APRN-[facility] Cardiology Pager #[phone] [facility] [place], [place] 05/27/2020 Interval History Loni is a 74-year-old patient admitted for dizziness, bradycardia and chest discomfort. She has a history of STEMI in 2018. She was found to have elevated troponin, no ST elevation on EKG per report. She underwent coronary angiogram 05/26 which showed patent stent in prox RCA. Spontaneous dissection in mid, tortuous segment of co-dominant RCA - not amenable to PCI - plan for medical management. Pt had a 30-second episode of Vtach around 2300 last evening, this was also associated with chest pain. EKG was without changes. She was also febrile at that time, started on antibiotics. She has not had any further events. Pt is feeling well this AM, vitals remain stable aside from soft BP. Denies any chest pain or shortness of breath. Telemetry monitoring shows sinus rhythm in 60s. Groin and wrist sites WDL. ROS ROS Current Vital Signs Temp: 98 F (36.7 C) BP: 81/65 Pulse: 74 O2 Device: Room Air O2 Flow Rate (L/min): 2 l/min Resp: 21 Pain Ratin (out of 10) Weight: 77.6 kg (171 lb) SpO2: 96 % Physical Exam Physical Exam Constitutional: She is oriented to person, place, and time. She appears well- developed and well-nourished. No distress. Appears acutely ill Neck: Normal range of motion. Cardiovascular: Normal rate and regular rhythm. No murmur heard. Pulmonary/Chest: Effort normal and breath sounds normal. She has no wheezes. She has no rales. Abdominal: Soft. There is no tenderness. Musculoskeletal: Normal range of motion. She exhibits no edema. Neurological: She is alert and oriented to person, place, and time. Skin: Skin is warm and dry. Psychiatric: She has a normal mood and affect. Her behavior is normal. Nursing note and vitals reviewed. Labs I have reviewed all labs, and pertinent positives and negatives are discussed in the Assessment and Plan. Associated attestation - Shanna Tejada MD - 05/27/2020 2:24 PM CDT I saw the patient with the JOHN. I was present during the critical or hayes portions of the service furnished by the JOHN. I verified in the medical record all APPs documentation/findings, including history, physical exam, and medical decision making and I agree with the APPs documentation. Note the following additions/corrections: Likely vegetations and now fever and hypotension ID on board ALEJANDRA in AM Risks and benefits of ALEJANDRA were discussed with the patient and included discussion about change in heart rhythm, breathing difficulty, infection of heart valves, reaction to sedatives and bleeding. Rarely the probe may perforate the esophagus. Patient understands that complications are rare and that precautions are taken to minimize risks. The patient agrees and wishes to proceed. Medical Decision Making I have: Independently visualized and interpreted an image, tracing or specimen previously or subsequently interpreted by another provider. Discussed results of laboratory, radiology or other diagnostic tests with the physician who performed or interpreted the study. Obtained/reviewed old records from [place] or elsewhere (details outlined elsewhere in note). Obtained history from a person other than the patient (details outlined elsewhere in note). Discussed case with another provider (details outlined elsewhere in note). A total of 25 minutes was spent with the patient or on the floor today, greater than 50% of which was spent in counseling regarding today's findings/assessment/plan and in coordination of care, chart review, medical decision making, and documentation Discussed with Echo lab team To be done under Anesthesia guidance. Tiffany Sarabia, PHARM D - 05/27/2020 12:06 AM CDT Vancomycin Initial Consult Note Ms. Muniz was admitted on 05/26/2020 and today has been initiated on Vancomycin per pharmacy protocol for septic shock. Labs: No results found for: VANCOTROUGH WBC Date/Time Value Ref Range Status 05/26/2020 07:27 AM 13.8 (H) 4.0 - 11.0 K/uL Final 05/25/2020 04:04 PM 10.1 4.0 - 11.0 K/uL Final 09/25/2014 09:08 AM 9.3 4.0 - 11.0 K/uL Final Lab Results Component Value Date CREATSERUM 1.56 (H) 04/27/2020 Max Temperature: Temp (24hrs), Av.6 F (37 C), Min:97.1 F (36.2 C), Max:99.6 F (37.6 C) Estimated CrCl: CrCl cannot be calculated (Patient's most recent lab result is older than the maximum 7 days allowed.). ml/min Intake/Output: No intake or output data in the 24 hours ending 05/27/20 0006 Other Active Antimicrobial Agents: zosyn Plan: We have initiated intravenous Vancomycin therapy at a dose of 1250 mg one time now. Will re-dose based on random levels as appropriate. The goal trough range will be 15-20 mcg/ml. Pharmacy will monitor and if indicated, adjust dose and/or frequency per the Pharmacy and Therapeutics Committee approved pharmacokinetic service policy. Tiffany Sarabai, PHARM D Inge Zuñiga MD - 05/26/2020 9:59 AM CDTSeen and examined. Admitted this am. Await cardiology recommendation. Chest pain free now. Fran Ortega, PHARM STUDENT - 05/26/2020 8:23 AM CDTPatient was seen by the pharmacy med reconciliation team and HOME MEDICATIONS have been reconciled and updated to match the patient's home usage. Added to med list: None Changed on med list: Calcium carbonate changed to PRN Carvedilol changed to PRN, patient only takes when SBP is greater than 120 mmHg Gabapentin changed to 100 mg by mouth at bedtime Multivitamin changed to daily Removed from med list: Hydroxychloroquine Patient reports not taking: None Patient denies use of other inhalers, creams/ointments, eye/ear drops, patches, injectables, OTC, and/or vitamins/herbal products. Fran Wilson, PHARM STUDENT documented in this encounter Plan of Treatment Date Type Specialty Care Team Description 06/12/2020 Office Visit CARDIOLOGY Grecia Trevino , CALCULATION CLERK-REVIVAL CLERK [address] [place] [address] [phone] 06/17/2020 Office Visit Plastic Surgery Stacy Billy, PATheodoreC [address] [facility] [place] [address] [phone] 07/03/2020 Office Visit Rheumatology Otilia Obrien III, MD [address] [place] [address] [phone] Alley Huang MD [address] [place] [address] [phone] 07/06/2020 Office Visit Infectious Diseases Dominique Kinsey MD [address] [place] [address] [phone] Name Type Priority Associated Date/Time Diagnoses CULTURE, BLOOD MICROBIOLOGY REPORT CARLI 2019 12:46 AM CDT TRANSFUSE RED BLOOD Nursing Transfusion Routine 0 06/02/2020 11:21 CELLS IN UNITS, 1 PM CDT Units TRANSFUSE RED BLOOD Nursing Transfusion Routine 0 06/02/2020 11:21 CELLS IN UNITS PM CDT IR PICC OR CENTRAL Imaging Routine 0 4:27 LINE PLACEMENT PM CDT Name Type Priority Associated Diagnoses Order S chedule IR PICC OR CENTRAL LINE Imaging Routine Once for 1 Occurrences PLACEMENT starting 2019 until 0 Name Type Priority Associated Diagnoses Order S chedule CLINIC REFERRAL Referral Routine ACP (advance care Expecte d: 06/26/2020 ADVANCE CARE PLAN ONE planning) (Appro ximate) CHART CLINIC REFERRAL HEART Referral Routine NSTEMI (non-ST elev ated Ordered: 06/04/2020 FAILURE PROGRAM ONE myocardial infarction ) CHART ([facility]) documented as of this encounter Implants Implanted Type Area Flame Channeler Device Shelf Model / Identifier Expiration Serial / Date Lot Stnt Palmaz Bl 6x15 80cm N [id number] Ea-02/02/2016 Cardiovascular ARTERIAL CARDINAL 01/24/2018 [id number] / Implanted: Qty: 1 on 02/02/2016 by Dano Obrien III, MD / [id number] Description:palmaz blue transhepatic merritt iary stent [id number] 0.018 Stnt Palmaz Bl 6x24 80cm N [id number] (Aka [id number] )-01/17/2019 Cardiovascular Left: J&J 07/27/2020 [id number] / Implanted: Qty: 1 on 01/17/2019 by Dano Obrien III, MD AR TERIAL CORDIS / [id number] Description:6mm x 24mm Palmaz Blue Stent Left renal artery Stnt Smart 8x30 80cm N [id number] Ea1 (Aka [id number])-01/20/2020 Cardiovascular Right: CARDINAL 09/26/2021 [id number] / Implanted: Qty: 1 on 01/20/2020 by Dano Obrien III, MD AR TERIAL / [id number] Description:8mm x 30mm cordis smart sten t - right iliac artery Stnt Smart 10x30 120cm N [id number] Ea1 (Aka [id number])-01/20/20 20 Cardiovascular Right: CARDINAL 06/26/2021 [id number] / Implanted: Qty: 1 on 01/20/2020 by Dano Obrien III, MD AR TERIAL / [id number] Description:10mm x 30mm Cordis smart omayra nt - right iliac artery Stnt Express Sd 6x18mm 90cm N [id number] Ea1-01/20/2020 Cardiovascular Right: [place] 09/18/2022 [id number] / Implanted: Qty: 1 on 01/20/2020 by Dano Obrien III, MD ARTERIAL SCIENTIFIC / [id number] Description:right renal artery Patch Vascuguard 0.8x8cm N [id number] Ea1 - [id number] Cardiova scular Right: FEMORAL TAMAYO 09/25/2024 [id number] / Implanted: 04/02/2020 by Chris Tripp MD at [facility] (Quantity not on file) / [id number] Patch Vascuguard 0.8x8cm N [id number] Ea1 - [id number] Cardiovascul ar Right: LEG TAMAYO 10/29/2024 [id number] / Implanted: 05/28/2020 by Erik Leigh MD at [facility] (Quantity not on file) / [id number] Vascular-05/10/2018 Vascular 06/26/2018 / Implanted: Qty: 1 on 05/10/2018 by Dano Obrien III, MD [id number] / [id number] Description:[id number] RT external iliac Vascular-04/09/2019 Vascular [facility] 10/10/2020 [id number] / Implanted: Qty: 1 on 04/09/2019 by Dano Obrien III, MD [id number] / [id number] Description:7MM X 39MM vbx Graft Primtx Fen 7g5zs=26xv N [id number] Ea1 - [id number] V ascular Right: GROIN INTEGRA 05/26/2023 [id number] / Implanted: 04/26/2020 by Chris Tripp MD at [facility] (Quantity not on file) TeamBuy / [id number] Stnt Viabahn Vbx 7x19mm 80cm N [id number] Ea1-04/20/2018 [facility] 04/18/2019 [id number] / Implanted: Qty: 1 on 04/20/2018 by Dano Obrien III, MD [id number] / Stnt Resolute Gurmeet Rx2.83x05sy N [id number] Ea1 (Aka Ronyx [id number])-11/02/2018 MEDTRONIC [id number] / Implanted: 11/02/2018 by Dino Ann MD (Quantity not on file) / [id number] Stnt Resolute [place] Rx 3.0x12mm N [id number] Ea1 (Aka Ronyx [id number])-11/02/2018 MEDTRONIC [id number] / Implanted: 11/02/2018 by Dino Ann MD (Quantity not on file) / [id number] Stnt Viabahn Vbx 7x29mm 135cm N [id number] Ea1 (Aka [id number])-04/09/2019 Right: JOCELYNN GORE 10/30/2020 [id number] / Implanted: Qty: 1 on 04/09/2019 by Dano Obrien III, MD AR [facility] / [id number] Description:7mm X 29mm Viabahn VBX brachiocephalic artery documented as of this encounter Procedures Procedure Name Priority Date/Time Associated Comments Diagnosis SARS-COV-2 RNA, STAT 06/08/2020 12:56 Results for this QUALITATIVE REAL-TIME PM CDT proced ure are in RT-PCR the results section. LAB ONLY-COMPLETE Routine 06/08/2020 4:46 Result s for this BLOOD COUNT WITH AM CDT procedure a re in DIFFERENTIAL the results section. MAGNESIUM Routine 06/08/2020 4:46 Results for this AM CDT procedure are i n the results section. CK Routine 06/08/2020 4:46 Results for this AM CDT procedure are i n the results section. COMPREHENSIVE Routine 06/08/2020 4:46 Results fo r this METABOLIC PANEL AM CDT procedure ar e in the results section. LAB ONLY-COMPLETE Routine 06/08/2020 4:46 Result s for this BLOOD COUNT WITH AM CDT procedure a re in DIFFERENTIAL the results section. COMPLETE BLOOD COUNT Routine 06/07/2020 5:21 Res ults for this WITHOUT DIFFERENTIAL AM CDT procedu re are in the results section. BASIC METABOLIC PANEL Routine 06/07/2020 5:21 Re sults for this AM CDT procedure are i n the results section. COMPLETE BLOOD COUNT Routine 06/06/2020 6:02 Res ults for this WITHOUT DIFFERENTIAL AM CDT procedu re are in the results section. BASIC METABOLIC PANEL Routine 06/06/2020 6:02 Re sults for this AM CDT procedure are i n the results section. COMPLETE BLOOD COUNT Routine 06/05/2020 5:23 Res ults for this WITHOUT DIFFERENTIAL AM CDT procedu re are in the results section. BASIC METABOLIC PANEL Routine 06/05/2020 5:23 Re sults for this AM CDT procedure are i n the results section. LAB ONLY-COMPLETE Routine 06/04/2020 9:41 Result s for this BLOOD COUNT WITH AM CDT procedure a re in DIFFERENTIAL the results section. RENAL FUNCTION PANEL Routine 06/04/2020 9:41 Res ults for this AM CDT procedure are i n the results section. LAB ONLY-COMPLETE Routine 06/04/2020 9:41 Result s for this BLOOD COUNT WITH AM CDT procedure a re in DIFFERENTIAL the results section. LAB ONLY-COMPLETE Routine 06/03/2020 5:06 Result s for this BLOOD COUNT WITH AM CDT procedure a re in DIFFERENTIAL the results section. RENAL FUNCTION PANEL Routine 06/03/2020 5:06 Res ults for this AM CDT procedure are i n the results section. LAB ONLY-COMPLETE Routine 06/03/2020 5:06 Result s for this BLOOD COUNT WITH AM CDT procedure a re in DIFFERENTIAL the results section. PREPARE AND HOLD RED Routine 06/02/2020 9:45 Res ults for this BLOOD CELLS IN UNITS - PM CDT proce kenishae are in BLOOD BANK the results section. HEMOGLOBIN Timed Routine 06/02/2020 8:06 Results fo r this PM CDT procedure are i n the results section. GLUCOSE BY METER, POCT Routine 06/02/2020 5:00 R esults for this PM CDT procedure are i n the results section. HEMOGLOBIN Timed Routine 06/02/2020 2:52 Results fo r this PM CDT procedure are i n the results section. GLUCOSE BY METER, POCT Routine 06/02/2020 12:27 R esults for this PM CDT procedure are i n the results section. CULTURE, BLOOD Routine 06/02/2020 10:25 Results f or this AM CDT procedure are i n the results section. LAB ONLY-MANUAL Routine 06/02/2020 8:10 Results for this DIFFERENTIAL AM CDT procedure are i n the results section. LAB ONLY-COMPLETE Routine 06/02/2020 8:10 Result s for this BLOOD COUNT WITH AM CDT procedure a re in DIFFERENTIAL the results section. CULTURE, BLOOD Routine 06/02/2020 8:10 Results f or this AM CDT procedure are i n the results section. TROPONIN I Routine 06/02/2020 8:10 Results for this AM CDT procedure are i n the results section. MAGNESIUM Routine 06/02/2020 8:10 Results for this AM CDT procedure are i n the results section. RENAL FUNCTION PANEL Routine 06/02/2020 8:10 Res ults for this AM CDT procedure are i n the results section. LAB ONLY-COMPLETE Routine 06/02/2020 8:10 Result s for this BLOOD COUNT WITH AM CDT procedure a re in DIFFERENTIAL the results section. PROTIME/INR Routine 06/02/2020 8:09 Results for this AM CDT procedure are i n the results section. GLUCOSE BY METER, POCT Routine 06/02/2020 7:09 R esults for this AM CDT procedure are i n the results section. HEMOGLOBIN Timed Routine 06/02/2020 2:06 Results fo r this AM CDT procedure are i n the results section. GLUCOSE BY METER, POCT Routine 06/02/2020 12:50 R esults for this AM CDT procedure are i n the results section. GLUCOSE BY METER, POCT Routine 06/01/2020 8:40 R esults for this PM CDT procedure are i n the results section. HEMOGLOBIN Timed Routine 06/01/2020 8:02 Results fo r this PM CDT procedure are i n the results section. GLUCOSE BY METER, POCT Routine 06/01/2020 3:50 R esults for this PM CDT procedure are i n the results section. GLUCOSE BY METER, POCT Routine 06/01/2020 1:26 R esults for this PM CDT procedure are i n the results section. HEMOGLOBIN Timed Routine 06/01/2020 1:24 Results fo r this PM CDT procedure are i n the results section. ECHO TRANSESOPHAGEAL Routine 06/01/2020 10:25 Res ults for this AM CDT procedure are i n the results section. HEPARIN UNFRACTIONATED Routine 06/01/2020 9:10 R esults for this ANTI-XA AM CDT procedure are i n the results section. GLUCOSE BY METER, POCT Routine 06/01/2020 9:10 R esults for this AM CDT procedure are i n the results section. HEMOGLOBIN Timed Routine 06/01/2020 9:10 Results fo r this AM CDT procedure are i n the results section. LAB ONLY-COMPLETE Routine 06/01/2020 4:27 Result s for this BLOOD COUNT WITH AM CDT procedure a re in DIFFERENTIAL the results section. PROTIME/INR Routine 06/01/2020 4:27 Results for this AM CDT procedure are i n the results section. MAGNESIUM Routine 06/01/2020 4:27 Results for this AM CDT procedure are i n the results section. RENAL FUNCTION PANEL Routine 06/01/2020 4:27 Res ults for this AM CDT procedure are i n the results section. LAB ONLY-COMPLETE Routine 06/01/2020 4:27 Result s for this BLOOD COUNT WITH AM CDT procedure a re in DIFFERENTIAL the results section. HEPARIN UNFRACTIONATED Routine 06/01/2020 1:51 R esults for this ANTI-XA AM CDT procedure are i n the results section. HEMOGLOBIN Timed Routine 06/01/2020 1:51 Results fo r this AM CDT procedure are i n the results section. GLUCOSE BY METER, POCT Routine 06/01/2020 12:12 R esults for this AM CDT procedure are i n the results section. HEPARIN UNFRACTIONATED Timed Routine 05/31/2020 7:54 Results for this ANTI-XA PM CDT procedure are i n the results section. HEMOGLOBIN Timed Routine 05/31/2020 7:54 Results fo r this PM CDT procedure are i n the results section. GLUCOSE BY METER, POCT Routine 05/31/2020 5:37 R esults for this PM CDT procedure are i n the results section. HEPARIN UNFRACTIONATED Timed Routine 05/31/2020 2:03 Results for this ANTI-XA PM CDT procedure are i n the results section. GLUCOSE BY METER, POCT Routine 05/31/2020 2:03 R esults for this PM CDT procedure are i n the results section. HEMOGLOBIN Timed Routine 05/31/2020 2:03 Results fo r this PM CDT procedure are i n the results section. TRANSFUSE RED BLOOD STAT 05/31/2020 9:43 CELLS IN UNITS AM CDT GLUCOSE BY METER, POCT Routine 05/31/2020 7:51 R esults for this AM CDT procedure are i n the results section. HEPARIN UNFRACTIONATED STAT 05/31/2020 7:49 R esults for this ANTI-XA AM CDT procedure are i n the results section. EKG Routine 05/31/2020 7:39 Results for this AM CDT procedure are i n the results section. TYPE AND SCREEN STAT 05/31/2020 6:27 Results for this AM CDT procedure are i n the results section. HEMOGLOBIN Timed Routine 05/31/2020 6:27 Results fo r this AM CDT procedure are i n the results section. BRAIN NATRIURETIC Routine 05/31/2020 6:27 Result s for this PEPTIDE AM CDT procedure are i n the results section. PREPARE AND HOLD RED STAT 05/31/2020 6:20 Res ults for this BLOOD CELLS IN UNITS - AM CDT brenna pagan are in BLOOD BANK the results section. GLUCOSE BY METER, POCT Routine 05/31/2020 4:52 R esults for this AM CDT procedure are i n the results section. LAB ONLY-MANUAL Routine 05/31/2020 4:47 Results for this DIFFERENTIAL AM CDT procedure are i n the results section. LAB ONLY-COMPLETE Routine 05/31/2020 4:47 Result s for this BLOOD COUNT WITH AM CDT procedure a re in DIFFERENTIAL the results section. HEPARIN UNFRACTIONATED Timed Routine 05/31/2020 4:47 Results for this ANTI-XA AM CDT procedure are i n the results section. PROTIME/INR Routine 05/31/2020 4:47 Results for this AM CDT procedure are i n the results section. MAGNESIUM Routine 05/31/2020 4:47 Results for this AM CDT procedure are i n the results section. RENAL FUNCTION PANEL Routine 05/31/2020 4:47 Res ults for this AM CDT procedure are i n the results section. LAB ONLY-COMPLETE Routine 05/31/2020 4:47 Result s for this BLOOD COUNT WITH AM CDT procedure a re in DIFFERENTIAL the results section. HEPARIN UNFRACTIONATED Timed Routine 05/31/2020 12:51 Results for this ANTI-XA AM CDT procedure are i n the results section. HEMOGLOBIN STAT 05/31/2020 12:51 Results for this AM CDT procedure are i n the results section. HEMOGLOBIN Timed Routine 05/31/2020 12:51 Results fo r this AM CDT procedure are i n the results section. HEMATOCRIT STAT 05/31/2020 12:51 Results for this AM CDT procedure are i n the results section. TRANSFUSE RED BLOOD Routine 05/30/2020 11:59 CELLS IN UNITS PM CDT XRAY CHEST PORTABLE STAT 05/30/2020 11:57 Resu lts for this PM CDT procedure are i n the results section. GLUCOSE BY METER, POCT Routine 05/30/2020 11:34 R esults for this PM CDT procedure are i n the results section. TRANSFUSE RED BLOOD Routine 05/30/2020 10:14 CELLS IN UNITS PM CDT PREPARE AND HOLD RED STAT 05/30/2020 9:45 Res ults for this BLOOD CELLS IN UNITS - PM CDT brenna pagan are in BLOOD BANK the results section. GLUCOSE BY METER, POCT Routine 05/30/2020 8:24 R esults for this PM CDT procedure are i n the results section. HEMOGLOBIN Timed Routine 05/30/2020 8:21 Results fo r this PM CDT procedure are i n the results section. HEPARIN UNFRACTIONATED Routine 05/30/2020 8:20 R esults for this ANTI-XA PM CDT procedure are i n the results section. GLUCOSE BY METER, POCT Routine 05/30/2020 5:46 R esults for this PM CDT procedure are i n the results section. EKG STAT 05/30/2020 5:12 Results for this PM CDT procedure are i n the results section. LACTIC ACID Timed Routine 05/30/2020 5:04 Results fo r this PM CDT procedure are i n the results section. ACTIVATED CLOTTING Routine 05/30/2020 3:26 Resul ts for this TIME POCT PM CDT procedure are i n the results section. CARDIAC CATH POSSIBLE Routine 05/30/2020 3:00 Re sults for this ANGIOPLASTY STENT CATH PM CDT brenna pagan are in LAB the results section. HEMOGLOBIN Timed Routine 05/30/2020 1:24 Results fo r this PM CDT procedure are i n the results section. GLUCOSE BY METER, POCT Routine 05/30/2020 1:23 R esults for this PM CDT procedure are i n the results section. LACTIC ACID Timed Routine 05/30/2020 10:39 Results fo r this AM CDT procedure are i n the results section. ECHO ADULT LIMITED Routine 05/30/2020 9:25 Resul ts for this AM CDT procedure are i n the results section. HEPARIN UNFRACTIONATED Timed Routine 05/30/2020 8:11 Results for this ANTI-XA AM CDT procedure are i n the results section. HEMOGLOBIN Timed Routine 05/30/2020 8:11 Results fo r this AM CDT procedure are i n the results section. GLUCOSE BY METER, POCT Routine 05/30/2020 8:05 R esults for this AM CDT procedure are i n the results section. GLUCOSE BY METER, POCT Routine 05/30/2020 3:39 R esults for this AM CDT procedure are i n the results section. LAB ONLY-COMPLETE Routine 05/30/2020 3:33 Result s for this BLOOD COUNT WITH AM CDT procedure a re in DIFFERENTIAL the results section. HEPARIN UNFRACTIONATED Timed Routine 05/30/2020 3:33 Results for this ANTI-XA AM CDT procedure are i n the results section. PROTIME/INR Routine 05/30/2020 3:33 Results for this AM CDT procedure are i n the results section. TROPONIN I Timed Routine 05/30/2020 3:33 Results fo r this AM CDT procedure are i n the results section. MAGNESIUM Routine 05/30/2020 3:33 Results for this AM CDT procedure are i n the results section. LACTIC ACID Timed Routine 05/30/2020 3:33 Results fo r this AM CDT procedure are i n the results section. RENAL FUNCTION PANEL Routine 05/30/2020 3:33 Res ults for this AM CDT procedure are i n the results section. LAB ONLY-COMPLETE Routine 05/30/2020 3:33 Result s for this BLOOD COUNT WITH AM CDT procedure a re in DIFFERENTIAL the results section. HEMOGLOBIN Timed Routine 05/30/2020 1:06 Results fo r this AM CDT procedure are i n the results section. GLUCOSE BY METER, POCT Routine 05/30/2020 12:07 R esults for this AM CDT procedure are i n the results section. GLUCOSE BY METER, POCT Routine 05/29/2020 10:34 R esults for this PM CDT procedure are i n the results section. TROPONIN I Timed Routine 05/29/2020 10:29 Results fo r this PM CDT procedure are i n the results section. LACTIC ACID Timed Routine 05/29/2020 10:29 Results fo r this PM CDT procedure are i n the results section. GLUCOSE BY METER, POCT Routine 05/29/2020 8:54 R esults for this PM CDT procedure are i n the results section. HEPARIN UNFRACTIONATED Timed Routine 05/29/2020 8:42 Results for this ANTI-XA PM CDT procedure are i n the results section. HEMOGLOBIN Timed Routine 05/29/2020 8:42 Results fo r this PM CDT procedure are i n the results section. GLUCOSE BY METER, POCT Routine 05/29/2020 4:43 R esults for this PM CDT procedure are i n the results section. LACTIC ACID Timed Routine 05/29/2020 4:25 Results fo r this PM CDT procedure are i n the results section. TROPONIN I Timed Routine 05/29/2020 2:53 Results fo r this PM CDT procedure are i n the results section. GLUCOSE BY METER, POCT Routine 05/29/2020 1:47 R esults for this PM CDT procedure are i n the results section. TRANSFUSE RED BLOOD Routine 05/29/2020 1:10 CELLS IN UNITS PM CDT HEPARIN UNFRACTIONATED Routine 05/29/2020 12:12 R esults for this ANTI-XA PM CDT procedure are i n the results section. HEMOGLOBIN Timed Routine 05/29/2020 12:12 Results fo r this PM CDT procedure are i n the results section. PREPARE AND HOLD RED Routine 05/29/2020 10:55 Res ults for this BLOOD CELLS IN UNITS - AM CDT proce dure are in BLOOD BANK the results section. GLUCOSE BY METER, POCT Routine 05/29/2020 9:02 R esults for this AM CDT procedure are i n the results section. HEMOGLOBIN Timed Routine 05/29/2020 9:01 Results fo r this AM CDT procedure are i n the results section. TROPONIN I Routine 05/29/2020 9:01 Results for this AM CDT procedure are i n the results section. LACTIC ACID Timed Routine 05/29/2020 9:01 Results fo r this AM CDT procedure are i n the results section. HCG SCREEN URINE CARLI 05/29/2020 6:19 Results for this AM CDT procedure are i n the results section. EKG Routine 05/29/2020 5:21 Results for this AM CDT procedure are i n the results section. LAB ONLY-COMPLETE Routine 05/29/2020 4:19 Result s for this BLOOD COUNT WITH AM CDT procedure a re in DIFFERENTIAL the results section. PROTIME/INR Routine 05/29/2020 4:19 Results for this AM CDT procedure are i n the results section. TROPONIN I STAT 05/29/2020 4:19 Results for this AM CDT procedure are i n the results section. MAGNESIUM Routine 05/29/2020 4:19 Results for this AM CDT procedure are i n the results section. LACTIC ACID Timed Routine 05/29/2020 4:19 Results fo r this AM CDT procedure are i n the results section. RENAL FUNCTION PANEL Routine 05/29/2020 4:19 Res ults for this AM CDT procedure are i n the results section. LAB ONLY-COMPLETE Routine 05/29/2020 4:19 Result s for this BLOOD COUNT WITH AM CDT procedure a re in DIFFERENTIAL the results section. HEMOGLOBIN Timed Routine 05/29/2020 3:07 Results fo r this AM CDT procedure are i n the results section. EKG Routine 05/29/2020 12:50 Results for this AM CDT procedure are i n the results section. GLUCOSE BY METER, POCT Routine 05/29/2020 12:21 R esults for this AM CDT procedure are i n the results section. LACTIC ACID Timed Routine 05/28/2020 10:27 Results fo r this PM CDT procedure are i n the results section. GLUCOSE BY METER, POCT Routine 05/28/2020 9:18 R esults for this PM CDT procedure are i n the results section. PROTIME/INR STAT 05/28/2020 9:15 Results for this PM CDT procedure are i n the results section. HEMOGLOBIN Timed Routine 05/28/2020 9:15 Results fo r this PM CDT procedure are i n the results section. MAGNESIUM STAT 05/28/2020 9:15 Results for this PM CDT procedure are i n the results section. LACTIC ACID Timed Routine 05/28/2020 9:15 Results fo r this PM CDT procedure are i n the results section. RENAL FUNCTION PANEL STAT 05/28/2020 9:15 Res ults for this PM CDT procedure are i n the results section. OR PANEL 1 POCT Routine 05/28/2020 5:19 Results for this PM CDT procedure are i n the results section. TISSUE EXAM Routine 05/28/2020 4:47 Bleeding Results for this PM CDT procedure are i n the results section. ACTIVATED CLOTTING Routine 05/28/2020 4:32 Resul ts for this TIME POCT PM CDT procedure are i n the results section. ACTIVATED CLOTTING Routine 05/28/2020 4:13 Resul ts for this TIME POCT PM CDT procedure are i n the results section. OR PANEL 1 POCT Routine 05/28/2020 4:06 Results for this PM CDT procedure are i n the results section. CULTURE BACTERIAL, Routine 05/28/2020 2:33 Bleeding Resul ts for this OTHER WITH GRAM STAIN PM CDT proced ure are in the results section. CULTURE BACTERIAL, Routine 05/28/2020 2:33 Bleeding Resul ts for this ANAEROBE PM CDT procedure are i n the results section. OR PANEL 1 POCT Routine 05/28/2020 2:23 Results for this PM CDT procedure are i n the results section. TRANSFUSE RED BLOOD Routine 05/28/2020 2:00 CELLS IN UNITS PM CDT PREPARE AND HOLD RED STAT 05/28/2020 1:50 Res ults for this BLOOD CELLS IN UNITS - PM CDT proce dure are in BLOOD BANK the results section. OR PANEL 1 POCT Routine 05/28/2020 1:45 Results for this PM CDT procedure are i n the results section. PREPARE AND HOLD RED Routine 05/28/2020 12:30 Res ults for this BLOOD CELLS IN UNITS - PM CDT proce dure are in BLOOD BANK the results section. FLAP MUSCLE 05/28/2020 12:20 Bleeding GASTRONEMUS PM CDT BYPASS FEMORAL 05/28/2020 12:20 Bleeding POPLITEAL PM CDT EKG STAT 05/28/2020 11:35 Results for this AM CDT procedure are i n the results section. PROTIME/INR CARLI 05/28/2020 10:18 Results for this AM CDT procedure are i n the results section. COMPLETE BLOOD COUNT CARLI 05/28/2020 10:18 Res ults for this WITHOUT DIFFERENTIAL AM CDT procedu re are in the results section. LACTIC ACID CARLI 05/28/2020 10:18 Results for this AM CDT procedure are i n the results section. VANCOMYCIN TROUGH Timed Routine 05/28/2020 10:18 Resul ts for this AM CDT procedure are i n the results section. PREPARE AND HOLD RED STAT 05/28/2020 9:19 Res ults for this BLOOD CELLS IN UNITS - AM CDT proce dure are in BLOOD BANK the results section. PREPARE AND HOLD RED STAT 05/28/2020 9:15 Res ults for this BLOOD CELLS IN UNITS - AM CDT proce dure are in BLOOD BANK the results section. LAB ONLY-COMPLETE Routine 05/28/2020 3:30 Result s for this BLOOD COUNT WITH AM CDT procedure a re in DIFFERENTIAL the results section. TYPE AND SCREEN STAT 05/28/2020 3:30 Results for this AM CDT procedure are i n the results section. MAGNESIUM Routine 05/28/2020 3:30 Results for this AM CDT procedure are i n the results section. LACTIC ACID Timed Routine 05/28/2020 3:30 Results fo r this AM CDT procedure are i n the results section. RENAL FUNCTION PANEL Routine 05/28/2020 3:30 Res ults for this AM CDT procedure are i n the results section. LAB ONLY-COMPLETE Routine 05/28/2020 3:30 Result s for this BLOOD COUNT WITH AM CDT procedure a re in DIFFERENTIAL the results section. GLUCOSE BY METER, POCT Routine 05/28/2020 3:22 R esults for this AM CDT procedure are i n the results section. GLUCOSE BY METER, POCT Routine 05/28/2020 12:23 R esults for this AM CDT procedure are i n the results section. LACTIC ACID Timed Routine 05/27/2020 10:04 Results fo r this PM CDT procedure are i n the results section. GLUCOSE BY METER, POCT Routine 05/27/2020 8:08 R esults for this PM CDT procedure are i n the results section. MAGNESIUM STAT 05/27/2020 6:15 Results for this PM CDT procedure are i n the results section. RENAL FUNCTION PANEL STAT 05/27/2020 6:15 Res ults for this PM CDT procedure are i n the results section. GLUCOSE BY METER, POCT Routine 05/27/2020 5:57 R esults for this PM CDT procedure are i n the results section. COLLECT AND HOLD Routine 05/27/2020 5:15 Results for this LAVENDER (EDTA) TOP PM CDT procedur e are in TUBE the results section. LACTIC ACID Timed Routine 05/27/2020 4:22 Results fo r this PM CDT procedure are i n the results section. XRAY CHEST PORTABLE CARLI 05/27/2020 4:04 Resu lts for this PM CDT procedure are i n the results section. STAPH AUREUS/MRSA QUINCY, Routine 05/27/2020 2:20 R esults for this SUPERFICIAL WOUND PM CDT procedure are in the results section. LACTIC ACID CARLI 05/27/2020 1:00 Results for this PM CDT procedure are i n the results section. LIPID PANEL Routine 05/27/2020 4:13 Results for this AM CDT procedure are i n the results section. CORTISOL TOTAL, A.M. STAT 05/27/2020 4:13 Res ults for this AM CDT procedure are i n the results section. MAGNESIUM STAT 05/27/2020 4:13 Results for this AM CDT procedure are i n the results section. LACTIC ACID Routine 05/27/2020 4:13 Results for this AM CDT procedure are i n the results section. CREATININE Routine 05/27/2020 4:13 Results for this AM CDT procedure are i n the results section. RENAL FUNCTION PANEL STAT 05/27/2020 4:13 Res ults for this AM CDT procedure are i n the results section. CULTURE, BLOOD CARLI 05/27/2020 1:09 Results f or this AM CDT procedure are i n the results section. LAB ONLY-GRAM POSITIVE Routine 05/27/2020 12:46 R esults for this BLOOD CULTURE ID BY AM CDT procedur e are in NAD the results section. LAB ONLY-MANUAL Routine 05/27/2020 12:46 Results for this DIFFERENTIAL AM CDT procedure are i n the results section. LAB ONLY-COMPLETE CARLI 05/27/2020 12:46 Result s for this BLOOD COUNT WITH AM CDT procedure a re in DIFFERENTIAL the results section. COLLECT AND HOLD SST Routine 05/27/2020 12:46 Res ults for this TOP TUBE AM CDT procedure are i n the results section. COLLECT AND HOLD BLUE Routine 05/27/2020 12:46 Re sults for this (NACIT) TOP TUBE AM CDT procedure a re in the results section. LACTIC ACID CARLI 05/27/2020 12:46 Results for this AM CDT procedure are i n the results section. COMPREHENSIVE CARLI 05/27/2020 12:46 Results fo r this METABOLIC PANEL AM CDT procedure ar e in the results section. LAB ONLY-COMPLETE CARLI 05/27/2020 12:46 Result s for this BLOOD COUNT WITH AM CDT procedure a re in DIFFERENTIAL the results section. XRAY CHEST PORTABLE STAT 05/26/2020 11:59 Resu lts for this PM CDT procedure are i n the results section. EKG Routine 05/26/2020 11:11 Results for this PM CDT procedure are i n the results section. HEPARIN UNFRACTIONATED Routine 05/26/2020 8:40 R esults for this ANTI-XA PM CDT procedure are i n the results section. CARDIAC CATH POSSIBLE Routine 05/26/2020 5:29 Re sults for this ANGIOPLASTY STENT CATH PM CDT proce dure are in LAB the results section. CULTURE, BLOOD Timed Routine 05/26/2020 3:35 Results for this PM CDT procedure are i n the results section. CULTURE, BLOOD Timed Routine 05/26/2020 3:20 Results for this PM CDT procedure are i n the results section. HEPARIN UNFRACTIONATED Timed Routine 05/26/2020 12:57 Results for this ANTI-XA PM CDT procedure are i n the results section. HEPARIN/ENOXAPARIN Timed Routine 05/26/2020 10:08 Resu lts for this ANTI-XA AM CDT procedure are i n the results section. ECHO ADULT COMPLETE Routine 05/26/2020 9:09 Resu lts for this AM CDT procedure are i n the results section. COMPLETE BLOOD COUNT STAT 05/26/2020 7:27 Res ults for this WITHOUT DIFFERENTIAL AM CDT procedu re are in the results section. TROPONIN I STAT 05/26/2020 7:27 Results for this AM CDT procedure are i n the results section. CREATININE STAT 05/26/2020 7:27 Results for this AM CDT procedure are i n the results section. HEPARIN UNFRACTIONATED Routine 05/26/2020 7:07 R esults for this ANTI-XA AM CDT procedure are i n the results section. PTT CARLI 05/26/2020 7:07 Results for this AM CDT procedure are i n the results section. HEPARIN/ENOXAPARIN STAT 05/26/2020 7:07 Resul ts for this ANTI-XA AM CDT procedure are i n the results section. documented in this encounter Results SARS-COV-2 RNA, QUALITATIVE REAL-TIME RT-PCR (06/08/2020 12:56 PM CDT) SARS CoV RNA, RT Not Detected Not Detected [facility] Specimen Respiratory Narrative Performed At This test was performed by polymerase chain reaction ( PCR) [facility] on the [employer] instrument. This assay is for in vitro diagnostic use under FDA Emergency Use Authorization only. Optimal performance of this test requires appropriate specimen collection, storage, and transport to the [facility] site. Detection of SARS-CoV-2 RNA may be affected by sample collection methods, patient factors (eg, presence of symptoms), and/or stage of infection. False-negative results may arise from degradation of v iral RNA during shipping/storage. Results should be interpreted by a trained professiona l in conjunction with the patient s history and clinical signs and symptoms, and epidemiological risk factors. Negative results do not preclude infection with the SARS-CoV-2 virus and should not be the sole basis of p atient treatment/management or public health decision. Follow up testing should be performed according to the current [facility] recommendations. Performing Organization Address City/[facility]/Zipcode Phone Number [facility] [address] [place] [id number] [phone] CK (06/08/2020 4:46 AM CDT) Pathologist [facility] CK 29 (L) 30 - 170 U/L [address] Specimen Blood Performing Organization Address [facility]/Zipcode Phone Number [address] [place] [address] LAB ONLY-COMPLETE BLOOD COUNT WITH DIFFERENTIAL (06/08/2020 4:46 AM CDT) [facility] WBC 10.3 4.0 - 11.0 K/uL [address] RBC 2.85 (L) 3.80 - 5.[address] M/uL Hemoglobin 8.4 (L) 11.5 - 15.[address] g/dL Hematocrit 26.1 (L) 35.0 - 45.0 % [address] MCV 91.6 80.0 - 98.[address] MCH 29.5 25.5 - 34.[address] MCHC 32.2 31.5 - 36.[address] g/dL RDW-CV 16.1 (H) 11.5 - 15.5 % [address] RDW-SD 51.5 (H) 35.5 - 50.[address] Platelet Count 269 140 - 400 K/uL [address] MPV 10.6 8.5 - 12.[address] Seg Neut Absolute 7.7 1.8 - 8.0 K/uL [address] Lymphocytes Absolute 1.3 0.8 - 4.1 K/uL [place] [id number] [facility] Monocytes Absolute 0.9 0.0 - 1.0 K/uL [place] [address] [facility] Eosinophils Absolute 0.2 0.0 - 0.7 K/uL [place] [address] [facility] Basophil Absolute 0.1 0.0 - 0.2 K/uL [address] Immature Granulocyte 0.08 (H) 0.00 - 0.06 [place] [address] [facility] Absolute K/uL Neutrophils Abs. 7,700 /uL [address] (Segs and Bands) Neutrophils Percent 74.9 % [address] Lymphocytes Percent 12.7 % [address] Monocytes Percent 8.8 % [address] Immature Granulocyte 0.8 % [address] Percent Eosinophils Percent 2.1 % [address] Basophil Percent 0.7 % [address] Nucleated RBC 0 /[address] Specimen Blood Performing Organization Address [facility] Phone Number [address] [place] [phone] MAGNESIUM (06/08/2020 4:46 AM CDT) Pathologist Sig nature Magnesium 1.8 1.8 - 2.4 mg/dL 07 [address] Specimen Blood Performing Organization Address [facility] Phone Number [address] [address] COMPREHENSIVE METABOLIC PANEL (06/08/2020 4:46 AM CDT) Pathologist Sig nature Glucose 85 70 - 100 mg/dL [address] BUN 28 (H) 6 - 22 mg/dL [address] Creatinine 1.90 (H) 0.60 - 1.[address] mg/dL BUN/Creatinine Ratio 14.7 10.0 - 25.[address] Sodium 137 135 - 145 meq/L [address] Potassium 3.5 3.5 - 5.3 meq/L [address] Chloride 104 99 - 110 meq/L [place] [address] [facility] CO2 22 20 - 29 meq/L [address] Anion Gap with K 15 6 - 20 meq/L [address] Calcium 9.1 8.5 - 10.[address] mg/dL Protein Total 5.7 (L) 6.0 - 8.2 g/dL [address] Albumin 2.6 (L) 3.5 - 5.0 g/dL [address] Alkaline Phosphatase 66 30 - 150 U/L [address] AST - SGOT 23 0 - 35 U/L [address] ALT - SGPT 19 0 - 55 U/L [address] Bilirubin Total 0.4 0.2 - 1.2 mg/dL [address] Corrected Calcium 10.2 8.5 - 10.[address] mg/dL Age [address] eGFR Non- 26 (L) >=[address] [place] mL/min/1.73m2 eGFR 31 (L) >=[address] mL/min/1.73m2 Specimen Blood Performing Organization Address [facility] Phone Number [address] [place] [address], [place] [address] BASIC METABOLIC PANEL (06/07/2020 5:21 AM CDT) [facility] Glucose 122 (H) 70 - 100 mg/dL [address] BUN 28 (H) 6 - 22 mg/dL [address] Creatinine 1.99 (H) 0.60 - 1.[address] mg/dL BUN/Creatinine Ratio 14.1 10.0 - 25.[address] Sodium 134 (L) 135 - 145 meq/L [address] Potassium 3.8 3.5 - 5.3 meq/L [address] Chloride 102 99 - 110 meq/L [address] CO2 22 20 - 29 meq/L [address] Anion Gap with K 14 6 - 20 meq/L [address] Calcium 8.6 8.5 - 10.[address] mg/dL Age [address] eGFR Non- 24 (L) >=[address] [place] mL/min/1.73m2 eGFR 30 (L) >=[address] mL/min/1.73m2 Specimen Blood Performing Organization Address [facility] Phone Number [address] [place] [address], [place] [address] COMPLETE BLOOD COUNT WITHOUT DIFFERENTIAL (06/07/2020 5:21 AM CDT) Pathologist Sig [facility] WBC 11.3 (H) 4.0 - 11.0 K/uL [address] RBC 2.94 (L) 3.80 - 5.30 M/uL [address] Hemoglobin 8.6 (L) 11.5 - 15.8 g/dL [address] Hematocrit 26.8 (L) 35.0 - 45.0 % [address] MCV 91.2 80.0 - 98.[address] MCH 29.3 25.5 - 34.[address] MCHC 32.1 31.5 - 36.5 g/dL [address] RDW-CV 16.2 (H) 11.5 - 15.5 % [address] RDW-SD 51.5 (H) 35.5 - 50.[address] Platelet Count 246 140 - 400 K/uL [address] MPV 10.5 8.5 - 12.[address] Specimen Blood Performing Organization Address City/State/Zipcode Phone Number [address] [place] [address] BASIC METABOLIC PANEL (06/06/2020 6:02 AM CDT) Pathologist Sig [facility] Glucose 132 (H) 70 - 100 mg/dL [address] BUN 26 (H) 6 - 22 mg/dL [address] Creatinine 2.00 (H) 0.60 - 1.[address] mg/dL BUN/Creatinine Ratio 13.0 10.0 - 25.[address] Sodium 133 (L) 135 - 145 meq/L [address] Potassium 3.7 3.5 - 5.3 meq/L [address] Chloride 101 99 - 110 meq/L [place] [address] [facility]IN[facility] CO2 23 20 - 29 meq/L [address] Anion Gap with K 13 6 - 20 meq/L [address] Calcium 8.5 8.5 - 10.[address] mg/dL Age [address] eGFR Non- 24 (L) >=[address] [place] mL/min/1.73m2 eGFR 30 (L) >=[address] mL/min/1.73m2 Specimen Blood Performing Organization Address [facility] Phone Number [address] [place] [phone] COMPLETE BLOOD COUNT WITHOUT DIFFERENTIAL (06/06/2020 6:02 AM CDT) Pathologist Sig nature WBC 11.6 (H) 4.0 - 11.0 K/uL [address] RBC 2.84 (L) 3.80 - 5.30 M/uL [address] Hemoglobin 8.3 (L) 11.5 - 15.8 g/dL [address] Hematocrit 26.2 (L) 35.0 - 45.0 % [address] MCV 92.3 80.0 - 98.[address] MCH 29.2 25.5 - 34.[address] MCHC 31.7 31.5 - 36.5 g/dL [address] RDW-CV 16.4 (H) 11.5 - 15.5 % [address] RDW-SD 52.8 (H) 35.5 - 50.[address] Platelet Count 238 140 - 400 K/uL [address] MPV 10.9 8.5 - 12.[address] Specimen Blood Performing Organization Address [facility] Phone Number [address] [place] [address] COMPLETE BLOOD COUNT WITHOUT DIFFERENTIAL (06/05/2020 5:23 AM CDT) Pathologist Sig nature WBC 16.4 (H) 4.0 - 11.0 K/uL [address] RBC 3.16 (L) 3.80 - 5.30 M/uL [address] Hemoglobin 9.2 (L) 11.5 - 15.8 g/dL [address] Hematocrit 28.8 (L) 35.0 - 45.0 % [address] MCV 91.1 80.0 - 98.0 fL [place] [address] [facility] MCH 29.1 25.5 - 34.[address] MCHC 31.9 31.5 - 36.5 g/dL [address] RDW-CV 16.6 (H) 11.5 - 15.5 % [address] RDW-SD 51.7 (H) 35.5 - 50.[address] Platelet Count 221 140 - 400 K/uL [address] MPV 11.3 8.5 - 12.[address] Specimen Blood Performing Organization Address [facility] Phone Number [address] [place] [address] BASIC METABOLIC PANEL (06/05/2020 5:23 AM CDT) Pathologist Sig [employer] Glucose 111 (H) 70 - 100 mg/dL [address] BUN 23 (H) 6 - 22 mg/dL [address] Creatinine 1.69 (H) 0.60 - 1.[address] mg/dL BUN/Creatinine Ratio 13.6 10.0 - 25.[address] Sodium 132 (L) 135 - 145 meq/L [address] Potassium 4.1 3.5 - 5.3 meq/L [address] Chloride 100 99 - 110 meq/L [address] CO2 21 20 - 29 meq/L [address] Anion Gap with K 15 6 - 20 meq/L [address] Calcium 8.4 (L) 8.5 - 10.[address] mg/dL Age [address] eGFR Non- 30 (L) >=[address] [place] mL/min/1.73m2 eGFR 36 (L) >=[address] mL/min/1.73m2 Specimen Blood Performing Organization Address [facility] Phone Number [address] [place] [address], [place] [address] LAB ONLY-COMPLETE BLOOD COUNT WITH DIFFERENTIAL (06/04/2020 9:41 AM CDT) Pathologist Sig nature WBC 16.2 (H) 4.0 - 11.0 K/uL [address] RBC 3.05 (L) 3.80 - 5.30 [place] [address] [facility] M/uL Hemoglobin 8.9 (L) 11.5 - 15.[address] g/dL Hematocrit 27.5 (L) 35.0 - 45.0 % [address] MCV 90.2 80.0 - 98.[address] MCH 29.2 25.5 - 34.[address] MCHC 32.4 31.5 - 36.[address] g/dL RDW-CV 17.3 (H) 11.5 - 15.5 % [address] RDW-SD 53.0 (H) 35.5 - 50.[address] Platelet Count 191 140 - 400 K/uL [address] MPV 11.3 8.5 - 12.[address] Seg Neut Absolute 12.9 (H) 1.8 - 8.0 K/uL [address] Lymphocytes Absolute 1.7 0.8 - 4.1 K/uL [place] [address] [facility] Monocytes Absolute 1.0 0.0 - 1.0 K/uL [address] Eosinophils Absolute 0.3 0.0 - 0.7 K/uL [place] [address] [facility] Basophil Absolute 0.1 0.0 - 0.2 K/uL [address] Immature Granulocyte 0.27 (H) 0.00 - 0.06 [place] [address] [facility]IN[facility] Absolute K/uL Neutrophils Abs. 12,900 /uL [address] (Segs and Bands) Neutrophils Percent 79.7 % [address] Lymphocytes Percent 10.8 % [address] Monocytes Percent 5.9 % [address] Immature Granulocyte 1.7 % [address] Percent Eosinophils Percent 1.5 % [address] Basophil Percent 0.4 % [address] Nucleated RBC 0 /[address] Specimen Blood Performing Organization Address City/State/Zipcode Phone Number [address] [place] [address] RENAL FUNCTION PANEL (06/04/2020 9:41 AM CDT) Pathologist Sig nature Glucose 110 (H) 70 - 100 mg/dL [address] BUN 22 6 - 22 mg/dL [address] Creatinine 1.71 (H) 0.60 - 1.[address] mg/dL BUN/Creatinine Ratio 12.9 10.0 - 25.[address] Sodium 132 (L) 135 - 145 meq/L [address] Potassium 3.4 (L) 3.5 - 5.3 meq/L [address] Chloride 99 99 - 110 meq/L [address] CO2 25 20 - 29 meq/L [address] Anion Gap with K 11 6 - 20 meq/L [address] Calcium 8.2 (L) 8.5 - 10.[address] mg/dL Phosphorus 3.5 2.5 - 4.5 mg/dL [address] Albumin 2.5 (L) 3.5 - 5.0 g/dL [address] Corrected Calcium 9.4 8.5 - 10.[address] mg/dL Age [address] eGFR Non- 29 (L) >=[address] [place] mL/min/1.73m2 eGFR 35 (L) >=[address] mL/min/1.73m2 Specimen Blood Performing Organization Address City/State/Zipcode Phone Number [address] [place] [address] LAB ONLY-COMPLETE BLOOD COUNT WITH DIFFERENTIAL (06/03/2020 5:06 AM CDT) Pathologist Sig nature WBC 17.2 (H) 4.0 - 11.0 K/uL [address] RBC 3.15 (L) 3.80 - 5.[address] M/uL Hemoglobin 9.0 (L) 11.5 - 15.[address] g/dL Hematocrit 28.0 (L) 35.0 - 45.0 % [address] MCV 88.9 80.0 - 98.[address] MCH 28.6 25.5 - 34.[address] MCHC 32.1 31.5 - 36.[address] g/dL RDW-CV 17.4 (H) 11.5 - 15.5 % [address] RDW-SD 52.4 (H) 35.5 - 50.[address] Platelet Count 176 140 - 400 K/uL [address] MPV 12.0 8.5 - 12.[address] Seg Neut Absolute 13.2 (H) 1.8 - 8.0 K/uL [address] Lymphocytes Absolute 1.9 0.8 - 4.1 K/uL [place] [address] [facility] Monocytes Absolute 1.0 0.0 - 1.0 K/uL [address] Eosinophils Absolute 0.3 0.0 - 0.7 K/uL [place] [address] [facility] Basophil Absolute 0.0 0.0 - 0.2 K/uL [address] Immature Granulocyte 0.69 (H) 0.00 - 0.[address] Absolute K/uL Neutrophils Abs. 13,200 /uL [address] (Segs and Bands) Neutrophils Percent 77.2 % [address] Lymphocytes Percent 10.9 % [address] Monocytes Percent 5.8 % [address] Immature Granulocyte 4.0 % [address] Percent Eosinophils Percent 1.9 % [address] Basophil Percent 0.2 % [address] Nucleated RBC 0 /[address] Specimen Blood Performing Organization Address City/State/Zipcode Phone Number [address] [place] [address] RENAL FUNCTION PANEL (06/03/2020 5:06 AM CDT) Pathologist Sig nature Glucose 120 (H) 70 - 100 mg/dL [address] BUN 24 (H) 6 - 22 mg/dL [address] Creatinine 1.73 (H) 0.60 - 1.[address] mg/dL BUN/Creatinine Ratio 13.9 10.0 - 25.[address] Sodium 135 135 - 145 meq/L [address] Potassium 3.4 (L) 3.5 - 5.3 meq/L [address] Chloride 101 99 - 110 meq/L [address] CO2 25 20 - 29 meq/L [address] Anion Gap with K 12 6 - 20 meq/L [address] Calcium 8.4 (L) 8.5 - 10.[address] mg/dL Phosphorus 3.5 2.5 - 4.5 mg/dL [address] Albumin 2.6 (L) 3.5 - 5.0 g/dL [address] Corrected Calcium 9.5 8.5 - 10.[address] mg/dL Age [address] eGFR Non- 29 (L) >=[address] [place] mL/min/1.73m2 eGFR 35 (L) >=[address] mL/min/1.73m2 Specimen Blood Performing Organization Address [facility] Phone Number [address] [place] [address], [place] [address] PREPARE AND HOLD RED BLOOD CELLS IN UNITS - BLOOD BANK, 1 Units (06/02/2020 9:45 PM CDT) Pathologist [facility] Product Code [id number] LAB [facility] Unit Number [id number] LAB Unit ABO Type O LAB Unit Rh Type NEG LAB XM Interp Compatible LAB [facility] Dispense Status TR LAB [facility] Blood [id number] LAB Expiration Date [facility] Coding System 9500 LAB Product Code RBC, Leukoreduced LAB [id number] Unit ID [id number] LAB Product Status Transfused LAB Specimen Blood Performing Organization Address [email or web address] Phone Number LAB HEMOGLOBIN (06/02/2020 8:06 PM CDT) Pathologist [facility] cara Hemoglobin 7.6 (L) 11.5 - 15.8 g/dL [address] Specimen Blood Performing Organization Address [email or web address] Phone Number [address] [place] [address] GLUCOSE BY METER, POCT (06/02/2020 5:00 PM CDT) Pathologist Sig nature Glucose POC 103 (H) 70 - 100 mg/dL [facility] POINT OF CARE TESTING Specimen Blood Performing Organization Address [email or web address] Phone Number [facility] POINT OF [address] [place] [address], [place] [address] CARE TESTING HEMOGLOBIN (06/02/2020 2:52 PM CDT) Pathologist Sig nature Hemoglobin 8.4 (L) 11.5 - 15.8 g/dL [address] Specimen Blood Performing Organization Address [facility] Phone Number [place] [address] [place] [address], [place] [address] GLUCOSE BY METER, POCT (06/02/2020 12:27 PM CDT) Pathologist Sig nature Glucose POC 112 (H) 70 - 100 mg/dL [facility] POINT OF CARE TESTING Specimen Blood Performing Organization Address [facility] Phone Number [facility] POINT OF [address] [place] [address], [place] [address] CARE TESTING CULTURE, BLOOD (06/02/2020 10:25 AM CDT)Only the most recent of5 resultswithin the time period is included. Pathologist Sig nature Culture Result No growth at 5 [facility] Specimen Blood Narrative Performed At [facility] Peripheral draw Performing Organization Address [facility] Phone Number [address] [address] [phone] TROPONIN I (06/02/2020 8:10 AM CDT) Pathologist Sig nature Troponin I 37.653 (H) 0.000 - 0.028 ng/mL [address] Specimen Blood Performing Organization Address [facility] Phone Number [address] [place] [address] LAB ONLY-MANUAL DIFFERENTIAL (06/02/2020 8:10 AM CDT) Neutrophils Abs. (Segs 13,940 /uL [place] [address] and Bands) [facility] Seg Neut Absolute 13.6 (H) 1.8 - 8.0 K/uL [place] [address] CLINIC Band Absolute 0.3 0.0 - 0.7 K/uL [address] Lymphocytes Absolute 1.4 0.8 - 4.1 K/uL [address] Monocytes Absolute 0.7 0.0 - 1.0 K/uL [address] Eosinophils Absolute 1.0 (H) 0.0 - 0.7 K/uL [address] Neutrophils Percent 80.0 % [address] Band Percent 2.0 % [address] Lymphocytes Percent 8.0 % [address] Monocytes Percent 4.0 % [address] Eosinophils Percent 6.0 % [address] Platelet Morphology Normal [address] Polychromasia 1+ [address] Specimen Blood Performing Organization Address [facility] Phone Number [address] [place] [address] LAB ONLY-COMPLETE BLOOD COUNT WITH DIFFERENTIAL (06/02/2020 8:10 AM CDT) Pathologist Sig nature WBC 17.0 (H) 4.0 - 11.0 K/uL [address] RBC 2.80 (L) 3.80 - 5.30 M/uL [address] Hemoglobin 8.2 (L) 11.5 - 15.8 g/dL [address] Hematocrit 25.1 (L) 35.0 - 45.0 % [address] MCV 89.6 80.0 - 98.[address] MCH 29.3 25.5 - 34.[address] MCHC 32.7 31.5 - 36.5 g/dL [address] RDW-CV 17.6 (H) 11.5 - 15.5 % [address] RDW-SD 54.4 (H) 35.5 - 50.[address] Platelet Count 164 140 - 400 K/uL [address] MPV 11.6 8.5 - 12.[address] Specimen Blood Narrative Performed At A previously reported component Auto NRBCs is no longe r reported. [place] [address] [facility] Performing Organization Address [email or web address] Phone Number [address] [place] [address], [place] [address] MAGNESIUM (06/02/2020 8:10 AM CDT) Pathologist Sig [facility] Magnesium 1.9 1.8 - 2.4 mg/dL [address] Specimen Blood Performing Organization Address [facility] Phone Number [address] [place] [address] RENAL FUNCTION PANEL (06/02/2020 8:10 AM CDT) Pathologist Sig nature Glucose 97 70 - 100 mg/dL [address] BUN 26 (H) 6 - 22 mg/dL [address] Creatinine 1.79 (H) 0.60 - 1.[address] mg/dL BUN/Creatinine Ratio 14.5 10.0 - 25.[address] Sodium 137 135 - 145 meq/L [address] Potassium 3.3 (L) 3.5 - 5.3 meq/L [address] Chloride 104 99 - 110 meq/L [address] CO2 24 20 - 29 meq/L [address] Anion Gap with K 12 6 - 20 meq/L [address] Calcium 8.2 (L) 8.5 - 10.[address] mg/dL Phosphorus 3.7 2.5 - 4.5 mg/dL [address] Albumin 2.5 (L) 3.5 - 5.0 g/dL [address] Corrected Calcium 9.4 8.5 - 10.[address] mg/dL Age [address] eGFR Non- 28 (L) >=[address] [place] mL/min/1.73m2 eGFR 34 (L) >=[address] mL/min/1.73m2 Specimen Blood Performing Organization Address [email or web address] Phone Number [address] [place] [address], [place] [address] PROTIME/INR (06/02/2020 8:09 AM CDT) Pathologist Sig nature Protime 14.2 12.0 - 14.[address] INR 1.1 (L) 2.0 - 3.[address] Specimen Blood Narrative Performed At Normal INR reference range (patients not on oral [address] anticoagulants)0.9-1.1. INR Standard Intensity = (2.0 - 3.0) INR Higher Intensity = (2.5 - 3.5) Performing Organization Address [facility] Phone Number [address] [address] GLUCOSE BY METER, POCT (06/02/2020 7:09 AM CDT) Pathologist Sig nature Glucose POC 107 (H) 70 - 100 mg/dL [facility] POINT OF CARE TESTING Specimen Blood Performing Organization Address [facility] Phone Number [facility] POINT OF [address] [place] [address] CARE TESTING HEMOGLOBIN (06/02/2020 2:06 AM CDT) Pathologist Sig nature Hemoglobin 8.0 (L) 11.5 - 15.8 g/dL [address] Specimen Blood Performing Organization Address [facility] Phone Number [address] [place] [address] GLUCOSE BY METER, POCT (06/02/2020 12:50 AM CDT) Pathologist Sig nature Glucose POC 109 (H) 70 - 100 mg/dL [facility] POINT OF CARE TESTING Specimen Blood Performing Organization Address [facility] Phone Number [facility] POINT OF [address] [place] [address] CARE TESTING GLUCOSE BY METER, POCT (06/01/2020 8:40 PM CDT) Pathologist Sig nature Glucose POC 116 (H) 70 - 100 mg/dL [facility] POINT OF CARE TESTING Specimen Blood Performing Organization Address [facility] Phone Number [facility] POINT OF [address] [place] [address] CARE TESTING HEMOGLOBIN (06/01/2020 8:02 PM CDT) Pathologist Sig nature Hemoglobin 7.7 (L) 11.5 - 15.8 g/dL [address] Specimen Blood Performing Organization Address [facility] Phone Number [address] [place] [address] GLUCOSE BY METER, POCT (06/01/2020 3:50 PM CDT) Pathologist Sig nature Glucose POC 81 70 - 100 mg/dL [facility] POINT OF CARE TESTING Specimen Blood Performing Organization Address [facility] [[email or web address] Phone Number [facility] POINT OF [address] [place] [address] CARE TESTING GLUCOSE BY METER, POCT (06/01/2020 1:26 PM CDT) Pathologist Sig nature Glucose POC 81 70 - 100 mg/dL [facility] POINT OF CARE TESTING Specimen Blood Performing Organization Address [facility] [[email or web address] Phone Number [facility] POINT OF [address] [place] [address] CARE TESTING HEMOGLOBIN (06/01/2020 1:24 PM CDT) Pathologist Sig nature Hemoglobin 8.2 (L) 11.5 - 15.8 g/dL [place] [address] [facility] Specimen Blood Performing Organization Address [facility] Phone Number [place] [address] [place] [address] ECHO TRANSESOPHAGEAL (06/01/2020 10:25 AM CDT) Specimen Narrative Performed At This result has an attachment that is no t available. [facility] Patient: LONI MUNIZ MR#:[id number] Exam Date:06/01/2020 Transesophageal Echocardiogram [address] BP:100/64 mmHg HR:68 bpm : 1945 Exam Location: Bedside Height: () Age: 74 year(s) [facility] Gender:Female Patient Status:Inpatient BSA: Assistant Project Engineer:AYO JARAMILLO RDCS Reading Physician:BUCK PENA MD Ordering Physician: MAREN MORRIS NP Nurse: KIM QUIÑONES RN Nurse: JACK COLLINS RN Procedure Indication(s): Sep sis, vegetations Examination: ALEJANDRA Complete 2D, Limited Spectral Doppler, Color Doppler,3D imaging requiring image post-processing on the machine,Agitated saline Clinical History Comment:Hx of PCI Conclusions Left Ventricle: Normal left ventricular systolic function. Left Atrial Appendage: No thrombus in left atrial appendage. Aortic Valve: There is no vegetation on the aortic valve. Mitral Valve: There is no vegetation on the mitral valve. Tricuspid Valve: Mild tricuspid regurgitation. Comparison Study Comparison Date: 05/26/2020 Comparison Study: Transthoracic Echocardiogram Unable to make direct comparison with prior echo Findings Study was performed under the care of anesthesia. Left Ventricle: Normal left ventricular size. Increased left ventricular wall thickness. Normal left ventricular systolic function. Left Atrium: Dilated left atrium by visual assessment. Left Atrial Appendage: Normal left atrial appendage size. Jade l color flow doppler in the left atrial appendage. Normal ejection velocity. No thrombus in left atrial appendage. Aortic Valve: 3D imaging was used to assess the aortic valve. The aortic valve is tricuspid. Mild aort ic cuspal thickening. Normal aortic cuspal mobility. No significant aortic regurgitation. There is no vegetation on the aortic valve. Aorta: No atheroma present. Mitral Valve: 3D imaging was used to assess the mitral valve. Mild mitral leaflet thickening. Mild evgeny ral leaflet calcification. Restricted mobility of the posterior mitral leaflet. Trivial mitral regurgitation. There is no vegetation on the mitral va lve. IAS: No evidence of an atrial shunt by agitated saline or c olor doppler. Right Ventricle: Normal right ventricular size. Pulmonary Vein: Normal pulmonary venous flow. Right Atrium: Normal right atrial size by visual assessment. Tricuspid Valve: Normal tricuspid valve structure. Mild tricuspid regur gitation. Pulmonic Valve: Normal pulmonary valve structure. Trivial pulmonary re gurgitation. Pericardium: No significant pericardial effusion. Exam Details ALEJANDRA Probe #:10 ALEJANDAR Probe Type: An adult omniplane probe was inserted by the attending hammer setter. Passing of Probe: Trouble-free probe introduction and examination Complications: No complications during the examination Medications DateMed Name Med RouteDose Units Comment 06/01/20202% Viscous Lidocaine Oral 15milliliters 06/01/2020Ketamine Intravenous 10 milligrams 06/01/2020Propofol Intravenous 40 milligrams 06/01/20200.9% Normal Saline Intravenous 200milliliters 06/01/2020Phenylephrine Intravenous 25 micrograms Measurements Heart Rate LabelValue Normal Value Heart Rate 68 bpm Electronically signed by BUCK GIRON MD on 020 at 04:04 PM (No Signature Object) Procedure Note Interface, Inc Results No Pull Forward - 06/01/2020 4:06 PM CDT Patient: LONI MUNIZ MR#: [id number] Exam Date: 06/01/2020 Transesophageal Echocardiogram [facility] [address] [place] [address] BP: 100/64 mmHg HR: 68 bpm : 1945 Exa m Location: Bedside Height: ( ) Age: 74 year(s) Pat ient Room: 553 Weight: ( ) Gender: Female Pat ient Status: Inpatient BSA: Assistant Project Engineer: AYO LEONG ER, RDCS Reading Physician: BUCK MONTAGUE MD Ordering Physician: MAREN TATE NP Nurse: KIM KIRKLAND RN Nurse: JACK FARFAN RN Procedure Indication(s): Sepsis, vegetations Examination: ALEJANDRA Com plete 2D, Limited Spectral Doppler, Color Doppler,3D imaging requiring image post-processing on the machine,Agitated saline Clinical History Comment: Hx of PCI Conclusions Left Ventricle: Normal left ventricular systolic functio n. Left Atrial Appendage: No thrombus in left atrial appendage. Aortic Valve: There is no vegetation on the aortic barrington ve. Mitral Valve: There is no vegetation on the mitral barrington ve. Tricuspid Valve: Mild tricuspid regurgitation. Comparison Study Comparison Date: 05/26/2020 Comparison Study: Transthoracic Echocard iogram Unable to make direct comparison with pr ior echo Findings Study was performed under the care of an esthesia. Left Ventricle: Normal left ventricular size. Increased left ventricular wall thickness. Normal left ventricular systolic function. Left Atrium: Dilated left atrium by visual assessment . Left Atrial Appendage: Normal left atrial appendage size. Jade l color flow doppler in the left atrial appendage. Normal ejection velocity. No thrombus in left atrial appendage. Aortic Valve: 3D imaging was used to assess the aortic valve. The aortic valve is tricuspid. Mild aort ic cuspal thickening. Normal aortic cuspal mobility. No significant aortic regurgitation. There is no vegetation on the aortic barrington ve. Aorta: No atheroma present. Mitral Valve: 3D imaging was used to assess the mitral valve. Mild mitral leaflet thickening. Mild evgeny ral leaflet calcification. Restricted mobility of the posterior mitral leaflet. Trivial mitral regurgitation. There is no vegetation on the mitral valve. IAS: No evidence of an atrial shunt by agitat ed saline or color doppler. Right Ventricle: Normal right ventricular size. Pulmonary Vein: Normal pulmonary venous flow. Right Atrium: Normal right atrial size by visual asses sment. Tricuspid Valve: Normal tricuspid valve structure. Mild t ricuspid regurgitation. Pulmonic Valve: Normal pulmonary valve structure. Trivia l pulmonary regurgitation. Pericardium: No significant pericardial effusion. Exam Details ALEJANDRA Probe #: 10 ALEJANDRA Probe Type: An adult omniplane probe was inserted by the attending hammer setter. Passing of Probe: Trouble- free probe introduction and examination Complications: No compl ications during the examination Medications Date Med Name M ed Route Dose Units Comment 06/01/2020 2% Viscous Lidocaine O ral 15 milliliters 06/01/2020 Ketamine I ntravenous 10 milligrams 06/01/2020 Propofol I ntravenous 40 milligrams 06/01/2020 0.9% Normal Saline I ntravenous 200 milliliters 06/01/2020 Phenylephrine I ntravenous 25 micrograms Measurements Heart Rate Label Value No rmal Value Heart Rate 68 bpm (No Signature Object) Performing Organization Address [facility] [[email or web address] Phone Number [facility] [place] GLUCOSE BY METER, POCT (06/01/2020 9:10 AM CDT) Pathologist Sig nature Glucose POC 88 70 - 100 mg/dL [facility] POINT OF CARE TESTING Specimen Blood Performing Organization Address [facility] [[email or web address] Phone Number [facility] POINT OF [address] [place] [address] CARE TESTING HEMOGLOBIN (06/01/2020 9:10 AM CDT) Pathologist Sig nature Hemoglobin 7.9 (L) 11.5 - 15.8 g/dL [place] [address] CLINIC Specimen Blood Performing Organization Address [facility] [[email or web address] Phone Number [place] [address] [place] [address] HEPARIN UNFRACTIONATED ANTI-XA (06/01/2020 9:10 AM CDT) Heparin Xa 0.28 (L) 0.30 - 0.70 [place] [address] Unfractionated U/mL CLINIC Specimen Blood Narrative Performed At [address] Therapeutic Range: 0.3 - 0.7 IU/mL Performing Organization Address City/State/Zipcode Phone Number [address] [place] [address], [place] [address] LAB ONLY-COMPLETE BLOOD COUNT WITH DIFFERENTIAL (06/01/2020 4:27 AM CDT) [facility] WBC 17.4 (H) 4.0 - 11.0 K/uL [address] RBC 2.76 (L) 3.80 - 5.[address] M/uL Hemoglobin 8.2 (L) 11.5 - 15.[address] g/dL Hematocrit 24.1 (L) 35.0 - 45.0 % [address] MCV 87.3 80.0 - 98.[address] MCH 29.7 25.5 - 34.[address] MCHC 34.0 31.5 - 36.[address] g/dL RDW-CV 17.7 (H) 11.5 - 15.5 % [address] RDW-SD 55.4 (H) 35.5 - 50.[address] Platelet Count 141 140 - 400 K/uL [address] MPV 11.5 8.5 - 12.[address] Seg Neut Absolute 12.2 (H) 1.8 - 8.0 K/uL [address] Lymphocytes Absolute 2.5 0.8 - 4.1 K/uL [place] [address] CLINI C Monocytes Absolute 1.5 (H) 0.0 - 1.0 K/uL [address] Eosinophils Absolute 0.2 0.0 - 0.7 K/uL [place] [address] CLINI C Basophil Absolute 0.1 0.0 - 0.2 K/uL [address] Immature Granulocyte 0.96 (H) 0.00 - 0.[address] Absolute K/uL Neutrophils Abs. 12,200 /uL [address] (Segs and Bands) Neutrophils Percent 70.0 % [address] Lymphocytes Percent 14.5 % [address] Monocytes Percent 8.4 % [address] Immature Granulocyte 5.5 % [address] Percent Eosinophils Percent 1.3 % [address] Basophil Percent 0.3 % [address] Nucleated RBC 1 /[address] Specimen Blood Performing Organization Address [facility] Phone Number [address] [address] PROTIME/INR (06/01/2020 4:27 AM CDT) Pathologist Sig nature Protime 15.0 (H) 12.0 - 14.[address] INR 1.2 (L) 2.0 - 3.[address] Specimen Blood Narrative Performed At Normal INR reference range (patients not on oral [address] anticoagulants)0.9-1.1. INR Standard Intensity = (2.0 - 3.0) INR Higher Intensity = (2.5 - 3.5) Performing Organization Address [facility] Phone Number [address] [address] MAGNESIUM (06/01/2020 4:27 AM CDT) Pathologist Sig nature Magnesium 2.2 1.8 - 2.4 mg/dL [address] Specimen Blood Performing Organization Address [facility] Phone Number [address] [address] RENAL FUNCTION PANEL (06/01/2020 4:27 AM CDT) Pathologist Sig nature Glucose 97 70 - 100 mg/dL [address] BUN 29 (H) 6 - 22 mg/dL [address] Creatinine 1.60 (H) 0.60 - 1.[address] mg/dL BUN/Creatinine Ratio 18.1 10.0 - 25.[address] Sodium 136 135 - 145 meq/L [address] Potassium 3.4 (L) 3.5 - 5.3 meq/L [address] Chloride 106 99 - 110 meq/L [address] CO2 23 20 - 29 meq/L [address] Anion Gap with K 10 6 - 20 meq/L [address] Calcium 7.5 (L) 8.5 - 10.[address] mg/dL Phosphorus 3.5 2.5 - 4.5 mg/dL [address] Albumin 2.3 (L) 3.5 - 5.0 g/dL [address] Corrected Calcium 8.9 8.5 - 10.[address] mg/dL Age [address] eGFR Non- 32 (L) >=[address] [place] mL/min/1.73m2 eGFR 38 (L) >=[address] mL/min/1.73m2 Specimen Blood Performing Organization Address [facility] Phone Number [address] [place] [address] HEMOGLOBIN (06/01/2020 1:51 AM CDT) Pathologist Sig nature Hemoglobin 8.0 (L) 11.5 - 15.8 g/dL [address] Specimen Blood Performing Organization Address [facility] Phone Number [address] [place] [address] HEPARIN UNFRACTIONATED ANTI-XA (06/01/2020 1:51 AM CDT) Pathologist Sig [facility] Heparin Xa 0.41 0.30 - 0.[address] Unfractionated U/mL Specimen Blood Narrative Performed At [address] Therapeutic Range: 0.3 - 0.7 IU/mL Performing Organization Address [facility] Phone Number [address] [place] [address] GLUCOSE BY METER, POCT (06/01/2020 12:12 AM CDT) Pathologist Sig nature Glucose POC 98 70 - 100 mg/dL [facility] POINT OF CARE TESTING Specimen Blood Performing Organization [facility] Phone Number [facility] POINT OF [address] [place] [address] CARE TESTING HEMOGLOBIN (05/31/2020 7:54 PM CDT) Pathologist Sig nature Hemoglobin 8.1 (L) 11.5 - 15.8 g/dL [address] Specimen Blood Performing Organization Address [facility] Phone Number [address] [place] [address], [place] [address] HEPARIN UNFRACTIONATED ANTI-XA (05/31/2020 7:54 PM CDT) Pathologist Sig nature Heparin Xa 0.43 0.30 - 0.[address] Unfractionated U/mL Specimen Blood Narrative Performed At [address] Therapeutic Range: 0.3 - 0.7 IU/mL Performing Organization Address [facility] Phone Number [address] [place] [address], [place] [address] GLUCOSE BY METER, POCT (05/31/2020 5:37 PM CDT) Pathologist Sig nature Glucose POC 82 70 - 100 mg/dL [facility] POINT OF CARE TESTING Specimen Blood Performing Organization Address [facility] Phone Number [facility] POINT OF [address] [place] [address], [place] [address] CARE TESTING GLUCOSE BY METER, POCT (05/31/2020 2:03 PM CDT) Pathologist Sig nature Glucose POC 120 (H) 70 - 100 mg/dL [facility] POINT OF CARE TESTING Specimen Blood Performing Organization Address [facility] Phone Number [facility] POINT OF [address] [place] [address], [place] [address] CARE TESTING HEPARIN UNFRACTIONATED ANTI-XA (05/31/2020 2:03 PM CDT) Pathologist Sig nature Heparin Xa 0.37 0.30 - 0.[address] Unfractionated U/mL Specimen Blood Narrative Performed At [address] Therapeutic Range: 0.3 - 0.7 IU/mL Performing Organization Address [facility] Phone Number [address] [place] [address], [place] [address] HEMOGLOBIN (05/31/2020 2:03 PM CDT) Pathologist Sig nature Hemoglobin 8.4 (L) 11.5 - 15.8 g/dL [address] Specimen Blood Performing Organization Address [facility] Phone Number [address] [place] [address], [place] [address] GLUCOSE BY METER, POCT (05/31/2020 7:51 AM CDT) Pathologist Sig [facility] Glucose POC 122 (H) 70 - 100 mg/dL [facility] POINT OF CARE TESTING Specimen Blood Performing Organization Address [facility] [[email or web address] Phone Number [facility] POINT OF [address], [place] [address] CARE TESTING HEPARIN UNFRACTIONATED ANTI-XA (05/31/2020 7:49 AM CDT) Pathologist Sig [facility] Heparin Xa 0.37 0.30 - 0.[address] Unfractionated U/mL Specimen Blood Narrative Performed At [address] Therapeutic Range: 0.3 - 0.7 IU/mL Performing Organization Address [facility] Phone Number [address] [place] [address] EKG to be done 3 hours post coronary intervention (05/31/2020 7:39 AM CDT)Only the most recent of6 resultswithin the time period is included. Pathologist Sig [facility] EKG WAVEFORM TRACEMASTER SHELDON SUÁREZB Sinus rhythm with marked sinus arrythmia Left bundle branch block Abnormal ECG When compared with ECG of 30-MAY-2020 17:12, Sinus rhythm has replaced Atrial fibrillation Ventricular Rate: 73 BPM Atrial Rate: 86 BPM P-R Interval: 136 ms QRS Duration: 142 ms Q-T Interval: 412 ms QTc Calculation(Bazett): 453 ms Calculated P [place]: 65 degrees Calculated R [place]: 9 degrees Calculated T [place]: 174 degrees Specimen Narrative Performed At This result has an attachment that is no t available. Performing Organization Address [facility] Phone Number TRACEMASTER SHELDON SUÁREZB BRAIN NATRIURETIC PEPTIDE (05/31/2020 6:27 AM CDT) Pathologist Sig [facility] BNP 2,394 (H) 0 - 100 pg/mL [address] Specimen Blood Performing Organization Address [facility] Phone Number [address] [place] [address], [place] [address] TYPE AND SCREEN (05/31/2020 6:27 AM CDT) Pathologist Sig [facility] ABO Type O [address] BLOOD BANK Rh Type Positive [address] BLOOD BANK Antibody Screen Negative [address] Comment: BLOOD BANK Allogenic Red Cells Available 05/31/20 Expiration Date 06/03/2020 23:[address] BLOOD BANK Specimen Blood Performing Organization Address [facility] Phone Number [address] BLOOD BANK [address] [facility] [place] [address] HEMOGLOBIN (05/31/2020 6:27 AM CDT) Pathologist Sig nature Hemoglobin 7.6 (L) 11.5 - 15.8 g/dL [address] Specimen Blood Performing Organization Address [facility] Phone Number [address] [facility] [place] [address] PREPARE AND HOLD RED BLOOD CELLS IN UNITS - BLOOD BANK, 1 Units (05/31/2020 6:20 AM CDT) Pathologist Jessica BPAM Product Code [id number] LAB BPAM Unit Number [id number] LAB Unit ABO Type O LAB Unit Rh Type NEG LAB XM Interp Compatible LAB BPAM Dispense Status TR LAB BPAM Blood [id number] LAB Expiration Date BPAM Coding System 9500 LAB Product Code RBC, Leukoreduced LAB [id number] Unit ID [id number] LAB Product Status Transfused LAB Specimen Blood Performing Organization Address [facility] Phone Number LAB GLUCOSE BY METER, POCT (05/31/2020 4:52 AM CDT) Pathologist [facility] Glucose POC 117 (H) 70 - 100 mg/dL [facility] POINT OF CARE TESTING Specimen Blood Performing Organization Address [facility] Phone Number [facility] POINT OF [address] [place] [address] CARE TESTING LAB ONLY-MANUAL DIFFERENTIAL (05/31/2020 4:47 AM CDT) Pathologist Jessica Neutrophils Abs. (Segs 19,531 /uL [place] [address] and Bands) [facility] Seg Neut Absolute 19.3 (H) 1.8 - 8.0 K/uL [address] Band Absolute 0.2 0.0 - 0.7 K/uL [place] [address] CLINIC Lymphocytes Absolute 1.6 0.8 - 4.1 K/uL [address] Monocytes Absolute 0.4 0.0 - 1.0 K/uL [address] Basophil Absolute 0.2 0.0 - 0.2 K/uL [address] Myelocyte Absolute 0.2 (H) 0.0 - 0.0 K/uL [address] Neutrophils Percent 87.8 % [address] Band Percent 1.0 % [address] Lymphocytes Percent 7.1 % [address] Monocytes Percent 2.0 % [address] Basophil Percent 1.0 % [address] Myelocyte Percent 1.0 % [address] Platelet Estimate Normal [address] Nucleated RBC's 3 /[address] Polychromasia 1+ [address] Specimen Blood Performing Organization Address [facility] Phone Number [address] [address] HEPARIN UNFRACTIONATED ANTI-XA (05/31/2020 4:47 AM CDT) Heparin Xa 0.96 (H) 0.30 - 0.70 [place] [address] Unfractionated U/mL CLINIC Specimen Blood Narrative Performed At [address] Therapeutic Range: 0.3 - 0.7 IU/mL Performing Organization Address [facility] Phone Number [address] [address] LAB ONLY-COMPLETE BLOOD COUNT WITH DIFFERENTIAL (05/31/2020 4:47 AM CDT) Pathologist Sig nature WBC 22.0 (H) 4.0 - 11.0 K/uL [address] RBC 2.51 (L) 3.80 - 5.30 M/uL [address] Hemoglobin 7.7 (L) 11.5 - 15.8 g/dL [address] Hematocrit 22.5 (L) 35.0 - 45.0 % [address] MCV 89.6 80.0 - 98.[address] MCH 30.7 25.5 - 34.[address] MCHC 34.2 31.5 - 36.5 g/dL [address] RDW-CV 15.4 11.5 - 15.5 % [address] RDW-SD 49.7 35.5 - 50.[address] Platelet Count 135 (L) 140 - 400 K/uL [address] MPV 11.3 8.5 - 12.[address] Specimen Blood Narrative Performed At A previously reported component Auto NRBCs is no longe r reported. [address] Performing Organization Address [facility] Phone Number [address] [address] PROTIME/INR (05/31/2020 4:47 AM CDT) Pathologist Sig nature Protime 16.4 (H) 12.0 - 14.[address] INR 1.4 (L) 2.0 - 3.[address] Specimen Blood Narrative Performed At Normal INR reference range (patients not on oral [address] anticoagulants)0.9-1.1. INR Standard Intensity = (2.0 - 3.0) INR Higher Intensity = (2.5 - 3.5) Performing Organization Address [facility] Phone Number [address] [address] MAGNESIUM (05/31/2020 4:47 AM CDT) Pathologist Sig nature Magnesium 1.8 1.8 - 2.4 mg/dL [address] Specimen Blood Performing Organization Address [facility] Phone Number [address] [address] RENAL FUNCTION PANEL (05/31/2020 4:47 AM CDT) Pathologist Sig nature Glucose 119 (H) 70 - 100 mg/dL [address] BUN 27 (H) 6 - 22 mg/dL [address] Creatinine 1.41 (H) 0.60 - 1.[address] mg/dL BUN/Creatinine Ratio 19.1 10.0 - 25.[address] Sodium 137 135 - 145 meq/L [address] Potassium 3.4 (L) 3.5 - 5.3 meq/L [address] Chloride 106 99 - 110 meq/L [address] CO2 21 20 - 29 meq/L [address] Anion Gap with K 13 6 - 20 meq/L [address] Calcium 7.4 (L) 8.5 - 10.[address] mg/dL Phosphorus 3.8 2.5 - 4.5 mg/dL [address] Albumin 2.3 (L) 3.5 - 5.0 g/dL [address] Corrected Calcium 8.8 8.5 - 10.[address] mg/dL Age [address] eGFR Non- 36 (L) >=[address] [place] mL/min/1.73m2 eGFR 44 (L) >=[address] mL/min/1.73m2 Specimen Blood Performing Organization Address [facility] Phone Number [address] [address] HEMATOCRIT (05/31/2020 12:51 AM CDT) Pathologist Sig nature Hematocrit 25.4 (L) 35.0 - 45.0 % [address] Specimen Blood Performing Organization Address [facility] Phone Number [address] [address] HEMOGLOBIN (05/31/2020 12:51 AM CDT) Pathologist Sig nature Hemoglobin 8.6 (L) 11.5 - 15.8 g/dL [address] Specimen Blood Performing Organization Address [facility] Phone Number [address] [place] [address] HEMOGLOBIN (05/31/2020 12:51 AM CDT) Pathologist Sig nature Hemoglobin 8.7 (L) 11.5 - 15.8 g/dL [address] Specimen Blood Performing Organization Address [facility] Phone Number [address] [place] [address] HEPARIN UNFRACTIONATED ANTI-XA (05/31/2020 12:51 AM CDT) Pathologist Sig nature Heparin Xa 0.63 0.30 - 0.[address] Unfractionated U/mL Specimen Blood Narrative Performed At [address] Therapeutic Range: 0.3 - 0.7 IU/mL Performing Organization Address City/State/Zipcode Phone Number [address] [place] [address] XRAY CHEST PORTABLE - (05/30/2020 11:57 PM CDT)Only the most recent of3 results within the time period is included. Specimen Narrative Performed At [facility] Patient Name: LONI MUNIZ Date of :1945 Procedure: XRAY CHEST PORTABLE Date of Service: 05/30/2020 EXAM: XRAY CHEST PORTABLE INDICATION: dyspnea COMPARISON: 05/27/2020 TECHNIQUE: Single view chest FINDING/IMPRESSION: Left central venous catheter tip terminates in the upp er SVC. Lung volumes are diminished with prominent pulmonary vascul ar markings and perihilar opacities likely representing edema/CHF. No enlarging pleural effusions or pneumothorax. Stable cardio megaly. Finalized by: Pavan Munson MD on 05/30 11:59 PM CDT Patient/Procedure Information: [facility] MRN/DANIELE: [id number] Order Number: [id number] Accession Number: [id number] Ordering Provider: RAFAEL WISE Authorizing Provider: RAFAEL WISE Procedure Note Interface, Radiantres - 05/31/2020 12:01 AM CDT Patient Name: LONI MUNIZ Date of : 1945 Procedure: XRAY CHEST PORTABLE Date of Service: 05/30/2020 EXAM: XRAY CHEST PORTABLE INDICATION: dyspnea COMPARISON: 05/27/2020 TECHNIQUE: Single view chest FINDING/IMPRESSION: Left central venous catheter tip termina jessica in the upper SVC. Lung volumes are diminished with prominent pulmonary vascular markings and perihilar opacities likely representing edema/CHF. No enlarging pleural effusions or pneumothorax. Stable cardiomegaly. Finalized by: Pavan Munson MD on 05/30 11:59 PM CDT Patient/Procedure Information: [facility] MRN/DANIELE: [id number] Order Number: [id number] Accession Number: [id number] Ordering Provider: RAFAEL WISE Authorizing Provider: RAFAEL WISE Performing Organization Address [email or web address] Phone Number [facility] GLUCOSE BY METER, POCT (05/30/2020 11:34 PM CDT) Pathologist Sig nature Glucose POC 130 (H) 70 - 100 mg/dL [facility] POINT OF CARE TESTING Specimen Blood Performing Organization Address [facility] [[email or web address] Phone Number [facility] POINT OF [address] [place] [address] CARE TESTING PREPARE AND HOLD RED BLOOD CELLS IN UNITS - BLOOD BANK, 1 Units (05/30/2020 9:45 PM CDT) BPAM Product Code [id number] LAB BPAM Unit Number [id number] LAB Unit ABO Type O LAB Unit Rh Type POS LAB XM Interp Compatible LAB BPAM Dispense Status TR LAB BPAM Blood [id number] LAB Expiration Date BPAM Coding System 510 LAB Product Code RBC, LAB Leukoreduced/Apheresis 1st cont. Unit ID [id number] LAB Product Status Transfused LAB Specimen Blood Performing Organization Address [facility] Phone Number LAB GLUCOSE BY METER, POCT (05/30/2020 8:24 PM CDT) Pathologist Sig nature Glucose POC 121 (H) 70 - 100 mg/dL [facility] TESTING Specimen Blood Performing Organization Address [facility] Phone Number [facility] POINT OF [address] [place] [address] CARE TESTING HEMOGLOBIN (05/30/2020 8:21 PM CDT) Pathologist Sig nature Hemoglobin 7.4 (L) 11.5 - 15.8 g/dL [address] Specimen Blood Performing Organization Address [facility] Phone Number [address] [address] HEPARIN UNFRACTIONATED ANTI-XA (05/30/2020 8:20 PM CDT) Pathologist Sig nature Heparin Xa 0.39 0.30 - 0.[address] Unfractionated U/mL Specimen Blood Narrative Performed At [address] Therapeutic Range: 0.3 - 0.7 IU/mL Performing Organization Address [facility] Phone Number [address] [address] GLUCOSE BY METER, POCT (05/30/2020 5:46 PM CDT) Pathologist Sig nature Glucose POC 98 70 - 100 mg/dL [facility] POINT OF CARE TESTING Specimen Blood Performing Organization Address [facility] Phone Number [facility] POINT OF [address] [place] [address] CARE TESTING LACTIC ACID (05/30/2020 5:04 PM CDT) Pathologist Sig nature Lactic Acid 0.8 0.5 - 2.2 mmol/L [address] Specimen Blood Performing Organization Address [facility] Phone Number [address] [address] ACTIVATED CLOTTING TIME POCT (05/30/2020 3:26 PM CDT) Pathologist Sig nature Activated Clotting 257 (H) 100 - [address] [facility] POINT OF CARE TESTING Specimen Blood Narrative Performed At DEVICE: [id number] [facility] POINT OF CARE TESTING Performing Organization Address [facility] Phone Number [facility] OF [address] [place] [address] CARE TESTING Cardiac Cath Possible Angioplasty Stent Mid Level Game Designer - Left (05/30/2020 3:00 PM CDT)Only the most recent of2 resultswithin the time period is included. Specimen Narrative Performed At This result has an attachment that is no t available. [facility] Patient: LONI MUNIZ [facility] Exam Date: 05/30/[address] [place] [address] Exam Time:03:00 PM- 03:55 [place] [address] Department of Interventional Cardiology Cardiac Interventional Report : 1945Fluoro Time: 37.1 min. Patient Status: Inpatient Age: 74 year(s)Cath Status: [facility] Diagnostic Business Planning Analyst:GINNY MCFADDEN MD Scenic Designer:GINNY MCFADDEN MD Indication:PCI of RCA. Procedures Performed: Fluoro 0.1-60 Minutes. Medication/Infusi on/Drip. Art Access - L femoral artery*. Selective Rt Coronary Angiography. Activated Clotting Time. Hemostasis with Manual Pressure. Interv ention Canceled. Diagnostic Findings: Coronary Angiography The coronary circulation is right dominant. Right Coronary Right coronary artery: The segment is la rge. Mid right coronary artery: Thrombosis is present. There is a 100 % stenosis. Left Heart Cath Left ventricular function was not assess ed. Ejection fraction was not calculated. Interventional Findings: PCI Procedure Data: The syntax score is high. Procedure Narrative: Access Left femoral artery: The puncture site was infiltrated with 9 .0 ml of 1% Lidocaine. Vascular access was obtained using modified seldinger technique and a GLIDESHEATH PN WESLEY TIF TIP 6FR was advanced into the vessel. The sheath was exchanged from a GLIDESHEATH PNCLE T IF TIP 6FR sheath to a 6FR DESTINATION 45CM ST [id number] sheath. Hemostasis/Sheath Status: Hemostasis was successful using manual compression. Coronary Angiography Right Coronary System: A catheter was positioned into the Vesse l Ostium under fluoroscopic guidance. Contrast injections were performed using hand injection. Angiograms were obtain ed in the COLEMAN view. Hemodynamic Impressions General Impressions: Hemodynamic assessm ent demonstrates No systemic hypertension. Hemodynamic Findings Pressures: Baseline: AOpressure 157/60mmHg, mean 9 1. Hemodynamic Pressures-Phase: Baseline Location : Ao Pressure s : 157 mmHg Pressure d : 60 mmHg Pressure m : 91 mmHg HR : 80 bpm Flow Calculations, Phase: Baseline VO2: 226.52 ml/min Shunts Acute complication: No complications Contrast: Description Dose Unit HIS No. Reference No. Serial No.Lot No. Omnipaque 80.000 [id number] Ordering Physician:BAUTISTA WEATHERS CCL Operational Trainer:MARCELLUS JENKINS RN Scrub: Katie Hahn Monitor: RAYMOND Ortiz RN Sound Art Instructor: STEFAN MEEK, RT(R) Primary Business Planning Analyst:BUCK GIRON MD Diagnostic Physician Signature: Electronically signed by GINNY MCFADDEN MD on 020 at 02:50 PM (No Signature Object) Interventional Physician Signature: Electronically signed by GINNY MCFADDEN MD on 020 at 02:50 PM (No Signature Object) Procedure Note Interface, Inc Results No Pull Forward - 06/05/2020 2:52 PM CDT Patient: LONI MUNIZ [facility] Exam Date: 05/30/[address] Exam T mj: 03:00 PM-03:55 PM [place] [address] [facility] of Interventional Cardiology Cardiac Interventional Report : 1945 Fluoro Time: 37.1 min. Patient Status: Inpatient Age: 74 year(s) Cath Status: [facility] Gender: Female Diagnostic Business Planning Analyst: GINNY STRICKLAND MD Scenic Designer: GINNY STRICKLAND MD Indication: PCI of RCA. Procedures Performed: Fluoro 0.1-60 Minutes. Medication/Infusi on/Drip. Art Access - L femoral artery*. Selective Rt Coronary Angiography. Activated Clotting Time. Hemostasis with Manual Pr essure. Intervention Canceled. Diagnostic Findings: Coronary Angiography The coronary circulation is right domina nt. Right Coronary Right coronary artery: The segment is la rge. Mid right coronary artery: Thrombosis is present. There is a 100 % stenosis. Left Heart Cath Left ventricular function was not assess ed. Ejection fraction was not calculated. Interventional Findings: PCI Procedure Data: The syntax score is high. Procedure Narrative: Access Left femoral artery: The puncture site was infiltrated with 9 .0 ml of 1% Lidocaine. Vascular access was obtained using modified seldinger technique and a GLIDESHEATH PN WESLEY TIF TIP 6FR was advanced into the vessel. The sheath was exchanged from a GLIDESHEATH PNCLE T IF TIP 6FR sheath to a 6FR DESTINATION 45CM ST RSR01 sheath. Hemostasis/Sheath Status: Hemostasis was successful using manual compression. Coronary Angiography Right Coronary System: A catheter was positioned into the Vesse l Ostium under fluoroscopic guidance. Contrast injections were performed using hand injection. Angiogra ms were obtained in the COLEMAN view. Hemodynamic Impressions General Impressions: Hemodynamic assessm ent demonstrates No systemic hypertension. Hemodynamic Findings Pressures: Baseline: AO pressure 157/60 mmHg, mean 91. Hemodynamic Pressures-Phase: Baseline Location : Ao Pressure s : 157 mmHg Pressure d : 60 mmHg Pressure m : 91 mmHg HR : 80 bpm Flow Calculations, Phase: Baseline VO2: 226.52 ml/min Shunts Acute complication: No complicatio ns Contrast: Description Dose Un it HIS No. Reference No. Serial No. Lot No. Omnipaque 80.000 ml C34 C34 Ordering Physician: LING LUNSFORD ON, TIMBER BUCKER-C CCL Operational Trainer: MARCELLUS Ferraro RN Scrub: Katie buttss Monitor: Larry ROSALES Sound Art Instructor: STEFAN AKERS LD, RT(R) Primary Business Planning Analyst: BUCK Ferraro MD Diagnostic Physician Signature: (No Signature Object) Interventional Physician Signature: (No Signature Object) Performing Organization Address [facility] Phone Number [facility] [place], [place] HEMOGLOBIN (05/30/2020 1:24 PM CDT) Pathologist Sig nature Hemoglobin 8.4 (L) 11.5 - 15.8 g/dL [address] Specimen Blood Performing Organization Address [facility] Phone Number [place] [address] [place] [address], [place] [address] GLUCOSE BY METER, POCT (05/30/2020 1:23 PM CDT) Pathologist Sig nature Glucose POC 95 70 - 100 mg/dL [facility] POINT OF CARE TESTING Specimen Blood Performing Organization Address [facility] Phone Number [facility] POINT OF [address] [place] [address], [place] [address] CARE TESTING LACTIC ACID (05/30/2020 10:39 AM CDT) Pathologist Sig nature Lactic Acid 1.4 0.5 - 2.2 mmol/L [address] Specimen Blood Performing Organization Address [facility] Phone Number [address] [place] [address] ECHO ADULT LIMITED (05/30/2020 9:25 AM CDT) Specimen Narrative Performed At This result has an attachment that is no t available. [facility] Patient: LONI MUNIZ MR#:[id number] Exam Date:05/30/2020 Transthoracic Echocardiogram [facility] [address] [place] [id number] BP:146/104 mmHg HR:68 bpm : 1945 Exam Location: BedsideHeight:60.00 "(152.4 cm) Age: 74 year(s) Patient Room:3 Weight:189 lbs.(85.73 kg) Gender:Female Patient Status:InpatientBSA: 1.82 m2 Assistant Project Engineer:KUSHAL NOLAN, RDCS (PE, FE) RVT Reading Physician:BUCK PENA MD Ordering Physician: YULISSA VIERA Procedure Indication(s): Loo k for WMA, RV Examination: TTE Limited 2D, Limited Spectral Doppler, Color Doppler Conclusions Left Ventricle: The ejection fraction is visually estima bar to be 35 %. The basal inferoseptal, basal inferior, basal inferolateral, mid inferior and mid inferolateral wall segments are hypokinetic. All remaining scored wall segments are normal. Comparison Study Comparison Date: 05/26/2020 Comparison Study: Transthoracic Echocardiogram LV overall function has decreased from 55 Findings Left Ventricle: Normal left ventricular size. Normal lef t ventricular wall thickness. Moderately reduced left ventricular systolic function. The ejection fraction is visually estimated to be 35 %. The basal inferoseptal, basal inferior, basal inferolateral, mid inferior and mid inferolateral wall segments are hypokine tic. All remaining scored wall segments are normal. Right Ventricle: Normal right ventricular size. Normal ri ght ventricular systolic function. Normal right ventricular wall thickness. Measurements Left Ventricle Label Value Normal Value LVDd, 2D40.5 mm LVDs, 2D31.5 mm IVSd, 2D9.9 mm LVPWd, 2D 10.5 mm FS, 2D22.22 % LVEDV, 2D 72 ml LVESV, 2D 39 ml Heart Rate Label Value Normal Value Heart Rate68 bpm Electronically signed by BUCK GIRON MD on 020 at 12:18 PM (No Signature Object) Wall Motion Scores -1 - Not Scored, 0 - Unknown, 1 - Normal or hyperkinesia,2 - Hypokinesia,3 - Akinesia, 4 - Dyskinesia, 5 - Aneurysm Procedure Note Interface, Inc Results No Pull Forward - 05/30/2020 12:21 PM CDT Patient: LONI MUNIZ MR#: [id number] Exam Date: 05/30/2020 Transthoracic Echocardiogram [facility] [address] [place] [address] BP: 146/104 mmHg HR: 68 bpm : 1945 Exa m Location: Bedside Height: 60.00 "(152.4 cm) Age: 74 year(s) Pat ient Room: [facility] Weight: 189 lbs.(85.73 kg) Gender: Female Pat ient Status: Inpatient BSA: 1.82 m2 Assistant Project Engineer: KUSHAL ROMERO RDCS (PE, FE) RVT Reading Physician: BUCK MONTAGUE MD Ordering Physician: YULISSA WEATHERS Procedure Indication(s): Look fo r WMA, RV Examination: TTE Goff ited 2D, Limited Spectral Doppler, Color Doppler Conclusions Left Ventricle: The ejection fraction is visually estima bar to be 35 %. The basal inferoseptal, basal inferior, basal inferolateral, mid inferior and mid inferolateral wall segments are hypokinetic. All remaining scored wall segments are normal. Comparison Study Comparison Date: 05/26/2020 Comparison Study: Transthoracic Echocard iogram LV overall function has decreased from 5 5 Findings Left Ventricle: Normal left ventricular size. Normal lef t ventricular wall thickness. Moderately reduced left ventricular systolic function. The ejection fraction is visually estimated to be 35 %. The basal inferoseptal, basal inferior, basal inferolateral, mid inferior and mid inferolateral wall segments are hypokine tic. All remaining scored wall segments are normal. Right Ventricle: Normal right ventricular size. Normal ri ght ventricular systolic function. Normal right ventricular wall thickness. Measurements Left Ventricle Label Value Nor mal Value LVDd, 2D 40.5 mm LVDs, 2D 31.5 mm IVSd, 2D 9.9 mm LVPWd, 2D 10.5 mm FS, 2D 22.22 % LVEDV, 2D 72 ml LVESV, 2D 39 ml Heart Rate Label Value Nor mal Value Heart Rate 68 bpm (No Signature Object) Wall Motion Scores -1 - Not Scored, 0 - Unknown, 1 - Normal or hyperkinesia, 2 - Hypokinesia, 3 - Akinesia, 4 - Dyskinesia, 5 - Aneurysm Performing Organization Address [facility] Phone Number [facility] [place], [place] HEPARIN UNFRACTIONATED ANTI-XA (05/30/2020 8:11 AM CDT) Heparin Xa 0.97 (H) 0.30 - 0.70 [place] [address] Unfractionated U/mL CLINIC Specimen Blood Narrative Performed At [address] Therapeutic Range: 0.3 - 0.7 IU/mL Performing Organization Address [facility] Number [address] [address] HEMOGLOBIN (05/30/2020 8:11 AM CDT) Pathologist Sig nature Hemoglobin 8.5 (L) 11.5 - 15.8 g/dL [address] Specimen Blood Performing Organization Address [facility] Number [address] [address] GLUCOSE BY METER, POCT (05/30/2020 8:05 AM CDT) Pathologist Sig nature Glucose POC 106 (H) 70 - 100 mg/dL [facility] POINT OF CARE TESTING Specimen Blood Performing Organization Address [facility] Phone Number [facility] POINT OF [address] [place] [address] CARE TESTING GLUCOSE BY METER, POCT (05/30/2020 3:39 AM CDT) Pathologist Sig nature Glucose POC 99 70 - 100 mg/dL [facility] POINT OF CARE TESTING Specimen Blood Performing Organization Address [facility] Phone Number [facility] POINT OF [address] [place] [address] CARE TESTING LAB ONLY-COMPLETE BLOOD COUNT WITH DIFFERENTIAL (05/30/2020 3:33 AM CDT) Pathologist Sig nature WBC 15.3 (H) 4.0 - 11.0 K/uL [address] RBC 2.68 (L) 3.80 - 5.[address] M/uL Hemoglobin 8.2 (L) 11.5 - 15.[address] g/dL Hematocrit 23.8 (L) 35.0 - 45.0 % [address] MCV 88.8 80.0 - 98.[address] MCH 30.6 25.5 - 34.[address] MCHC 34.5 31.5 - 36.[address] g/dL RDW-CV 15.7 (H) 11.5 - 15.5 % [address] RDW-SD 50.6 (H) 35.5 - 50.[address] Platelet Count 116 (L) 140 - 400 K/uL [address] MPV 11.0 8.5 - 12.[address] Seg Neut Absolute 11.1 (H) 1.8 - 8.0 K/uL [address] Lymphocytes Absolute 2.3 0.8 - 4.1 K/uL [place] [address] CLINI C Monocytes Absolute 1.3 (H) 0.0 - 1.0 K/uL [address] Eosinophils Absolute 0.1 0.0 - 0.7 K/uL [address] Basophil Absolute 0.0 0.0 - 0.2 K/uL [address] Immature Granulocyte 0.53 (H) 0.00 - 0.[address] Absolute K/uL Neutrophils Abs. 11,100 /uL [address] (Segs and Bands) Neutrophils Percent 72.3 % [address] Lymphocytes Percent 15.1 % [address] Monocytes Percent 8.6 % [address] Immature Granulocyte 3.5 % [address] Percent Eosinophils Percent 0.3 % [address] Basophil Percent 0.2 % [address] Nucleated RBC 1 /[address] Specimen Blood Performing Organization Address City/State/Zipcode Phone Number [address] [place] [address] PROTIME/INR (05/30/2020 3:33 AM CDT) [facility] Protime 14.6 (H) 12.0 - 14.[address] INR 1.2 (L) 2.0 - 3.[address] Specimen Blood Narrative Performed At Normal INR reference range (patients not on oral [address] anticoagulants)0.9-1.1. INR Standard Intensity = (2.0 - 3.0) INR Higher Intensity = (2.5 - 3.5) Performing Organization Address [facility] Phone Number [address] [place] [address] MAGNESIUM (05/30/2020 3:33 AM CDT) Pathologist Sig [facility] Magnesium 2.1 1.8 - 2.4 mg/dL [address] Specimen Blood Performing Organization Address [facility] Phone Number [address] [place] [address] RENAL FUNCTION PANEL (05/30/2020 3:33 AM CDT) Pathologist Sig [facility] Glucose 114 (H) 70 - 100 mg/dL [address] BUN 28 (H) 6 - 22 mg/dL [address] Creatinine 1.40 (H) 0.60 - 1.[address] mg/dL BUN/Creatinine Ratio 20.0 10.0 - 25.[address] Sodium 137 135 - 145 meq/L [address] Potassium 3.3 (L) 3.5 - 5.3 meq/L [address] Chloride 107 99 - 110 meq/L [address] CO2 22 20 - 29 meq/L [address] Anion Gap with K 11 6 - 20 meq/L [address] Calcium 7.4 (L) 8.5 - 10.[address] mg/dL Phosphorus 3.2 2.5 - 4.5 mg/dL [address] Albumin 2.5 (L) 3.5 - 5.0 g/dL [address] Corrected Calcium 8.6 8.5 - 10.[address] mg/dL Age [address] eGFR Non- 37 (L) >=[address] [place] mL/min/1.73m2 eGFR 45 (L) >=[address] mL/min/1.73m2 Specimen Blood Performing Organization Address [facility] Phone Number [address] [place] [address] LACTIC ACID (05/30/2020 3:33 AM CDT) Pathologist Sig nature Lactic Acid 1.1 0.5 - 2.2 mmol/L [address] Specimen Blood Performing Organization Address [facility] Number [address] [address] HEPARIN UNFRACTIONATED ANTI-XA (05/30/2020 3:33 AM CDT) Pathologist Sig nature Heparin Xa 0.64 0.30 - 0.[address] Unfractionated U/mL Specimen Blood Narrative Performed At [address] Therapeutic Range: 0.3 - 0.7 IU/mL Performing Organization Address [facility] Number [address] [address] TROPONIN I (05/30/2020 3:33 AM CDT) Pathologist Sig nature Troponin I 63.475 (H) 0.000 - 0.028 ng/mL [address] Specimen Blood Performing Organization Address [facility] Number [address] [address] HEMOGLOBIN (05/30/2020 1:06 AM CDT) Pathologist Sig nature Hemoglobin 8.4 (L) 11.5 - 15.8 g/dL [address] Specimen Blood Performing Organization Address [facility] Phone Number [address] [place] [address] GLUCOSE BY METER, POCT (05/30/2020 12:07 AM CDT) Pathologist Sig nature Glucose POC 118 (H) 70 - 100 mg/dL [facility] POINT OF CARE TESTING Specimen Blood Performing Organization Address [facility] Phone Number [facility] POINT OF [address] [place] [address] CARE TESTING GLUCOSE BY METER, POCT (05/29/2020 10:34 PM CDT) Pathologist Sig [facility] Glucose POC 142 (H) 70 - 100 mg/dL [facility] POINT OF CARE TESTING Specimen Blood Performing Organization Address [facility] Phone Number [facility] POINT OF [address] [facility] [place] [address] CARE TESTING LACTIC ACID (05/29/2020 10:29 PM CDT) Pathologist [facility] Lactic Acid 1.8 0.5 - 2.2 mmol/L [address] Specimen Blood Performing Organization Address [facility] Phone Number [address] [place] [address], [place] [address] TROPONIN I (05/29/2020 10:29 PM CDT) Pathologist Sig [facility] Troponin I 33.917 (H) 0.000 - 0.028 ng/mL [address] Specimen Blood Performing Organization Address [facility] Phone Number [address] [place] [address], [place] [address] GLUCOSE BY METER, POCT (05/29/2020 8:54 PM CDT) Pathologist [facility] Glucose POC 59 (L) 70 - 100 mg/dL [facility] POINT OF CARE TESTING Specimen Blood Performing Organization Address [facility] Phone Number [facility] POINT OF [address] [facility] [address] CARE TESTING HEMOGLOBIN (05/29/2020 8:42 PM CDT) Pathologist [facility] Hemoglobin 8.6 (L) 11.5 - 15.8 g/dL [address] Specimen Blood Performing Organization Address [facility] Phone Number [address] [place] [address], [place] [address] HEPARIN UNFRACTIONATED ANTI-XA (05/29/2020 8:42 PM CDT) [facility] Heparin Xa 0.55 0.30 - 0.[address] Unfractionated U/mL Specimen Blood Narrative Performed At [address] Therapeutic Range: 0.3 - 0.7 IU/mL Performing Organization Address [facility] Phone Number [address] [place] [address], [place] [address] GLUCOSE BY METER, POCT (05/29/2020 4:43 PM CDT) Pathologist Sig nature Glucose POC 171 (H) 70 - 100 mg/dL [facility] POINT OF CARE TESTING Specimen Blood Performing Organization Address [facility] Phone Number [facility] POINT OF [address] [place] [address], [place] [address] CARE TESTING LACTIC ACID (05/29/2020 4:25 PM CDT) Pathologist Sig nature Lactic Acid 2.2 0.5 - 2.2 mmol/L [address] Specimen Blood Performing Organization Address [facility] Phone Number [address] [place] [address] TROPONIN I (05/29/2020 2:53 PM CDT) Pathologist Sig nature Troponin I 9.341 (H) 0.000 - 0.028 ng/mL [address] Specimen Blood Performing Organization Address [facility] Phone Number [address] [address] GLUCOSE BY METER, POCT (05/29/2020 1:47 PM CDT) Pathologist Sig nature Glucose POC 141 (H) 70 - 100 mg/dL [facility] POINT OF CARE TESTING Specimen Blood Performing Organization Address [facility] Phone Number [facility] POINT OF [address] [place] [address], [place] [address] CARE TESTING HEMOGLOBIN (05/29/2020 12:12 PM CDT) Pathologist Sig nature Hemoglobin 8.2 (L) 11.5 - 15.8 g/dL [address] Specimen Blood Performing Organization Address [facility] Phone Number [address] [place] [address], [place] [address] HEPARIN UNFRACTIONATED ANTI-XA (05/29/2020 12:12 PM CDT) Heparin Xa <=0.10 (L) 0.30 - 0.70 [place] [address] Unfractionated U/mL CLINIC Specimen Blood Narrative Performed At [address] Therapeutic Range: 0.3 - 0.7 IU/mL Performing Organization Address [facility] Phone Number [address] [place] [address] PREPARE AND HOLD RED BLOOD CELLS IN UNITS - BLOOD BANK, 1 Units (05/29/2020 10:55 AM CDT) BPAM Product Code [id number] LAB BPAM Unit Number [id number] LAB Unit ABO Type O LAB Unit Rh Type POS LAB XM Interp Compatible LAB BPAM Dispense Status TR LAB BPAM Blood [id number] LAB Expiration Date BPAM Coding System 5100 LAB Product Code RBC, LAB Leukoreduced/Apheresis 2nd cont. Unit ID [id number] LAB Product Status Transfused LAB Specimen Blood Performing Organization Address [facility] Phone Number LAB GLUCOSE BY METER, POCT (05/29/2020 9:02 AM CDT) Pathologist Sig nature Glucose POC 116 (H) 70 - 100 mg/dL [facility] POINT OF CARE TESTING Specimen Blood Performing Organization Address [facility] Phone Number [facility] POINT OF [address] [place] [address] CARE TESTING LACTIC ACID (05/29/2020 9:01 AM CDT) Pathologist Sig nature Lactic Acid 1.4 0.5 - 2.2 mmol/L [address] Specimen Blood Performing Organization Address [facility] Phone Number [address] [place] [address] TROPONIN I (05/29/2020 9:01 AM CDT) Pathologist Sig nature Troponin I 3.844 (H) 0.000 - 0.028 ng/mL [address] Specimen Blood Performing Organization Address [facility] Phone Number [address] [place] [address], [place] [address] HEMOGLOBIN (05/29/2020 9:01 AM CDT) Pathologist Sig nature Hemoglobin 7.7 (L) 11.5 - 15.8 g/dL [place] [address] [facility] Specimen Blood Performing Organization Address [facility] Phone Number [address] [place] [address] HCG SCREEN URINE (05/29/2020 6:19 AM CDT) Pathologist Sig [facility] Urine Negative [address] Specimen Urine Performing Organization Address [facility] Phone Number [address] [place] [address], [place] [address] TROPONIN I (05/29/2020 4:19 AM CDT) Pathologist Sig [facility] Troponin I 3.530 (H) 0.000 - 0.028 ng/mL [address] Specimen Blood Performing Organization Address [facility] Phone Number [address] [place] [address], [place] [address] LAB ONLY-COMPLETE BLOOD COUNT WITH DIFFERENTIAL (05/29/2020 4:19 AM CDT) Pathologist Sig [facility] WBC 15.7 (H) 4.0 - 11.0 K/uL [address] RBC 2.62 (L) 3.80 - 5.[address] M/uL Hemoglobin 8.0 (L) 11.5 - 15.[address] g/dL Hematocrit 23.0 (L) 35.0 - 45.0 % [address] MCV 87.8 80.0 - 98.[address] MCH 30.5 25.5 - 34.[address] MCHC 34.8 31.5 - 36.[address] g/dL RDW-CV 15.4 11.5 - 15.5 % [address] RDW-SD 49.3 35.5 - 50.[address] Platelet Count 132 (L) 140 - 400 K/uL [address] MPV 11.2 8.5 - 12.[address] Seg Neut Absolute 12.2 (H) 1.8 - 8.0 K/uL [address] Lymphocytes Absolute 1.9 0.8 - 4.1 K/uL [place] [address] [facility] C Monocytes Absolute 1.3 (H) 0.0 - 1.0 K/uL [address] Eosinophils Absolute 0.0 0.0 - 0.7 K/uL [place] [address] [facility] Basophil Absolute 0.0 0.0 - 0.2 K/uL [address] Immature Granulocyte 0.27 (H) 0.00 - 0.[address] Absolute K/uL Neutrophils Abs. 12,200 /uL [address] (Segs and Bands) Neutrophils Percent 77.9 % [address] Lymphocytes Percent 11.8 % [address] Monocytes Percent 8.5 % [address] Immature Granulocyte 1.7 % [address] Percent Eosinophils Percent 0.0 % [address] Basophil Percent 0.1 % [address] Nucleated RBC 0 /[address] Specimen Blood Performing Organization Address [facility] Phone Number [address] [address] PROTIME/INR (05/29/2020 4:19 AM CDT) Pathologist Sig nature Protime 15.4 (H) 12.0 - 14.[address] INR 1.3 (L) 2.0 - 3.[address] Specimen Blood Narrative Performed At Normal INR reference range (patients not on oral [address] anticoagulants)0.9-1.1. INR Standard Intensity = (2.0 - 3.0) INR Higher Intensity = (2.5 - 3.5) Performing Organization Address [facility] Phone Number [address] [address] MAGNESIUM (05/29/2020 4:19 AM CDT) Pathologist Sig nature Magnesium 2.1 1.8 - 2.4 mg/dL [address] Specimen Blood Performing Organization Address [facility] Phone Number [address] [address] RENAL FUNCTION PANEL (05/29/2020 4:19 AM CDT) Pathologist Sig nature Glucose 172 (H) 70 - 100 mg/dL [address] BUN 31 (H) 6 - 22 mg/dL [address] Creatinine 1.64 (H) 0.60 - 1.[address] mg/dL BUN/Creatinine Ratio 18.9 10.0 - 25.[address] Sodium 143 135 - 145 meq/L [address] Potassium 3.6 3.5 - 5.3 meq/L [address] Chloride 112 (H) 99 - 110 meq/L [address] CO2 17 (L) 20 - 29 meq/L [address] Anion Gap with K 18 6 - 20 meq/L [address] Calcium 7.7 (L) 8.5 - 10.[address] mg/dL Phosphorus 3.8 2.5 - 4.5 mg/dL [address] Albumin 2.7 (L) 3.5 - 5.0 g/dL [address] Corrected Calcium 8.7 8.5 - 10.[address] mg/dL Age [address] eGFR Non- 31 (L) >=[address] [place] mL/min/1.73m2 eGFR 37 (L) >=[address] mL/min/1.73m2 Specimen Blood Performing Organization Address [facility] Phone Number [address] [place] [address] LACTIC ACID (05/29/2020 4:19 AM CDT) Pathologist Sig nature Lactic Acid 1.4 0.5 - 2.2 mmol/L [address] Specimen Blood Performing Organization Address [facility] Phone Number [address] [address] HEMOGLOBIN (05/29/2020 3:07 AM CDT) Pathologist Sig nature Hemoglobin 7.9 (L) 11.5 - 15.8 g/dL [place] [address] [facility] Specimen Blood Performing Organization Address [facility] Phone Number [address] [place] [address] GLUCOSE BY METER, POCT (05/29/2020 12:21 AM CDT) Pathologist Sig nature Glucose POC 155 (H) 70 - 100 mg/dL [facility] POINT OF CARE TESTING Specimen Blood Performing Organization Address [facility] [[email or web address] Phone Number [facility] POINT OF [address] [place] [address] CARE TESTING LACTIC ACID (05/28/2020 10:27 PM CDT) Pathologist Sig nature Lactic Acid 1.6 0.5 - 2.2 mmol/L [place] [address] [facility] Specimen Blood Performing Organization Address [facility] Phone Number [place] [address] [facility] [address] [place] [address] GLUCOSE BY METER, POCT (05/28/2020 9:18 PM CDT) Pathologist Sig nature Glucose POC 153 (H) 70 - 100 mg/dL [facility] POINT OF CARE TESTING Specimen Blood Performing Organization Address [facility] Phone Number [facility] POINT OF [address] [place] [address] CARE TESTING MAGNESIUM (05/28/2020 9:15 PM CDT) Pathologist Sig nature Magnesium 2.1 1.8 - 2.4 mg/dL [address] Specimen Blood Performing Organization Address [facility] Phone Number [place] [address] [facility] [place] [address] RENAL FUNCTION PANEL (05/28/2020 9:15 PM CDT) Pathologist Sig nature Glucose 164 (H) 70 - 100 mg/dL [address] BUN 32 (H) 6 - 22 mg/dL [address] Creatinine 1.66 (H) 0.60 - 1.[address] mg/dL BUN/Creatinine Ratio 19.3 10.0 - 25.[address] Sodium 142 135 - 145 meq/L [address] Potassium 3.8 3.5 - 5.3 meq/L [address] Chloride 113 (H) 99 - 110 meq/L [place] [address] [facility] CO2 19 (L) 20 - 29 meq/L [address] Anion Gap with K 14 6 - 20 meq/L [address] Calcium 7.5 (L) 8.5 - 10.5 [place] [address] [facility] mg/dL Phosphorus 4.2 2.5 - 4.5 mg/dL [address] Albumin 2.8 (L) 3.5 - 5.0 g/dL [address] Corrected Calcium 8.5 8.5 - 10.[address] mg/dL Age [address] eGFR Non- 30 (L) >=[address] [place] mL/min/1.73m2 eGFR 37 (L) >=[address] mL/min/1.73m2 Specimen Blood Performing Organization Address [facility] Phone Number [address] [place] [address] PROTIME/INR (05/28/2020 9:15 PM CDT) Pathologist Sig nature Protime 16.4 (H) 12.0 - 14.[address] INR 1.4 (L) 2.0 - 3.[address] Specimen Blood Narrative Performed At Normal INR reference range (patients not on oral [address] anticoagulants)0.9-1.1. INR Standard Intensity = (2.0 - 3.0) INR Higher Intensity = (2.5 - 3.5) Performing Organization [facility] Number [address] [address] HEMOGLOBIN (05/28/2020 9:15 PM CDT) Pathologist Sig nature Hemoglobin 8.2 (L) 11.5 - 15.8 g/dL [address] Specimen Blood Performing Organization Address [facility] Phone Number [address] [place] [address] LACTIC ACID (05/28/2020 9:15 PM CDT) Pathologist Sig nature Lactic Acid 1.6 0.5 - 2.2 mmol/L [address] Specimen Blood Performing Organization [facility] Number [address] [place] [address] OR PANEL 1 POCT (05/28/2020 5:19 PM CDT) Pathologist Sig nature pH Arterial POCT 7.34 (L) 7.35 - 7.[address] [facility] POINT OF CARE TESTING pCO2 Arterial POCT 37 35 - [address] [facility] POINT OF [facility] TESTING pO2 Arterial POCT 118 (H) 80 - [address] [facility] POINT OF CARE TESTING HCO3 (Bicarb) 20 20 - 29 mmol/L [facility] Arterial POCT [facility] POINT [facility] TESTING Base Excess Arterial -6 (L) -2 - 2 meq/L [facility] POINT OF [facility] TESTING O2 Sat % Arterial 98 95 - 98 % [facility] POINT OF [facility] TESTING Ionized Calcium 1.10 (L) 1.12 - 1.32 [facility] mmol/L [facility] TESTING Sodium 142 135 - 145 meq/L [facility] OF [facility] TESTING Potassium 4.0 3.5 - 5.3 meq/L [facility] POINT OF [facility] TESTING Glucose 181 (H) 70 - 100 mg/dL [facility] OF [facility] TESTING Hematocrit 31.0 (L) 35.0 - 45.0 % [facility] POINT OF [facility] TESTING Hemoglobin 10.5 (L) 11.5 - 15.8 [facility] g/dL [facility] TESTING Specimen Source Arterial [facility] POINT OF [facility] TESTING Specimen Blood Narrative Performed At DEVICE: [id number] [facility] POINT OF [place] RE Whole blood sample. Unable to evaluate for TESTING hemolysis. Performing Organization Address City/State/Zipcode Phone Number [facility] OF [address] [place] [address] CARE TESTING TISSUE EXAM (05/28/2020 4:47 PM CDT) FINAL DIAGNOSIS Thrombus, right femoral artery, thrombectomy: [facility] Electronically - Fragments of blood and fib rin containing neutrophils with focal fibrosis, vascular proliferation, mild chronic inflammation and focal giant reaction to focally entrapped non-polarizable and scant chivo CLINIC signed by kristen Lopez foreign material; consistent with organizing t hrombus. Neena Jeter MD on - Focal adjacent rim of fibrotic intima. 06/03/2020 at 11:19 AM JAM:ch GROSS DESCRIPTION The specimen is received in formalin and labeled "right femoral thrombus". The specimen consists of a 5.0 x 4.5 x 1.2 cm aggregate of garcia vasculature with attached red-garcia hemorrhagic material. [address] Veneer Puller sections are submitted (1 block): A1 phone representative sections TK MICROSCOPIC Microscopic examination performed. [address] CLINIC CASE REPORT Surgical Pathology Report Case: [id number] [facility] Authorizing Provider:Erik Neff MD Collected: 05/28/2020 1647 CLINIC Ordering Location: [facility] Received:05/28/[address] [place] [address] Pathologist: Neena Lopez MD Specimen:Artery, rig ht femoral thrombus EMBEDDED IMAGES [facility] Specimen Tissue Performing Organization Address [facility] [[email or web address] Phone Number [phone] [place] [address] ACTIVATED CLOTTING TIME POCT (05/28/2020 4:32 PM CDT) Pathologist Sig nature Activated Clotting 136 100 - [address] [facility] POINT OF CARE TESTING Specimen Blood Narrative Performed At DEVICE: [email or web address] [facility] POINT OF CARE TESTING Performing Organization Address City/[facility] [[email or web address] Phone Number [facility] POINT OF [address] [place] [address] CARE TESTING ACTIVATED CLOTTING TIME POCT (05/28/2020 4:13 PM CDT) Pathologist Sig nature Activated Clotting 219 (H) 100 - [address] [facility] POINT OF CARE TESTING Specimen Blood Narrative Performed At DEVICE: [id number] [facility] POINT OF CARE TESTING Performing Organization Address [facility] [[email or web address] Phone Number [facility] POINT OF [address] [place] [address] CARE TESTING OR PANEL 1 POCT (05/28/2020 4:06 PM CDT) Pathologist Sig nature pH Arterial POCT 7.30 (L) 7.35 - 7.[address] [facility] POINT OF CARE TESTING pCO2 Arterial POCT 42 35 - [address] [facility] POINT OF CARE TESTING pO2 Arterial POCT 123 (H) 80 - [address] [facility] POINT OF CARE TESTING HCO3 (Bicarb) 21 20 - 29 mmol/L [facility] Arterial POCT [facility] POINT OF CARE TESTING Base Excess Arterial -6 (L) -2 - 2 meq/L [facility] POINT OF CARE TESTING O2 Sat % Arterial 98 95 - 98 % [facility] POINT OF CARE TESTING Ionized Calcium 1.03 (L) 1.12 - 1.32 [facility] mmol/L [facility] POINT [facility] TESTING Sodium 142 135 - 145 meq/L [facility] POINT OF [facility] TESTING Potassium 4.0 3.5 - 5.3 meq/L [facility] POINT OF [facility] TESTING Glucose 186 (H) 70 - 100 mg/dL [facility] POINT OF [facility] TESTING Hematocrit 31.0 (L) 35.0 - 45.0 % [facility] POINT OF [facility] TESTING Hemoglobin 10.5 (L) 11.5 - 15.8 [facility] g/dL [facility] TESTING Specimen Source Arterial [facility] POINT OF [facility] TESTING Specimen Blood Narrative Performed At DEVICE: [id number] [facility] RE Whole blood sample. Unable to evaluate for TESTING hemolysis. Performing Organization Address City/State/Zipcode Phone Number [facility] OF [address] [place] [address] CARE TESTING CULTURE BACTERIAL, OTHER WITH GRAM STAIN (05/28/2020 2:33 PM CDT) Culture Result Rare - One colony Staphylococcus epidermidis (!) [facility] Comment: CLINIC This is a Coagulase Negative Staphylococcus species. This isolate demonstrates in ducible clindamycin resistance in vitro and may develop clindamycin resistance during therapy. (CLSI M100) Gram Stain Many (>25/LPF) WBC's [facility] Gram Stain Many (>25/LPF) RBC's [facility] Gram Stain No epithelial cells [facility] Gram Stain No organisms seen [facility] Specimen Tissue Narrative Performed At Right Femoral Tissue [facility] Organism Antibiotic Method Susceptibility Staphylococcus epidermidis Ciprofloxacin LETY 4 ug/ mL: Resistant Staphylococcus epidermidis Clindamycin LETY <=0.2 5 ug/mL: Resistant Staphylococcus epidermidis Erythromycin LETY >=8 u g/mL: Resistant Staphylococcus epidermidis Levofloxacin LETY 4 ug/ mL: Intermediate Staphylococcus epidermidis Oxacillin LETY >=4 u g/mL: Resistant Comment: Oxacillin predicts susceptibility to cefazolin, cephalexin, nafcillin and dicloxacillin. Staphylococcus epidermidis Penicillin LTEY >=0.5 ug/mL: Resistant Staphylococcus epidermidis Rifampicin LETY <=0.5 ug/mL: Sensitive Comment: Rifampicin should n ot be used alone for antimicrobial therapy. Staphylococcus epidermidis Tetracycline LETY 2 ug/ mL: Sensitive Staphylococcus epidermidis Trimethoprim/Sulfamethoxazole LETY 80 ug/mL: Resistant Staphylococcus epidermidis Vancomycin LETY 2 ug/ mL: Sensitive Comment: Oral Vancomycin is NEVER a treatment option. Vancomycin is NOT absorbed when orally administered. Comment: Oxacillin results can be applied to the other penicillinase-stable penicillins (cloxacillin, dicloxacillin, flucloxacillin, methicillin, and nafcillin), beta lactam/beta lactamase inhibitor combinations , antistaphylococcal cephems, and carbap enems approved for use by the FDA for staphylcoccal infections. Oxacillin resistant staphylococci are re sistant to all currently available beta lactam antimicrobial agents, with the exception of the newer cephalosporins with anti-MRSA activity. Performing Organization Address [facility] Phone Number [address] [phone] CULTURE BACTERIAL, ANAEROBE (05/28/2020 2:33 PM CDT) Culture Result Many Bacteroides fragilis [facility] (!) CLINIC Culture Result Few Peptostreptococcus [facility] anaerobius (!)Comment: No CLINIC susceptibility performed Specimen Tissue Narrative Performed At Right Femoral Tissue [facility] Right Femoral Tissue Organism Antibiotic Method Susceptibility Bacteroides fragilis Ampicillin/Sulbactam.. E TEST 2 ug /mL: Sensitive Bacteroides fragilis Clindamycin.. E TEST >256 ug/mL: Resistant Bacteroides fragilis Meropenem.. E TEST 1 ug/mL: Se nsitive Bacteroides fragilis Metronidazole E TEST 0.06 ug/mL: Sensitive Performing Organization Address City/[facility]/Zipcode Phone Number [address], [place] [id number] OR PANEL 1 POCT (05/28/2020 2:23 PM CDT) Pathologist Sig nature pH Arterial POCT 7.30 (L) 7.35 - 7.[address] [facility] POINT OF CARE TESTING pCO2 Arterial POCT 39 35 - [address] [facility] POINT OF CARE TESTING pO2 Arterial POCT 131 (H) 80 - [address] [facility] POINT OF CARE TESTING HCO3 (Bicarb) 19 (L) 20 - 29 mmol/L [facility] Arterial POCT [facility] POINT OF [facility] TESTING Base Excess Arterial -7 (L) -2 - 2 meq/L [facility] POINT OF CARE TESTING O2 Sat % Arterial 99 (H) 95 - 98 % [facility] POINT OF [facility] TESTING Ionized Calcium 1.10 (L) 1.12 - 1.32 [facility] mmol/L [facility] TESTING Sodium 142 135 - 145 meq/L [facility] POINT OF [facility] TESTING Potassium 3.8 3.5 - 5.3 meq/L [facility] POINT OF [facility] TESTING Glucose 181 (H) 70 - 100 mg/dL [facility] POINT OF CARE TESTING Hematocrit 23.0 (L) 35.0 - 45.0 % [facility] POINT OF [facility] TESTING Hemoglobin 7.8 (L) 11.5 - 15.8 [facility] g/dL [facility] TESTING Specimen Source Arterial [facility] POINT OF [facility] TESTING Specimen Blood Narrative Performed At DEVICE: [id number] [facility] CA RE Whole blood sample. Unable to evaluate for TESTING hemolysis. Performing Organization Address City/State/Zipcode Phone Number [facility] OF [address] [place] [address] CARE TESTING PREPARE AND HOLD RED BLOOD CELLS IN UNITS - BLOOD BANK, 2 Units (05/28/2020 1:50 PM CDT) BPAM Product Code [id number] LAB BPAM Unit Number [id number] LAB Unit ABO Type O LAB Unit Rh Type POS LAB XM Interp Compatible LAB BPAM Dispense Status TR LAB BPAM Blood [id number] LAB Expiration Date BPAM Coding System 5100 LAB Product Code RBC, Leukoreduced LAB CP2D>AS3 Unit ID [id number] LAB Product Status Transfused LAB Specimen Blood Performing Organization Address City/[facility]/Zipcode Phone Number LAB OR PANEL 1 POCT (05/28/2020 1:45 PM CDT) Pathologist Sig nature pH Arterial POCT 7.24 (L) 7.35 - 7.[address] [facility] POINT OF CARE TESTING pCO2 Arterial POCT 39 35 - [address] [facility] POINT OF CARE TESTING pO2 Arterial POCT 145 (H) 80 - [address] [facility] POINT OF CARE TESTING HCO3 (Bicarb) 17 (L) 20 - 29 mmol/L [facility] Arterial POCT [facility] POINT OF CARE TESTING Base Excess Arterial -10 (L) -2 - 2 meq/L [facility] POINT OF [facility] TESTING O2 Sat % Arterial 99 (H) 95 - 98 % [facility] POINT OF CARE TESTING Ionized Calcium 1.17 1.12 - 1.32 [facility] mmol/L [facility] TESTING Sodium 139 135 - 145 meq/L [facility] POINT OF [facility] TESTING Potassium 4.1 3.5 - 5.3 meq/L [facility] POINT OF CARE TESTING Glucose 178 (H) 70 - 100 mg/dL [facility] OF [facility] TESTING Hematocrit 28.0 (L) 35.0 - 45.0 % [facility] OF [facility] TESTING Hemoglobin 9.5 (L) 11.5 - 15.8 [facility] g/dL [facility] TESTING Specimen Source Arterial [facility] POINT OF [facility] TESTING Specimen Blood Narrative Performed At DEVICE: [id number] [facility] OF MD RE Whole blood sample. Unable to evaluate for TESTING hemolysis. Performing Organization Address City/[facility]/Zipcode Phone Number [facility] OF [address] [place] [address] CARE TESTING PREPARE AND HOLD RED BLOOD CELLS IN UNITS - BLOOD BANK, 2 Units (05/28/2020 12:30 PM CDT) Pathologist Jessica FOX Product Code [id number] LAB BPAM Unit Number [id number] LAB Unit ABO Type O LAB Unit Rh Type POS LAB XM Interp Compatible LAB BPAM Dispense Status TR LAB BPAM Blood [id number] LAB Expiration Date [facility] Coding System 5100 LAB Product Code RBC, Leukoreduced LAB CP2D>AS3 Unit ID [id number] LAB Product Status Transfused LAB Specimen Blood Performing Organization Address [facility] [email or web address] Phone Number LAB COMPLETE BLOOD COUNT WITHOUT DIFFERENTIAL (05/28/2020 10:18 AM CDT) Pathologist Sig nature WBC 18.3 (H) 4.0 - 11.0 K/uL [address] RBC 2.21 (L) 3.80 - 5.30 M/uL [address] Hemoglobin 6.9 (LL) 11.5 - 15.8 g/dL [address] Hematocrit 21.1 (L) 35.0 - 45.0 % [address] MCV 95.5 80.0 - 98.[address] MCH 31.2 25.5 - 34.[address] MCHC 32.7 31.5 - 36.5 g/dL [address] RDW-CV 13.2 11.5 - 15.5 % [address] RDW-SD 46.1 35.5 - 50.[address] Platelet Count 217 140 - 400 K/uL [address] MPV 10.9 8.5 - 12.[address] Specimen Blood Performing Organization Address [facility] Phone Number [address] [place] [address] LACTIC ACID (05/28/2020 10:18 AM CDT) Pathologist Sig nature Lactic Acid 1.6 0.5 - 2.2 mmol/L [address] Specimen Blood Performing Organization Address [facility] [[email or web address] Phone Number [address] [place] [address] PROTIME/INR (05/28/2020 10:18 AM CDT) Pathologist Sig nature Protime 15.0 (H) 12.0 - 14.[address] INR 1.2 (L) 2.0 - 3.[address] Specimen Blood Narrative Performed At Normal INR reference range (patients not on oral [address] anticoagulants)0.9-1.1. INR Standard Intensity = (2.0 - 3.0) INR Higher Intensity = (2.5 - 3.5) Performing Organization Address [facility] Phone Number [address] [facility] [place] [address] VANCOMYCIN TROUGH (05/28/2020 10:18 AM CDT) Pathologist Sig nature Vancomycin Trough 7.6 (L) 10.0 - 20.0 ug/mL [place] [address] CLINI [facility] Specimen Blood Performing Organization Address [facility] Phone Number [address] [facility] [place] [address] PREPARE AND HOLD RED BLOOD CELLS IN UNITS - BLOOD BANK (05/28/2020 9:19 AM CDT) [facility] Product Code X2617A08 LAB [facility] Unit Number [id number] LAB Unit ABO Type O LAB Unit Rh Type POS LAB XM Interp Compatible LAB BPAM Dispense Status TR LAB [facility] Blood [id number] LAB Expiration Date BPAM Coding System 5100 LAB Product Code RBC, Leukoreduced LAB [id number] Unit ID [id number] LAB Product Status Transfused LAB Specimen Performing Organization Address [facility] Phone Number LAB PREPARE AND HOLD RED BLOOD CELLS IN UNITS - BLOOD BANK, 2 Units (05/28/2020 9:15 AM CDT) Pathologist [facility] Product Code F1457S91 LAB [facility] Unit Number [id number] LAB Unit ABO Type O LAB Unit Rh Type POS LAB XM Interp Compatible LAB BPAM Dispense Status TR LAB [facility] Blood [id number] LAB Expiration Date BPAM Coding System 5100 LAB Product Code RBC, LAB Leukoreduced/Apheresis 1st cont. Unit ID [id number] LAB Product Status Transfused LAB Specimen Blood Performing Organization Address [facility] Phone Number LAB TYPE AND SCREEN (05/28/2020 3:30 AM CDT) Pathologist Sig nature ABO Type O [address] BLOOD BANK Rh Type Positive [address] BLOOD BANK Antibody Screen Negative [address] Comment: BLOOD BANK Allogenic Red Cells Available 05/28/20 Expiration Date 05/31/2020 23:[address] BLOOD BANK Specimen Blood Performing Organization Address City/State/Zipcode Phone Number [address] BLOOD BANK [address], [place] [address] LAB ONLY-COMPLETE BLOOD COUNT WITH DIFFERENTIAL (05/28/2020 3:30 AM CDT) Pathologist Sig nature WBC 13.4 (H) 4.0 - 11.0 K/uL [address] RBC 2.43 (L) 3.80 - 5.[address] M/uL Hemoglobin 7.5 (L) 11.5 - 15.[address] g/dL Hematocrit 23.6 (L) 35.0 - 45.0 % [address] MCV 97.1 80.0 - 98.[address] MCH 30.9 25.5 - 34.[address] MCHC 31.8 31.5 - 36.[address] g/dL RDW-CV 13.2 11.5 - 15.5 % [address] RDW-SD 46.7 35.5 - 50.[address] Platelet Count 177 140 - 400 K/uL [address] MPV 10.7 8.5 - 12.[address] Seg Neut Absolute 11.5 (H) 1.8 - 8.0 K/uL [address] Lymphocytes Absolute 1.1 0.8 - 4.1 K/uL [place] [address] [facility] Monocytes Absolute 0.7 0.0 - 1.0 K/uL [address] Eosinophils Absolute 0.0 0.0 - 0.7 K/uL [place] [address] [facility]I [facility] Basophil Absolute 0.0 0.0 - 0.2 K/uL [address] Immature Granulocyte 0.13 (H) 0.00 - 0.[address] Absolute K/uL Neutrophils Abs. 11,500 /uL [address] (Segs and Bands) Neutrophils Percent 85.9 % [address] Lymphocytes Percent 7.9 % [address] Monocytes Percent 5.1 % [address] Immature Granulocyte 1.0 % [place] [address] [facility]INIC Percent Eosinophils Percent 0.0 % [address] Basophil Percent 0.1 % [address] Nucleated RBC 0 /[address] Specimen Blood Performing Organization Address [facility] Phone Number [address] [place] [address] MAGNESIUM (05/28/2020 3:30 AM CDT) Pathologist [facility] Magnesium 1.8 1.8 - 2.4 mg/dL [address] Specimen Blood Performing Organization Address [facility] Phone Number [address] [place] [address] RENAL FUNCTION PANEL (05/28/2020 3:30 AM CDT) Pathologist Sig [facility] Glucose 153 (H) 70 - 100 mg/dL [address] BUN 31 (H) 6 - 22 mg/dL [address] Creatinine 1.76 (H) 0.60 - 1.[address] mg/dL BUN/Creatinine Ratio 17.6 10.0 - 25.[address] Sodium 138 135 - 145 meq/L [address] Potassium 3.8 3.5 - 5.3 meq/L [address] Chloride 109 99 - 110 meq/L [address] CO2 19 (L) 20 - 29 meq/L [address] Anion Gap with K 14 6 - 20 meq/L [address] Calcium 8.0 (L) 8.5 - 10.[address] mg/dL Phosphorus 2.7 2.5 - 4.5 mg/dL [address] Albumin 2.5 (L) 3.5 - 5.0 g/dL [address] Corrected Calcium 9.2 8.5 - 10.5 [place] [address] [facility] mg/dL Age [address] eGFR Non- 28 (L) >=[address] [place] mL/min/1.73m2 eGFR 34 (L) >=[address] mL/min/1.73m2 Specimen Blood Performing Organization Address [facility] Phone Number [address] [place] [address], [place] [address] LACTIC ACID (05/28/2020 3:30 AM CDT) Pathologist Sig nature Lactic Acid 1.5 0.5 - 2.2 mmol/L [address] Specimen Blood Performing Organization Address [facility] Phone Number [address] [place] [address], [place] [address] GLUCOSE BY METER, POCT (05/28/2020 3:22 AM CDT) Pathologist Sig nature Glucose POC 143 (H) 70 - 100 mg/dL [facility] POINT OF CARE TESTING Specimen Blood Performing Organization Address [facility] Phone Number [facility] POINT OF [address] [place] [address], [place] [address] CARE TESTING GLUCOSE BY METER, POCT (05/28/2020 12:23 AM CDT) Pathologist Sig nature Glucose POC 158 (H) 70 - 100 mg/dL [facility] POINT OF CARE TESTING Specimen Blood Performing Organization Address [facility] Phone Number [facility] POINT OF [address] [place] [address], [place] [address] CARE TESTING LACTIC ACID (05/27/2020 10:04 PM CDT) Pathologist Sig nature Lactic Acid 2.1 0.5 - 2.2 mmol/L [address] Specimen Blood Performing Organization Address [facility] Phone Number [address] [place] [address] GLUCOSE BY METER, POCT (05/27/2020 8:08 PM CDT) Pathologist Sig nature Glucose POC 147 (H) 70 - 100 mg/dL [facility] POINT OF CARE TESTING Specimen Blood Performing Organization Address [facility] Phone Number [facility] POINT OF [address] [place] [address], [place] [address] CARE TESTING MAGNESIUM (05/27/2020 6:15 PM CDT) Pathologist Sig nature Magnesium 1.6 (L) 1.8 - 2.4 mg/dL [facility] Specimen Blood Performing Organization Address [facility] [[email or web address] Phone Number [place] [address] [facility] [address] [place] [address] RENAL FUNCTION PANEL (05/27/2020 6:15 PM CDT) Pathologist Sig nature Glucose 151 (H) 70 - 100 mg/dL [address] BUN 29 (H) 6 - 22 mg/dL [address] Creatinine 1.75 (H) 0.60 - 1.10 [place] [address] [facility] mg/dL BUN/Creatinine Ratio 16.6 10.0 - 25.[address] Sodium 136 135 - 145 meq/L [address] Potassium 4.2 3.5 - 5.3 meq/L [address] Chloride 109 99 - 110 meq/L [address] CO2 16 (L) 20 - 29 meq/L [address] Anion Gap with K 15 6 - 20 meq/L [address] Calcium 7.7 (L) 8.5 - 10.[address] mg/dL Phosphorus 2.4 (L) 2.5 - 4.5 mg/dL [address] Albumin 2.7 (L) 3.5 - 5.0 g/dL [address] Corrected Calcium 8.7 8.5 - 10.[address] mg/dL Age [address] eGFR Non- 28 (L) >=[address] [place] mL/min/1.73m2 eGFR 34 (L) >=[address] mL/min/1.73m2 Specimen Blood Performing Organization Address [facility] [[email or web address] Phone Number [place] [address] [facility] [address] [facility] [address] GLUCOSE BY METER, POCT (05/27/2020 5:57 PM CDT) Pathologist Sig nature Glucose POC 150 (H) 70 - 100 mg/dL [facility] POINT OF CARE TESTING Specimen Blood Performing Organization Address [facility] [[email or web address] Phone Number [facility] POINT OF [address] [place] [address] CARE TESTING COLLECT AND HOLD LAVENDER (EDTA) TOP TUBE (05/27/2020 5:15 PM CDT) Collect and Hold Comment: RECEIVED [place] [address] Specimen Status CLINIC Specimen Blood Performing Organization Address [facility] Phone Number [address] [place] [address], [place] [address] LACTIC ACID (05/27/2020 4:22 PM CDT) Pathologist Sig nature Lactic Acid 2.1 0.5 - 2.2 mmol/L [address] Specimen Blood Performing Organization Address [facility] Phone Number [address] [place] [address], [place] [address] STAPH AUREUS/MRSA QUINCY, SUPERFICIAL WOUND (05/27/2020 2:20 PM CDT) [facility] MRSA by NAD Not Detected Not Detected [facility] Staph aureus by NAD Not Detected Not Detected [facility] Specimen Skin/Superficial Wnd Narrative Performed At This test was performed by polymerase chain reaction ( PCR) [facility] on the GeneXpert instrument. Performing Organization Address [facility] Phone Number [facility] [address] [place] [address] LACTIC ACID (05/27/2020 1:00 PM CDT) Pathologist Sig nature Lactic Acid 3.2 (H) 0.5 - 2.2 mmol/L [address] Specimen Blood Performing Organization Address [facility] Phone Number [address] [place] [address] CORTISOL TOTAL A.M. (05/27/2020 4:13 AM CDT) Pathologist Sig nature Cortisol AM 36.0 (H) 5.0 - 22.0 ug/dL [facility] Specimen Blood Performing Organization Address [facility] [[email or web address] Phone Number [facility] [address] [place] [address] [phone] LIPID PANEL (05/27/2020 4:13 AM CDT) Pathologist Sig nature Cholesterol 174 100 - 200 mg/dL [facility] Triglyceride 98 50 - 150 mg/dL [facility] HDL 30 (L) 40 - 80 mg/dL [facility] LDL 124 0 - 129 mg/dL [facility] Specimen Blood Performing Organization Address [facility] Phone Number [facility] [address] [place] [address] [phone] LACTIC ACID (05/27/2020 4:13 AM CDT) Pathologist Sig nature Lactic Acid 1.3 0.5 - 2.2 mmol/L [address] Specimen Blood Performing Organization Address [facility] Phone Number [address] [place] [address] CREATININE (05/27/2020 4:13 AM CDT) Pathologist Sig nature Creatinine 1.96 (H) 0.60 - 1.[address] mg/dL Age [address] eGFR Non- 25 (L) >=[address] [place] mL/min/1.73m2 eGFR 30 (L) >=[address] mL/min/1.73m2 Specimen Blood Performing Organization Address [facility] Phone Number [address] [place] [address] RENAL FUNCTION PANEL (05/27/2020 4:13 AM CDT) Pathologist Sig nature Glucose 106 (H) 70 - 100 mg/dL [address] BUN 29 (H) 6 - 22 mg/dL [address] Creatinine 1.96 (H) 0.60 - 1.[address] mg/dL BUN/Creatinine Ratio 14.8 10.0 - 25.[address] Sodium 137 135 - 145 meq/L [address] Potassium 3.7 3.5 - 5.3 meq/L [address] Chloride 108 99 - 110 meq/L [address] CO2 20 20 - 29 meq/L [address] Anion Gap with K 13 6 - 20 meq/L [address] Calcium 8.3 (L) 8.5 - 10.[address] mg/dL Phosphorus 2.3 (L) 2.5 - 4.5 mg/dL [address] Albumin 2.6 (L) 3.5 - 5.0 g/dL [address] Corrected Calcium 9.4 8.5 - 10.[address] mg/dL Age [address] eGFR Non- 25 (L) >=[address] [place] mL/min/1.73m2 eGFR 30 (L) >=[address] mL/min/1.73m2 Specimen Blood Performing Organization Address [facility] Phone Number [address] [place] [address] MAGNESIUM (05/27/2020 4:13 AM CDT) Pathologist Sig nature Magnesium 1.5 (L) 1.8 - 2.4 mg/dL [address] Specimen Blood Performing Organization Address [facility] Phone Number [address] [place] [address] LAB ONLY-GRAM POSITIVE BLOOD CULTURE ID BY NAD (05/27/2020 12:46 AM CDT) Staphylococcus species Not Detected Not Detected [facility] Staphylococcus aureus Not Detected Not Detected [facility] Staphylococcus Not Detected Not Detected [facility] epidermidis [facility] Staphylococcus Not Detected Not Detected [facility] lugdunensis [facility] Streptococcus species Not Detected Not Detected [facility] Streptococcus Not Detected Not Detected [facility] pneumoniae [facility] Streptococcus pyogenes Not Detected Not Detected [facility] (Group A) [facility] Streptococcus Not Detected Not Detected [facility] agalactiae (Group B) [facility] Streptococcus anginosus Not Detected Not Detected [facility] group [facility] Enterococcus faecalis Not Detected Not Detected [facility] Enterococcus faecium Not Detected Not Detected [facility] Listeria species Not Detected Not Detected [facility] Specimen Blood Narrative Performed At This test was performed by multiplexed/real-time [facility] chain reaction (PCR) and probe hybridization on the Lynk instrument. This test is approved by the Food and Drug Administration (FDA). Performing Organization Address [facility] [[email or web address] Phone Number [facility] [address] [place] [address] LAB ONLY-MANUAL DIFFERENTIAL (05/27/2020 12:46 AM CDT) Pathologist Sig nature Neutrophils Abs. (Segs 5,904 /uL [place] [address] CLINI [facility] and Bands) Seg Neut Absolute 4.8 1.8 - 8.0 K/uL [place] [address] [facility] Band Absolute 1.1 (H) 0.0 - 0.7 K/uL [address] Lymphocytes Absolute 0.9 0.8 - 4.1 K/uL [place] [address] [facility] Monocytes Absolute 0.3 0.0 - 1.0 K/uL [address] Eosinophils Absolute 0.1 0.0 - 0.7 K/uL [place] [address] [facility] Neutrophils Percent 67.0 % [address] Band Percent 15.0 % [address] Lymphocytes Percent 13.0 % [address] Monocytes Percent 4.0 % [address] Eosinophils Percent 1.0 % [address] Platelet Estimate Normal [address] Platelet Morphology Normal [address] RBC Morphology Normal [address] Specimen Blood Performing Organization Address [facility] Phone Number [address] [place] [address], [place] [address] COLLECT AND HOLD SST TOP TUBE (05/27/2020 12:46 AM CDT) Collect and Hold Comment: RECEIVED [place] [address] Specimen Status CLINIC Specimen Blood Performing Organization Address [facility] Phone Number [address] [place] [address], [place] [address] COLLECT AND HOLD BLUE (NACIT) TOP TUBE (05/27/2020 12:46 AM CDT) Collect and Hold Comment: RECEIVED [place] [address] Specimen Status CLINIC Specimen Blood Performing Organization Address [facility] Phone Number [address] [place] [address], [place] [address] LAB ONLY-COMPLETE BLOOD COUNT WITH DIFFERENTIAL (05/27/2020 12:46 AM CDT) Pathologist [facility] WBC 7.2 4.0 - 11.0 K/uL [address] RBC 3.42 (L) 3.80 - 5.30 M/uL [address] Hemoglobin 10.6 (L) 11.5 - 15.8 g/dL [address] Hematocrit 32.9 (L) 35.0 - 45.0 % [address] MCV 96.2 80.0 - 98.[address] MCH 31.0 25.5 - 34.[address] MCHC 32.2 31.5 - 36.5 g/dL [address] RDW-CV 13.0 11.5 - 15.5 % [address] RDW-SD 45.5 35.5 - 50.[address] Platelet Count 237 140 - 400 K/uL [address] MPV 10.3 8.5 - 12.[address] Specimen Blood Narrative Performed At A previously reported component Auto NRBCs is no longe r reported. [address] Performing Organization Address [email or web address] Phone Number [address] [place] [address] LACTIC ACID (05/27/2020 12:46 AM CDT) Pathologist Sig nature Lactic Acid 2.9 (H) 0.5 - 2.2 mmol/L [address] Specimen Blood Performing Organization Address [facility] Phone Number [address] [place] [address] COMPREHENSIVE METABOLIC PANEL (05/27/2020 12:46 AM CDT) Pathologist Sig nature Glucose 112 (H) 70 - 100 mg/dL [address] BUN 27 (H) 6 - 22 mg/dL [address] Creatinine 1.84 (H) 0.60 - 1.[address] mg/dL BUN/Creatinine Ratio 14.7 10.0 - 25.[address] Sodium 137 135 - 145 meq/L [address] Potassium 4.3 3.5 - 5.3 meq/L [address] Chloride 105 99 - 110 meq/L [address] CO2 19 (L) 20 - 29 meq/L [address] Anion Gap with K 17 6 - 20 meq/L [address] Calcium 9.5 8.5 - 10.[address] mg/dL Protein Total 6.9 6.0 - 8.2 g/dL [address] Albumin 3.1 (L) 3.5 - 5.0 g/dL [address] Alkaline Phosphatase 99 30 - 150 U/L [address] AST - SGOT 28 0 - 35 U/L [address] ALT - SGPT 14 0 - 55 U/L [address] Bilirubin Total 0.8 0.2 - 1.2 mg/dL [address] Corrected Calcium 10.2 8.5 - 10.[address] mg/dL Age [address] eGFR Non- 27 (L) >=[address] [place] mL/min/1.73m2 eGFR 33 (L) >=[address] mL/min/1.73m2 Specimen Blood Performing Organization Address [facility] Phone Number [address] [place] [address] HEPARIN UNFRACTIONATED ANTI-XA (05/26/2020 8:40 PM CDT) Heparin Xa <=0.10 (L) 0.30 - 0.70 [place] [address] Unfractionated U/mL CLINIC Specimen Blood Narrative Performed At [address] Therapeutic Range: 0.3 - 0.7 IU/mL Performing Organization Address [facility] Phone Number [address] [place] [address] HEPARIN UNFRACTIONATED ANTI-XA (05/26/2020 12:57 PM CDT) Heparin Xa <=0.10 (L) 0.30 - 0.70 [place] [address] Unfractionated U/mL CLINIC Specimen Blood Narrative Performed At [address] Therapeutic Range: 0.3 - 0.7 IU/mL Performing Organization Address [facility] Phone Number [address] [place] [address], [place] [address] HEPARIN/ENOXAPARIN ANTI-XA (05/26/2020 10:08 AM CDT) Pathologist Sig nature Heparin/Enoxaparin Anti-Xa 0.11 IU/mL [place] [address] C LINIC Specimen Blood Narrative Performed At [address] Therapeutic Reference Ranges: 1.0 - 2.0 once daily dose 0.5 - 1.0 twice daily dose Performing Organization Address City/State/Zipcode Phone Number [address] [facility] [place] [address] ECHO ADULT COMPLETE (05/26/2020 9:09 AM CDT) Specimen Narrative Performed At This result has an attachment that is no t available. [facility] Patient: LONI MUNIZ MR#: [id number] Exam Date: 05/26/2020 Transthoracic Echocardiogram [facility] [address] [place], [place] BP: 86/65 mmHgHR:62 bpm : 1945 Exam Location:Bedside Height:60.00 "(152.4 cm) Age: 74 year(s) [facility]77.57 kg[facility] Gender:Female Patient Status: Inpatient BSA: 1.75 m2 Assistant Project Engineer: Larry SOTO Reading Physician: FRANTZ TEJADA MD Ordering Physician:NAGI GLASER DO Procedure Indication(s): Hypotension, NSTEMI Examination: TTE Complete 2D(m-mode), Complete Spectral Doppler, Color Doppler Conclusions Left Ventricle: Normal left ventricular systolic functio n. The ejection fraction is visually estimated to be 55 %. Aortic Valve: There is a possible vegetation on the ao rtic valve. Aortic valve mean gradient is 5 mmHg. Mitral Valve: There is a possible vegetation on the mi tral valve. Mitral valve mean gradient is 3 mmHg. Right Ventricle: Normal right ventricular systolic function. Pericardium: No significant pericardial effusion. Veg etations may be Libman Sach vegetations secondary to lupus. Comparison Study Comparison Date: 09/29/2019 Comparison Study: Transthoracic Echocardiogram There was no significant change from prior echo Findings Left Ventricle: Normal left ventricular size. Mildly-to- moderately increased left ventricular wall thickness. Normal left ventricular systolic function. The ejection fraction is visua lly estimated to be 55 %. Grade 1 left ventricular diastolic dysfunction. Left Atrium: Moderately dilated left atrium. Aortic Valve: The aortic valve is tricuspid. Aortic sc lerosis is present. No significant aortic regurgitation. No aortic stenosis.There is a possible vegetation on the aortic valve. Aortic valve mean gradient is 5 mmHg. Aorta: The sinus of valsalva is normal in size measuring 33.0 mm. The ascending aorta is normal in size measuring 33.0 mm. Mitral Valve: Normal mitral valve structure. Mild mitr al leaflet calcification. There is moderate mitral annular calcification. Trivial mitral regurgitation. Mild mitral stenosis. The re is a possible vegetation on the mitral valve. Mitral valve mean gradient is 3 mmHg. IAS: No evidence of an atrial shunt by color Doppler. Right Ventricle: Normal right ventricular size. Normal ri ght ventricular systolic function. Normal right ventricular wall thickness. Pulmonary Artery: The tricuspid jet envelope definition is inadequate for estimation of RV systolic pressure. Right Atrium: Normal right atrial size. Tricuspid Valve: Normal tricuspid valve structure. No significant tricu spid regurgitation. Pulmonic Valve: Normal pulmonary valve structure. Trivia l pulmonary regurgitation. No pulmonary stenosis. IVC: Normal IVC size with normal respirophasic changes. Pericardium: No significant pericardial effusion. Vegetations may be Libman Sach vegetatio ns secondary to lupus.No pleural effusion. Measurements Left Ventricle Aortic Valve Label ValueNormal Value LabelValueNormal Value LVDd, 2D 44.2 mmLVOT Vmax 96 cm/s LVDs, 2D 35.5 mmAV Vmax 149 cm/s IVSd, 2D 13.3 mmLVOTd 20 mm LVPWd, 2D 13 .1 mmLVOT VTI23.5 cm FS, 2D 20 % LVOT PGmax4 mmHg LVEDV, 2D 89 mlAV Svowj945 cm/s LVESV, 2D 53 mlAV VTI34.2 cm Cardiac Output4.59 L/min AV PGmax9 mmHg Cardiac Index 2.62 EMI (Vmax)2 cm-sq L/min/m-sq AV Vmax, Caumxsy190 cm/s LVEDVI, 2D50 .9 ml/m2 EMI(VTI)2.2 cm-sq LVESVI, 2D30 .3 ml/m2 Obstructive Index 0.64 Stroke Index42.29 (Vmax) ml/m-sq Obstruction Index 0.69 Left Atrium (VTI) Label ValueNormal Value AV PGmean 5 mmHg LADs Long.50 mmMitral Valve LA Volume Index 40.7 ml/ m- sq LabelValueNormal Value Aorta MV E Vmax 115 cm/s Label ValueNormal Value MV A Vmax 153 cm/s Ao Asc 33 mmMV E/A0.75 Ao Sinus, 2D33 mmMV E/E' lateral 22.9 Great Vessels MV Dec Time 312 ms Label ValueNormal Value MV VTI47.8 cm PVein S 47 cm/sMVA (VTI) 1.5 cm-sq PVein D 22 cm/sMV PGmax9 mmHg S/D Ratio 2. 1 MV PHT 0.09 s Heart Rate MVA PHT 2.4 cm-sq Label ValueNormal Value MV E' lateral 5 cm/s Heart Rate62 bpm MV PGmean 3 mmHg Procedure Note Interface, Inc Results No Pull Forward - 05/26/2020 1:35 PM CDT Patient: LONI MUNIZ MR#: [id number] Exam Date: 05/26/2020 Transthoracic Echocardiogram [facility] [address] [place] [address] BP: 86/65 mmHg HR: 62 bpm : 1945 Exa m Location: Bedside Height: 60.00 "(152.4 cm) Age: 74 year(s) Pat ient Room: [facility] Weight: 171 lbs.(77.57 kg) Gender: Female Pat ient Status: Inpatient BSA: 1.75 m2 Assistant Project Engineer: YOEL Small, [facility] Reading Physician: DARRELL TEJADA MD Ordering Physician: NAGI SPEAR DO Procedure Indication(s): Hypote nsion, NSTEMI Examination: TTE Co mplete 2D(m-mode), Complete Spectral Doppler, Color Doppler Conclusions Left Ventricle: Normal left ventricular systolic functio n. The ejection fraction is visually estimated to be 55 %. Aortic Valve: There is a possible vegetation on the ao rtic valve. Aortic valve mean gradient is 5 mmHg. Mitral Valve: There is a possible vegetation on the mi tral valve. Mitral valve mean gradient is 3 mmHg. Right Ventricle: Normal right ventricular systolic functi on. Pericardium: No significant pericardial effusion. Veg etations may be Libman Sach vegetations secondary to lupus. Comparison Study Comparison Date: 09/29/2019 Comparison Study: Transthoracic Echocard iogram There was no significant change from naseem or echo Findings Left Ventricle: Normal left ventricular size. Mildly-to- moderately increased left ventricular wall thickness. Normal left ventricular systolic function. The ejection fraction is visua lly estimated to be 55 %. Grade 1 left ventricular diastolic dysfunction. Left Atrium: Moderately dilated left atrium. Aortic Valve: The aortic valve is tricuspid. Aortic sc lerosis is present. No significant aortic regurgitation. No aortic stenosis. There is a possible vegetation on the aortic valve. Aortic valve mean gradient is 5 mmHg. Aorta: The sinus of valsalva is normal in size measuring 33.0 mm. The ascending aorta is normal in size measuring 33.0 mm. Mitral Valve: Normal mitral valve structure. Mild mitr al leaflet calcification. There is moderate mitral annular calcification. Trivial mitral regurgitation. Mild mitral stenosis. The re is a possible vegetation on the mitral valve. Mitral valve mean gradient is 3 mmHg. IAS: No evidence of an atrial shunt by color Doppler. Right Ventricle: Normal right ventricular size. Normal ri ght ventricular systolic function. Normal right ventricular wall thickness. Pulmonary Artery: The tricuspid jet envelope definition is inadequate for estimation of RV systolic pressure. Right Atrium: Normal right atrial size. Tricuspid Valve: Normal tricuspid valve structure. No sig nificant tricuspid regurgitation. Pulmonic Valve: Normal pulmonary valve structure. Trivia l pulmonary regurgitation. No pulmonary stenosis. IVC: Normal IVC size with normal respirophasi c changes. Pericardium: No significant pericardial effusion. Vegetations may be Libman Sach vegetatio ns secondary to lupus.No pleural effusion. Measurements Left Ventricle Aortic Valve Label Value Norm al Value Label Value Normal Value LVDd, 2D 44.2 mm LVOT Vmax 96 cm/s LVDs, 2D 35.5 mm AV Vmax 149 cm/s IVSd, 2D 13.3 mm LVOTd 20 mm LVPWd, 2D 13.1 mm LVOT VTI 23.5 cm FS, 2D 20 % LVOT PGmax 4 mmHg LVEDV, 2D 89 ml AV Vmean 105 cm/s LVESV, 2D 53 ml AV VTI 34.2 cm Cardiac Output 4.59 L/min AV PGmax 9 mmHg Cardiac Index 2.62 EMI (Vmax) 2 cm-sq L/min/m-sq AV Vmax, Caliper 149 cm/s LVEDVI, 2D 50.9 ml/m2 EMI (VTI) 2.2 cm-sq LVESVI, 2D 30.3 ml/m2 Obstructive Index 0.64 Stroke Index 42.29 (Vmax) ml/m-sq Obs truction Index 0.69 Left Atrium (VTI) Label Value Norm al Value AV PGmean 5 mmHg LADs Long. 50 mm Mitral Valve LA Volume Index 40.7 ml/m-sq Label Value Normal Value Aorta MV E Vmax 115 cm/s Label Value Norm al Value MV A Vmax 153 cm/s Ao Asc 33 mm MV E/A 0.75 Ao Sinus, 2D 33 mm MV E/E' lateral 22.9 Great Vessels MV Dec Time 312 ms Label Value Norm al Value MV VTI 47.8 cm PVein S 47 cm/s MVA (VTI) 1.5 cm-sq PVein D 22 cm/s MV PGmax 9 mmHg S/D Ratio 2.1 MV PHT 0.09 s Heart Rate MVA PHT 2.4 cm-sq Label Value Norm al Value MV E' lateral 5 cm/s Heart Rate 62 bpm MV PGmean 3 mmHg Performing Organization Address [facility] [[email or web address] Phone Number [facility], [place] CREATININE (05/26/2020 7:27 AM CDT) Pathologist Sig nature Creatinine 1.86 (H) 0.60 - 1.[address] mg/dL Age [address] eGFR Non- 26 (L) >=[address] [place] mL/min/1.73m2 eGFR 32 (L) >=[address] mL/min/1.73m2 Specimen Blood Performing Organization Address [facility] [[email or web address] Phone Number [address] [place] [address] COMPLETE BLOOD COUNT WITHOUT DIFFERENTIAL (05/26/2020 7:27 AM CDT) Pathologist Sig nature WBC 13.8 (H) 4.0 - 11.0 K/uL [address] RBC 3.24 (L) 3.80 - 5.30 M/uL [address] Hemoglobin 10.1 (L) 11.5 - 15.8 g/dL [address] Hematocrit 31.5 (L) 35.0 - 45.0 % [address] MCV 97.2 80.0 - 98.[address] MCH 31.2 25.5 - 34.[address] MCHC 32.1 31.5 - 36.5 g/dL [address] RDW-CV 12.9 11.5 - 15.5 % [address] RDW-SD 46.1 35.5 - 50.[address] Platelet Count 245 140 - 400 K/uL [address] MPV 10.2 8.5 - 12.[address] Specimen Blood Performing Organization Address [facility] Phone Number [address] [place] [phone] TROPONIN I (05/26/2020 7:27 AM CDT) Pathologist Sig nature Troponin I 0.823 (H) 0.000 - 0.028 ng/mL [place] [address] CLINIC Specimen Blood Performing Organization Address [facility] Phone Number [address] [place] [phone] HEPARIN/ENOXAPARIN ANTI-XA (05/26/2020 7:07 AM CDT) Pathologist Sig nature Heparin/Enoxaparin Anti-Xa 0.80 IU/mL [place] [address] C LINIC Specimen Blood Narrative Performed At [address] Therapeutic Reference Ranges: 1.0 - 2.0 once daily dose 0.5 - 1.0 twice daily dose Performing Organization Address [facility] Phone Number [address] [place] [phone] HEPARIN UNFRACTIONATED ANTI-XA (05/26/2020 7:07 AM CDT) Heparin Xa 0.76 (H) 0.30 - 0.70 [place] [address] Unfractionated U/mL CLINIC Specimen Blood Narrative Performed At [address] Therapeutic Range: 0.3 - 0.7 IU/mL Performing Organization Address [facility]/Zipcode Phone Number [address] [facility] [place] [address] PTT (05/26/2020 7:07 AM CDT) Pathologist Sig nature APTT >150 (HH) 24 - [address] Specimen Blood Performing Organization Address [facility] [[email or web address] Phone Number [address] [facility] [place] [address] documented in this encounter Visit Diagnoses Diagnosis NSTEMI (non-ST elevated myocardial infar ction) ([facility]) - Primary Acute myocardial infarction, subendocard ial infarction, episode of care unspecified ACP (advance care planning) Other specified counseling Bleeding Hemorrhage, unspecified Coronary artery disease due to calcified coronary lesion STEMI involving right coronary artery (H CC) Centrilobular emphysema (HCC) Other emphysema RLS (restless legs syndrome) Restless legs syndrome (RLS) Lupus ([facility]) Systemic lupus erythematosus Essential hypertension Unspecified essential hypertension Chronic mesenteric ischemia ([facility]) Chronic vascular insufficiency of intest ine Surgical wound infection Other postoperative infection MYRIAM on CPAP Obstructive sleep apnea (adult) (pediatr ic) Smoker Tobacco use disorder Peripheral vascular disease (HCC) Peripheral vascular disease, unspecified Hx of renal artery stenosis Personal history of other disorder of ur inary system FSGS (focal segmental glomerulosclerosis ) 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 CKD (chronic kidney disease) stage 3, GF R 30-59 ml/min ([facility]) Chronic kidney disease, Stage III (moder ate) Brachiocephalic artery stenosis, right ( [facility]) Stricture of artery Bilateral carotid artery disease ([facility]) Unspecified disorders of arteries and ar terioles Abdominal aortic aneurysm (HCC) Abdominal aneurysm without mention of ru pture Bradycardia Other specified cardiac dysrhythmias Spontaneous dissection of coronary arter y documented in this encounter Discharge Diagnoses Not on filedocumented in this encounter Administered Medications Medication Order MAR Action Action Date Dose Rate Site acetaminophen (TYLENOL) tablet Given 06/09/2020 11:30 AM CDT 650 mg 650 mg 650 mg, Oral, Every four hours prn, Starting Mon05/26/20 at 0654, Until Discontinued, mild pain, fever, for pain scale 3 or less or if patient prefers this medication for pain, Adult patients: Total dose of acetaminophen from all acetaminophen containing products should not exceed 4 grams (4000 mg) per day. Pediatric Patients 0 - 3 months: Maximum of 60 mg/kg/24 hours of acetaminophen. Pediatric Patients older than 3 months: Maximum of 75 mg/kg/24 hours of acetaminophen (Never exceeding 4 grams/day). , Given 06/08/2020 3:40 PM CDT 650 mg Given 06/08/2020 8:23 AM CDT 650 mg aspirin chewable tablet 81 mg Given 06/09/2020 8:59 AM CDT 81 mg 81 mg, Oral, Daily, First dose on Mon05/31/20 at 0900, Until Discontinued Given 06/08/2020 8:23 AM CDT 81 mg Given 06/07/2020 8:46 AM CDT 81 mg bisacodyl (DULCOLAX) suppository 10 mg 10 mg, Rectal, One time a day prn, Starting Mon 0 at 0655, Until Discontinued, constipation, Use SECOND for constipatio n. If patient cannot take oral medications, use first for constipation., calcitriol (ROCALTROL) capsule 0.25 mcg Given 06/08/2020 8:33 PM CDT 0.25 mcg 0.25 mcg, Oral, Bedtime, First dose on Mon05/26/20 at 2100, Until Discontinued Given 06/07/2020 8:38 PM CDT 0.25 mcg Given 06/06/2020 8:38 PM CDT 0.25 mcg carVEDilol (COREG) tablet 3.125 mg Given 06/09/2020 8:59 AM CDT 3.125 mg 3.125 mg, Oral, Two times a day with meals, First dose on Mon06/02/20 at 1730, Until Discontinued, Take with food. Hold for SBP <90 or HR <55, Given 06/08/2020 5:44 PM CDT 3.125 mg Given 06/08/2020 8:23 AM CDT 3.125 mg clopidogrel (PLAVIX) tablet 75 mg Given 06/09/2020 8:59 AM CDT 75 mg 75 mg, Oral, Daily, 365 doses, First dose on Mon05/31/20 at 0900, Last dose on Mon05/30/21 at 0900 Given 06/08/2020 8:23 AM CDT 75 mg Given 06/07/2020 8:46 AM CDT 75 mg docusate sodium (THEREVAC-SB MINI;ENEMEE Z MINI) 283 MG enema 1 enema 1 enema, Rectal, One time a day prn, Starting 05/26 at 0655, Until Discontinued, constipation, Use THIRD for constipation - if no BM 8 hours after ducolax suppository. If patient cannot take oral medic ations, use second for constipation., fluticasone-vilanterol (BREO ELLIPTA) 200-25 Given 10:14 AM CDT 1 puff mcg/puff inhaler 1 puff 1 puff, Inhalation, Daily, First dose on Mon05/26/20 at 1025, Until Discontinued, Rinse mouth after use., , Formulary Substitute for Symbicort, Given 06/08/2020 9:45 AM CDT 1 puff Given 06/07/2020 9:53 AM CDT 1 puff gabapentin (NEURONTIN) capsule 100 mg Given 06/08/2020 8:33 PM CDT 100 mg 100 mg, Oral, Bedtime, First dose on Mon05/26/20 at 2100, Until Discontinued Given 06/07/2020 8:38 PM CDT 100 mg Given 06/06/2020 8:38 PM CDT 100 mg hEParin 100 units/ mL injection for Given 06/09/2020 5:24 AM CD T 300 Units heplock FLUSH 300 Units (3 mL), IV, Two times a day and prn, First dose on Mon06/08/20 at 1710, Until Discontinued, 3 mL, Post-Procedure (IR), Flush PICC lumen with 10 mL sodium chloride 0.9% followed by heparin 300 units (100 units/mL) twice daily at 4321-9669 and after each use, HYDROmorphone (DILAUDID) injection solution Given 05/30/2020 2: 32 AM CDT 1 mg (conc: 1 mg/mL) 1 mg 1 mg, IV, Every three hours prn, Starting Mon05/29/20 at 0832, Until Discontinued, breakthrough pain, 1 mL Given 05/29/2020 1:23 PM CDT 1 mg lidocaine 1%-EPINEPHrine 1:200,000 (XYLO GEORGIE-EPINEPHRINE) injection solution 1 mL 1 mL, Subcutaneous, PRN per parameter, Starting 05/30/20 at 1646, Until Discontinued, other (Specify), oozing at groin punctur e site, 30 mL, Contact physician/JOHN prior to injecting. If oozing at groin p uncture site occurs, designated nursing staff may assess and inject. Clean site with Hibiclens sponge. Using aseptic technique, inject 1 mL int o the tissue surrounding the tract of the groin puncture site in a circular fashio n to a max dose of 10 mL. Aspirate prior to each injection., linezolid (ZYVOX) in D5W 300 mL IV piggyback Given 5:30 AM CDT 600 mg 600 mg 600 mg, IV, Every twelve hours, First dose on 06/01/20 at 2230, Until Discontinued, 300 mL, Store at room temperature only., Given 06/08/2020 5:00 PM CDT 600 mg Given 06/08/2020 4:50 AM CDT 600 mg melatonin tablet 3 mg Given 06/05/2020 8:41 PM CDT 3 mg 3 mg, Oral, Bedtime prn, Starting Mon05/26/20 at 0655, Until Discontinued, other (Specify), insomnia, If inadequate response in 60 minutes, may proceed to next choice option or, if no other options, contact provider., Given 06/02/2020 9:50 PM CDT 3 mg Given 05/28/2020 9:52 PM CDT 3 mg mycophenolate (CELLCEPT) capsule 250 mg Given 06/09/2020 8:59 AM CDT 250 mg 250 mg, Oral, Two times a day, First dose on Mon05/26/20 at 0900, Until Discontinued, Important that NO doses of this medication are missed. This medication is a low risk cytotoxic drug. Wear 2 pairs of chemo gloves for administration. If unable to administer dose intact - contact pharmacy for other administration options. Dispose of empty packages in the yellow cytotoxic waste. Dispose of unused or partial packages in the black waste containers., Given 06/08/2020 8:33 PM CDT 250 mg Given 06/08/2020 8:23 AM CDT 250 mg nitroglycerin (NITROSTAT) sublingual tab let 0.4 mg 0.4 mg, Sublingual, Every five minutes prn, Starting S at 05/30/20 at 1603, Until Discontinued, chest pain, At onset of ch est pain, dissolve one tablet under tongue. May repeat every 5 minutes for 3 doses. Do not crush o r chew., ondansetron (ZOFRAN ODT) dispersible tablet 4 Given 5:43 AM CDT 4 mg mg 4 mg, Oral, Every four hours prn, Starting Mon05/26/20 at 0655, Until Discontinued, nausea, vomiting, Use FIRST. If ineffective after 30 minutes use ondansetron IV, Given 06/05/2020 12:53 AM CDT 4 mg Given 06/02/2020 4:56 PM CDT 4 mg ondansetron (ZOFRAN) injection solution 4 mg Given 06/04/2020 6:38 PM CDT 4 mg 4 mg, IV, Every four hours prn, Starting Mon05/26/20 at 0655, Until Discontinued, nausea, vomiting, 2 mL, Use SECOND. If ineffective after 30 minutes and ondansetron ODT used, call physician for alternative. If preference is to further dilute for IV administration: First draw up patient-specific dose, then dilute to 10 mL with 0.9% sodium chloride., Given 06/01/2020 3:47 PM CDT 4 mg Given 06/01/2020 8:39 AM CDT 4 mg oxyCODONE (OXY-IR) tablet 5-10 mg Given 05/30/2020 8:15 PM CDT 5 mg 5-10 mg, Oral, Every six hours prn, Starting Mon05/29/20 at 0831, Until Discontinued, moderate pain, severe pain, 5 mg for moderate pain 10 mg for severe pain, piperacillin-tazobactam (ZOSYN) IV premix Given 2019 10:36 AM CDT 2,250 mg in D-2% 2,250 mg 2,250 mg (2.25 g), IV, Every eight hours, First dose on Mon06/07/20 at 1030, Until Discontinued, 50 mL, Infuse first dose over 30 minutes., Given 06/09/2020 2:16 AM CDT 2,250 mg Given 06/08/2020 6:39 PM CDT 2,250 mg ramipril (ALTACE) capsule 1.25 mg Given 06/09/2020 8:59 AM CDT 1.25 mg 1.25 mg, Oral, Daily, First dose on Mon06/07/20 at 0900, Until Discontinued, Hold for SBP <90, Given 06/08/2020 8:24 AM CDT 1.25 mg Given 06/07/2020 8:46 AM CDT 1.25 mg senna-docusate sodium (SENOKOT-S;PERICOL GAMALIEL) tablet 2 tablet 2 tablet, Oral, Two times a day prn, Starting 05/26 at 0655, Until Discontinued, constipation, Use FIRST fo r constipation unless patient cannot take oral medications., sodium chloride 0.9% flush (adult) 10 mL Given 06/07/2020 8:40 PM CDT 10 mL 10 mL, IV, Two times a day and prn, First dose on Mon05/26/20 at 0900, Until Discontinued, 10 mL, Flush IV line as scheduled and as often as necessary before and after meds., Given 06/07/2020 1:41 AM CDT 10 mL Given 06/05/2020 8:42 PM CDT 10 mL sodium chloride 0.9% flush (adult) 10 mL Given 06/08/2020 8:56 PM CDT 10 mL 10 mL, IV, Two times a day and prn, First dose on Mon05/30/20 at 2100, Until Discontinued, 10 mL, Flush IV line as scheduled and as often as necessary before and after meds., Given 06/08/2020 8:24 AM CDT 10 mL Given 06/07/2020 8:40 PM CDT 10 mL sodium chloride 0.9% prefilled 10 mL syringe Given 5:25 AM CDT 10 mL (Materials Management Item) 10 mL 10 mL, IV, Two times a day and prn, First dose on Mon06/08/20 at 1710, Until Discontinued, 10 mL, Post-Procedure (IR), Flush PICC lumen with 10 mL sodium chloride 0.9% followed by heparin 300 units (100 units/mL) twice daily at 2865-5958 and after each use, Medication Order MAR Action Action Date Dose Rate Site acetaminophen (TYLENOL) tablet Given 05/27/2020 3:46 AM CDT 1,0 00 mg 1,000 mg 1,000 mg, Oral, One time, 1 dose, Mon05/27/20 at 0400, Adult patients: Total dose of acetaminophen from all acetaminophen containing products should not exceed 4 grams (4000 mg) per day. Pediatric Patients 0 - 3 months: Maximum of 60 mg/kg/24 hours of acetaminophen. Pediatric Patients older than 3 months: Maximum of 75 mg/kg/24 hours of acetaminophen (Never exceeding 4 grams/day). , acetic acid 0.25 % irrigation solution Given 05/27/2020 9:02 PM CDT 1,000 mL SOLN Irrigation, Two times a day, First dose on Mon05/27/20 at 2100, Until Discontinued, 1,000 mL, Cleanse R groin wound with Acetic Acid solution. Apply to 2x2 gauze and place into wound. Cover with dry gauze and Medipore tape. Add InterDry to groin fold to manage excess moisture., aspirin chewable tablet 81-324 mg Given 05/26/2020 4:50 PM CDT 81 mg 81-324 mg, Oral, Administer in Cardiac Mid Level Game Designer, 1 dose, Mon05/26/20 at 1650, Give to a total of 325 mg today. Under the direction of the provider in CCL. Do not give on the floor., aspirin enteric coated tablet 81 mg Given 05/27/2020 8:52 AM CDT 81 mg 81 mg, Oral, DAILY, First dose on Mon05/26/20 at 0900, Until Discontinued, Tablet should be swallowed whole and not be divided, crushed or chewed., Given 05/26/2020 9:00 AM CDT 81 mg aspirin tablet 325 mg Given 05/30/2020 11:06 AM CDT 325 mg 325 mg, Oral, One time, 1 dose, 05/30/20 at 1055, Prep Orders (Cath) if inpatient - floor RN to release, Patient to receive 325 mg aspirin prior to procedure If patient currently taking aspirin at home and has not taken their dose today prior to procedure: hold this dose and administer 325 mg, clopidogrel (PLAVIX) tablet 75 mg Given 05/30/2020 11:01 AM CDT 75 mg 75 mg, Oral, DAILY, First dose on Mon05/26/20 at 0900, Until Discontinued Given 05/29/2020 8:47 AM CDT 75 mg Given 05/27/2020 8:52 AM CDT 75 mg darbepoetin (ARANESP) injection solution 40 Given 06/2020 2:10 PM CDT 40 mcg mcg 40 mcg, Subcutaneous, One time, 1 dose, Mon06/03/20 at 1400, 0.4 mL, To be given by the floor RN. Hold for hemoglobin >/=11.5 or SBP > 180. *refrigerated*, fentaNYL (100 mcg/2 mL) preservative free Given 05/27/2020 3:59 PM CDT 50 mcg injection solution 1 dose, Starting Mon05/27/20 at 1520, Until Mon05/27/20 at 1559, HeggenessSarah: cabinet override, fentaNYL 100 mcg/2 mL preservative free Given 05/26/2020 5:36 P M CDT 25 mcg injection solution 25-300 mcg 25-300 mcg, IV, PRN per parameter, Starting Mon05/26/20 at 1728, Until Mon05/27/20 at 1629, other (Specify), sedation for cardiac catheterization, 6 mL, Pre-Procedure (Cath), procedural area to release, For sedation under direction provider privileged to perform sedation. Do not give on the floor., Given 05/26/2020 5:28 PM CDT 25 mcg fentaNYL 100 mcg/2 mL preservative free Given 05/30/2020 3:37 P M CDT 25 mcg injection solution 25-300 mcg 25-300 mcg, IV, PRN per parameter, Starting 05/30/20 at 1050, Until 05/30/20 at 1849, other (Specify), sedation for cardiac catheterization, 6 mL, Pre-Procedure (Cath), procedural area to release, For sedation under direction provider privileged to perform sedation. Do not give on the floor., Given 05/30/2020 3:31 PM CDT 25 mcg Given 05/30/2020 2:31 PM CDT 50 mcg fentaNYL 100 mcg/2 mL preservative free Given 05/29/2020 3:35 A M CDT 50 mcg injection solution 50 mcg 50 mcg, IV, Every two hours prn, Starting Mon05/27/20 at 1629, Until Mon05/29/20 at 0833, severe pain, 1 mL Given 05/28/2020 9:52 PM CDT 50 mcg Given 05/28/2020 10:46 AM CDT 50 mcg furosemide (LASIX) 10 mg/mL injection so lution 1 dose, Starting Mon05/31/20 at 0046, Unt il Mon05/31/20 at 0050, Brady: cabinet override If preference is to further dil atka for IV administration: First draw up patient-specific dose, then dilute to 10 mL with 0.9% sodium chloride. Administer SLOW IV push., furosemide (LASIX) injection solution 20 mg Given 05/31/2020 12:50 AM CDT 20 mg 20 mg, IV, One time, 1 dose, [place] 05/31/20 at 0145, 2 mL, If preference is to further dilute for IV administration: First draw up patient-specific dose, then dilute to 10 mL with 0.9% sodium chloride. Administer SLOW IV push., furosemide (LASIX) injection solution 20 mg Given 06/03/2020 8:57 PM CDT 20 mg 20 mg, IV, Every eight hours, First dose on [place] 05/31/20 at 1200, Until Discontinued, 2 mL, If preference is to further dilute for IV administration: First draw up patient-specific dose, then dilute to 10 mL with 0.9% sodium chloride. Administer SLOW IV push., Given 06/03/2020 10:58 AM CDT 20 mg Given 06/03/2020 4:39 AM CDT 20 mg hEParin (50 units/mL) in D5W New Bag 05/26/2020 2:38 PM 15 Un its/kg/hr 23.2 mL/hr premixed IV solution CDT (STANDARD-weight based) 0-50 Units/kg/hr 77.4 kg (0-77.4 mL/hr), IV, at 0-77.4 mL/hr, Titrate, Starting 05/26/20 at 0835, Until 05/26/20 at 1749, 500 mL, *Factor Xa PRIOR to starting the drip Start initial infusion at 15 units/kg/hr Notify physician if initial infusion exceeds 1,500 units/hr. If heparin Xa less than or equal to 0.19 --- Bolus with 70 units/kg (not to exceed 7,500 units) and increase drip by 4 units/kg/hr If heparin Xa 0.2-0.29 ----- Bolus with 35 units/kg and increase drip by 2 units/kg/hr If heparin Xa 0.3-0.7 ------ no change (therapeutic) If heparin Xa 0.71-0.79 ------ Subtract 1 unit/kg/hr from current rate If heparin Xa 0.8-0.9 ------ Subtract 2 units/kg/hr from current rate If heparin Xa GREATER than 0.9 ------ HOLD drip for 1 hour and subtract 3 units/kg/hr from current rate, hEParin (50 units/mL) in Rate Change 06/01/2020 9:46 AM 14 Units/ kg/hr 24 mL/hr D5W premixed IV solution CDT (STANDARD-weight based) 0-50 Units/kg/hr 85.8 kg (0-85.8 mL/hr), IV, at 0-85.8 mL/hr, Titrate, Starting Mon05/29/20 at 1215, Until Mon06/01/20 at 1021, 500 mL, *Factor Xa PRIOR to starting the drip Start initial infusion at 15 units/kg/hr Notify physician if initial infusion exceeds 1,500 units/hr. If heparin Xa less than or equal to 0.19 --- Bolus with 70 units/kg (not to exceed 7,500 units) and increase drip by 4 units/kg/hr If heparin Xa 0.2-0.29 ----- Bolus with 35 units/kg and increase drip by 2 units/kg/hr If heparin Xa 0.3-0.7 ------ no change (therapeutic) If heparin Xa 0.71-0.79 ------ Subtract 1 unit/kg/hr from current rate If heparin Xa 0.8-0.9 ------ Subtract 2 units/kg/hr from current rate If heparin Xa GREATER than 0.9 ------ HOLD drip for 1 hour and subtract 3 units/kg/hr from current rate, New Bag 05/31/2020 5:01 PM CDT 12 Units/kg/hr 20.6 mL/hr Rate Verify 05/31/2020 2:37 PM CDT 12 Units/kg/hr 20.6 mL/hr heparin (porcine) (5000 units/1 mL) IV Given 0 9:45 AM CDT 3,000 Units dose 3,000 Units 3,000 Units (rounded from 3,003 Units = 35 Units/kg 85.8 kg), IV, PRN per parameter, Starting Mon05/29/20 at 1113, Until Mon06/01/20 at 1021, Anti-XA protocol, other (Specify), heparin Xa parameters, 1 mL, Supplemental bolus doses based on Heparin Xa result: If Heparin Xa less than or = to 0.19 --- Bolus with 70 units/kg and increase infusion by 4 units/kg/hr If Heparin Xa 0.2-0.29 --- Bolus with 35 units/kg and increase infusion by 2 units/kg/hr Round to the nearest 100 units up to a maximum bolus of heparin 7,500 units., heparin (porcine) injection solution Given 05/30/2020 3:50 PM C DT 2,000 Units 0-12,000 Units 0-12,000 Units, IV, Administer in Cardiac Mid Level Game Designer, 1 dose, 05/30/20 at 1515, 12 mL, Under the direction of the provider in CCL. Do not give on the floor., Given 05/30/2020 3:13 PM CDT 8,000 Units heparin (porcine) injection solution Given 05/28/2020 6:56 AM C DT 5,000 Units 5,000 Units 5,000 Units, Subcutaneous, Every eight hours, First dose on Mon05/27/20 at 1400, Until Discontinued, 1 mL Given 05/27/2020 9:02 PM CDT 5,000 Units Given 05/27/2020 2:45 PM CDT 5,000 Units hEParin 100 units/ mL injection for Given 05/31/2020 5:33 PM CD T 300 Units heplock FLUSH 300 Units (3 mL), IV, Two times a day and prn, First dose on Mon05/27/20 at 1700, Until Discontinued, 3 mL, LUMEN #1 - Flush PICC lumen with 10 mL sodium chloride 0.9% followed by heparin 300 units (100 units/mL) twice daily at [id number] and after each use, Given 05/31/2020 4:47 AM CDT 300 Units Given 05/30/2020 4:02 AM CDT 300 Units hEParin 100 units/ mL injection for Given 05/31/2020 4:46 AM CD T 300 Units heplock FLUSH 300 Units (3 mL), IV, Two times a day and prn, First dose on Mon05/27/20 at 1700, Until Discontinued, 3 mL, LUMEN #2 - Flush PICC lumen with 10 mL sodium chloride 0.9% followed by heparin 300 units (100 units/mL) twice daily at [id number] and after each use, Given 05/30/2020 4:01 AM CDT 300 Units hEParin 100 units/ mL injection for Given 05/31/2020 4:46 AM CD T 300 Units heplock FLUSH 300 Units (3 mL), IV, Two times a day and prn, First dose on Mon05/27/20 at 1700, Until Discontinued, 3 mL, LUMEN #3 - Flush PICC lumen with 10 mL sodium chloride 0.9% followed by heparin 300 units (100 units/mL) twice daily at [id number] and after each use, Given 05/30/2020 4:01 AM CDT 300 Units Given 05/29/2020 6:14 AM CDT 300 Units hydrocortisone sodium succinate Given 05/27/2020 2:45 PM CDT 10 0 mg (solu-CORTEF) preservative free injection 100 mg 100 mg, IV, One time, 1 dose, Mon05/27/20 at 1510, 2 mL, If diluent is not supplied (act-o-vial), dilute 100mg vial with 2mL of sterile water or 0.9% sodium chloride for final concentration of 50mg/mL., hydrocortisone sodium succinate (solu-CORTEF) Given 3:01 AM CDT 50 mg preservative free injection 50 mg 50 mg, IV, Every six hours, First dose on Mon05/27/20 at 2100, Until Discontinued, 1 mL, If diluent is not supplied (act-o-vial), dilute 100mg vial with 2mL of sterile water or 0.9% sodium chloride for final concentration of 50mg/mL., Given 05/28/2020 8:58 PM CDT 50 mg Given 05/28/2020 10:38 AM CDT 50 mg hydrocortisone sodium succinate (solu-CORTEF) Given 8:28 PM CDT 50 mg preservative free injection 50 mg 50 mg, IV, Two times a day, 2 doses, First dose on Mon05/29/20 at 0900, Last dose on Mon05/29/20 at 2100, 1 mL, If diluent is not supplied (act-o-vial), dilute 100mg vial with 2mL of sterile water or 0.9% sodium chloride for final concentration of 50mg/mL., Given 05/29/2020 8:47 AM CDT 50 mg HYDROmorphone (DILAUDID) injection solution Given 05/29/2020 5: 45 AM CDT 2 mg (conc: 2 mg/mL) 2 mg 2 mg, IV, One time, 1 dose, Mon05/29/20 at 0625, 1 mL insulin aspart (NovoLOG) SQ CCS correction Given 05/29 4:47 PM CDT 2 Units scale 2-20 Units, Subcutaneous, Every four hours, First dose on Mon05/27/20 at 1700, Until Discontinued, 0.2 mL, LOW DOSE insulin aspart (NovoLOG) subcutaneous correction scale Blood glucose 161 - 180 mg/dL give 2 units Blood glucose 181 - 200 mg/dL give 5 units Blood glucose 201 - 220 mg/dL give 10 units Blood glucose 221 - 250 mg/dL give 15 units Blood glucose greater than 250 mg/dL give 20 units If blood glucose greater than 250 x 2 then call, Given 05/29/2020 5:57 AM CDT 2 Units Abdo dustin Tissue iohexol (OMNIPAQUE) 350 mg/mL solution 0-300 Given 5:57 PM CDT 85 mL mL 0-300 mL, Intra-arterial, One time, 1 dose, 05/26/20 at 1730, 300 mL, Prep Orders (Cath) if inpatient - floor RN to release, Do NOT administer on the floor. Radiology to administer for CCL Procedure ONLY., iohexol (OMNIPAQUE) 350 mg/mL solution 0-300 Given 02/2020 3:58 PM CDT 80 mL mL 0-300 mL, Intra-arterial, One time, 1 dose, 05/30/20 at 1055, 300 mL, Prep Orders (Cath) if inpatient - floor RN to release, Do NOT administer on the floor. Radiology to administer for CCL Procedure ONLY., lactated ringers IV solution Rate Change 05/28/2020 12:43 PM CDT 100 mL/hr IV, at 100 mL/hr, Continuous, Starting Mon05/27/20 at 1710, Until Mon05/29/20 at 1359, 1,000 mL New Bag 05/28/2020 10:49 AM CDT 100 mL/hr New Bag 05/28/2020 3:15 AM CDT 100 mL/hr lidocaine PF (XYLOCAINE-MPF) 1 % preservative Given 3:02 PM CDT 9 mL free injection solution 0-40 mL 0-40 mL, Subcutaneous, Administer in Cardiac Mid Level Game Designer, 1 dose, 05/30/20 at 1435, 40 mL, Given by provider in CCL. Do not give on the floor., lidocaine PF (XYLOCAINE-MPF) 1 % preservative Given 5:31 PM CDT 10 mL free injection solution 2 mL 2 mL, Subcutaneous, One time, 1 dose, 05/26/20 at 1730, 2 mL, Prep Orders (Cath) if inpatient - floor RN to release loratadine (CLARITIN) tablet 10 mg Given 05/27/2020 9:06 PM CDT 10 mg 10 mg, Oral, Now, 1 dose, Mon05/27/20 at 2055 magnesium oxide tablet 500 mg Given 05/29/2020 8:30 PM CDT 500 mg 500 mg, Oral, Two times a day, 6 doses, First dose on Mon05/27/20 at 2100, Last dose on Mon05/30/20 at 0900 Given 05/29/2020 8:47 AM CDT 500 mg Given 05/28/2020 8:57 PM CDT 500 mg magnesium sulfate 2 g/50 mL premixed IV Given 05/28/2020 6:56 A M CDT 2 g solution 2 g, IV, Now, 1 dose, [facility] 05/28/20 at 0610, 50 mL magnesium sulfate 2 g/50 mL premixed IV Given 05/31/2020 8:22 A M CDT 2 g solution 2 g, IV, Now, 1 dose, [place] 05/31/20 at 0735, 50 mL metoprolol tartrate (LOPRESSOR) tablet 2 5 mg Given 05/31/2020 8:22 AM CDT 25 mg 25 mg, Oral, Two times a day, First dose on Mon05/29/20 at 2100, Until Discontinued, Hold for SBP less than 100 Hold for HR less than 55, Given 05/30/2020 8:13 PM CDT 25 mg Given 05/29/2020 8:27 PM CDT 25 mg midazolam (VERSED) injection solution 0.5-10 Given 0 5:28 PM CDT 1 mg mg 0.5-10 mg, IV, PRN per parameter, Starting 05/26/20 at 1728, Until Radha 05/28/20 at 1818, other (Specify), sedation for cardiac catheterization, 10 mL, Pre-Procedure (Cath), procedural area to release, For sedation under direction provider privileged to perform sedation. Do not give on the floor., midazolam (VERSED) injection solution 0.5-10 Given 0 3:02 PM CDT 1 mg mg 0.5-10 mg, IV, PRN per parameter, Starting 05/30/20 at 1050, Until 05/30/20 at 1849, other (Specify), sedation for cardiac catheterization, 10 mL, Pre-Procedure (Cath), procedural area to release, For sedation under direction provider privileged to perform sedation. Do not give on the floor., Given 05/30/2020 2:32 PM CDT 1 mg Given 05/30/2020 2:31 PM CDT 1 mg nitroglycerin (NITROSTAT) sublingual tablet Given 01/2020 5:07 AM CDT 0.4 mg 0.4 mg 0.4 mg, Sublingual, Every five minutes prn, Starting 05/26/20 at 1917, Until 05/30/20 at 1606, chest pain, At onset of chest pain, dissolve one tablet under tongue. May repeat every 5 minutes for 3 doses. Do not crush or chew., Given 05/29/2020 3:37 AM CDT 0.4 mg Given 05/29/2020 12:44 AM CDT 0.4 mg NORepinephrine (LEVOPHED) Rate Change 05/31/2020 12:10 PM 0.02 mcg /kg/min 2.9 mL/hr 8 mg in sodium chloride CDT 0.9% 250 mL (conc: 32 mcg/mL) 0-1 mcg/kg/min 77.6 kg (0-145.5 mL/hr), IV, at 0-145.5 mL/hr, Titrate, Starting 05/27/20 at 1510, Until Tu06/02/20 at 2226, 250 mL, Initiate the infusion at 0.03-0.1 mcg/kg/minute. , , Increase or decrease the infusion by 0.01 to 0.02 mcg/kg/min every minute to keep MAP between 60 to 65. , , When discontinuing or weaning, decrease dose gradually by 0.01 - 0.02 mcg/kg/minute every 5 minutes as tolerated to prevent severe hypotension. , , Document titrations in One Chart (MAR or I&O Flowsheet medication group)., , Central line preferred if available. Acceptable to give peripherally for urgent need and one-time administration. Pursue a central line for continuous use greater than 24 hours., , [facility] [place] transfer to critical care if dose exceeds 0.1 mcg/kg/min., Rate Change 05/31/2020 11:42 AM CDT 0.03 mcg/kg/min 4.4 mL/hr Rate Change 05/31/2020 9:26 AM CDT 0.04 mcg/kg/min 5.8 mL/hr piperacillin-tazobactam (ZOSYN) IV premix Given 2019 7:50 AM CDT 2,250 mg in D-2% 2,250 mg 2,250 mg (2.25 g), IV, Every eight hours, First dose on Mon05/27/20 at 0100, Until Discontinued, 50 mL, Infuse first dose over 30 minutes. Give FIRST., Given 05/30/2020 12:02 AM CDT 2,250 mg Given 05/29/2020 4:35 PM CDT 2,250 mg piperacillin-tazobactam (ZOSYN) IV premix Given 2019 2:47 AM CDT 2,250 mg in D-2% 2,250 mg 2,250 mg (2.25 g), IV, Every eight hours, First dose on Mon06/02/20 at 1700, Until Discontinued, 50 mL, Infuse first dose over 30 minutes., Given 06/04/2020 6:36 PM CDT 2,250 mg Given 06/04/2020 9:55 AM CDT 2,250 mg piperacillin-tazobactam 3375 mg (ZOSYN) in Given 06/02 7:57 AM CDT 3,375 mg D-2% 50 mL IV premix 3,375 mg (3.375 g), IV, Every eight hours, First dose on Mon05/30/20 at 1700, Until Discontinued, 50 mL Given 06/02/2020 1:39 AM CDT 3,375 mg Given 06/01/2020 5:02 PM CDT 3,375 mg piperacillin-tazobactam 3375 mg (ZOSYN) in Given 06/07 1:41 AM CDT 3,375 mg D-2% 50 mL IV premix 3,375 mg (3.375 g), IV, Every eight hours, First dose on Mon06/05/20 at 1030, Until Discontinued, 50 mL, Infuse first dose over 30 minutes., Given 06/06/2020 6:56 PM CDT 3,375 mg Given 06/06/2020 11:54 AM CDT 3,375 mg potassium & sodium phosphates (PHOS-NaK) Given 05/29/2020 8 :28 PM CDT 1 packet 280-160-250 MG packet 1 packet 1 packet, Oral, Three times a day, 9 doses, First dose on Mon05/27/20 at 1040, Last dose on Mon05/29/20 at 2100, Contents of packet should be dissolved in 75 ml water. Stir well and take promptly., Given 05/29/2020 2:47 PM CDT 1 packet Given 05/29/2020 8:47 AM CDT 1 packet potassium chloride (KLOR-CON M20) CR tablet Given 01/2020 5:46 AM CDT 20 mEq 20 mEq 20 mEq, Oral, Now, 1 dose, Mon05/29/20 at 0520, Tablet may be broken in half, but should not be crushed or chewed. Tablet may be dissolved in 4 oz of water. DO NOT give via feeding tube route as this can clog the tube., potassium chloride (KLOR-CON M20) CR tablet Given 03/2020 8:35 AM CDT 40 mEq 40 mEq 40 mEq, Oral, Now, 1 dose, Mon05/31/20 at 0735, Tablet may be broken in half, but should not be crushed or chewed. Tablet may be dissolved in 4 oz of water. DO NOT give via feeding tube route as this can clog the tube., potassium chloride (KLOR-CON M20) CR tablet Given 04/2020 5:32 AM CDT 40 mEq 40 mEq 40 mEq, Oral, Now, 1 dose, 06/01/20 at 0515, Tablet may be broken in half, but should not be crushed or chewed. Tablet may be dissolved in 4 oz of water. DO NOT give via feeding tube route as this can clog the tube., potassium chloride (KLOR-CON M20) CR tablet Given 05/2020 9:19 AM CDT 40 mEq 40 mEq 40 mEq, Oral, One time, 1 dose, 06/02/20 at 0940, Tablet may be broken in half, but should not be crushed or chewed. Tablet may be dissolved in 4 oz of water., potassium chloride (KLOR-CON M20) CR tablet Given 06/2020 2:10 PM CDT 40 mEq 40 mEq 40 mEq, Oral, Every four hours, 2 doses, First dose on Mon06/03/20 at 0900, Last dose on Mon06/03/20 at 1300, Tablet may be broken in half, but should not be crushed or chewed. Tablet may be dissolved in 4 oz of water., Given 06/03/2020 9:10 AM CDT 40 mEq potassium chloride (KLOR-CON M20) CR tablet Given 07/2020 4:48 PM CDT 40 mEq 40 mEq 40 mEq, Oral, One time, 1 dose, [facility] 06/04/20 at 1520, Tablet may be broken in half, but should not be crushed or chewed. Tablet may be dissolved in 4 oz of water., ramipril (ALTACE) capsule 2.5 mg Given 06/06/2020 8:28 AM CDT 2.5 mg 2.5 mg, Oral, Daily, First dose on Mon06/03/20 at 0925, Until Discontinued Given 06/05/2020 10:12 AM CDT 2.5 mg Given 06/03/2020 10:57 AM CDT 2.5 mg sodium chloride 0.9% (bolus) IV Given 05/27/2020 2:39 PM CD T 1,000 mL 999 mL/hr solution 1,000 mL 1,000 mL, IV, at 999 mL/hr, Bolus, 1 dose, 05/27/20 at 1510, 1,000 mL sodium chloride 0.9% (bolus) IV Given 05/27/2020 9:26 AM CDT 50 0 mL 999 mL/hr solution 500 mL 500 mL, IV, at 999 mL/hr, Bolus, 1 dose, Mon05/27/20 at 1030, 500 mL sodium chloride 0.9% (bolus) IV Given 05/27/2020 10:39 AM CDT 50 0 mL 999 mL/hr solution 500 mL 500 mL, IV, at 999 mL/hr, Bolus, 1 dose, Mon05/27/20 at 1140, 500 mL sodium chloride 0.9% (bolus) IV Given 05/27/2020 12:32 PM CDT 50 0 mL 999 mL/hr solution 500 mL 500 mL, IV, at 999 mL/hr, Bolus, 1 dose, Mon05/27/20 at 1325, 500 mL sodium chloride 0.9% flush (adult) 10 mL Given 05/27/2020 8:54 PM CDT 10 mL 10 mL, IV, Two times a day and prn, First dose on Mon05/26/20 at 2100, Until Discontinued, 10 mL, Prep Orders (Cath) if inpatient - floor RN to release, Flush IV line as scheduled and as often as necessary before and after meds., Given 05/27/2020 8:52 AM CDT 10 mL sodium chloride 0.9% flush (adult) 10 mL Given 05/28/2020 8:58 PM CDT 10 mL 10 mL, IV, Two times a day and prn, First dose on Mon05/28/20 at 2100, Until Discontinued, 10 mL, Pre - Op, Flush IV line as scheduled and as often as necessary before and after meds., sodium chloride 0.9% IV solution flush b ag New Bag 05/28/2020 10:15 AM CDT IV, Continuous, Starting Radha 05/28/20 at 1015, Until Mon05/29/20 at 1014, 1,000 mL, IV line carrier for line flush with blood product infusion., sodium chloride 0.9% IV solution flush b ag New Bag 05/29/2020 11:15 AM CDT 500 mL IV, Continuous, Starting Mon05/29/20 at 1155, Until 05/30/20 at 1154, 1,000 mL, IV line carrier for line flush with blood product infusion., sodium chloride 0.9% IV solution New Bag 05/30/2020 10:00 PM C DT 1,000 mL 150 mL/hr flush bag IV, Continuous, Starting 05/30/20 at 2245, Until 05/31/20 at 1126, 1,000 mL, IV line carrier for line flush with blood product infusion., sodium chloride 0.9% IV solution flush b ag New Bag 05/31/2020 8:22 AM CDT 500 mL IV, Continuous, Starting 05/31/20 at 0720, Until 05/31/20 at 1126, 1,000 mL, IV line carrier for line flush with blood product infusion., sodium chloride 0.9% IV solution flush New Bag 06/03/2020 1:0 1 AM CDT 1,000 mL bag IV, Continuous, Starting 06/02/20 at 2245, Until 06/03/20 at 2244, 1,000 mL, IV line carrier for line flush with blood product infusion., sodium chloride 0.9% IV Already Infusing 05/26/2020 7:18 PM CDT 75 mL/hr solution IV, at 75 mL/hr, Continuous, Starting 05/26/20 at 1920, Until 05/26/20 at 2354, 1,000 mL, Prep Orders (Cath) if inpatient - floor RN to release, If this is a TILT procedure, start IV fluid at TKO (10 mL/hr) before transfer to the microbiological laboratory technician, sodium chloride 0.9% IV solution Rate Change 05/27/2020 12:22 AM CDT 150 mL/hr IV, at 150 mL/hr, Continuous, Starting 05/26/20 at 1255, Until 05/27/20 at 1607, 1,000 mL New Bag 05/26/2020 12:55 PM CDT 75 mL/hr sodium chloride 0.9% IV Already Infusing 05/28/2020 6:36 PM CDT 125 mL/hr solution IV, at 125 mL/hr, Continuous, Starting Radha 05/28/20 at 1845, Until Radha 05/28/20 at 2038, 1,000 mL, PACU, TKO current fluids if patient is going to Day Unit / ARU and tolerating PO fluids without nausea., sodium chloride 0.9% IV Already Infusing 05/30/2020 10:55 AM CDT 75 mL/hr solution IV, at 75 mL/hr, Continuous, Starting 05/30/20 at 1055, Until 05/30/20 at 2145, 1,000 mL, Prep Orders (Cath) if inpatient - floor RN to release sodium chloride 0.9% IV solution Rate Change 05/31/2020 12:00 AM CDT 150 mL/hr IV, at 150 mL/hr, Continuous, Starting 05/30/20 at 1705, Until 05/30/20 at 1904, 1,000 mL, Post-Procedure (Cath) New Bag 05/30/2020 5:25 PM CDT 150 mL/hr sodium chloride 0.9% prefilled 10 mL syringe Given 03/2020 5:32 PM CDT 10 mL (Materials Management Item) 10 mL 10 mL, IV, Two times a day and prn, First dose on Mon05/27/20 at 1700, Until Discontinued, 10 mL, LUMEN #1 - Flush PICC lumen with 10 mL sodium chloride 0.9% followed by heparin 300 units (100 units/mL) twice daily at [id number] and after each use, Given 05/31/2020 4:47 AM CDT 10 mL Given 05/30/2020 4:02 AM CDT 10 mL sodium chloride 0.9% prefilled 10 mL syringe Given 03/2020 4:46 AM CDT 10 mL (Materials Management Item) 10 mL 10 mL, IV, Two times a day and prn, First dose on Mon05/27/20 at 1700, Until Discontinued, 10 mL, LUMEN #2 - Flush PICC lumen with 10 mL sodium chloride 0.9% followed by heparin 300 units (100 units/mL) twice daily at [id number] and after each use, Given 05/30/2020 4:02 AM CDT 10 mL sodium chloride 0.9% prefilled 10 mL syringe Given 03/2020 4:46 AM CDT 10 mL (Materials Management Item) 10 mL 10 mL, IV, Two times a day and prn, First dose on Mon05/27/20 at 1700, Until Discontinued, 10 mL, LUMEN #3 - Flush PICC lumen with 10 mL sodium chloride 0.9% followed by heparin 300 units (100 units/mL) twice daily at [id number] and after each use, Given 05/30/2020 4:01 AM CDT 10 mL Given 05/29/2020 6:15 AM CDT 10 mL torsemide (DEMADEX) tablet 10 mg Given 06/05/2020 10:11 AM CDT 10 mg 10 mg, Oral, Two times a day diuretic, First dose on Radha 06/04/20 at 0800, Until Discontinued Given 06/04/2020 4:48 PM CDT 10 mg vancomycin (VANCOCIN) 1,250 mg in sodium Given 05/27/2020 12 :48 AM CDT 1,250 mg chloride 0.9% 250 mL (Locked) 1,250 mg, IV, One time, 1 dose, 05/27/20 at 0100, 250 mL documented in this encounter
[2020-06-17] MEDS: DAPTOmycin 500 MG in Sodium Chloride 0.9% 50 ML IV SCH (17:53)
[2020-06-17] MEDS: Calcitriol 0.25 MCG Cap PO SCH (20:04)
[2020-06-17] MEDS: Gabapentin 100 MG Cap PO SCH (20:09)
[2020-06-18] MEDS: Piperacillin/Tazobactam 2.25 GM in Sodium Chloride 0.9% 50 ML IV SCH ×3 (00:13→16:35)
[2020-06-18] MEDS: Sodium Chloride 0.9% 10 ML Syringe FLUSH PRN ×3 (00:15→16:35)
[2020-06-18] MEDS: VITRON C PO SCH ×2 (08:22→18:23)
[2020-06-18] MEDS: Saccharomyces Boulardii (Probiotic) 250 MG Cap PO SCH ×2 (08:23→21:34)
[2020-06-18] MEDS: Mycophenolate Mofetil 250 MG Cap PO SCH ×2 (08:23→21:33)
[2020-06-18] MEDS: Carvedilol 3.125 MG Tab PO SCH ×2 (08:23→21:40)
[2020-06-18] MEDS: Formoterol/Mometasone 200-5 MCG 8.8 GM Inhaler IH SCH ×2 (08:23→21:34)
[2020-06-18] MEDS: Aspirin 81 MG Tab.EC PO SCH (08:24)
[2020-06-18] MEDS: Lisinopril 5 MG Tab PO SCH (08:24)
[2020-06-18] MEDS: Multivitamin Tab PO SCH (08:24)
[2020-06-18] MEDS: Clopidogrel 75 MG Tab PO SCH (08:25)
[2020-06-18] MEDS: Acetaminophen 325 MG Tab PO PRN (09:23)
[2020-06-18] MEDS: Gabapentin 100 MG Cap PO SCH (21:33)
[2020-06-18] MEDS: Calcitriol 0.25 MCG Cap PO SCH (21:34)
[2020-06-19] MEDS: Piperacillin/Tazobactam 2.25 GM in Sodium Chloride 0.9% 50 ML IV SCH ×4 (00:21→23:51)
[2020-06-19] MEDS: Sodium Chloride 0.9% 10 ML Syringe FLUSH PRN ×6 (00:22→23:53)
[2020-06-19] MEDS: Formoterol/Mometasone 200-5 MCG 8.8 GM Inhaler IH SCH ×2 (08:32→21:08)
[2020-06-19] MEDS: VITRON C PO SCH ×2 (08:32→17:08)
[2020-06-19] MEDS: Clopidogrel 75 MG Tab PO SCH (08:33)
[2020-06-19] MEDS: Saccharomyces Boulardii (Probiotic) 250 MG Cap PO SCH ×2 (08:33→21:09)
[2020-06-19] MEDS: Lisinopril 5 MG Tab PO SCH (08:33)
[2020-06-19] MEDS: Aspirin 81 MG Tab.EC PO SCH (08:33)
[2020-06-19] MEDS: Carvedilol 3.125 MG Tab PO SCH ×2 (08:33→21:08)
[2020-06-19] MEDS: Multivitamin Tab PO SCH (08:33)
[2020-06-19] MEDS: Mycophenolate Mofetil 250 MG Cap PO SCH ×2 (08:33→21:07)
[2020-06-19] MEDS: DAPTOmycin 500 MG in Sodium Chloride 0.9% 50 ML IV SCH (17:07)
[2020-06-19] MEDS: Calcitriol 0.25 MCG Cap PO SCH (21:07)
[2020-06-19] MEDS: Gabapentin 100 MG Cap PO SCH (21:12)
[2020-06-20] MEDS: Piperacillin/Tazobactam 2.25 GM in Sodium Chloride 0.9% 50 ML IV SCH ×3 (08:33→23:55)
[2020-06-20] MEDS: VITRON C PO SCH ×2 (08:33→18:32)
[2020-06-20] MEDS: Formoterol/Mometasone 200-5 MCG 8.8 GM Inhaler IH SCH ×2 (08:35→20:13)
[2020-06-20] MEDS: Aspirin 81 MG Tab.EC PO SCH (08:36)
[2020-06-20] MEDS: Carvedilol 3.125 MG Tab PO SCH ×2 (08:37→20:13)
[2020-06-20] MEDS: Mycophenolate Mofetil 250 MG Cap PO SCH ×2 (08:37→20:14)
[2020-06-20] MEDS: Saccharomyces Boulardii (Probiotic) 250 MG Cap PO SCH ×2 (08:37→20:14)
[2020-06-20] MEDS: Sodium Chloride 0.9% 10 ML Syringe FLUSH PRN ×4 (08:38→23:57)
[2020-06-20] MEDS: Lisinopril 5 MG Tab PO SCH (08:38)
[2020-06-20] MEDS: Clopidogrel 75 MG Tab PO SCH (08:38)
[2020-06-20] MEDS: Multivitamin Tab PO SCH (08:38)
[2020-06-20] MEDS: Acetaminophen 325 MG Tab PO PRN (20:08)
[2020-06-20] MEDS: Gabapentin 100 MG Cap PO SCH (20:08)
[2020-06-20] MEDS: Calcitriol 0.25 MCG Cap PO SCH (20:15)
[2020-06-21] MEDS: VITRON C PO SCH ×2 (08:15→17:30)
[2020-06-21] MEDS: Piperacillin/Tazobactam 2.25 GM in Sodium Chloride 0.9% 50 ML IV SCH ×3 (08:15→23:52)
[2020-06-21] MEDS: Sodium Chloride 0.9% 10 ML Syringe FLUSH PRN ×5 (08:15→23:54)
[2020-06-21] MEDS: Formoterol/Mometasone 200-5 MCG 8.8 GM Inhaler IH SCH ×2 (08:16→21:30)
[2020-06-21] MEDS: Carvedilol 3.125 MG Tab PO SCH ×2 (08:16→21:33)
[2020-06-21] MEDS: Mycophenolate Mofetil 250 MG Cap PO SCH ×2 (08:16→21:33)
[2020-06-21] MEDS: Clopidogrel 75 MG Tab PO SCH (08:17)
[2020-06-21] MEDS: Lisinopril 5 MG Tab PO SCH (08:17)
[2020-06-21] MEDS: Saccharomyces Boulardii (Probiotic) 250 MG Cap PO SCH ×2 (08:17→21:33)
[2020-06-21] MEDS: Aspirin 81 MG Tab.EC PO SCH (08:17)
[2020-06-21] MEDS: Multivitamin Tab PO SCH (08:18)
[2020-06-21] MEDS: DAPTOmycin 500 MG in Sodium Chloride 0.9% 50 ML IV SCH (16:59)
[2020-06-21] MEDS: Gabapentin 100 MG Cap PO SCH (21:30)
[2020-06-21] MEDS: Acetaminophen 325 MG Tab PO PRN (21:30)
[2020-06-21] MEDS: Calcitriol 0.25 MCG Cap PO SCH (21:33)
[2020-06-22] MEDS: Sodium Chloride 0.9% 10 ML Syringe FLUSH PRN ×5 (05:51→17:30)
[2020-06-22] MEDS: VITRON C PO SCH ×2 (08:18→17:30)
[2020-06-22] MEDS: Piperacillin/Tazobactam 2.25 GM in Sodium Chloride 0.9% 50 ML IV SCH ×2 (08:18→17:01)
[2020-06-22] MEDS: Mycophenolate Mofetil 250 MG Cap PO SCH ×2 (08:19→20:55)
[2020-06-22] MEDS: Lisinopril 5 MG Tab PO SCH (08:19)
[2020-06-22] MEDS: Carvedilol 3.125 MG Tab PO SCH ×2 (08:21→21:03)
[2020-06-22] MEDS: Aspirin 81 MG Tab.EC PO SCH (08:21)
[2020-06-22] MEDS: Saccharomyces Boulardii (Probiotic) 250 MG Cap PO SCH ×2 (08:22→20:55)
[2020-06-22] MEDS: Clopidogrel 75 MG Tab PO SCH (08:22)
[2020-06-22] MEDS: Formoterol/Mometasone 200-5 MCG 8.8 GM Inhaler IH SCH ×2 (08:22→20:55)
[2020-06-22] MEDS: Multivitamin Tab PO SCH (08:22)
--- NOTE | 2020-06-22 14:59 | PCM.PN ---
- General Info Date of Service: 06/22/20 Admission Dx/Problem (Free Text): Patient says she feels good. Her pain is much improved and her brain and she can lift her right leg now. She doesn't appointment with plastic surgery for possible tunneling of the wound. She denies fevers or chills. - Patient Data Vitals - Most Recent: Last Vital Signs Temp 98.4 F 06/22/20 08:19 Pulse 61 06/22/20 08:21 Resp 18 06/22/20 08:19 BP 132/74 06/22/20 08:21 Pulse Ox 98 06/22/20 08:19 Weight - Most Recent: 175 lb I&O - Last 24 Hours: Intake & Output 06/21/20 06/22/20 06/22/20 22:59 06:59 14:59 Intake Total 100 40 50 Output Total 30 20 Balance 70 20 50 Lab Results Last 24 Hours: Laboratory Results - last 24 hr 06/22/20 06/22/20 06/22/20 Range/Units 06:00 06:00 06:00 WBC 7.3 (4.5-12.0) X10-3/uL RBC 3.21 L (3.23-5.20) x10(6)uL Hgb 9.4 L (11.5-15.5) g/dL Hct 29.0 L (30.0-51.3) % MCV 90.6 (80-96) fL MCH 29.3 (27.7-33.6) pg MCHC 32.3 (32.2-35.4) g/dL RDW 15.9 H (11.5-15.5) % Plt Count 225 (125-369) X10(3)uL MPV 8.5 (7.4-10.4) fL Neut % (Auto) 55.9 (46-82) % Lymph % (Auto) 23.6 (13-37) % Rab[place] % (Auto) 13.0 H (4-12) % Eos % (Auto) 6 H (1.0-5.0) % Baso % (Auto) 1 (0-2) % Neut # (Auto) 4.1 (1.6-8.3) # Lymph # (Auto) 1.7 (0.6-5.0) # Rabun # (Auto) 0.9 (0.0-1.3) # Eos # (Auto) 0.5 (0.0-0.8) # Baso # (Auto) 0.1 (0.0-0.2) # Creatinine 1.8 H (0.55-1.02) mg/dL Est Cr Clr Drug Dosing 19.70 mL/min Estimated GFR (MDRD) 28 L (>60) Creatine Kinase 21 L (60-160) IU/L C-Reactive Protein 4.1 H* (0.5-0.9) mg/dL Med Orders - Current: Current Medications Acetaminophen (Tylenol) 650 mg PO Q6H PRN PRN Reason: Pain Last Admin: 06/21/20 21:30 Dose: 650 mg Documented by: Albuterol (Ventolin Hfa) 0 gm INH Q4H PRN PRN Reason: Wheezing Aspirin (Halfprin) 81 mg PO DAILY [facility] Last Admin: 06/22/20 08:21 Dose: 81 mg Documented by: Calcitriol (Rocaltrol) 0.25 mcg PO BEDTIME [facility] Last Admin: 06/21/20 21:33 Dose: 0.25 mcg Documented by: Carvedilol (Coreg) 3.125 mg PO BID [facility] Last Admin: 06/22/20 08:21 Dose: 3.125 mg Documented by: Clopidogrel Bisulfate (Plavix) 75 mg PO DAILY [facility] Last Admin: 06/22/20 08:22 Dose: 75 mg Documented by: Fluticasone Propionate (Flonase) 0 gm NASBOTH BID PRN PRN Reason: ALLERGIES Gabapentin (Neurontin) 100 mg PO BEDTIME [facility] Last Admin: 06/21/20 21:30 Dose: 100 mg Documented by: Heparin Sodium (Porcine) (Heparin Lock Flush 100 Units/Ml) 300 units IVPUSH ASDIRECTED PRN PRN Reason: FLUSH Last Admin: 06/22/20 05:52 Dose: 300 units Documented by: Heparin Sodium (Porcine) (Heparin Lock Flush 100 Units/Ml) 300 units FLUSH TID@0100,0900,1730 [facility] Last Admin: 06/22/20 08:22 Dose: 300 units Documented by: Piperacillin Sod/Tazobactam (Sod 2.25 gm/ Sodium Chloride) 50 mls @ 100 mls/hr IV Q8H [facility] Stop: 07/09/20 23:59 Last Admin: 06/22/20 08:18 Dose: 100 mls/hr Documented by: Daptomycin 500 mg/ Sodium (Chloride) 50 mls @ 100 mls/hr IV Q48H [facility] Stop: 07/09/20 23:59 Last Admin: 06/21/20 16:59 Dose: 100 mls/hr Documented by: Sodium Chloride (Normal Saline) 250 mls @ 100 mls/hr IV ASDIRECTED [facility] Last Admin: 06/17/20 00:33 Dose: 100 mls/hr Documented by: Lisinopril (Prinivil) 5 mg PO DAILY [facility] Last Admin: 06/22/20 08:19 Dose: 5 mg Documented by: Mometasone Furoate/Formoterol Fumar (Dulera 200-5 Mcg) 2 puff IH BID [facility] Last Admin: 06/22/20 08:22 Dose: 2 puff Documented by: Multivitamins/Minerals/Vitamin C (Tab-A-Lakeshia) 1 tab PO DAILY [facility] Last Admin: 06/22/20 08:22 Dose: 1 tab Documented by: Mycophenolate Mofetil (Cellcept) 250 mg PO BID [facility] Last Admin: 06/22/20 08:19 Dose: 250 mg Documented by: Nitroglycerin (Nitrostat) 0.4 mg SL Q5M PRN PRN Reason: Chest Pain Vitron-C *Ptom* 1 each PO BIDMEALS [facility] Last Admin: 06/22/20 08:18 Dose: 1 each Documented by: Saccharomyces Boulardii (Florastor) 250 mg PO BID [facility] Last Admin: 06/22/20 08:22 Dose: 250 mg Documented by: Senna/Docusate Sodium (Senna Plus) 1 tab PO BID [facility] Last Admin: 06/22/20 08:22 Dose: 1 tab Documented by: Sodium Chloride (Saline Flush) 10 ml FLUSH ASDIRECTED PRN PRN Reason: FLUSH Last Admin: 06/22/20 09:00 Dose: 10 ml Documented by: Discontinued Medications Ascorbic Acid (Vitamin C) 500 mg PO BIDMEALS [facility] Last Admin: 06/16/20 08:38 Dose: 500 mg Documented by: Ferrous Sulfate (Ferrous Sulfate) 325 mg PO BIDMEALS [facility] Last Admin: 06/16/20 08:37 Dose: 325 mg Documented by: Fluticasone Propionate (Flonase) 0 gm NASBOTH BID [facility] Last Admin: 06/10/20 09:25 Dose: Not Given Documented by: Furosemide (Lasix) 40 mg IVPUSH DAILY [facility] Stop: 06/15/20 09:01 Last Admin: 06/15/20 10:03 Dose: 40 mg Documented by: Heparin Sodium (Porcine) (Heparin Lock Flush 100 Units/Ml) 300 units FLUSH Q8H [facility] Last Admin: 06/11/20 11:04 Dose: 300 units Documented by: Piperacillin Sod/Tazobactam (Sod 2.25 gm/ Sodium Chloride) 50 mls @ 100 mls/hr IV Q8H [facility] Last Admin: 06/11/20 11:00 Dose: 100 mls/hr Documented by: Daptomycin 500 mg/ Sodium (Chloride) 50 mls @ 100 mls/hr IV Q48H [facility] Last Admin: 06/09/20 18:10 Dose: 100 mls/hr Documented by: - Exam General: Alert, Oriented Lungs: Clear to Auscultation, Normal Respiratory Effort Cardiovascular: Regular Rate, Regular Rhythm Skin: Other (Wound and not visualized secondary to her being seen by the plastic surgeon today.) Sepsis Event Note - Evaluation Sepsis Screening Result: No Definite Risk - Focused Exam Vital Signs: Vital Signs Temp Pulse Pulse Resp BP BP Pulse Ox 06/22/20 08:21 61 132/74 06/22/20 08:19 98.4 F 61 18 132/74 132/74 98 Date Exam was Performed: 06/22/20 Time Exam was Performed: 14:58 - Problem List & Annotations (1) Encounter for wound care of surgical pin site SNOMED Code(s): 215366698, 403654478, 625711960 Code(s): Z51.89 - ENCOUNTER FOR OTHER SPECIFIED AFTERCARE Status: Acute Current Visit: Yes (2) Iron deficiency anemia SNOMED Code(s): 19896199 Code(s): D50.9 - IRON DEFICIENCY ANEMIA, UNSPECIFIED Status: Acute Current Visit: Yes Annotation/Comment:: Improved after 1 unit of PRBC yesterday, Hgb 10.3. Daughter will bring in Vitron-C for her to take as the Iron with separate Vitamin C is bothering her stomach. She is on senna-s bid for constipation, will adjust if needed with addition of iron. Labs again on Monday. (3) Weakness SNOMED Code(s): 64407762 Code(s): R53.1 - WEAKNESS Status: Acute Current Visit: Yes (4) Shortness of breath SNOMED Code(s): 678791471 Code(s): R06.02 - SHORTNESS OF BREATH Status: Resolved Current Visit: Yes Annotation/Comment:: Improved (5) Hypertension SNOMED Code(s): 70640955 Code(s): I10 - ESSENTIAL (PRIMARY) HYPERTENSION Status: Chronic Current Visit: No Qualifiers: - Problem List Review Problem List Initiated/Reviewed/Updated: Yes - Plan Plan:: 1. Point with plastic surgery today. Continue IV antibiotics.
[2020-06-22] MEDS: Gabapentin 100 MG Cap PO SCH (20:54)
[2020-06-22] MEDS: Calcitriol 0.25 MCG Cap PO SCH (20:55)
[2020-06-23] MEDS: Piperacillin/Tazobactam 2.25 GM in Sodium Chloride 0.9% 50 ML IV SCH ×3 (00:22→16:30)
[2020-06-23] MEDS: Sodium Chloride 0.9% 10 ML Syringe FLUSH PRN ×5 (00:24→17:49)
[2020-06-23] MEDS: VITRON C PO SCH ×2 (08:20→17:20)
[2020-06-23] MEDS: Carvedilol 3.125 MG Tab PO SCH ×2 (08:22→20:19)
[2020-06-23] MEDS: Formoterol/Mometasone 200-5 MCG 8.8 GM Inhaler IH SCH ×2 (08:23→20:18)
[2020-06-23] MEDS: Saccharomyces Boulardii (Probiotic) 250 MG Cap PO SCH ×2 (08:23→20:18)
[2020-06-23] MEDS: Lisinopril 5 MG Tab PO SCH (08:24)
[2020-06-23] MEDS: Aspirin 81 MG Tab.EC PO SCH (08:24)
[2020-06-23] MEDS: Multivitamin Tab PO SCH (08:25)
[2020-06-23] MEDS: Mycophenolate Mofetil 250 MG Cap PO SCH ×2 (08:26→20:18)
[2020-06-23] MEDS: Clopidogrel 75 MG Tab PO SCH (08:30)
[2020-06-23] MEDS: DAPTOmycin 500 MG in Sodium Chloride 0.9% 50 ML IV SCH (17:17)
[2020-06-23] MEDS: Calcitriol 0.25 MCG Cap PO SCH (20:18)
[2020-06-23] MEDS: Gabapentin 100 MG Cap PO SCH (20:18)
[2020-06-24] MEDS: Piperacillin/Tazobactam 2.25 GM in Sodium Chloride 0.9% 50 ML IV SCH ×3 (01:09→16:20)
[2020-06-24] MEDS: Sodium Chloride 0.9% 10 ML Syringe FLUSH PRN ×5 (01:10→16:57)
[2020-06-24] MEDS: VITRON C PO SCH ×2 (08:45→17:48)
[2020-06-24] MEDS: Formoterol/Mometasone 200-5 MCG 8.8 GM Inhaler IH SCH ×2 (08:51→20:39)
[2020-06-24] MEDS: Saccharomyces Boulardii (Probiotic) 250 MG Cap PO SCH ×2 (08:52→20:37)
[2020-06-24] MEDS: Multivitamin Tab PO SCH (08:52)
[2020-06-24] MEDS: Mycophenolate Mofetil 250 MG Cap PO SCH ×2 (08:52→20:35)
[2020-06-24] MEDS: Aspirin 81 MG Tab.EC PO SCH (08:52)
[2020-06-24] MEDS: Carvedilol 3.125 MG Tab PO SCH ×2 (12:04→20:36)
[2020-06-24] MEDS: Lisinopril 5 MG Tab PO SCH (12:04)
[2020-06-24] MEDS: Calcitriol 0.25 MCG Cap PO SCH (20:38)
[2020-06-24] MEDS: Gabapentin 100 MG Cap PO SCH (20:38)
[2020-06-25] MEDS: Piperacillin/Tazobactam 2.25 GM in Sodium Chloride 0.9% 50 ML IV SCH ×4 (00:22→23:46)
[2020-06-25] MEDS: Sodium Chloride 0.9% 10 ML Syringe FLUSH PRN ×5 (00:55→17:40)
[2020-06-25] MEDS: VITRON C PO SCH ×2 (08:15→17:44)
[2020-06-25] MEDS: Mycophenolate Mofetil 250 MG Cap PO SCH (08:26)
[2020-06-25] MEDS: Carvedilol 3.125 MG Tab PO SCH ×2 (08:26→20:36)
[2020-06-25] MEDS: Formoterol/Mometasone 200-5 MCG 8.8 GM Inhaler IH SCH ×2 (08:27→20:36)
[2020-06-25] MEDS: Saccharomyces Boulardii (Probiotic) 250 MG Cap PO SCH ×2 (08:28→20:37)
[2020-06-25] MEDS: Multivitamin Tab PO SCH (08:29)
[2020-06-25] MEDS: Lisinopril 5 MG Tab PO SCH (08:29)
[2020-06-25] MEDS: Aspirin 81 MG Tab.EC PO SCH (08:38)
[2020-06-25] MEDS: DAPTOmycin 500 MG in Sodium Chloride 0.9% 50 ML IV SCH (17:10)
[2020-06-25] MEDS: Calcitriol 0.25 MCG Cap PO SCH (20:36)
[2020-06-25] MEDS: Gabapentin 100 MG Cap PO SCH (20:40)
[2020-06-26] MEDS: Sodium Chloride 0.9% 10 ML Syringe FLUSH PRN ×5 (00:25→17:07)
[2020-06-26] MEDS: Acetaminophen 325 MG Tab PO PRN (06:49)
[2020-06-26] MEDS: Piperacillin/Tazobactam 2.25 GM in Sodium Chloride 0.9% 50 ML IV SCH ×3 (07:46→23:49)
[2020-06-26] MEDS: VITRON C PO SCH ×2 (08:29→18:22)
[2020-06-26] MEDS: Carvedilol 3.125 MG Tab PO SCH ×2 (08:32→21:13)
[2020-06-26] MEDS: Saccharomyces Boulardii (Probiotic) 250 MG Cap PO SCH ×2 (08:32→21:12)
[2020-06-26] MEDS: Lisinopril 5 MG Tab PO SCH (08:32)
[2020-06-26] MEDS: Formoterol/Mometasone 200-5 MCG 8.8 GM Inhaler IH SCH ×2 (08:32→21:13)
[2020-06-26] MEDS: Multivitamin Tab PO SCH (08:33)
[2020-06-26] MEDS: Gabapentin 100 MG Cap PO SCH (21:13)
[2020-06-26] MEDS: Calcitriol 0.25 MCG Cap PO SCH (21:13)
[2020-06-27] MEDS: Sodium Chloride 0.9% 10 ML Syringe FLUSH PRN ×6 (00:25→17:54)
[2020-06-27] MEDS: Piperacillin/Tazobactam 2.25 GM in Sodium Chloride 0.9% 50 ML IV SCH ×2 (08:01→16:44)
[2020-06-27] MEDS: VITRON C PO SCH ×2 (08:04→17:54)
[2020-06-27] MEDS: Saccharomyces Boulardii (Probiotic) 250 MG Cap PO SCH (08:09)
[2020-06-27] MEDS: Multivitamin Tab PO SCH (08:09)
[2020-06-27] MEDS: Formoterol/Mometasone 200-5 MCG 8.8 GM Inhaler IH SCH ×2 (08:09→21:11)
[2020-06-27] MEDS: Carvedilol 3.125 MG Tab PO SCH ×2 (08:13→21:10)
[2020-06-27] MEDS: Lisinopril 5 MG Tab PO SCH (08:13)
[2020-06-27] MEDS: DAPTOmycin 500 MG in Sodium Chloride 0.9% 50 ML IV SCH (17:24)
[2020-06-27] MEDS: Gabapentin 100 MG Cap PO SCH (21:10)
[2020-06-27] MEDS: Calcitriol 0.25 MCG Cap PO SCH (21:10)
[2020-06-28] MEDS: Piperacillin/Tazobactam 2.25 GM in Sodium Chloride 0.9% 50 ML IV SCH ×3 (00:12→15:59)
[2020-06-28] MEDS: Sodium Chloride 0.9% 10 ML Syringe FLUSH PRN ×4 (00:51→15:59)
[2020-06-28] MEDS: VITRON C PO SCH ×2 (08:38→17:59)
[2020-06-28] MEDS: Multivitamin Tab PO SCH (08:39)
[2020-06-28] MEDS: Formoterol/Mometasone 200-5 MCG 8.8 GM Inhaler IH SCH ×2 (08:39→21:33)
[2020-06-28] MEDS: Lisinopril 5 MG Tab PO SCH (08:44)
[2020-06-28] MEDS: Carvedilol 3.125 MG Tab PO SCH ×2 (08:44→21:33)
[2020-06-28] MEDS ORDERED: Saccharomyces Boulardii (Probiotic) 250 MG Cap PO SCH (09:00)
[2020-06-28] MEDS: Acetaminophen 325 MG Tab PO PRN (14:37)
--- NOTE | 2020-06-28 15:04 | PCM.PN ---
- General Info Date of Service: 06/28/20 Subjective Update: Patricia having more diarrhea stools, over 4 loose stools in 24 hrs, C. diff was negative. Stool culture pending. No fevers, chills, shortness of breath, chest pain. Right groin site is healing, had 20 cc out her DAE drain overnight. Finds out tomorrow when her surgery is, tentatively for , had to be off her aspirin, and CellCept for 7 days. No nausea or vomiting. Stopped Senna-S and Florastor, she does drink milk at every meal and orange juice, fruits, more than she normally does at home. She's never been diagnosed with Lactose intolerance. Functional Status: Reports: Pain Controlled, Tolerating Diet, Ambulating, Urinating - Patient Data Vitals - Most Recent: Last Vital Signs Temp 79.6 F L 06/28/20 08:00 Pulse 67 06/28/20 08:44 Resp 16 06/28/20 08:00 BP 116/66 06/28/20 08:44 Pulse Ox 100 06/28/20 08:00 Weight - Most Recent: 176 lb 6 oz I&O - Last 24 Hours: Intake & Output 06/27/20 06/28/20 06/28/20 22:59 06:59 14:59 Intake Total 100 50 51 Output Total 20 3 Balance 80 47 51 Scott Results Last 24 Hours: Microbiology 06/27/20 19:14 C. difficile Antigen & Toxins A,B - Final Stool / Feces Med Orders - Current: Current Medications Acetaminophen (Tylenol) 650 mg PO Q6H PRN PRN Reason: Pain Last Admin: 06/28/20 14:37 Dose: 650 mg Documented by: Albuterol (Ventolin Hfa) 0 gm INH Q4H PRN PRN Reason: Wheezing Aspirin (Halfprin) 81 mg PO DAILY [facility] Last Admin: 06/25/20 08:38 Dose: Not Given Documented by: Calcitriol (Rocaltrol) 0.25 mcg PO BEDTIME [facility] Last Admin: 06/27/20 21:10 Dose: 0.25 mcg Documented by: Carvedilol (Coreg) 3.125 mg PO BID [facility] Last Admin: 06/28/20 08:44 Dose: 3.125 mg Documented by: Fluticasone Propionate (Flonase) 0 gm NASBOTH BID PRN PRN Reason: ALLERGIES Gabapentin (Neurontin) 100 mg PO BEDTIME [facility] Last Admin: 06/27/20 21:10 Dose: 100 mg Documented by: Heparin Sodium (Porcine) (Heparin Lock Flush 100 Units/Ml) 300 units IVPUSH ASDIRECTED PRN PRN Reason: FLUSH Last Admin: 06/22/20 05:52 Dose: 300 units Documented by: Heparin Sodium (Porcine) (Heparin Lock Flush 100 Units/Ml) 300 units FLUSH TID@0100,0900,1730 [facility] Last Admin: 06/28/20 09:21 Dose: 300 units Documented by: Piperacillin Sod/Tazobactam (Sod 2.25 gm/ Sodium Chloride) 50 mls @ 100 mls/hr IV Q8H [facility] Stop: 07/09/20 23:59 Last Admin: 06/28/20 08:38 Dose: 100 mls/hr Documented by: Daptomycin 500 mg/ Sodium (Chloride) 50 mls @ 100 mls/hr IV Q48H [facility] Stop: 07/09/20 23:59 Last Admin: 06/27/20 17:24 Dose: 100 mls/hr Documented by: Sodium Chloride (Normal Saline) 250 mls @ 100 mls/hr IV ASDIRECTED [facility] Last Admin: 06/17/20 00:33 Dose: 100 mls/hr Documented by: Lisinopril (Prinivil) 5 mg PO DAILY [facility] Last Admin: 06/28/20 08:44 Dose: 5 mg Documented by: Mometasone Furoate/Formoterol Fumar (Dulera 200-5 Mcg) 2 puff IH BID [facility] Last Admin: 06/28/20 08:39 Dose: 2 puff Documented by: Multivitamins/Minerals/Vitamin C (Tab-A-Lakeshia) 1 tab PO DAILY [facility] Last Admin: 06/28/20 08:39 Dose: 1 tab Documented by: Mycophenolate Mofetil (Cellcept) 250 mg PO BID [facility] Last Admin: 06/25/20 08:26 Dose: 250 mg Documented by: Nitroglycerin (Nitrostat) 0.4 mg SL Q5M PRN PRN Reason: Chest Pain Vitron-C *Ptom* 1 each PO BIDMEALS [facility] Last Admin: 06/28/20 08:38 Dose: 1 each Documented by: Saccharomyces Boulardii (Florastor) 250 mg PO DAILY [facility] Last Admin: 06/28/20 08:39 Dose: 250 mg Documented by: Sodium Chloride (Saline Flush) 10 ml FLUSH ASDIRECTED PRN PRN Reason: FLUSH Last Admin: 06/28/20 09:20 Dose: 10 ml Documented by: Discontinued Medications Ascorbic Acid (Vitamin C) 500 mg PO BIDMEALS [facility] Last Admin: 06/16/20 08:38 Dose: 500 mg Documented by: Clopidogrel Bisulfate (Plavix) 75 mg PO DAILY [facility] Last Admin: 06/23/20 08:30 Dose: 75 mg Documented by: Ferrous Sulfate (Ferrous Sulfate) 325 mg PO BIDMEALS [facility] Last Admin: 06/16/20 08:37 Dose: 325 mg Documented by: Fluticasone Propionate (Flonase) 0 gm NASBOTH BID [facility] Last Admin: 06/10/20 09:25 Dose: Not Given Documented by: Furosemide (Lasix) 40 mg IVPUSH DAILY [facility] Stop: 06/15/20 09:01 Last Admin: 06/15/20 10:03 Dose: 40 mg Documented by: Heparin Sodium (Porcine) (Heparin Lock Flush 100 Units/Ml) 300 units FLUSH Q8H [facility] Last Admin: 06/11/20 11:04 Dose: 300 units Documented by: Piperacillin Sod/Tazobactam (Sod 2.25 gm/ Sodium Chloride) 50 mls @ 100 mls/hr IV Q8H [facility] Last Admin: 06/11/20 11:00 Dose: 100 mls/hr Documented by: Daptomycin 500 mg/ Sodium (Chloride) 50 mls @ 100 mls/hr IV Q48H [facility] Last Admin: 06/09/20 18:10 Dose: 100 mls/hr Documented by: Saccharomyces Boulardii (Florastor) 250 mg PO BID [facility] Last Admin: 06/27/20 08:09 Dose: 250 mg Documented by: Senna/Docusate Sodium (Senna Plus) 1 tab PO BID [facility] Last Admin: 06/27/20 08:06 Dose: Not Given Documented by: - Exam General: Alert, Oriented, Cooperative, No Acute Distress Lungs: Clear to Auscultation, Normal Respiratory Effort Cardiovascular: Regular Rate, Regular Rhythm GI/Abdominal Exam: Normal Bowel Sounds, Soft, Non-Tender, No Distention Peripheral Pulses: 2+: Radial (L), Radial (R) Wound/Incisions: Healing Well (3 cm x 5.5 cm, no tracts, serous drainage with packing removed. Good granulation bed, some slough tissue from 5-8 o'clock position. Incision on lateral side is healed, sutures in place, skin starting to grow over them. Some redness where tape was but nursing stated this was improved.) Sepsis Event Note - Evaluation Sepsis Screening Result: No Definite Risk - Focused Exam Vital Signs: Vital Signs Temp Pulse Pulse Resp BP BP Pulse Ox 06/28/20 08:44 67 116/66 06/28/20 08:00 79.6 F L 67 16 116/66 100 Date Exam was Performed: 06/28/20 Time Exam was Performed: 14:55 - Problem List & Annotations (1) Diarrhea SNOMED Code(s): 98486244 Code(s): R19.7 - DIARRHEA, UNSPECIFIED Status: Acute Current Visit: No Qualifiers: Diarrhea type: unspecified type Qualified Code(s): R19.7 - Diarrhea, unspecified (2) Iron deficiency anemia SNOMED Code(s): 79872589 Code(s): D50.9 - IRON DEFICIENCY ANEMIA, UNSPECIFIED Status: Acute Current Visit: Yes (3) Bacteremia associated with intravascular line SNOMED Code(s): 553364661 Code(s): T82.7XXA - INFECT/INFLM REACT D/T OTH CARDI/VASC DEV/IMPLNT/GRFT, INIT; R78.81 - BACTEREMIA Status: Acute Current Visit: Yes (4) CHF (congestive heart failure) SNOMED Code(s): 63738505 Code(s): I50.9 - HEART FAILURE, UNSPECIFIED Status: Chronic Current Visit: No (5) MDD (major depressive disorder) SNOMED Code(s): 252388292 Code(s): F32.9 - MAJOR DEPRESSIVE DISORDER, SINGLE EPISODE, UNSPECIFIED Status: Chronic Current Visit: No (6) Non-STEMI (non-ST elevated myocardial infarction) SNOMED Code(s): 52426719 Code(s): I21.4 - NON-ST ELEVATION (NSTEMI) MYOCARDIAL INFARCTION Status: Acute Current Visit: No (7) Peripheral arterial disease SNOMED Code(s): 699751502 Code(s): I73.9 - PERIPHERAL VASCULAR DISEASE, UNSPECIFIED Status: Chronic Current Visit: No (8) CAD (coronary artery disease) SNOMED Code(s): 52856463 Code(s): I25.10 - ATHSCL HEART DISEASE OF [place] CORONARY ARTERY W/O ANG PCTRS Status: Chronic Current Visit: No Qualifiers: (9) Hypertension SNOMED Code(s): 42730297 Code(s): I10 - ESSENTIAL (PRIMARY) HYPERTENSION Status: Chronic Current Visit: No Qualifiers: (10) Peripheral edema SNOMED Code(s): 750742446 Code(s): R60.9 - EDEMA, UNSPECIFIED Status: Resolved Current Visit: Yes Annotation/Comment:: improved (11) Shortness of breath SNOMED Code(s): 369830672 Code(s): R06.02 - SHORTNESS OF BREATH Status: Resolved Current Visit: Yes Annotation/Comment:: Improved - Problem List Review Problem List Initiated/Reviewed/Updated: Yes - My Orders Last 24 Hours: My Active Orders 06/27/20 19:14 STOOL CULTURE Routine 06/28/20 09:00 Saccharomyces Boulardii [Florastor] 250 mg PO DAILY - Plan Plan:: 1. C. Diff negative, stool culture pending. Discontinued Senna-S and Florastor. She will stop her milk at lunch and dinner and hold off on the orange juice, she'll adjust her diet as needed. Continue to monitor. 2. Wound is healing nicely, will find out tomorrow if she will be having surgery on , if it is same day or discharged and stay up there over the weekend and return back next week.
[2020-06-28] MEDS: Gabapentin 100 MG Cap PO SCH (21:33)
[2020-06-28] MEDS: Calcitriol 0.25 MCG Cap PO SCH (21:33)
[2020-06-29] MEDS: Sodium Chloride 0.9% 10 ML Syringe FLUSH PRN ×7 (00:40→23:41)
[2020-06-29] MEDS: Piperacillin/Tazobactam 2.25 GM in Sodium Chloride 0.9% 50 ML IV SCH ×5 (08:35→23:39)
[2020-06-29] MEDS: VITRON C PO SCH ×2 (08:35→17:41)
[2020-06-29] MEDS: Formoterol/Mometasone 200-5 MCG 8.8 GM Inhaler IH SCH ×2 (08:36→20:44)
[2020-06-29] MEDS: Lisinopril 5 MG Tab PO SCH (08:37)
[2020-06-29] MEDS: Carvedilol 3.125 MG Tab PO SCH ×2 (08:39→20:47)
[2020-06-29] MEDS: Multivitamin Tab PO SCH (08:44)
[2020-06-29] MEDS: DAPTOmycin 500 MG in Sodium Chloride 0.9% 50 ML IV SCH (17:14)
[2020-06-29] MEDS: Calcitriol 0.25 MCG Cap PO SCH (20:45)
[2020-06-29] MEDS: Gabapentin 100 MG Cap PO SCH (20:45)
[2020-06-30] MEDS: VITRON C PO SCH ×2 (08:23→18:00)
[2020-06-30] MEDS: Lisinopril 5 MG Tab PO SCH (08:23)
[2020-06-30] MEDS: Carvedilol 3.125 MG Tab PO SCH ×2 (08:23→20:47)
[2020-06-30] MEDS: Piperacillin/Tazobactam 2.25 GM in Sodium Chloride 0.9% 50 ML IV SCH ×3 (08:23→23:56)
[2020-06-30] MEDS: Sodium Chloride 0.9% 10 ML Syringe FLUSH PRN ×4 (08:24→18:43)
[2020-06-30] MEDS: Multivitamin Tab PO SCH (08:24)
[2020-06-30] MEDS: Formoterol/Mometasone 200-5 MCG 8.8 GM Inhaler IH SCH ×2 (08:24→20:48)
[2020-06-30] MEDS ORDERED: Enoxaparin 80 MG/0.8 ML Syringe SUBCUT SCH (12:30)
[2020-06-30] MEDS ORDERED: Enoxaparin 40 MG/0.4 ML Syringe SUBCUT ONE (13:30)
[2020-06-30] MEDS ORDERED: amLODIPine 10 MG Tab PO STA (18:51)
[2020-06-30] MEDS: Calcitriol 0.25 MCG Cap PO SCH (20:47)
[2020-06-30] MEDS: Gabapentin 100 MG Cap PO SCH (20:47)
[2020-06-30] MEDS: Sulfamethoxazole/Trimethoprim 400-80 MG Tab PO SCH (22:12)
[2020-07-01] MEDS: Sodium Chloride 0.9% 10 ML Syringe FLUSH PRN ×4 (00:31→17:09)
[2020-07-01 08:12] VITALS: BP 121/44; PULSE 63
[2020-07-01] MEDS: Piperacillin/Tazobactam 2.25 GM in Sodium Chloride 0.9% 50 ML IV SCH ×2 (08:33→16:29)
[2020-07-01] MEDS: VITRON C PO SCH ×2 (08:40→19:23)
[2020-07-01] MEDS: Carvedilol 3.125 MG Tab PO SCH (08:41)
[2020-07-01] MEDS: Formoterol/Mometasone 200-5 MCG 8.8 GM Inhaler IH SCH (08:42)
[2020-07-01] MEDS: Lisinopril 5 MG Tab PO SCH (08:43)
[2020-07-01] MEDS: Multivitamin Tab PO SCH (08:44)
[2020-07-01] MEDS: Sulfamethoxazole/Trimethoprim 400-80 MG Tab PO SCH (08:50)
[2020-07-01] MEDS ORDERED: Enoxaparin 40 MG/0.4 ML Syringe SUBCUT ONE (10:00)
[2020-07-01] MEDS ORDERED: Potassium Chloride 20 MEQ Tab.ER PO ONE (11:30)
--- NOTE | 2020-07-01 14:30 | PCM.DCSUM1 ---
Discharge Summary - Hospital Course HPI Initial Comments: Ms Muniz is a 74 yo female with a rt groin wound infection, after femoral exploration, patching on 05/28. It progressed to polymicrobial bacteremia. She is admitted here for rehab,and IV antibiotics. She had initially present ed to [facility] in [place] with a NSTEMI. Her past history includes AAA, Lupus, CKD, iron deficiency. Diagnosis: Stroke: No - Discharge Data Discharge Date: 07/01/20 ([facility]) Discharge Disposition: DC/Tfer to Acute Hospital 02 Condition: Stable - Referral to Home Health Primary Care Physician: Horace Santo MD - Discharge Diagnosis/Problem(s) (1) Bacteremia associated with intravascular line SNOMED Code(s): 331638580 ICD Code: T82.7XXA - INFECT/INFLM REACT D/T OTH CARDI/VASC DEV/IMPLNT/GRFT, INIT; R78.81 - BACTEREMIA Status: Acute Current Visit: Yes (2) CHF (congestive heart failure) SNOMED Code(s): 13185267 ICD Code: I50.9 - HEART FAILURE, UNSPECIFIED Status: Chronic Current Visit: No (3) Iron deficiency anemia SNOMED Code(s): 08919136 ICD Code: D50.9 - IRON DEFICIENCY ANEMIA, UNSPECIFIED Status: Acute Current Visit: Yes Problem Details: stable, transfused on 06.15.20, 1 unit PRBC. Vitron-C bid. (4) MDD (major depressive disorder) SNOMED Code(s): 019849756 ICD Code: F32.9 - MAJOR DEPRESSIVE DISORDER, SINGLE EPISODE, UNSPECIFIED Status: Chronic Current Visit: No (5) Non-STEMI (non-ST elevated myocardial infarction) SNOMED Code(s): 41123421 ICD Code: I21.4 - NON-ST ELEVATION (NSTEMI) MYOCARDIAL INFARCTION Status: Acute Current Visit: No (6) Peripheral arterial disease SNOMED Code(s): 426381012 ICD Code: I73.9 - PERIPHERAL VASCULAR DISEASE, UNSPECIFIED Status: Chronic Current Visit: No (7) CAD (coronary artery disease) SNOMED Code(s): 91051990 ICD Code: I25.10 - ATHSCL HEART DISEASE OF [place] CORONARY ARTERY W/O ANG PCTRS Status: Chronic Current Visit: No Qualifiers: (8) Hypertension SNOMED Code(s): 91598272 ICD Code: I10 - ESSENTIAL (PRIMARY) HYPERTENSION Status: Chronic Current Visit: No Qualifiers: (9) Peripheral edema SNOMED Code(s): 708293571 ICD Code: R60.9 - EDEMA, UNSPECIFIED Status: Resolved Current Visit: Yes Problem Details: improved (10) Shortness of breath SNOMED Code(s): 834782506 ICD Code: R06.02 - SHORTNESS OF BREATH Status: Resolved Current Visit: Yes Problem Details: Improved (11) Diarrhea SNOMED Code(s): 96818281 ICD Code: R19.7 - DIARRHEA, UNSPECIFIED Status: Resolved Current Visit: No Problem Details: Improving with diet change and discontinuing Senna and Probiotics. Qualifiers: Diarrhea type: unspecified type Qualified Code(s): R19.7 - Diarrhea, unspecified - Patient Summary/Data Consults: Consultations 06/09/20 13:49 OT Evaluation and Treatment [CONS] Routine Please Evaluate and Treat. OT Reason for Consult: ADL's This query below is only for informational purposes and is not editable. Admission Diagnosis/Problem: Wound PT Evaluation and Treatment [CONS] Routine Please Evaluate and Treat. PT Reason for Consult: Strengthening This query below is only for informational purposes and is not editable. Admission Diagnosis/Problem: Wound Hospital Course: Patricia admitted for IV Zosyn and Cubicin for bacteremia secondary to infected angiogram site in right groin on 06/09. Had episode of peripheral edema and shortness of breath on , given Lasix IV, symptoms resolved. Labs done weekly on Monday, Hgb came back at 7.7 on 06/15, transfused 1 unit of PRBC, came up to 10.3. History of Iron deficiency but had not been taking anything, restarted her Vitron-C(Iron/Vitamin C combination) that her stomach tolerates. Hgb have been stable since. CRP did go up to 4.9 on 06/29 but WBC is normal. Cr is 1.7, was 2.0 on admission. Due to go up to [place] for surgery 07/02, received orders for Lovenox 3 doses prior to surgery for bridging, had ASA, Plavix and Cellcept discontinued 06/23, 06/24(aspirin). 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 COVID screen on 06/30 was negative. Was initially constipated on admission, restarted her Senna and Florastor, started having diarrhea so Senna was held, did not improve; Florastor was held and C Diff & stool culture ordered. C-diff was negative and stool culture was not collected. Senna & Florastor discontinued. Discussed her diet with Patricia, she has been drinking more milk and eat oatmeal every day which she normally does not do at home, since making the dietary changes, her stools have firmed up and were formed this morning per patient. Had episode of acute confusion on 06/30 after getting up from nap, had her pants and brief off, didn't know when she was going to [place], which was unusual for her as she has been talking about it most of the morning of 06/30, episode lasted about 20 minutes, UA and BMP was done, started on Bactrim while awaiting culture results. Urine culture has no growth at 20 hours, Bactrim discontinued. She was at her normal cognition morning of discharge and throughout the day. Dr Silva's office was notified of the episode and also clarification of the Lovenox dosing as they had initially stated they wanted her to have day of surgery; Sharona with Dr Silva's office had called back and Dr Silva would like patient to come up today to be admitted to Hospitalist service and get clearance for surgery. She will get her dose of Cubicin prior to discharge as she is due this afternoon. She will go up by private vehicle with her daughter. - Patient Instructions Diet: Regular Diet as Tolerated Activity: As Tolerated Other/Special Instructions: Discharge to [place] for tentative surgery tomorrow 07/02. - Discharge Plan *PRESCRIPTION DRUG MONITORING PROGRAM REVIEWED*: No *COPY OF PRESCRIPTION DRUG MONITORING REPORT IN PATIENT VALERI: No Home Medications: Home Meds Albuterol [Ventolin HFA] 2 puff INH Q4H PRN 11/01/18 [History] Budesonide/Formoterol Fumarate [Symbicort 160-4.5 Mcg Inhaler] 2 puff IH BID 11/01/18 [History] calcitrioL [Rocaltrol] 0.25 mcg PO BEDTIME 11/01/18 [History] Nitroglycerin 0.4 mg SL Q5M PRN 01/18/19 [History] Acetaminophen 650 mg PO Q6H PRN 06/09/20 [History] Fluticasone Propionate [Flonase] 1 spray NASBOTH BID 06/09/20 [History] Gabapentin [Neurontin] 100 mg PO BEDTIME 06/09/20 [History] Multivitamin 1 tab PO DAILY 06/09/20 [History] carvediloL [Carvedilol] 3.125 mg PO BID 06/09/20 [History] ramipriL [Ramipril] 1.25 mg PO DAILY 06/09/20 [History] DAPTOmycin [Cubicin] 500 mg IV Q48H vial 06/30/20 [Rx] Heparin Sodium [Heparin Lock Flush] 300 units FLUSH TID@0100,0900,1730 syringe 06/30/20 [Rx] Heparin Sodium [Heparin Lock Flush] 300 units IVPUSH ASDIRECTED PRN syringe 06/30/20 [Rx] Piperacillin/Tazobactam [Zosyn] 2.25 gm IV Q8H vial 06/30/20 [Rx] DAPTOmycin [Cubicin] 500 mg IV Q48H vial 07/01/20 [Rx] Iron,Carbonyl/Ascorbic Acid [Vitron-C Tablet] 1 each PO BIDMEALS 07/01/20 [History] Oxygen Therapy Mode: Room Air Patient Handouts: Central Line, Adult, [id number], Fall Prevention in Hospitals, Adult, Venous Thromboembolism Prevention - Discharge Summary/Plan Comment DC Time >30 min.: Yes - General Info Date of Service: 07/01/20 Subjective Update: Patricia had period of confusion last night after she woke up from nap, had her pants and brief off as they had gotten wet, lasted about 20 minutes. No focal neuro deficits noted. UA, BMP ordered; small leukocyte esterase present but negative nitrites; was started on Bactrim. Also Cr was 1.7 and Potassium 3.3. This morning she is at her baseline, alert, oriented, knows she is to go to surgery tomorrow, daughter is due to pick her up. Her stool today is more formed after cutting out milk at every meal, and not eating oatmeal every morning, as well as limiting her juice. - Patient Data Vitals - Most Recent: Last Vital Signs Temp 98.0 F 07/01/20 07:55 Pulse 63 07/01/20 08:41 Resp 18 07/01/20 07:55 BP 121/44 L 07/01/20 08:43 Pulse Ox 93 L 07/01/20 07:55 Weight - Most Recent: 176 lb 6 oz I&O - Last 24 hours: Intake & Output 06/30/20 07/01/20 07/01/20 22:59 06:59 14:59 Intake Total 50 42 50 Output Total 5 3 Balance 45 39 50 Lab Results - Last 24 hrs: Laboratory Results - last 24 hr 06/30/20 06/30/20 06/30/20 Range/Units 14:30 18:20 18:47 WBC 9.5 (4.5-12.0) X10-3/uL RBC 3.48 (3.23-5.20) x10(6)uL Hgb 10.5 L (11.5-15.5) g/dL Hct 31.6 (30.0-51.3) % MCV 90.7 (80-96) fL MCH 30.1 (27.7-33.6) pg MCHC 33.2 (32.2-35.4) g/dL RDW 15.8 H (11.5-15.5) % Plt Count 222 (125-369) X10(3)uL MPV 8.5 (7.4-10.4) fL Neut % (Auto) 65.7 (46-82) % Lymph % (Auto) 18.2 (13-37) % [place] % (Auto) 12.4 H (4-12) % Eos % (Auto) 3 (1.0-5.0) % Baso % (Auto) 1 (0-2) % Neut # (Auto) 6.3 (1.6-8.3) # Lymph # (Auto) 1.7 (0.6-5.0) # [place] # (Auto) 1.2 (0.0-1.3) # Eos # (Auto) 0.3 (0.0-0.8) # Baso # (Auto) 0.0 (0.0-0.2) # Sodium (135-145) mmol/L Potassium (3.5-5.3) mmol/L Chloride (100-110) mmol/L Carbon Dioxide (21-32) mmol/L BUN (7-18) mg/dL Creatinine (0.55-1.02) mg/dL Est Cr Clr Drug Dosing mL/min Estimated GFR (MDRD) (>60) BUN/Creatinine Ratio (9-20) Glucose (80-116) mg/dL Calcium (8.6-10.2) mg/dL Urine Color Yellow (YELLOW) Urine Appearance Slightly cloudy (CLEAR) Urine pH 6.0 (5.0-6.5) Ur Specific [place] 1.010 (1.010-1.025) Urine Protein 500 H (NEGATIVE) mg/dL Urine Glucose (UA) Normal (NORMAL) mg/dL Urine Ketones Negative (NEGATIVE) mg/dL Urine Occult Blood Trace (NEGATIVE) Urine Nitrite Negative (NEGATIVE) Urine Bilirubin Negative (NEGATIVE) Urine Urobilinogen Normal (NEGATIVE) mg/dL Ur Leukocyte Esterase Small H (NEGATIVE) SARS Virus RNA (PCR) Negative (NEGATIVE) 06/30/20 Range/Units 18:47 WBC (4.5-12.0) X10-3/uL RBC (3.23-5.20) x10(6)uL Hgb (11.5-15.5) g/dL Hct (30.0-51.3) % MCV (80-96) fL MCH (27.7-33.6) pg MCHC (32.2-35.4) g/dL RDW (11.5-15.5) % Plt Count (125-369) X10(3)uL MPV (7.4-10.4) fL Neut % (Auto) (46-82) % Lymph % (Auto) (13-37) % [place] % (Auto) (4-12) % Eos % (Auto) (1.0-5.0) % Baso % (Auto) (0-2) % Neut # (Auto) (1.6-8.3) # Lymph # (Auto) (0.6-5.0) # [place] # (Auto) (0.0-1.3) # Eos # (Auto) (0.0-0.8) # Baso # (Auto) (0.0-0.2) # Sodium 137 (135-145) mmol/L Potassium 3.3 L (3.5-5.3) mmol/L Chloride 102 (100-110) mmol/L Carbon Dioxide 26 (21-32) mmol/L BUN 18 D (7-18) mg/dL Creatinine 1.7 H (0.55-1.02) mg/dL Est Cr Clr Drug Dosing 20.85 mL/min Estimated GFR (MDRD) 29 L (>60) BUN/Creatinine Ratio 10.6 (9-20) Glucose 101 (80-116) mg/dL Calcium 9.7 (8.6-10.2) mg/dL Urine Color (YELLOW) Urine Appearance (CLEAR) Urine pH (5.0-6.5) Ur Specific [place] (1.010-1.025) Urine Protein (NEGATIVE) mg/dL Urine Glucose (UA) (NORMAL) mg/dL Urine Ketones (NEGATIVE) mg/dL Urine Occult Blood (NEGATIVE) Urine Nitrite (NEGATIVE) Urine Bilirubin (NEGATIVE) Urine Urobilinogen (NEGATIVE) mg/dL Ur Leukocyte Esterase (NEGATIVE) SARS Virus RNA (PCR) (NEGATIVE) Med Orders - Current: Current Medications Acetaminophen (Tylenol) 650 mg PO Q6H PRN PRN Reason: Pain Last Admin: 06/28/20 14:37 Dose: 650 mg Documented by: Albuterol (Ventolin Hfa) 0 gm INH Q4H PRN PRN Reason: Wheezing Calcitriol (Rocaltrol) 0.25 mcg PO BEDTIME [facility] Last Admin: 06/30/20 20:47 Dose: 0.25 mcg Documented by: Carvedilol (Coreg) 3.125 mg PO BID [facility] Last Admin: 07/01/20 08:41 Dose: 3.125 mg Documented by: Enoxaparin Sodium (Lovenox) 40 mg SUBCUT ONETIME ONE Stop: 07/02/20 08:01 Fluticasone Propionate (Flonase) 0 gm NASBOTH BID PRN PRN Reason: ALLERGIES Gabapentin (Neurontin) 100 mg PO BEDTIME [facility] Last Admin: 06/30/20 20:47 Dose: 100 mg Documented by: Heparin Sodium (Porcine) (Heparin Lock Flush 100 Units/Ml) 300 units IVPUSH ASDIRECTED PRN PRN Reason: FLUSH Last Admin: 06/30/20 18:43 Dose: 300 units Documented by: Heparin Sodium (Porcine) (Heparin Lock Flush 100 Units/Ml) 300 units FLUSH TID@0100,0900,1730 [facility] Last Admin: 07/01/20 09:12 Dose: 300 units Documented by: Piperacillin Sod/Tazobactam (Sod 2.25 gm/ Sodium Chloride) 50 mls @ 100 mls/hr IV Q8H [facility] Stop: 07/09/20 23:59 Last Admin: 07/01/20 08:33 Dose: 100 mls/hr Documented by: Sodium Chloride (Normal Saline) 250 mls @ 100 mls/hr IV ASDIRECTED [facility] Last Admin: 06/17/20 00:33 Dose: 100 mls/hr Documented by: Daptomycin 500 mg/ Sodium (Chloride) 50 mls @ 100 mls/hr IV Q48H [facility] Lisinopril (Prinivil) 5 mg PO DAILY [facility] Last Admin: 07/01/20 08:43 Dose: 5 mg Documented by: Mometasone Furoate/Formoterol Fumar (Dulera 200-5 Mcg) 2 puff IH BID [facility] Last Admin: 07/01/20 08:42 Dose: 2 puff Documented by: Multivitamins/Minerals/Vitamin C (Tab-A-Lakeshia) 1 tab PO DAILY [facility] Last Admin: 07/01/20 08:44 Dose: 1 tab Documented by: Nitroglycerin (Nitrostat) 0.4 mg SL Q5M PRN PRN Reason: Chest Pain Vitron-C *Ptom* 1 each PO BIDMEALS [facility] Last Admin: 07/01/20 08:40 Dose: 1 each Documented by: Sodium Chloride (Saline Flush) 10 ml FLUSH ASDIRECTED PRN PRN Reason: FLUSH Last Admin: 07/01/20 09:12 Dose: 10 ml Documented by: Trimethoprim/Sulfamethoxazole (Septra) 1 tab PO BID [facility] Stop: 07/03/20 09:01 Last Admin: 07/01/20 08:50 Dose: 1 tab Documented by: Discontinued Medications Amlodipine Besylate (Norvasc) 10 mg PO STAT [facility] Stop: 06/30/20 18:52 Last Admin: 06/30/20 18:58 Dose: 10 mg Documented by: Ascorbic Acid (Vitamin C) 500 mg PO BIDMEALS [facility] Last Admin: 06/16/20 08:38 Dose: 500 mg Documented by: Aspirin (Halfprin) 81 mg PO DAILY [facility] Last Admin: 06/25/20 08:38 Dose: Not Given Documented by: Clopidogrel Bisulfate (Plavix) 75 mg PO DAILY [facility] Last Admin: 06/23/20 08:30 Dose: 75 mg Documented by: Enoxaparin Sodium (Lovenox) 80 mg SUBCUT Q12H [facility] Stop: 07/03/20 00:31 Last Admin: 06/30/20 14:58 Dose: Not Given Documented by: Enoxaparin Sodium (Lovenox) 40 mg SUBCUT ONETIME ONE Stop: 06/30/20 13:31 Last Admin: 06/30/20 14:57 Dose: 40 mg Documented by: Enoxaparin Sodium (Lovenox) 40 mg SUBCUT ONETIME ONE Stop: 07/01/20 10:01 Last Admin: 07/01/20 09:13 Dose: 40 mg Documented by: Ferrous Sulfate (Ferrous Sulfate) 325 mg PO BIDMEALS [facility] Last Admin: 06/16/20 08:37 Dose: 325 mg Documented by: Fluticasone Propionate (Flonase) 0 gm NASBOTH BID [facility] Last Admin: 06/10/20 09:25 Dose: Not Given Documented by: Furosemide (Lasix) 40 mg IVPUSH DAILY [facility] Stop: 06/15/20 09:01 Last Admin: 06/15/20 10:03 Dose: 40 mg Documented by: Heparin Sodium (Porcine) (Heparin Lock Flush 100 Units/Ml) 300 units FLUSH Q8H [facility] Last Admin: 06/11/20 11:04 Dose: 300 units Documented by: Piperacillin Sod/Tazobactam (Sod 2.25 gm/ Sodium Chloride) 50 mls @ 100 mls/hr IV Q8H [facility] Last Admin: 06/11/20 11:00 Dose: 100 mls/hr Documented by: Daptomycin 500 mg/ Sodium (Chloride) 50 mls @ 100 mls/hr IV Q48H [facility] Last Admin: 06/09/20 18:10 Dose: 100 mls/hr Documented by: Daptomycin 500 mg/ Sodium (Chloride) 50 mls @ 100 mls/hr IV Q48H [facility] Stop: 07/09/20 23:59 Last Admin: 06/29/20 17:14 Dose: 100 mls/hr Documented by: Mycophenolate Mofetil (Cellcept) 250 mg PO BID [facility] Last Admin: 06/25/20 08:26 Dose: 250 mg Documented by: Potassium Chloride (Klor-Con M20) 20 meq PO ONETIME ONE Stop: 07/01/20 11:31 Last Admin: 07/01/20 13:48 Dose: 20 meq Documented by: Saccharomyces Boulardii (Florastor) 250 mg PO BID [facility] Last Admin: 06/27/20 08:09 Dose: 250 mg Documented by: Saccharomyces Boulardii (Florastor) 250 mg PO DAILY [facility] Last Admin: 06/28/20 08:39 Dose: 250 mg Documented by: Senna/Docusate Sodium (Senna Plus) 1 tab PO BID [facility] Last Admin: 06/27/20 08:06 Dose: Not Given Documented by: - Exam General: Reports: Alert, Oriented, Cooperative, No Acute Distress Lungs: Reports: Clear to Auscultation, Normal Respiratory Effort, Crackles (fine bibasilar, stable.). Denies: Wheezing Cardiovascular: Reports: Regular Rate, Regular Rhythm GI/Abdominal Exam: Normal Bowel Sounds, Soft, Non-Tender, No Distention Extremities: No Pedal Edema Wound/Incisions: Reports: Dressing Dry and Intact (right groin) Neurological: Reports: No New Focal Deficit Psy/Mental Status: Reports: Alert, Normal Affect, Normal Mood
[2020-07-01] MEDS ORDERED: DAPTOmycin 500 MG in Sodium Chloride 0.9% 50 ML IV SCH (15:30)
[2020-07-02] MEDS ORDERED: Enoxaparin 40 MG/0.4 ML Syringe SUBCUT ONE (08:00)
== END 2020-07-01 18:05 | DRG 315 ==
LOC: FB.MS 13:20
PROVIDERS: ADMIT Family Medicine; ATTEND Family Medicine
PROC: 0JDL3ZZ Extraction of Right Upper Leg Subcutaneous Tissue and Fascia, Percutaneous Approach (ICD-10-PCS; principal; 2020-06-12)
PROC: 30233N1 Transfusion of Nonautologous Red Blood Cells into Peripheral Vein, Percutaneous Approach (ICD-10-PCS; 2020-06-15)
DX: T82.7XXA Infection and inflammatory reaction due to other cardiac and vascular devices, implants and grafts, initial encounter (principal); I13.0 Hypertensive heart and chronic kidney disease with heart failure and stage 1 through stage 4 chronic kidney disease, or unspecified chronic kidney disease; N18.4 Chronic kidney disease, stage 4 (severe); I50.9 Heart failure, unspecified; F32.9 Major depressive disorder, single episode, unspecified; Z11.59 Encounter for screening for other viral diseases; I73.9 Peripheral vascular disease, unspecified; I25.10 Atherosclerotic heart disease of native coronary artery without angina pectoris; R19.7 Diarrhea, unspecified; J44.9 Chronic obstructive pulmonary disease, unspecified; G47.30 Sleep apnea, unspecified; F41.9 Anxiety disorder, unspecified; M19.90 Unspecified osteoarthritis, unspecified site; M54.9 Dorsalgia, unspecified; G89.29 Other chronic pain; M32.9 Systemic lupus erythematosus, unspecified; R53.1 Weakness; E78.00 Pure hypercholesterolemia, unspecified; M81.0 Age-related osteoporosis without current pathological fracture; Z87.891 Personal history of nicotine dependence; I25.2 Old myocardial infarction; Z79.82 Long term (current) use of aspirin; Z79.01 Long term (current) use of anticoagulants; Z79.899 Other long term (current) drug therapy; Z98.49 Cataract extraction status, unspecified eye
CPT/HCPCS: 36415; 36430; 71046; 80048; 81003; 82550; 82565; 85014; 85018; 85025; 86140; 86850; 86900; 86901; 86920; 86922; 87045; 87046; 87086; 87230; 87427; 97110-GO; 97110-GP; 97112-GP; 97116-GP; 97161-GP; 97165-GO; 97530-GO; 97535-GO; A9270-GY; J0878; J1642; J1650; J1940; J2543; J7050; P9016; U0002